=== PATIENT | female | born 1935 | race Caucasian/White ===

== ENCOUNTER → 2016-08-24 | Outpatient (CLI) | payer MEDICARE ==
--- NOTE | 2016-08-25 13:07 | XR ---
EXAMINATION TYPE: XR chest 2V DATE OF EXAM: 08/24/2016 COMPARISON: Prior chest x-ray 08/12/2015 HISTORY: Cough TECHNIQUE: Frontal and lateral views of the chest are obtained. FINDINGS: There is no focal air space opacity, pleural effusion, or pneumothorax seen. The cardiac silhouette size is stable. There is a mild spinal curvature. Prominent lung volumes are again noted suggestive of COPD. There is bronchial wall thickening. The osseous structures are intact. IMPRESSION: Correlate for reactive airways disease, bronchitis. Follow-up as indicated.
== END | disposition home or self-care (01) ==
LOC: RADXRYALE 08:37
PROVIDERS: ATTEND Internal Medicine
DX: R05 Cough (principal)
CPT/HCPCS: 71020

== ENCOUNTER → 2016-09-01 | Outpatient (CLI) | payer MEDICARE ==
[2016-09-01 19:00] LABS: Blood Urea Nitrogen 18 mg/dL (7-17); Non-African American GFR(MDRD) >60 (>60 ml/min/1.73 sqM)
--- NOTE | 2016-09-01 20:31 | CT ---
EXAMINATION TYPE: CT chest w con DATE OF EXAM: 09/01/2016 COMPARISON: 05/23/2013 HISTORY: Cough and chest congestion x [address] DLP: 520.00 mGycm Automated exposure control for dose reduction was used. CONTRAST: CT scan of the chest is performed with IV Contrast, patient injected with 100 mL of Omnipaque 300. FINDINGS: There is minimal reticular density at the lung apices consistent with scarring. There are tiny reticu lar nodular densities in both lungs. There is a 1.5 cm nodular density adjacent to the pleura at the right posterior lung base. There is no pleural effusion. There is no adrenal mass. There are no hilar masses. There is no mediastinal adenopathy. There is mild atheromatous change in t he thoracic aorta. There is no evidence of aortic aneurysm or dissection. There are mild spondylotic changes in the thoracic spine. There is no compression fracture. There is a small hiatal hernia.. IMPRESSION: Mild pulmonary fibrotic changes. Small hiatal hernia. Mild atherosclerotic vascular dise ase. There is a new 1.5 cm irregular nodular density adjacent to the pleura at the right posterior lung ba se compared to old CT scan. The appearance is nonspecific. I would consider possibilities of focal at electasis, pneumonia, tumor. Follow-up is recommended.
== END | disposition home or self-care (01) ==
LOC: RADCTMAIN 18:26
PROVIDERS: ATTEND Internal Medicine
DX: J84.10 Pulmonary fibrosis, unspecified (principal); I70.90 Unspecified atherosclerosis; R91.8 Other nonspecific abnormal finding of lung field
CPT/HCPCS: 82565; 84520; 71260; 36415; Q9967

== ENCOUNTER 2017-06-29 06:53 | Observation (INO) | payer MEDICARE ==
[2017-06-29] MEDS ORDERED: DIPH,PERTUS(ACELL)TETVAC-LF 0.5 ML VIAL IM ONE (07:18)
--- NOTE | 2017-06-29 07:20 | ED ---
General Adult HPI - General Chief complaint: Fall Stated complaint: Fall Time Seen by Provider: 06/29/17 07:08 Source: patient, family, EMS, RN notes reviewed Mode of arrival: EMS Limitations: no limitations - History of Present Illness Initial comments: 81-year-old female presents for evaluation status post fall. Patient fell forward onto her face. There was positive loss consciousness. Patient is not currently on blood thinners. Past medical history of hypertension and hypercholesterolemia. She states that over the past 24 hours she has not felt well, she's been weak, coughing, runny nose. Denies nausea vomiting. Denies chest pain. Denies any preceding symptoms prior to the fall. She currently is complaining of facial pain and pain in her nose. No other head or neck pain. Denies dysuria. Denies lower extremity pain. Patient was ambulatory after the fall. - Related Data Home Medications Medication Instructions Recorded Confirmed Aspirin EC [Ecotrin Low Dose] 81 mg PO DAILY 06/29/17 06/29/17 Ibuprofen [Motrin] 800 mg PO Q6H PRN 06/29/17 06/29/17 LORazepam [Ativan] 0.5 mg PO BID PRN 06/29/17 06/29/17 Lisinopril [Zestril] 20 mg PO DAILY 06/29/17 06/29/17 Meclizine HCl [Bonine] 25 mg PO DAILY 06/29/17 06/29/17 Omeprazole 20 mg PO DAILY 06/29/17 06/29/17 Plant Stanol Mary [Cholest Off] 450 mg PO DAILY 06/29/17 06/29/17 Allergies Allergy/AdvReac Type Severity Reaction Status Date / Time grapefruit Allergy Unknown Verified 06/29/17 08:33 loratadine [From Claritin] Allergy Nausea & Verified 06/29/17 08:33 Vomiting pseudoephedrine Allergy Dyspnea Verified 06/29/17 08:33 [From Sudafed] strawberry Allergy Unknown Verified 06/29/17 08:33 Review of Systems ROS Statement: Those systems with pertinent positive or pertinent negative responses have been documented in the HPI. ROS Other: All systems not noted in ROS Statement are negative. Past Medical History Past Medical History: Hyperlipidemia, Hypertension Additional Past Medical History / Comment(s): vertigo History of Any Multi-Drug Resistant Organisms: None Reported Past Surgical History: Cholecystectomy Additional Past Surgical History / Comment(s): vein ligation both legs Past Psychological History: No Psychological Hx Reported Smoking Status: Current every day smoker Past Alcohol Use History: Occasional Past Drug Use History: None Reported General Exam Limitations: no limitations General appearance: alert, in no apparent distress Head exam: Present: atraumatic, normocephalic Eye exam: Present: normal appearance, PERRL, EOMI ENT exam: Present: other (4 cm linear laceration over the anterior surface the nose) Neck exam: Present: other (C-collar in place) Respiratory exam: Present: normal lung sounds bilaterally. Absent: respiratory distress Cardiovascular Exam: Present: regular rate, normal rhythm GI/Abdominal exam: Present: soft. Absent: distended, tenderness Extremities exam: Present: normal inspection, normal capillary refill. Absent: pedal edema, joint swelling, calf tenderness Back exam: Present: normal inspection, full ROM. Absent: tenderness Neurological exam: Present: alert, oriented X3, CN II-XII intact. Absent: motor sensory deficit Psychiatric exam: Present: normal affect, normal mood Skin exam: Present: warm, dry, intact. Absent: cyanosis, diaphoretic Course Vital Signs 06/29/17 06/29/17 06/29/17 06:57 08:07 09:58 Temperature 100.3 F H 101.3 F H Pulse Rate 88 86 Pulse Rate [ Sitting] Pulse Rate [ Standing] Pulse Rate [ Supine] Respiratory 18 17 Rate Blood Pressure 183/90 168/89 Blood Pressure [Right Arm] Blood Pressure [Sitting] Blood Pressure [Standing] O2 Sat by Pulse 96 96 Oximetry 06/29/17 10:08 Temperature Pulse Rate Pulse Rate [ 94 Sitting] Pulse Rate [ 96 Standing] Pulse Rate [ 95 Supine] Respiratory 17 Rate Blood Pressure Blood Pressure 158/80 [Right Arm] Blood Pressure 148/85 [Sitting] Blood Pressure 156/80 [Standing] O2 Sat by Pulse Oximetry EKG Findings - EKG Comments: EKG Findings:: Normal sinus rhythm, left anterior fascicular block, no ST segment elevation, poor baseline in several leads secondary to fine tremor most notably V5. Ventricular rate of 86, IN interval 172, QRS duration 94, QTC 440 Procedures - Laceration Laceration #1 Consent Obtained: verbal consent Time Out Performed: Yes Indication: laceration Site: face Description: linear, flap, clean Depth: [id number] (Those underlying cartilage) Anesthetic Used: lidocaine 1% Anesthesia Technique: local infiltration Amount (mls): 7 Pre-repair: wound explored, irrigated extensively Type of Sutures: nylon (10), other (1 Vicryl Suture through cartilage) Size of Sutures: 6-0 Technique: simple, interrupted Patient Tolerated Procedure: well Additional Comments: open fracture through cartilage, patient given prophylactic antibiotics Medical Decision Making - Medical Decision Making 81-year-old female presents with syncopal episode and facial injury. Patient has large laceration of the nose with involvement of cartilage. This is repaired in the emergency department. Case is discussed with ENT on-call Dr. Hernandez he recommends prophylactic antibiotics and outpatient evaluation. Regarding patient's syncopal episode, she denied any chest pain or palpitations prior to the fall. EKG shows normal sinus rhythm. She has had some upper respiratory tract symptoms including cough and rhinorrhea. She is febrile in the emergency department. X-ray is negative for pneumonia. Influenza is negative. Patient receives IV hydration, she feels somewhat better in emergency department although she is uncomfortable with going home, she does live alone. She will be admitted for IV hydration, and telemetry. - Lab Data Result diagrams: 06/29/17 07:00 06/29/17 07:00 Lab Results 06/29/17 06/29/17 06/29/17 Range/Units 07:00 07:00 07:00 WBC 5.4 (3.8-10.6) k/uL RBC 4.46 (3.80-5.40) m/uL Hgb 13.4 (11.4-16.0) gm/dL Hct 39.6 (34.0-46.0) % MCV 88.9 (80.0-100.0) fL MCH 30.0 (25.0-35.0) pg MCHC 33.8 (31.0-37.0) g/dL RDW 12.8 (11.5-15.5) % Plt Count 164 (150-450) k/uL Neutrophils % 75 % Lymphocytes % 9 % Monocytes % 9 % Eosinophils % 4 % Basophils % 0 % Neutrophils # 4.0 (1.3-7.7) k/uL Lymphocytes # 0.5 L (1.0-4.8) k/uL Monocytes # 0.5 (0-1.0) k/uL Eosinophils # 0.2 (0-0.7) k/uL Basophils # 0.0 (0-0.2) k/uL Sodium 141 (137-145) mmol/L Potassium 4.4 (3.5-5.1) mmol/L Chloride 108 H (98-107) mmol/L Carbon Dioxide 25 (22-30) mmol/L Anion Gap 8 mmol/L BUN 13 (7-17) mg/dL Creatinine 0.72 (0.52-1.04) mg/dL Est GFR (CKD-EPI)AfAm >90 (>60 ml/min/1.73 sqM) Est GFR (CKD-EPI)NonAf 79 (>60 ml/min/1.73 sqM) Glucose 127 H (74-99) mg/dL Plasma Lactic Acid Bobby 0.7 (0.7-2.0) mmol/L Calcium 8.6 (8.4-10.2) mg/dL Total Bilirubin 0.4 (0.2-1.3) mg/dL AST 17 (14-36) U/L ALT 20 (9-52) U/L Alkaline Phosphatase 61 (38-126) U/L Total Protein 5.9 L (6.3-8.2) g/dL Albumin 3.7 (3.5-5.0) g/dL Urine Color Urine Appearance (Clear) Urine pH (5.0-8.0) Ur Specific [place] (1.001-1.035) Urine Protein (Negative) Urine Glucose (UA) (Negative) Urine Ketones (Negative) Urine Blood (Negative) Urine Nitrite (Negative) Urine Bilirubin (Negative) Urine Urobilinogen (<2.0) mg/dL Ur Leukocyte Esterase (Negative) Urine RBC (0-5) /hpf Urine WBC (0-5) /hpf Ur Squamous Epith Cells (0-4) /hpf Urine Mucus (None) /hpf Influenza Type A RNA (Not Detectd) Influenza Type B (PCR) (Not Detectd) 06/29/17 06/29/17 Range/Units 07:20 09:40 WBC (3.8-10.6) k/uL RBC (3.80-5.40) m/uL Hgb (11.4-16.0) gm/dL Hct (34.0-46.0) % MCV (80.0-100.0) fL MCH (25.0-35.0) pg MCHC (31.0-37.0) g/dL RDW (11.5-15.5) % Plt Count (150-450) k/uL Neutrophils % % Lymphocytes % % Monocytes % % Eosinophils % % Basophils % % Neutrophils # (1.3-7.7) k/uL Lymphocytes # (1.0-4.8) k/uL Monocytes # (0-1.0) k/uL Eosinophils # (0-0.7) k/uL Basophils # (0-0.2) k/uL Sodium (137-145) mmol/L Potassium (3.5-5.1) mmol/L Chloride (98-107) mmol/L Carbon Dioxide (22-30) mmol/L Anion Gap mmol/L BUN (7-17) mg/dL Creatinine (0.52-1.04) mg/dL Est GFR (CKD-EPI)AfAm (>60 ml/min/1.73 sqM) Est GFR (CKD-EPI)NonAf (>60 ml/min/1.73 sqM) Glucose (74-99) mg/dL Plasma Lactic Acid Bobby (0.7-2.0) mmol/L Calcium (8.4-10.2) mg/dL Total Bilirubin (0.2-1.3) mg/dL AST (14-36) U/L ALT (9-52) U/L Alkaline Phosphatase (38-126) U/L Total Protein (6.3-8.2) g/dL Albumin (3.5-5.0) g/dL Urine Color Light Yellow Urine Appearance Clear (Clear) Urine pH 6.5 (5.0-8.0) Ur Specific [place] 1.007 (1.001-1.035) Urine Protein Negative (Negative) Urine Glucose (UA) Negative (Negative) Urine Ketones Negative (Negative) Urine Blood Moderate H (Negative) Urine Nitrite Negative (Negative) Urine Bilirubin Negative (Negative) Urine Urobilinogen <2.0 (<2.0) mg/dL Ur Leukocyte Esterase Negative (Negative) Urine RBC 4 (0-5) /hpf Urine WBC 1 (0-5) /hpf Ur Squamous Epith Cells <1 (0-4) /hpf Urine Mucus Rare H (None) /hpf Influenza Type A RNA Not Detected (Not Detectd) Influenza Type B (PCR) Not Detected (Not Detectd) Disposition Clinical Impression: Syncope, Upper respiratory tract infection, Dehydration, Nasal laceration Disposition: ADMITTED IP TO THIS [facility] Condition: Stable Referrals: Roney Jacob MD [Primary Care Provider] - 1-2 days Decision to Admit Reason: Admit from EC Decision Date: 06/29/17 Decision Time: 11:36
[2017-06-29 07:39] LABS: Basophils % (A) 0 %; Eosinophils # (A) 0.2 k/uL (0-0.7); Eosinophils % (A) 4 %; HCT 39.6 % (34.0-46.0); HGB 13.4 gm/dL (11.4-16.0); Lymphocytes # (A) 0.5 k/uL (1.0-4.8); Lymphocytes % (A) 9 %; MCHC 33.8 g/dL (31.0-37.0); MCV 88.9 fL (80.0-100.0); Mean Platelet Volume 7.6; Monocytes # (A) 0.5 k/uL (0-1.0); Monocytes % (A) 9 %; Neutrophils % (A) 75 %; Platelet Count 164 k/uL (150-450); RBC 4.46 m/uL (3.80-5.40); RDW 12.8 % (11.5-15.5); WBC 5.4 k/uL (3.8-10.6)
[2017-06-29 07:51] LABS: ALT 20 U/L (9-52); AST 17 U/L (14-36); Albumin 3.7 g/dL (3.5-5.0); Alkaline Phosphatase 61 U/L (38-126); Anion Gap 8 mmol/L; Blood Urea Nitrogen 13 mg/dL (7-17); Calcium 8.6 mg/dL (8.4-10.2); Carbon Dioxide 25 mmol/L (22-30); Chloride 108 mmol/L (98-107); Glucose 127 mg/dL (74-99); Potassium 4.4 mmol/L (3.5-5.1); Sodium 141 mmol/L (137-145); Total Bilirubin 0.4 mg/dL (0.2-1.3); Total Protein 5.9 g/dL (6.3-8.2)
--- NOTE | 2017-06-29 07:58 | CT ---
EXAMINATION TYPE: CT brain tori hurt DATE OF EXAM: 06/29/2017 COMPARISON: NONE HISTORY: 81-year-old female with pain after Fall CT DLP: 1690.96 mGycm Automated exposure control for dose reduction was used. Technique: Examination of the head was done in axial plane without intravenous contrast. Coronal and sagittal reconstructions performed. CT of the cervical spine was obtained in axial plane without intravenous injection of contrast mater ial. Coronal and sagittal reformatted images were obtained from the axial views for evaluation of f ractures, spinal alignment and canal. FINDINGS: Head: There is no evidence of acute intracranial hemorrhage, acute ischemic changes, mass, mass-effect, or extra-axial fluid collection. There is no effacement of cerebral sulci or basal subarachnoid cister ns. There is no hydrocephalus. There is no midline shift. [place]-white matter distinction is preserv ed. Empty sella incidentally noted. Mild generalized cerebral cortical volume loss. Mastoid air cells well pneumatized. No calvarial fracture. Cervical spine: The craniocervical junction abnormality, predental space widening, or prevertebral soft tissue swelli ng. There is preserved alignment of the cervical spine but with reversal of the normal cervical lordosis along the lower cervical spine. No acute fracture of the cervical spine. Moderate to advanced disc change particularly in the lower cervical spine from C5 through C7 levels. Disc osteophyte complex at C6-C7 causing moderate spinal canal stenosis. Facet and uncovertebral joint degenerative change is also present. This causes moderate left neural f oraminal stenosis at C4-C5, moderate bilateral at C5-C6, mild to moderate left and mild right and C6- C7. Sagittal and coronal reformatted images confirm above findings. COMBINED IMPRESSION: 1. No acute intracranial abnormality seen. 2. No acute fracture or malalignment of the cervical spine. Moderate to advanced spondylotic change m id to lower cervical spine. This results in a moderate spinal canal stenosis at C6-C7 and variable mi ld to moderate neural foraminal narrowing. 3. Facial bones reported separately.
--- NOTE | 2017-06-29 08:10 | CT ---
EXAMINATION TYPE: CT facial bones wo con DATE OF EXAM: 06/29/2017 COMPARISON: 09/25/2012 HISTORY: 81-year-old female with pain after Fall. Fell hitting face. Nasal region laceration. TECHNIQUE: Contiguous axial scanning of the facial bones without IV contrast. Coronal and sagittal re constructions performed. CT DLP: 556.04 mGycm Automated exposure control for dose reduction was used. FINDINGS: Prominent atherosclerotic calcifications at the carotid bifurcations. Mandible is intact. The pterygoid plates and zygomatic arches are intact. Trace mucosal thickening in the anterior ethmoid air cells and right maxillary sinus. No air-fluid le vels. Some soft tissue swelling and tiny punctate focus of soft tissue air in the midline and right paramed silvina nose. Associated skin defect noted axial image 42. No nasal bone or other facial bone fractures seen. Orbits and globes are intact. Rightward nasal septal deviation. IMPRESSION: SOFT TISSUE INJURY TO THE NOSE. NO UNDERLYING ACUTE NASAL BONE OR FACIAL BONE FRACTURE.
--- NOTE | 2017-06-29 08:55 | XR ---
EXAMINATION TYPE: XR chest 2V DATE OF EXAM: 06/29/2017 COMPARISON: 08/24/2016 HISTORY: 81-year-old female syncopal episode, fall, pain TECHNIQUE: AP and lateral views FINDINGS: Heart upper limits of normal in size. Mild elongation thoracic aorta. Mild interstitial prominence an d mild hyperinflation. No consolidation or significant pleural effusion. Minimal blunting of the post erior costophrenic angle on the lateral view is unchanged suggesting some pleural parenchymal scarrin g. IMPRESSION: Hyperinflation may reflect underlying COPD or depth of inspiration. No acute process seen.
--- NOTE | 2017-06-29 09:05 | XR ---
EXAMINATION TYPE: XR pelvis AP view DATE OF EXAM: 06/29/2017 COMPARISON: NONE HISTORY: 81-year-old female with pain after fall FINDINGS: There is moderate degenerative change at the right hip and mild degenerative change at the left hip. Osteopenia. No displaced fracture seen. Pubic symphysis and SI joints appear intact. IMPRESSION: Osteopenia without displaced fracture. 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
[2017-06-29] MEDS ORDERED: CEPHALEXIN 500 MG CAP PO STA (09:45)
[2017-06-29 09:59] LABS: Appearance,Urine Clear (Clear); Bilirubin,Urine Negative (Negative); Blood,Urine Moderate (Negative); Color,Urine Light Yellow; Glucose,Urine (UA) Negative (Negative); Ketones,Urine Negative (Negative); Leukocyte Esterase,Urine Negative (Negative); Mucus,Urine Rare /hpf; Nitrite,Urine Negative (Negative); PH, Urine 6.5 (5.0-8.0); Protein,Urine Negative (Negative); RBC,Urine 4 /hpf (0-5); Specific Gravity,Urine 1.007 (1.001-1.035); Squamous Epithelial Cell,Urine <1 /hpf (0-4); Urobilinogen,Urine <2.0 mg/dL (<2.0); WBC,Urine 1 /hpf (0-5)
[2017-06-29] MEDS ORDERED: ACETAMINOPHEN TAB 500 MG TAB PO STA (10:00)
[2017-06-29] MEDS ORDERED: SODIUM CHLORIDE 0.9% 1,000 ML IV ONE (10:00)
[2017-06-29] MEDS ORDERED: ACETAMINOPHEN TAB 325 MG TAB PO PRN (11:36)
[2017-06-29] MEDS ORDERED: NALOXONE 0.4 MG/ML 1 ML VIAL IV PRN ×2 (11:36→22:40)
[2017-06-29] MEDS: OSELTAMIVIR 75 MG CAP PO SCH ×2 (14:03→21:39)
[2017-06-29] MEDS: 0.9% NACL WITH KCL 20 MEQ/L 1,000 ML IV SCH ×2 (14:03→23:30)
[2017-06-29] MEDS: CEPHALEXIN 500 MG CAP PO SCH ×2 (15:46→21:39)
[2017-06-29] MEDS ORDERED: LORazepam 0.5 MG TAB PO PRN (18:40)
[2017-06-29] MEDS: LISINOPRIL 20 MG TAB PO SCH (19:51)
[2017-06-29] MEDS: BACITRACIN 500 UNIT/GM OINT 28.4 GM TUBE TOPICAL SCH (21:39)
[2017-06-29] MEDS ORDERED: LACTULOSE 20 GM/30 ML CUP PO PRN (22:40)
[2017-06-29] MEDS ORDERED: ONDANSETRON 4 MG/2 ML VIAL IVP PRN (22:40)
[2017-06-29] MEDS ORDERED: MELATONIN 3 MG TABLET PO PRN (22:40)
[2017-06-29] MEDS ORDERED: MAGNESIUM HYDROXIDE 2,400 MG/10 ML CUP PO PRN (22:40)
[2017-06-29 22:41] VITALS: RESP 18
--- NOTE | 2017-06-29 23:40 | HP ---
HISTORY AND PHYSICAL DATE OF ADMISSION: 06/29/2017 PRESENT COMPLAINT: Fever, passed out. HISTORY OF PRESENTING COMPLAINT: This is a very pleasant 81-year-old patient of Dr. Jacob. Chronic stable medical conditions include hypertension, hyperlipidemia, hypothyroid, chronic back pain, left- sided sciatica, rosacea. Early this morning, she got up and just not feeling well, had a headache, felt weak, tired, had a temperature, cough, no sputum, aching all over, went down to make coffee and then patient passed out, falling on her face. Her niece, who was present, called 911. The patient had a large laceration on the right side of the nose that was stitched up in the ER. The patient did spike a fever up to 101.3. A flu swab was sent off, but it was very bloody. A good sample could not be obtained because of the clinical picture compatible with the same. She was started on Tamiflu. The patient's daughter is at the bedside. REVIEW OF SYSTEMS: CONSTITUTIONAL: Weak, tired, run down, febrile HEENT: Tear of the right naris with stitches in place. RESPIRATORY: Some shortness of breath. Some cough. CARDIOVASCULAR: None. GASTROINTESTINAL: None. GENITOURINARY: None. MUSCULOSKELETAL: Chronic low back pain. DERMATOLOGICAL: As above. HEMATOLOGICAL: None. LYMPHATIC: None. PSYCHIATRY: None. NEUROLOGICAL: None. PAST MEDICAL HISTORY: DVT, hyperlipidemia, hypertension, hypothyroid, DVT bilateral legs, sinus problems, hemorrhoids, chronic back pain, left sciatica, rosacea, kidney stones. PAST SURGICAL HISTORY: Cholecystectomy, varicose vein ligation of both legs, right ankle surgery. SOCIAL HISTORY: Lives by herself. Has been smoking for close to 45 years, about half a pack a day. Alcohol occasionally. FAMILY HISTORY: Father industrial cause of pneumonia. HOME MEDICATIONS: 1. Plant stanol zhanna 450 mg p.o. daily. 2. Omeprazole 20 mg p.o. daily. 3. Meclizine 25 p.o. daily. 4. Zestril 20 mg p.o. daily. 5. Ativan 0.5 mg p.o. b.i.d. 6. Motrin 800 mg every 6 hours p.r.n. 7. Aspirin 81 mg p.o. daily. ALLERGIES: GRAPEFRUIT, CLARITIN, SUDAFED, STRAWBERRY. EXAMINATION: Temperature 101.3, pulse 94, respirations 17, blood pressure 158/80 pulse ox 95% on room air. GENERAL APPEARANCE: Average build, lying in bed, tired-appearing. EYES: Pupils equal. Conjunctivae normal. HEENT: External appearance of ear, oral cavity normal. The patient has a stitches over the right naris, some dried blood. NECK: JVD not raised. Mass not palpable. RESPIRATORY: Effort normal. LUNGS: Diminished breath sounds. CARDIOVASCULAR: First and second sounds normal. No edema. ABDOMEN: Soft, nontender. Liver and spleen not palpable. LYMPHATIC: No lymph nodes palpable in neck or axillae. PSYCHIATRY: Alert and oriented x3. Mood and affect normal. NEUROLOGICAL: Pupils equal. Cranial nerves grossly intact. Power and sensation grossly intact. MUSCULOSKELETAL: Evidence of osteoarthritis, especially in the hands. INVESTIGATIONS: White count 5.5, hemoglobin 13.4. Potassium 4.4, BUN and creatinine are normal. Patient's first sample had lot of blood in it. Second one is pending. EKG: Normal sinus rhythm. Head and spine CT: Except for some and spondylitic changes and spinal canal stenosis C7, C7. Chest x-ray: Hyperinflation. ASSESSMENT: 1. This patient presented with a high fever, achiness all over body, cough compatible with influenza. A repeat sample has been sent off. In the meantime, patient is currently started on Tamiflu. 2. Syncope, likely vasovagal from #1. 3. Emphysema in a current smoker. 4. Hyperlipidemia. 5. Essential hypertension. 6. Hypothyroid, but the patient is not taking any medication, it seems. 7. Chronic low back pain probably from osteoarthritis. 8. Chronic nicotine dependence. Patient is a cigarette smoker. 9. Laceration of the right nostril secondary to fall, status post stitches. PLAN: The patient will follow up with ENT as an outpatient. In the meantime, patient started on Tamiflu, given IV fluids, given a nicotine patch. Home medications are resumed. The patient feels rather weak, tired, run down. Will hold off Lovenox and give SCDs for DVT prophylaxis. Care was discussed with the patient and daughter at the bedside. Smoking cessation counseling was done with the patient and daughter, including the effects on the COPD. Patient will be given a nicotine patch. More than 3 minutes was spent on this aspect of the case. MMODL / IJN: [id number] /
[2017-06-30] MEDS: NICOTINE 14MG/24HR PATCH TRANSDERM SCH ×2 (04:28→09:06)
[2017-06-30] MEDS ORDERED: PANTOPRAZOLE 40 MG TABLET PO SCH (07:30)
[2017-06-30] MEDS ORDERED: LISINOPRIL 20 MG TAB PO SCH (09:00)
[2017-06-30] MEDS ORDERED: OSELTAMIVIR 75 MG CAP PO SCH (09:00)
[2017-06-30] MEDS ORDERED: ASPIRIN 81 MG PO SCH (09:00)
[2017-06-30] MEDS: 0.9% NACL WITH KCL 20 MEQ/L 1,000 ML IV SCH (09:05)
[2017-06-30] MEDS: OSELTAMIVIR 75 MG CAP PO SCH (09:05)
[2017-06-30] MEDS: LISINOPRIL 20 MG TAB PO SCH (09:06)
[2017-06-30] MEDS: CEPHALEXIN 500 MG CAP PO SCH ×2 (09:06→15:50)
[2017-06-30] MEDS: BACITRACIN 500 UNIT/GM OINT 28.4 GM TUBE TOPICAL SCH ×2 (09:06→12:29)
[2017-06-30 11:25] VITALS: BP 164/80; PULSE 74; TEMP 98.5
--- NOTE | 2017-06-30 21:34 | DS ---
DISCHARGE SUMMARY DATE OF ADMISSION: 06/29/2017 DATE OF DISCHARGE: 06/30/2017 FINAL DIAGNOSES: 1. Acute febrile viral illness, non influenza, affecting the upper respiratory tract. 2. Syncope, likely vasovagal from #1. 3. Emphysema in a current smoker. 4. Hyperlipidemia. 5. Essential hypertension. 6. Chronic low back pain from osteoarthritis. 7. Chronic nicotine dependence in a cigarette smoker. 8. Laceration right nostril secondary to fall, status post stitches. HOSPITAL COURSE: This patient developed a high fever, myalgia with underlying influenza, but influenza screen came back to be negative. The patient at home because of this passed out, had a laceration to the right nostril that was stitched up in the ER. The patient will be follow up with ENT as an outpatient. The patient's symptoms completely subsided, feeling really well, tolerating a diet. EXAM: LUNGS: Slightly decreased breath sounds. CARDIOVASCULAR: First and second sounds normal. Stitches in the right nostril. Care was discussed with the patient and daughter at the bedside. Questions were answered. DISCHARGE MEDICATIONS: 1. Aspirin 81 mg a day. 2. Motrin 800 mg every 6 hours p.r.n. 3. Ativan 0.5 p.o. b.i.d. p.r.n. 4. Zestril 20 mg p.o. daily. 5. Omeprazole 20 mg p.o. daily. 6. Bacitracin topical. 7. Keflex 100 mg p.o. t.i.d., 21 tablets. 8. Nicotine patch size 14. Follow up with Dr. Hernandez on 07/10/2017. Follow up with Dr. Jacob in 2 days 2 days. MMROSALINAL / MOIZN: [id number] /
== END 2017-06-30 17:23 | disposition home or self-care (01) ==
LOC: EC 06:53 → 3OBS 11:36
PROVIDERS: ADMIT Hospitalist; ATTEND Hospitalist
DX: B34.9 Viral infection, unspecified (principal); J06.9 Acute upper respiratory infection, unspecified; R55 Syncope and collapse; E86.0 Dehydration; J43.9 Emphysema, unspecified; F17.210 Nicotine dependence, cigarettes, uncomplicated; S01.21XA Laceration without foreign body of nose, initial encounter; I10 Essential (primary) hypertension; E78.00 Pure hypercholesterolemia, unspecified; E78.5 Hyperlipidemia, unspecified; R42 Dizziness and giddiness; G89.29 Other chronic pain; M54.42 Lumbago with sciatica, left side; M47.9 Spondylosis, unspecified; E03.9 Hypothyroidism, unspecified; L71.9 Rosacea, unspecified; Z87.442 Personal history of urinary calculi; Z86.718 Personal history of other venous thrombosis and embolism; Z79.899 Other long term (current) drug therapy; Z79.82 Long term (current) use of aspirin; Z88.8 Allergy status to other drugs, medicaments and biological substances; Z91.018 Allergy to other foods; W18.30XA Fall on same level, unspecified, initial encounter; Y93.89 Activity, other specified
CPT/HCPCS: 12013 ×2; 99285 ×2; 90471 ×2; 96360 ×2; 96361; 36415; 93005; 80053; 83605; 85025; 81001; 87040; 87086; 87502; 72170; 71046; 72125; 70486; 70450; 90715; G0378 ×2; S4990

== ENCOUNTER 2017-11-24 16:08 | Emergency (ER) | payer MEDICARE ==
[2017-11-24] MEDS ORDERED: ONDANSETRON 4 MG/2 ML VIAL IVP STA (16:49)
[2017-11-24] MEDS ORDERED: SODIUM CHLORIDE 0.9% 1,000 ML IV STA (16:49)
[2017-11-24] MEDS ORDERED: MORPHINE SULFATE 4 MG/ML SYRINGE IV STA (16:49)
[2017-11-24] MEDS ORDERED: SODIUM CHLORIDE 0.9% 500 ML IV STA (16:49)
[2017-11-24 17:10] LABS: Basophils % (A) 1 %; Eosinophils # (A) 0.2 k/uL (0-0.7); Eosinophils % (A) 3 %; HCT 40.2 % (34.0-46.0); HGB 13.5 gm/dL (11.4-16.0); Lymphocytes # (A) 1.2 k/uL (1.0-4.8); Lymphocytes % (A) 18 %; MCH 30.5 pg (25.0-35.0); MCHC 33.5 g/dL (31.0-37.0); MCV 91.1 fL (80.0-100.0); Mean Platelet Volume 7.7; Monocytes # (A) 0.4 k/uL (0-1.0); Monocytes % (A) 7 %; Neutrophils # (A) 4.7 k/uL (1.3-7.7); Neutrophils % (A) 70 %; Platelet Count 192 k/uL (150-450); RBC 4.41 m/uL (3.80-5.40); RDW 12.8 % (11.5-15.5); WBC 6.7 k/uL (3.8-10.6)
[2017-11-24 17:18] LABS: INR 1.1 (<1.2); Partial Thromboplastin Time 24.5 sec (22.0-30.0); Prothrombin Time 10.5 sec (9.0-12.0)
[2017-11-24 17:20] LABS: Calcium 9.4 mg/dL (8.4-10.2); Magnesium 2.1 mg/dL (1.6-2.3); Phosphorus 4.5 mg/dL (2.5-4.5); Potassium 4.4 mmol/L (3.5-5.1); Total Bilirubin 0.5 mg/dL (0.2-1.3); Total Protein 6.4 g/dL (6.3-8.2)
[2017-11-24 17:22] LABS: Creatine Kinase 69 U/L (30-135)
[2017-11-24 17:34] LABS: Creatine Kinase MB 0.6 ng/mL (0.0-2.4); Troponin I <0.012 ng/mL (0.000-0.034)
--- NOTE | 2017-11-24 17:37 | ED ---
General Adult HPI - General Chief complaint: Neuro Symptoms/Deficit Stated complaint: SOB Time Seen by Provider: 11/24/17 16:47 Source: patient, RN notes reviewed, old records reviewed Mode of arrival: wheelchair Limitations: no limitations - History of Present Illness Initial comments: This is a 82-year-old female the ER for evaluation. Patient presents today for evaluation regarding multiple complaints headache dizziness lightheadedness and occasional numbness feeling in her extremities. Patient states she's had more symptoms on and off throughout the day. Patient has complex medical history including history of heart disease hypertension high cholesterol diabetes DVT. Patient states she's never had symptoms quite like this before she has been seen by her family doctor and doctor outpatient management treatment, she was supposed to have Holter monitor which she has not had yet. - Related Data Home Medications Medication Instructions Recorded Confirmed Aspirin EC [Ecotrin Low Dose] 81 mg PO DAILY 06/29/17 11/24/17 Ibuprofen [Motrin] 800 mg PO Q6H PRN 06/29/17 11/24/17 Lisinopril [Zestril] 20 mg PO DAILY 06/29/17 11/24/17 amLODIPine [Norvasc] 5 mg PO DAILY@1500 11/24/17 11/24/17 Allergies Allergy/AdvReac Type Severity Reaction Status Date / Time grapefruit Allergy Anaphylaxis Verified 11/24/17 16:40 loratadine [From Claritin] Allergy Dyspnea Verified 11/24/17 16:40 pseudoephedrine Allergy Dyspnea Verified 11/24/17 16:40 [From Sudafed] strawberry Allergy Anaphylaxis Verified 11/24/17 16:40 Review of Systems ROS Statement: Those systems with pertinent positive or pertinent negative responses have been documented in the HPI. ROS Other: All systems not noted in ROS Statement are negative. Past Medical History Past Medical History: Deep Vein Thrombosis (DVT), Hyperlipidemia, Hypertension, Renal Disease, Skin Disorder, Thyroid Disorder Additional Past Medical History / Comment(s): Vertigo, DVT bilateral legs, bronchitis, sinus problems, hemorrhoids, chronic back pain, L sciatica, rosacia , anemia, kidney stones, UTI, hypothyroid, past R collar bone fracture, past R ankle fx with surgery. History of Any Multi-Drug Resistant Organisms: None Reported Past Surgical History: Cholecystectomy, Orthopedic Surgery Additional Past Surgical History / Comment(s): Varicose vein ligation both legs , R ankle surgery for fracture, colonoscopy. Past Anesthesia/Blood Transfusion Reactions: No Reported Reaction Past Psychological History: No Psychological Hx Reported Smoking Status: Current every day smoker Past Alcohol Use History: None Reported Past Drug Use History: None Reported - Past Family History Father Family Medical History: Pneumonia Additional Family Medical History / Comment(s): Father at the age of 24yrs from industrial caused pneumonia. Mother Family Medical History: Skin Disorder Additional Family Medical History / Comment(s): Mother had psoriatic arthritis, psoriasis. General Exam - General Exam Comments Initial Comments: NIH of 0 Limitations: no limitations General appearance: alert, in no apparent distress Head exam: Present: atraumatic, normocephalic, normal inspection Eye exam: Present: normal appearance, PERRL, EOMI. Absent: scleral icterus, conjunctival injection, periorbital swelling ENT exam: Present: normal exam, mucous membranes moist Neck exam: Present: normal inspection. Absent: tenderness, meningismus, lymphadenopathy Respiratory exam: Present: normal lung sounds bilaterally. Absent: respiratory distress, wheezes, rales, rhonchi, stridor Cardiovascular Exam: Present: regular rate, normal rhythm, normal heart sounds. Absent: systolic murmur, diastolic murmur, rubs, gallop, clicks GI/Abdominal exam: Present: soft, normal bowel sounds. Absent: distended, tenderness, guarding, rebound, rigid Extremities exam: Present: normal inspection, full ROM, normal capillary refill. Absent: tenderness, pedal edema, joint swelling, calf tenderness Back exam: Present: normal inspection Neurological exam: Present: alert, oriented X3, CN II-XII intact Psychiatric exam: Present: normal affect, normal mood Skin exam: Present: warm, dry, intact, normal color. Absent: rash Course Vital Signs 11/24/17 11/24/17 11/24/17 16:25 18:08 18:58 Temperature 98.5 F Pulse Rate 61 66 78 Respiratory 18 18 18 Rate Blood Pressure 152/79 167/96 159/84 O2 Sat by Pulse 97 98 97 Oximetry - Reevaluation(s) Reevaluation #1: 11/24/17 17:37 Family contribute history of multiple nonspecific symptoms included paresthesias Reevaluation #2: 11/24/17 19:12 This is a synthetic throughout ER stay, denying any need for treatment regarding headache or dizziness Reevaluation #3: 11/24/17 19:12 Patient's able to ambulate without difficulty EKG Findings - EKG Comments: EKG Findings:: EKG shows sinus rhythm rate of 65, IA 134, QRS 102, QTc 453 Medical Decision Making - Medical Decision Making 82 female the ER for evaluation presents today for evaluation regards to numbness tingling occasional headache bone pain. Multiple nonspecific symptoms. Patient has no organic cause found will follow-up with primary care as directed - Lab Data Result diagrams: 11/24/17 16:55 11/24/17 16:55 Lab Results 11/24/17 11/24/17 11/24/17 Range/Units 16:55 16:55 16:55 WBC 6.7 (3.8-10.6) k/uL RBC 4.41 (3.80-5.40) m/uL Hgb 13.5 (11.4-16.0) gm/dL Hct 40.2 (34.0-46.0) % MCV 91.1 (80.0-100.0) fL MCH 30.5 (25.0-35.0) pg MCHC 33.5 (31.0-37.0) g/dL RDW 12.8 (11.5-15.5) % Plt Count 192 (150-450) k/uL Neutrophils % 70 % Lymphocytes % 18 % Monocytes % 7 % Eosinophils % 3 % Basophils % 1 % Neutrophils # 4.7 (1.3-7.7) k/uL Lymphocytes # 1.2 (1.0-4.8) k/uL Monocytes # 0.4 (0-1.0) k/uL Eosinophils # 0.2 (0-0.7) k/uL Basophils # 0.0 (0-0.2) k/uL PT (9.0-12.0) sec INR (<1.2) APTT (22.0-30.0) sec Sodium 138 (137-145) mmol/L Potassium 4.4 (3.5-5.1) mmol/L Chloride 106 (98-107) mmol/L Carbon Dioxide 22 (22-30) mmol/L Anion Gap 10 mmol/L BUN 17 (7-17) mg/dL Creatinine 0.87 (0.52-1.04) mg/dL Est GFR (CKD-EPI)AfAm 71 (>60 ml/min/1.73 sqM) Est GFR (CKD-EPI)NonAf 62 (>60 ml/min/1.73 sqM) Glucose 94 (74-99) mg/dL Calcium 9.4 (8.4-10.2) mg/dL Phosphorus 4.5 (2.5-4.5) mg/dL Magnesium 2.1 (1.6-2.3) mg/dL Total Bilirubin 0.5 (0.2-1.3) mg/dL AST 17 (14-36) U/L ALT 22 (9-52) U/L Alkaline Phosphatase 48 (38-126) U/L Total Creatine Kinase 69 (30-135) U/L CK-MB (CK-2) 0.6 (0.0-2.4) ng/mL CK-MB (CK-2) Rel Index 0.9 Troponin I <0.012 (0.000-0.034) ng/mL Total Protein 6.4 (6.3-8.2) g/dL Albumin 4.0 (3.5-5.0) g/dL Urine Color Urine Appearance (Clear) Urine pH (5.0-8.0) Ur Specific Mathews (1.001-1.035) Urine Protein (Negative) Urine Glucose (UA) (Negative) Urine Ketones (Negative) Urine Blood (Negative) Urine Nitrite (Negative) Urine Bilirubin (Negative) Urine Urobilinogen (<2.0) mg/dL Ur Leukocyte Esterase (Negative) Urine RBC (0-5) /hpf Urine WBC (0-5) /hpf Ur Squamous Epith Cells (0-4) /hpf Urine Bacteria (None) /hpf 11/24/17 11/24/17 Range/Units 16:55 18:05 WBC (3.8-10.6) k/uL RBC (3.80-5.40) m/uL Hgb (11.4-16.0) gm/dL Hct (34.0-46.0) % MCV (80.0-100.0) fL MCH (25.0-35.0) pg MCHC (31.0-37.0) g/dL RDW (11.5-15.5) % Plt Count (150-450) k/uL Neutrophils % % Lymphocytes % % Monocytes % % Eosinophils % % Basophils % % Neutrophils # (1.3-7.7) k/uL Lymphocytes # (1.0-4.8) k/uL Monocytes # (0-1.0) k/uL Eosinophils # (0-0.7) k/uL Basophils # (0-0.2) k/uL PT 10.5 (9.0-12.0) sec INR 1.1 (<1.2) APTT 24.5 (22.0-30.0) sec Sodium (137-145) mmol/L Potassium (3.5-5.1) mmol/L Chloride (98-107) mmol/L Carbon Dioxide (22-30) mmol/L Anion Gap mmol/L BUN (7-17) mg/dL Creatinine (0.52-1.04) mg/dL Est GFR (CKD-EPI)AfAm (>60 ml/min/1.73 sqM) Est GFR (CKD-EPI)NonAf (>60 ml/min/1.73 sqM) Glucose (74-99) mg/dL Calcium (8.4-10.2) mg/dL Phosphorus (2.5-4.5) mg/dL Magnesium (1.6-2.3) mg/dL Total Bilirubin (0.2-1.3) mg/dL AST (14-36) U/L ALT (9-52) U/L Alkaline Phosphatase (38-126) U/L Total Creatine Kinase (30-135) U/L CK-MB (CK-2) (0.0-2.4) ng/mL CK-MB (CK-2) Rel Index Troponin I (0.000-0.034) ng/mL Total Protein (6.3-8.2) g/dL Albumin (3.5-5.0) g/dL Urine Color Colorless Urine Appearance Clear (Clear) Urine pH 5.5 (5.0-8.0) Ur Specific Mathews 1.005 (1.001-1.035) Urine Protein Negative (Negative) Urine Glucose (UA) Negative (Negative) Urine Ketones Negative (Negative) Urine Blood Trace H (Negative) Urine Nitrite Negative (Negative) Urine Bilirubin Negative (Negative) Urine Urobilinogen <2.0 (<2.0) mg/dL Ur Leukocyte Esterase Negative (Negative) Urine RBC 1 (0-5) /hpf Urine WBC <1 (0-5) /hpf Ur Squamous Epith Cells <1 (0-4) /hpf Urine Bacteria Rare H (None) /hpf - Radiology Data Radiology results: report reviewed (CT brain negative for acute disease, chest x -ray negative), image reviewed Disposition Clinical Impression: Paresthesia Disposition: HOME SELF-CARE Condition: Good Instructions: Paresthesia (ED) Is patient prescribed a controlled substance at d/c from ED?: No Referrals: Roney Jacob MD [Primary Care Provider] - 1-2 days
--- NOTE | 2017-11-24 17:53 | CT ---
EXAMINATION TYPE: CT brain wo con DATE OF EXAM: 11/24/2017 COMPARISON: 06/29/2017 HISTORY: Weakness, dizziness. CT DLP: 1091 mGycm Automated exposure control for dose reduction was used. FINDINGS: Ventricles of normal size. There is no mass effect nor midline shift. There is no sign of intracrania l hemorrhage. The calvarium is intact. IMPRESSION: NEGATIVE HEAD CT SCAN. NO CHANGE.
--- NOTE | 2017-11-24 18:25 | XR ---
EXAMINATION TYPE: XR chest 2V DATE OF EXAM: 11/24/2017 COMPARISON: 06/29/2017 HISTORY: Weakness TECHNIQUE: Frontal and lateral views of the chest are obtained. FINDINGS: Heart is normal. Thoracic aorta is atheromatous. Costophrenic angles are clear. There are chest leads. Bony thorax is intact. IMPRESSION: No active cardiopulmonary disease. Atheromatous aorta. Normal heart. No change.
[2017-11-24 18:34] LABS: Appearance,Urine Clear (Clear); Bacteria,Urine Rare /hpf; Bilirubin,Urine Negative (Negative); Blood,Urine Trace (Negative); Color,Urine Colorless; Glucose,Urine (UA) Negative (Negative); Ketones,Urine Negative (Negative); Leukocyte Esterase,Urine Negative (Negative); Nitrite,Urine Negative (Negative); PH, Urine 5.5 (5.0-8.0); Protein,Urine Negative (Negative); RBC,Urine 1 /hpf (0-5); Specific Gravity,Urine 1.005 (1.001-1.035); Squamous Epithelial Cell,Urine <1 /hpf (0-4); Urobilinogen,Urine <2.0 mg/dL (<2.0); WBC,Urine <1 /hpf (0-5)
[2017-11-24 19:24] VITALS: BP 166/87; PULSE 68; RESP 19; TEMP 98.1
== END 2017-11-24 19:22 | disposition home or self-care (01) ==
LOC: EC 16:08
DX: R20.2 Paresthesia of skin (principal); R20.0 Anesthesia of skin; R51 Headache; M89.8X9 Other specified disorders of bone, unspecified site; I10 Essential (primary) hypertension; G89.29 Other chronic pain; F17.200 Nicotine dependence, unspecified, uncomplicated; Z88.8 Allergy status to other drugs, medicaments and biological substances; Z91.018 Allergy to other foods; Z79.82 Long term (current) use of aspirin; Z79.899 Other long term (current) drug therapy; Z82.61 Family history of arthritis; R42 Dizziness and giddiness
CPT/HCPCS: 36415; 70450; 71046; 80053; 81001; 82550; 82553; 83735; 84100; 84484; 85025; 85610; 85730; 87086; 93005; 96360; 96361; 99285

== ENCOUNTER 2018-08-29 08:46 | Observation (INO) | payer MEDICARE ==
[2018-08-29] MEDS ORDERED: MORPHINE SULFATE 4 MG/ML SYRINGE IM STA (09:36)
[2018-08-29] MEDS ORDERED: ORPHENADRINE 30 MG/ML 2 ML VIAL IM STA (09:36)
--- NOTE | 2018-08-29 09:57 | ED ---
Back Pain HPI - General Chief Complaint: Back Pain/Injury Stated Complaint: rt leg pain Time Seen by Provider: 08/29/18 09:03 Source: patient, RN notes reviewed, old records reviewed Limitations: no limitations - History of Present Illness Initial Comments: Patient is an 83-year-old female presents weren't performed today with complaints of 2 weeks of progressive lower back pain radiating down her leg. Patient states that the pain seems to actually originally from her leg and recently started to cause increasing pain in her back. Patient states that she has been seen by her PCP and is scheduled for an outpatient MRI. She relates that she has had no saddle anesthesias. Patient states that she was initially started on gabapentin 2 days ago for relief of her symptoms. Patient states it seems like her pain change to become more severe. Denies any cold extremities. She does report pins and needles sensation down the leg. Patient reports she had x-rays out patiently at her primary care doctor's office. She reports no carotid results them but was informed that her back was "very bad". - Related Data Home Medications Medication Instructions Recorded Confirmed Aspirin EC [Ecotrin Low Dose] 81 mg PO DAILY 06/29/17 08/29/18 Ibuprofen [Motrin] 800 mg PO Q6H PRN 06/29/17 08/29/18 Lisinopril [Zestril] 20 mg PO DAILY 06/29/17 08/29/18 amLODIPine [Norvasc] 5 mg PO DAILY@1500 11/24/17 08/29/18 Gabapentin [Neurontin] 100 mg PO TID 08/29/18 08/29/18 HYDROcodone/APAP 7.5-325MG [[place] 1 tab PO BID 08/29/18 08/29/18 7.5-325] LORazepam [Ativan] 0.5 mg PO DAILY PRN 08/29/18 08/29/18 Previous Rx's Medication Instructions Recorded Cyclobenzaprine [Flexeril] 10 mg PO TID #15 tab 08/29/18 Allergies Allergy/AdvReac Type Severity Reaction Status Date / Time grapefruit Allergy Anaphylaxis Verified 08/29/18 08:59 loratadine [From Claritin] Allergy Dyspnea Verified 08/29/18 08:59 pseudoephedrine Allergy Dyspnea Verified 08/29/18 08:59 [From Sudafed] strawberry Allergy Anaphylaxis Verified 08/29/18 08:59 Review of Systems ROS Statement: Those systems with pertinent positive or pertinent negative responses have been documented in the HPI. ROS Other: All systems not noted in ROS Statement are negative. Past Medical History Past Medical History: Deep Vein Thrombosis (DVT), Hyperlipidemia, Hypertension, Renal Disease, Skin Disorder, Thyroid Disorder Additional Past Medical History / Comment(s): Vertigo, DVT bilateral legs, bronchitis, sinus problems, hemorrhoids, chronic back pain, L sciatica, rosacia, anemia, kidney stones, UTI, hypothyroid, past R collar bone fracture, past R ankle fx with surgery. History of Any Multi-Drug Resistant Organisms: None Reported Past Surgical History: Cholecystectomy, Orthopedic Surgery Additional Past Surgical History / Comment(s): Varicose vein ligation both legs, R ankle surgery for fracture, colonoscopy. Past Anesthesia/Blood Transfusion Reactions: No Reported Reaction Past Psychological History: No Psychological Hx Reported Smoking Status: Current every day smoker Past Alcohol Use History: None Reported Past Drug Use History: None Reported - Past Family History Father Family Medical History: Pneumonia Additional Family Medical History / Comment(s): Father at the age of 24yrs from industrial caused pneumonia. Mother Family Medical History: Skin Disorder Additional Family Medical History / Comment(s): Mother had psoriatic arthritis, psoriasis. General Exam - General Exam Comments Initial Comments: 83-year-old female. Alert and oriented. No significant distress. Limitations: no limitations General appearance: alert, in no apparent distress Head exam: Present: atraumatic, normocephalic, normal inspection Eye exam: Present: normal appearance, PERRL, EOMI. Absent: scleral icterus, conjunctival injection, periorbital swelling ENT exam: Present: normal exam, mucous membranes moist Neck exam: Present: normal inspection. Absent: tenderness, meningismus, lymphadenopathy Respiratory exam: Present: normal lung sounds bilaterally. Absent: respiratory distress, wheezes, rales, rhonchi, stridor Cardiovascular Exam: Present: regular rate, normal rhythm, normal heart sounds. Absent: systolic murmur, diastolic murmur, rubs, gallop, clicks GI/Abdominal exam: Present: soft, normal bowel sounds. Absent: distended, tenderness, guarding, rebound, rigid Extremities exam: Present: normal inspection, full ROM, tenderness (Lumbar spinal tenderness), normal capillary refill. Absent: pedal edema, joint swelling, calf tenderness Back exam: Present: normal inspection Neurological exam: Present: alert Psychiatric exam: Present: normal affect, normal mood Skin exam: Present: warm, dry, intact, normal color. Absent: rash Course Vital Signs 08/29/18 08:47 Temperature 98.6 F Pulse Rate 63 Respiratory 18 Rate Blood Pressure 155/78 O2 Sat by Pulse 97 Oximetry Medical Decision Making - Medical Decision Making A 3-year-old female with worsening back pain and pain range on the right leg. - Radiology Data Radiology results: report reviewed Multilevel degenerative changes and lumbar spine, more prominent right-sided neural foraminal narrowing noted in lumbar lumbar levels. Disposition Clinical Impression: DDD (degenerative disc disease), Sciatica, right side Disposition: HOME SELF-CARE Condition: Good Instructions (If sedation given, give patient instructions): Lumbar Disc Herniation (ED), Lumbar Radiculopathy (ED) Additional Instructions: Patient is advised to take her medications as prescribed as well as muscle relaxers and pain medicine. Have close follow-up with her primary care doctor and fabrication specialist. Return to emergency department if any alarming signs or symptoms occur. Prescriptions: Cyclobenzaprine [Flexeril] 10 mg PO TID #15 tab Is patient prescribed a controlled substance at d/c from ED?: No Referrals: Roney Jacob MD [Primary Care Provider] - 1-2 days Linda Larkin DO [Doctor of Osteopathic Medicine] - 1-2 days Time of Disposition: 10:41
--- NOTE | 2018-08-29 10:36 | CT ---
EXAMINATION TYPE: CT lumbar spine wo con DATE OF EXAM: 08/29/2018 10:02 AM COMPARISON: None. HISTORY: Rt leg pain CT DLP: 632.3 mGycm Automated exposure control for dose reduction was used. Unenhanced CT of the lumbar spine was performed. Bone and soft tissue window settings are submitted as well as coronal and sagittal reconstructions. There are 5 lumbar-type vertebra. There is slight S-shaped scoliotic curvature. No acute fracture or dislocation is seen. There is moderate disc space narrowing with vacuum disc phenomenon L5-S1 level. Mild to moderate multilevel anterior and lateral spurring is present. Review of axial images shows mild facet degenerative changes at T12-L1 level. Axial images at L1-L2 level show mild broad disc bulge mildly effacing anterior thecal sac with mild facet degenerative changes and ligamentum flavum hypertrophy effacing posterior lateral thecal sac. Axial images at the L2-L3 level show moderate broad disc bulge effacing anterior thecal sac with mild facet degenerative changes bilaterally. There is mild to moderate left-sided anterior inferior neura l foraminal narrowing due to left foraminal disc protrusion component axial image 34. Axial images at the L3-L4 level show moderate broad-based posterior disc protrusion effacing anterior thecal sac with mild facet degenerative changes and ligamentum flavum hypertrophy effacing posterior lateral thecal sac on axial image 45, there is mild left-sided anterior inferior neural foraminal na rrowing seen. Axial images at the L4-L5 level show moderate facet degenerative changes bilaterally with mild to mod erate broad-based posterior disc protrusion effacing anterior thecal sac. There is moderate right and mild to moderate left-sided anterior inferior neural foraminal narrowing. Axial images at L5-S1 level show mild/moderate facet degenerative changes bilaterally. There is centr al disc protrusion seen but spinal canal is preserved. There is mild to moderate right-sided neural f oraminal narrowing noted. There is moderate calcified plaque in ectatic abdominal aorta. IMPRESSION: Multilevel degenerative changes in lumbar spine as detailed above, more prominent right-s ided neural foraminal narrowing noted in lower lumbar levels.
[2018-08-29] MEDS ORDERED: ACET/COD 300 MG/30 MG STARTER PACK 6 TAB BTL PO STA (10:44)
[2018-08-29] MEDS ORDERED: LISINOPRIL 20 MG TAB PO STA (11:03)
[2018-08-29] MEDS ORDERED: SODIUM CHLORIDE 0.9% 1,000 ML IV STA ×2 (11:07)
[2018-08-29] MEDS ORDERED: ASPIRIN 81 MG PO STA (11:07)
--- NOTE | 2018-08-29 11:13 | ED ---
Medical Decision Making - Medical Decision Making While I was discharging the Patient and advised her follow-up with her primary care doctor in the orthopedic slot service specialist Patient stated she developed chest pain while he was in the room. She states that she has a 3 out of 10 bandlike chest pain wrapping around her left side of her chest. I ordered a stat EKG, which shows normal sinus rhythm, no ST changes. Blood pressure was completed and patient's blood pressure was 200/97. She did not take her blood pressure medications this morning. On second reevaluation she states she continues have completed plates of pain. Discussed checking blood work with her including troponin. She denies any significant cardiac history. Patient's blood work was reviewed and unremarkable, negative troponin. Patient has been given aspirin. She still complains of some mild to out of 10 squeezing chest pain. Patient's case with Dr. RUSSELL. This is Dr. gallo, will admit the Patient for ACS rule out. - Lab Data Result diagrams: 08/29/18 11:11 08/29/18 11:11 Lab Results 08/29/18 08/29/18 08/29/18 Range/Units 11:11 11:11 11:11 WBC 9.5 (3.8-10.6) k/uL RBC 4.55 (3.80-5.40) m/uL Hgb 13.7 (11.4-16.0) gm/dL Hct 41.4 (34.0-46.0) % MCV 90.9 (80.0-100.0) fL MCH 30.0 (25.0-35.0) pg MCHC 33.0 (31.0-37.0) g/dL RDW 15.2 (11.5-15.5) % Plt Count 196 (150-450) k/uL Neutrophils % 68 % Lymphocytes % 20 % Monocytes % 7 % Eosinophils % 2 % Basophils % 0 % Neutrophils # 6.5 (1.3-7.7) k/uL Lymphocytes # 1.9 (1.0-4.8) k/uL Monocytes # 0.7 (0-1.0) k/uL Eosinophils # 0.2 (0-0.7) k/uL Basophils # 0.0 (0-0.2) k/uL PT 10.1 (9.0-12.0) sec INR 0.9 (<1.2) APTT 21.4 L (22.0-30.0) sec Sodium 141 (137-145) mmol/L Potassium 4.4 (3.5-5.1) mmol/L Chloride 107 (98-107) mmol/L Carbon Dioxide 29 (22-30) mmol/L Anion Gap 5 mmol/L BUN 17 (7-17) mg/dL Creatinine 0.77 (0.52-1.04) mg/dL Est GFR (CKD-EPI)AfAm 82 (>60 ml/min/1.73 sqM) Est GFR (CKD-EPI)NonAf 71 (>60 ml/min/1.73 sqM) Glucose 95 (74-99) mg/dL Calcium 9.7 (8.4-10.2) mg/dL Magnesium 2.2 (1.6-2.3) mg/dL Total Bilirubin 0.7 (0.2-1.3) mg/dL AST 62 H (14-36) U/L ALT 26 (9-52) U/L Alkaline Phosphatase 56 (38-126) U/L Troponin I (0.000-0.034) ng/mL NT-Pro-B Natriuret Pep pg/mL Total Protein 6.3 (6.3-8.2) g/dL Albumin 4.1 (3.5-5.0) g/dL 08/29/18 08/29/18 Range/Units 11:11 11:11 WBC (3.8-10.6) k/uL RBC (3.80-5.40) m/uL Hgb (11.4-16.0) gm/dL Hct (34.0-46.0) % MCV (80.0-100.0) fL MCH (25.0-35.0) pg MCHC (31.0-37.0) g/dL RDW (11.5-15.5) % Plt Count (150-450) k/uL Neutrophils % % Lymphocytes % % Monocytes % % Eosinophils % % Basophils % % Neutrophils # (1.3-7.7) k/uL Lymphocytes # (1.0-4.8) k/uL Monocytes # (0-1.0) k/uL Eosinophils # (0-0.7) k/uL Basophils # (0-0.2) k/uL PT (9.0-12.0) sec INR (<1.2) APTT (22.0-30.0) sec Sodium (137-145) mmol/L Potassium (3.5-5.1) mmol/L Chloride (98-107) mmol/L Carbon Dioxide (22-30) mmol/L Anion Gap mmol/L BUN (7-17) mg/dL Creatinine (0.52-1.04) mg/dL Est GFR (CKD-EPI)AfAm (>60 ml/min/1.73 sqM) Est GFR (CKD-EPI)NonAf (>60 ml/min/1.73 sqM) Glucose (74-99) mg/dL Calcium (8.4-10.2) mg/dL Magnesium (1.6-2.3) mg/dL Total Bilirubin (0.2-1.3) mg/dL AST (14-36) U/L ALT (9-52) U/L Alkaline Phosphatase (38-126) U/L Troponin I <0.012 (0.000-0.034) ng/mL NT-Pro-B Natriuret Pep 146 pg/mL Total Protein (6.3-8.2) g/dL Albumin (3.5-5.0) g/dL 08/29/18 11:18 EKG shows normal sinus rhythm left axis deviation, nonspecific ST abnormality. Ventricular rate of 62 bpm. Verbal is 162 ms. QRS ration 98 ms. QT QTc is 404/410 ms. - Radiology Data Radiology results: report reviewed Normal CXR. Disposition Clinical Impression: DDD (degenerative disc disease), Sciatica, right side, Chest pain Disposition: ADMITTED IP TO THIS [facility] Condition: Stable Instructions (If sedation given, give patient instructions): Lumbar Disc Herniation (ED), Lumbar Radiculopathy (ED) Additional Instructions: Patient is advised to take her medications as prescribed as well as muscle relaxers and pain medicine. Have close follow-up with her primary care doctor and slot service specialist. Return to emergency department if any alarming signs or symptoms occur. Prescriptions: Cyclobenzaprine [Flexeril] 10 mg PO TID #15 tab Referrals: Roney Jacob MD [Primary Care Provider] - 1-2 days Pasia,E David, DO [Doctor of Osteopathic Medicine] - 1-2 days
[2018-08-29 11:35] LABS: Basophils % (A) 0 %; Eosinophils # (A) 0.2 k/uL (0-0.7); Eosinophils % (A) 2 %; HCT 41.4 % (34.0-46.0); HGB 13.7 gm/dL (11.4-16.0); Lymphocytes # (A) 1.9 k/uL (1.0-4.8); Lymphocytes % (A) 20 %; MCV 90.9 fL (80.0-100.0); Mean Platelet Volume 7.3; Monocytes # (A) 0.7 k/uL (0-1.0); Monocytes % (A) 7 %; Neutrophils # (A) 6.5 k/uL (1.3-7.7); Neutrophils % (A) 68 %; Platelet Count 196 k/uL (150-450); RBC 4.55 m/uL (3.80-5.40); RDW 15.2 % (11.5-15.5); WBC 9.5 k/uL (3.8-10.6)
--- NOTE | 2018-08-29 11:37 | XR ---
EXAMINATION TYPE: XR chest 2V DATE OF EXAM: 08/29/2018 COMPARISON: Chest x-ray November 24, 2017. HISTORY: Chest pain today. TECHNIQUE: Frontal and lateral views of the chest are obtained. FINDINGS: Overlying EKG leads are redemonstrated. There is no focal air space opacity, pleural effus ion, or pneumothorax seen. The cardiac silhouette size is within normal limits. Subchondral cystic c hange in bilateral humeral head is noted. IMPRESSION: No acute process. No significant change from prior.
[2018-08-29 11:40] LABS: Albumin 4.1 g/dL (3.5-5.0); Calcium 9.7 mg/dL (8.4-10.2); Magnesium 2.2 mg/dL (1.6-2.3); Potassium 4.4 mmol/L (3.5-5.1); Total Bilirubin 0.7 mg/dL (0.2-1.3); Total Protein 6.3 g/dL (6.3-8.2)
[2018-08-29 11:49] LABS: INR 0.9 (<1.2); Prothrombin Time 10.1 sec (9.0-12.0)
[2018-08-29 11:58] LABS: Partial Thromboplastin Time 21.4 sec (22.0-30.0)
[2018-08-29] MEDS ORDERED: NITROGLYCERIN SL TABS 0.4 MG TAB SUBLINGUAL PRN (12:49)
[2018-08-29] MEDS ORDERED: LORazepam 0.5 MG TAB PO PRN (19:28)
[2018-08-29] MEDS ORDERED: IBUPROFEN 800 MG TAB PO PRN (19:28)
[2018-08-29] MEDS: HYDROcodone/APAP 7.5-325MG 1 EACH TAB PO SCH (19:47)
[2018-08-29] MEDS: GABAPENTIN 100 MG CAP PO SCH (19:48)
[2018-08-29] MEDS ORDERED: NAPROXEN 250 MG TAB PO STA (21:55)
[2018-08-29] MEDS: methylPREDNISolone SOD SUCCI 125 MG/2 ML VIAL IV SCH ×2 (22:14→22:45)
[2018-08-29] MEDS: BACLOFEN 10 MG TAB PO SCH (22:15)
[2018-08-29] MEDS: ENOXAPARIN 40 MG/0.4 ML SYRINGE SQ SCH (22:15)
--- NOTE | 2018-08-30 00:20 | HP ---
HISTORY AND PHYSICAL DATE OF ADMISSION: 08/29/2018 DATE OF SERVICE: 08/29/2018 PRESENTING COMPLAINT: Severe pain in the right leg from the lower back. HISTORY OF PRESENTING COMPLAINT: This is a very pleasant 83-year-old patient of Dr. Jacob. Chronic stable medical conditions include emphysema, hypertension, hyperlipidemia. The patient has been bothered by back pain for a long time, progressively getting worse. Now recently patient has developed more severe pain starting from the back and going down to the knees, sometimes even going down to the foot. Dr. Jacob was planning to do an MRI. The pain became so significant that she decided to come down to the ER. No interference in the bowel or urine. No fever. No chills. No acute injury. The patient had followed up with Dr. Alex and [facility] in the past. She has come to the ER and was being discharged when she developed some bandlike pressure across the chest lasting for a few minutes. No radiation to the hands. Hence she was kept in to be seen by Cardiology. REVIEW OF SYSTEMS: CONSTITUTIONAL: None. HEENT: None. RESPIRATORY: Occasional cough and wheezing. CARDIOVASCULAR: As above. GASTROINTESTINAL: None. GENITOURINARY: None. MUSCULOSKELETAL: Arthritic pain, especially in the lower back, as above. DERMATOLOGICAL: None. HEMATOLOGICAL: None. LYMPHATICS: None. PSYCHIATRY: None. NEUROLOGICAL: As above. PAST MEDICAL HISTORY: 1. Emphysema. 2. Hypertension. 3. Hyperlipidemia. 4. Anemia. 5. Back pain from arthritis. 6. DVT in the left leg. 7. Some kidney disease. 8. Hemorrhoids. 9. Rosacea. 10.Kidney stones. 11.Hypothyroid. PAST SURGICAL HISTORY: 1. Cholecystectomy. 2. Varicose vein ligation in both legs. 3. Right ankle surgery for fracture. SOCIAL HISTORY: Lives alone. Has smoked half a pack a day for close to 45 years. No alcohol. FAMILY HISTORY: Family from pneumonia. HOME MEDICATIONS: 1. Norvasc 5 mg a day. 2. Lisinopril 20 mg a day. 3. Ativan 0.5 p.o. daily p.r.n. 4. Motrin 800 mg q.6 p.r.n. 5. [place] 7.5 one tablet p.o. b.i.d. 6. Neurontin 100 mg t.i.d. 7. Aspirin 81 mg daily. 8. Flexeril 10 mg t.i.d. ALLERGIES: 1. GRAPEFRUIT. 2. CLARITIN. 3. SUDAFED. 4. STRAWBERRY. PHYSICAL EXAMINATION: Temperature 98.3, pulse 51, respiration 16, blood pressure 143/73, pulse ox 95% on room air. GENERAL APPEARANCE: Average build. Lying in bed, not in distress. EYES: Pupils equal. Conjunctivae normal. HEENT: External appearance of nose and ears normal. Oral cavity normal. NECK: JVD not raised. Mass not palpable. RESPIRATORY: Effort normal. LUNGS: Diminished breath sounds with mild expiratory wheezing. CARDIOVASCULAR: First and second sounds normal. No edema. ABDOMEN: Soft, non-tender. Liver and spleen not palpable. LYMPHATIC: No lymph node palpable in neck or axillae. PSYCHIATRY: Alert and oriented x3. Mood and affect normal. NEUROLOGICAL: Pupils equal. Cranial nerves grossly intact. Patient is able to lift the left leg to about 80 degrees, right leg to about 40 degrees. Patient's knee reflex on the right side is less compared to the left knee reflex. Power and sensation grossly preserved. INVESTIGATIONS: White count 9.5, hemoglobin 13.7, potassium 4.4. Troponin x2 negative. EKG tracing, personally reviewed by me, shows normal sinus rhythm, nonspecific ST- segment changes. Chest x-ray film, personally reviewed by me, shows no obvious infiltrate. CT scan of the lumbar spine shows multiple levels of DJD and nerve encroachment and some disc herniation. ASSESSMENT: 1. Anterior chest wall pain in a patient who is a smoker. Other cardiac risk factors include hypertension, hyperlipidemia. Need to rule out a cardiac cause. 2. 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 Patient has followed up with Dr. Alex in the past. Will have the patient evaluated by Dr. Larkin from [facility] as an outpatient. 3. Emphysema in a current smoker. 4. Chronic nicotine dependence. Patient is a cigarette smoker. 5. Essential hypertension. 6. Hyperlipidemia. PLAN: Serial cardiac enzymes are in place. Cardiology is consulted. Will also give patient a burst of steroids, anti-spasmodic NSAIDs. If cleared by Cardiology, I will have the patient follow up with Dr. Larkin as an outpatient. MMODL / IJN: [id number] /
[2018-08-30 07:29] LABS: Cholesterol 195 mg/dL (<200); HDL Cholesterol 58 mg/dL (40-60); LDL Cholesterol,Calculated 117 mg/dL (0-99); Triglycerides 98 mg/dL (<150)
[2018-08-30] MEDS ORDERED: ASPIRIN 325 MG TAB PO SCH (09:00)
[2018-08-30] MEDS: NAPROXEN 250 MG TAB PO SCH ×3 (12:02→21:06)
[2018-08-30] MEDS: HYDROcodone/APAP 7.5-325MG 1 EACH TAB PO SCH ×2 (12:04→21:05)
[2018-08-30] MEDS: BACLOFEN 10 MG TAB PO SCH ×3 (12:05→21:05)
[2018-08-30] MEDS: ENOXAPARIN 40 MG/0.4 ML SYRINGE SQ SCH (12:05)
[2018-08-30] MEDS: ASPIRIN 81 MG PO SCH (12:05)
[2018-08-30] MEDS: GABAPENTIN 100 MG CAP PO SCH ×4 (12:05→21:08)
[2018-08-30] MEDS: LISINOPRIL 20 MG TAB PO SCH (12:05)
[2018-08-30] MEDS: methylPREDNISolone SOD SUCCI 125 MG/2 ML VIAL IV SCH (12:06)
--- NOTE | 2018-08-30 12:12 | P.CRDCN ---
History of Present Illness Consult date: 08/30/18 Chief complaint: Chest pain History of present illness: This is a pleasant 83-year-old female patient who sees Dr. Machado in the office as an outpatient with a past medical history significant for hypertension as well as dyslipidemia presented to the emergency room complaining of right leg discomfort and she was admitted for possible sciatica. During her hospitalization here at the observational unit, she started experiencing chest discomfort. The patient did have to episodes of chest discomfort. She describes the discomfort as a pressure across the chest, with radiation to the epigastric area as well as radiation to the neck. Each episode lasts for few minutes only. No associated symptoms of shortness of breath, sweating, dizzines s, heart racing, or syncope. No established history of coronary artery disease or coronary artery vascularization in the past. The EKG showed sinus rhythm without any ischemic ST or T-wave abnormalities. The cardiac enzymes were checked and came in to be unremarkable. Past Medical History Past Medical History: Deep Vein Thrombosis (DVT), Hyperlipidemia, Hypertension, Renal Disease, Skin Disorder, Thyroid Disorder Additional Past Medical History / Comment(s): Vertigo, DVT L leg, bronchitis, sinus problems, hemorrhoids, chronic back pain with L sciatica in the past, rosacia, anemia, kidney stones-pt passed, UTI, hypothyroid, past R collar bone fracture, past R ankle fx with surgery. History of Any Multi-Drug Resistant Organisms: None Reported Past Surgical History: Cholecystectomy, Orthopedic Surgery Additional Past Surgical History / Comment(s): Varicose vein ligation both legs, R ankle surgery for fracture, colonoscopy. Past Anesthesia/Blood Transfusion Reactions: No Reported Reaction Smoking Status: Current every day smoker - Past Family History Father Family Medical History: Pneumonia Additional Family Medical History / Comment(s): Father at the age of 24yrs from industrial caused pneumonia. Mother Family Medical History: Skin Disorder Additional Family Medical History / Comment(s): Mother had psoriatic arthritis, psoriasis. Medications and Allergies Home Medications Medication Instructions Recorded Confirmed Type Aspirin EC [Ecotrin Low Dose] 81 mg PO DAILY 06/29/17 08/29/18 History Ibuprofen [Motrin] 800 mg PO Q6H PRN 06/29/17 08/29/18 History Lisinopril [Zestril] 20 mg PO DAILY 06/29/17 08/29/18 History amLODIPine [Norvasc] 5 mg PO DAILY@1500 11/24/17 08/29/18 History Cyclobenzaprine [Flexeril] 10 mg PO TID #15 tab 08/29/18 Rx Gabapentin [Neurontin] 100 mg PO TID 08/29/18 08/29/18 History HYDROcodone/APAP 7.5-325MG [[place] 1 tab PO BID 08/29/18 08/29/18 History 7.5-325] LORazepam [Ativan] 0.5 mg PO DAILY PRN 08/29/18 08/29/18 History Allergies Allergy/AdvReac Type Severity Reaction Status Date / Time grapefruit Allergy Anaphylaxis Verified 08/29/18 08:59 loratadine [From Claritin] Allergy Dyspnea Verified 08/29/18 08:59 pseudoephedrine Allergy Dyspnea Verified 08/29/18 08:59 [From Sudafed] strawberry Allergy Anaphylaxis Verified 08/29/18 08:59 Physical Exam Vitals: Vital Signs Temp Pulse Pulse Pulse Resp BP BP 08/30/18 12:00 98.1 F 62 16 144/74 08/30/18 08:00 97.9 F 62 16 131/73 08/30/18 03:50 98.6 F 59 L 16 134/70 08/30/18 03:11 16 08/29/18 23:20 98.7 F 58 L 16 147/76 08/29/18 23:10 16 08/29/18 20:00 16 08/29/18 19:42 98.1 F 61 16 148/71 08/29/18 16:00 98.3 F 61 16 143/73 08/29/18 14:55 08/29/18 13:20 98.1 F 63 18 168/79 08/29/18 13:02 98.0 F 61 16 172/83 08/29/18 12:29 60 60 18 197/97 Pulse Ox 08/30/18 12:00 95 08/30/18 08:00 94 L 08/30/18 03:50 92 L 08/30/18 03:11 08/29/18 23:20 96 08/29/18 23:10 08/29/18 20:00 08/29/18 19:42 95 08/29/18 16:00 95 08/29/18 14:55 98 08/29/18 13:20 97 08/29/18 13:02 98 08/29/18 12:29 98 Intake and Output 08/29/18 08/30/18 08/30/18 22:59 06:59 14:59 Other: Voiding Method Toilet Toilet Toilet # Voids 1 1 - Constitutional General appearance: no acute distress - Respiratory Respiratory: bilateral: CTA - Cardiovascular Rhythm: regular Heart sounds: normal: S1, S2 Results 08/29/18 11:11 08/29/18 11:11 Cardiac Enzymes 08/29/18 08/29/18 08/29/18 Range/Units 11:11 17:23 23:51 Troponin I <0.012 <0.012 <0.012 (0.000-0.034) ng/mL Lipids 08/30/18 Range/Units 06:44 Triglycerides 98 (<150) mg/dL Cholesterol 195 (<200) mg/dL HDL Cholesterol 58 (40-60) mg/dL Current Medications Generic Name Dose Route Start Last Admin Trade Name Freq PRN Reason Stop Dose Admin Hydrocodone Bitart/Acetaminophen 1 each 08/29/18 21:00 08/30/18 12:04 [place] 7.5-325 PO 1 each BID CAREN Administration Aminophylline 100 mg 08/30/18 12:00 Aminophylline IV ONCE PRN Patient Response Amlodipine Besylate 5 mg 08/30/18 15:00 Norvasc PO DAILY@1500 CAREN Aspirin 81 mg 08/30/18 09:00 08/30/18 12:05 Aspirin PO 81 mg DAILY CAREN Administration Baclofen 5 mg 08/29/18 22:00 08/30/18 12:05 Lioresal PO 5 mg TID CAREN Administration Caffeine Citrate 60 mg 08/30/18 12:00 Cafcit Inj IV ONCE PRN Patient Response Enoxaparin Sodium 40 mg 08/29/18 22:00 08/30/18 12:05 Lovenox SQ 40 mg DAILY CAREN Administration Gabapentin 100 mg 08/29/18 22:00 08/30/18 12:05 Neurontin PO 100 mg TID CAREN Administration Dipyridamole 38 mg/ Sodium 57.6 mls @ 864 mls/hr 08/30/18 12:00 Chloride IV 08/30/18 12:01 ONCE ONE Ibuprofen 800 mg 08/29/18 19:28 Motrin PO Q6H PRN Mild Pain Lisinopril 20 mg 08/30/18 09:00 08/30/18 12:05 Zestril PO 20 mg DAILY CAREN Administration Lorazepam 0.5 mg 08/29/18 19:28 Ativan PO DAILY PRN Anxiety Methylprednisolone Sodium Succinate 60 mg 08/29/18 21:52 08/30/18 12:06 Solu-Medrol IV 60 mg Q8HR CAREN Administration Naproxen 250 mg 08/30/18 09:00 08/30/18 12:02 Naprosyn PO 250 mg TID CAREN Administration Nitroglycerin 0.4 mg 08/29/18 12:49 Nitrostat SUBLINGUAL Q5M PRN Chest Pain Intake and Output 08/29/18 08/30/18 08/30/18 22:59 06:59 14:59 Other: Voiding Method Toilet Toilet Toilet # Voids 1 1 08/29/18 11:11 08/29/18 11:11 Assessment and Plan Assessment: Assessment #1 intermittent episodes of chest discomfort seems to be atypical #2 hypertension #3 dyslipidemia Plan #1 the patient was ruled out for acute coronary event #2 in view of the recurrent chest discomfort I would advise proceeding with a stress test #3 the patient will be scheduled to undergo a Persantine Cardiolite stress test tomorrow #4 follow-up with the patient Thank you for allowing us participate in her care
[2018-08-30] MEDS: predniSONE 20 MG TAB PO SCH (14:57)
[2018-08-30] MEDS ORDERED: amLODIPine 5 MG TAB PO SCH (15:00)
--- NOTE | 2018-08-30 19:19 | ECHOF ---
Referral Reason: MEASUREMENTS -------- HEIGHT: 172.7 cm WEIGHT: 66.7 kg BP: 144/74 RVIDd: 3.0 cm (< 3.3) IVSd: 1.3 cm (0.6 - 1.1) LVIDd: 4.5 cm (3.9 - 5.3) LVPWd: 1.5 cm (0.6 - 1.1) IVSs: 2.1 cm LVIDs: 2.1 cm LVPWs: 2.1 cm LAESV Index (A-L): 26.03 ml/m Ao Diam: 3.0 cm (2.0 - 3.7) AV Cusp: 2.3 cm (1.5 - 2.6) LA Diam: 3.2 cm (2.7 - 3.8) MV EXCURSION: 12.148 mm (> 18.000) MV EF SLOPE: 58 mm/s (70 - 150) EPSS: 0.4 cm MV E Ed: 0.81 m/s MV DecT: 258 ms MV A Ed: 1.07 m/s MV E/A Ratio: 0.76 RAP: 5.00 mmHg RVSP: 39.77 mmHg FINDINGS -------- Sinus rhythm. This was a technically good study. The left ventricular size is normal. There is moderate concentric left ventricular hypertrophy. O verall left ventricular systolic function is normal with, an EF between 55 - 60 %. The right ventricle is normal in size. The left atrial size is normal. The right atrial size is normal. Interatrial and interventricular septum intact. The aortic valve is trileaflet and appears structurally normal. The mitral valve leaflets are mildly thickened. Mild mitral regurgitation is present. Moderate tricuspid regurgitation present. There is mild pulmonary hypertension. The right ventric ular systolic pressure, as measured by Doppler, is 39.77mmHg. There is no pulmonic regurgitation present. The aortic root size is normal. Normal inferior vena cava with normal inspiratory collapse consistent with estimated right atrial pre ssure of 5 mmHg. There is no pericardial effusion. CONCLUSIONS -------- 1. Sinus rhythm. 2. This was a technically good study. 3. The left ventricular size is normal. 4. There is moderate concentric left ventricular hypertrophy. 5. Overall left ventricular systolic function is normal with, an EF between 55 - 60 %. 6. The right ventricle is normal in size. 7. The left atrial size is normal. 8. The right atrial size is normal. 9. Interatrial and interventricular septum intact. 10. The aortic valve is trileaflet and appears structurally normal. 11. The mitral valve leaflets are mildly thickened. 12. Mild mitral regurgitation is present. 13. Moderate tricuspid regurgitation present. 14. There is mild pulmonary hypertension. 15. The right ventricular systolic pressure, as measured by Doppler, is 39.77mmHg. 16. There is no pulmonic regurgitation present. 17. The aortic root size is normal. 18. Normal inferior vena cava with normal inspiratory collapse consistent with estimated right atrial pressure of 5 mmHg. 19. There is no pericardial effusion. REPLENISHMENT SPECIALIST: Lennie Beasley RDCS
--- NOTE | 2018-08-30 23:20 | PN ---
PROGRESS NOTE DATE OF SERVICE: 08/30/2018 PRESENTING COMPLAINT: Pain in lower back. INTERVAL HISTORY: This patient with acute on chronic flare up of lower back with radiculopathy, that of sciatica and also some chest pain. The patient's back pain, radicular pain is actually better. Up to the bathroom. Seen by Cardiology. Awaiting a stress test. REVIEW OF SYSTEMS: Done for constitutional, cardiovascular, GI, pulmonary; relevant findings as above. CURRENT MEDICATIONS: Reviewed and include aspirin. PHYSICAL EXAMINATION: Temperature 98.1 pulse 62, respiration 16, blood pressure 144/74 pulse ox 95% on room air. GENERAL APPEARANCE: Lying in bed, awake. EYES: Pupils are equal. Conjunctivae normal. NECK: JVD not raised. Mass not palpable. Respiratory effort normal. LUNGS: Diminished breath sounds. CARDIOVASCULAR: 1st and 2nd sounds normal. No edema. ABDOMEN: Soft nontender. Liver and spleen not palpable. PSYCHIATRY: Alert and oriented x3. Mood and affect normal. INVESTIGATIONS: LDL 117. Troponin x3 negative. ASSESSMENT: 1. Anterior chest wall pain with cardiac risk factors, awaiting a stress test. 2. Severe osteoarthritis with disc herniation of multiple levels of the lumbar spine with severe radiculopathy in the sciatic distribution, better on current medication. 3. Emphysema in a current smoker. 4. Chronic nicotine dependence, patient is a cigarette smoker. 5. Essential hypertension. 6. Hyperlipidemia. PLAN: Continue current medication and treatment plan. Patient is awaiting a stress test. MMODL / IJN: [id number] /
[2018-08-31] MEDS ORDERED: DIPYRIDAMOLE IV ONE (06:00)
[2018-08-31] MEDS ORDERED: CAFFEINE CITRATE 60 MG/3 ML VIAL IV PRN (06:00)
[2018-08-31] MEDS ORDERED: SODIUM CHLORIDE 0.9% IV ONE (06:00)
[2018-08-31] MEDS ORDERED: AMINOPHYLLINE 500 MG/20 ML VIAL IV PRN (06:00)
--- NOTE | 2018-08-31 07:45 | P.PN ---
Progress Note - Text Progress Note Date: 08/31/18 This is a pleasant 83-year-old female patient who sees Dr. Machado in the office as an outpatient with a past medical history significant for hypertension as well as dyslipidemia presented to the emergency room complaining of right leg discomfort and she was admitted for possible sciatica. During her hospitalization here at the observational unit, she started experiencing chest discomfort. The patient did have to episodes of chest discomfort. She describes the discomfort as a pressure across the chest, with radiation to the epigastric area as well as radiation to the neck. Each episode lasts for few minutes only. No associated symptoms of shortness of breath, sweating, dizziness, heart racing, or syncope. No established history of coronary artery disease or coronary artery vascularization in the past. The EKG showed sinus rhythm without any ischemic ST or T-wave abnormalities. The cardiac enzymes were checked and came in to be unremarkable. On follow-up with the patient today, August [id number], the patient did have some chest discomfort last night. She is in process of having a stress test later on today.
[2018-08-31] MEDS: HYDROcodone/APAP 7.5-325MG 1 EACH TAB PO SCH (10:53)
[2018-08-31] MEDS: ASPIRIN 81 MG PO SCH (10:53)
[2018-08-31] MEDS: NAPROXEN 250 MG TAB PO SCH (10:54)
[2018-08-31] MEDS: BACLOFEN 10 MG TAB PO SCH (10:54)
[2018-08-31] MEDS: LISINOPRIL 20 MG TAB PO SCH (10:54)
[2018-08-31] MEDS: ENOXAPARIN 40 MG/0.4 ML SYRINGE SQ SCH (10:55)
[2018-08-31] MEDS: predniSONE 20 MG TAB PO SCH (10:55)
--- NOTE | 2018-08-31 11:07 | NM ---
EXAMINATION TYPE: NM stress persantine cardiolit DATE OF EXAM: 08/31/2018 COMPARISON: NONE HISTORY: TECHNIQUE: After the intravenous administration of 9.7 mCi Tc 99m Sestamibi - Cardiolite resting SPE CT images acquired 55 minutes post injection. The patient received 38 mg Persantine, 25.9 mCi Tc 99m Sestamibi - Stress images obtained 40 minutes post injection FINDINGS: Review of stress and rest SPECT images demonstrates no distinct perfusion abnormality. Gated analysi s shows normal wall motion with an estimated left ventricular ejection fraction of 65 %. IMPRESSION: No scintigraphic evidence for reversible ischemia.
--- NOTE | 2018-08-31 11:18 | EST ---
EXERCISE STRESS AGE: 83 SEX: F HT: 5'8" WT: 147 PROTOCOL: Persantine Cardiolite Stress Test HEART RATE REST: 56 BLOOD PRESSURE REST: 139/83 MAXIMUM HEART RATE ACHIEVED: 82 MAXIMUM BLOOD PRESSURE: 185/84 85% MPHR: 116 100% MPHR: 136 INDICATIONS: Chest pain. CLINICAL INFORMATION: STRESS DATA: Pretesting physical examination showed a heart rate of 56, pressure 139/83 mmHg. Baseline EKG showed sinus mechanism; 38 mg of Persantine was given per protocol. Max heart rate was 82 beats per minute. Maximum pressure was 185/84 mmHg. Clinically, the patient did not have any symptoms of chest pain or discomfort and the EKG did not show any ischemic ST or T-wave abnormalities. CONCLUSION: 1. Nondiagnostic electrocardiogram stress testing response to Persantine. 2. Please follow up on the Cardiolite portion on separate report from radiology department indication. MMODL / IJN: [id number] /
[2018-08-31 15:51] VITALS: BP 162/77; PULSE 64; RESP 16; TEMP 98.6
--- NOTE | 2018-09-06 19:36 | DS ---
DISCHARGE SUMMARY DATE OF ADMISSION: 08/29/2018 DATE OF DISCHARGE: 08/31/2018 FINAL DIAGNOSES: 1. Anterior chest wall pain, probably musculoskeletal. 2. Severe osteoarthritis with disc herniation of multiple levels of the lumbar spine with severe radiculopathy, including sciatic distribution. 3. Emphysema in a current smoker. 4. Chronic nicotine dependence. Patient is a cigarette smoker. 5. Essential hypertension. 6. Hyperlipidemia. HOSPITAL COURSE: This very pleasant lady has been bothered by back pain for a long time. She has seen both her family doctor and also followed with Dr. Alex from [facility] in the past. Patient's symptoms were worse in the back with some radiculopathy. She also developed some chest pain. The patient underwent a nuclear stress test that was negative. Pain medications were adjusted. Symptoms greatly improved. The patient was told to follow up with Orthopedics. Doing much better. Two-D echocardiogram showed EF of 55% to 60% and moderate tricuspid regurgitation. Lumbar CT-spine showed multi-level abnormalities, including disc herniation and arthritis. PHYSICAL EXAMINATION: Temperature 98.6, pulse 64, respiration 16, blood pressure 162/77, pulse ox 98% on room air. LUNGS: Decreased breath sounds. Minimal wheezing. CARDIOVASCULAR: First and second sounds normal. Hemoglobin 13.7, potassium 4.4. BUN and creatinine normal. Troponin x3 negative. LDL 117. DISCHARGE MEDICATIONS: 1. Aspirin 81 mg a day. 2. Zestril 20 mg a day. 3. Norvasc 5 mg a day. 4. Flexeril 10 mg t.i.d. 5. Neurontin 100 mg t.i.d. 6. [place] 7.5 one tablet b.i.d. 7. Ativan 0.5 mg p.o. daily p.r.n. 8. Naproxen 250 mg t.i.d. 9. Prednisone taper. Follow up with Dr. Jacob in one week. Follow up with Dr. Larkin in 3 days. Follow up with Dr. Charley Machado in one week. Discussion and discharge planning more than 35 minutes. MMODL / IJN: [id number] /
== END 2018-08-31 16:25 | disposition home or self-care (01) ==
LOC: EC 08:46 → 1SOBS 12:40
PROVIDERS: ADMIT Hospitalist; ATTEND Hospitalist
DX: R07.89 Other chest pain (principal); M51.16 Intervertebral disc disorders with radiculopathy, lumbar region; M47.9 Spondylosis, unspecified; M46.94 Unspecified inflammatory spondylopathy, thoracic region; D64.9 Anemia, unspecified; J43.9 Emphysema, unspecified; I10 Essential (primary) hypertension; E78.5 Hyperlipidemia, unspecified; N28.9 Disorder of kidney and ureter, unspecified; L71.9 Rosacea, unspecified; E03.9 Hypothyroidism, unspecified; G89.29 Other chronic pain; F17.210 Nicotine dependence, cigarettes, uncomplicated; Z90.49 Acquired absence of other specified parts of digestive tract; Z79.899 Other long term (current) drug therapy; Z79.891 Long term (current) use of opiate analgesic; Z79.82 Long term (current) use of aspirin; Z79.1 Long term (current) use of non-steroidal anti-inflammatories (NSAID); Z91.018 Allergy to other foods; Z88.8 Allergy status to other drugs, medicaments and biological substances; Z87.442 Personal history of urinary calculi; Z86.718 Personal history of other venous thrombosis and embolism; Z87.09 Personal history of other diseases of the respiratory system; Z87.440 Personal history of urinary (tract) infections; Z83.6 Family history of other diseases of the respiratory system; Z84.0 Family history of diseases of the skin and subcutaneous tissue
CPT/HCPCS: 96361 ×3; 96372 ×4; 96374; 96376; 99285; 36415; 94760; 93005; 93017; 93306; 83880; 80061; 80053; 83735; 84484; 85025; 85610; 85730; 71046; 72131; 78452; G0378 ×3; A9500; J2270; J2360; J2930 ×2; J1650 ×3; J7512 ×2

== ENCOUNTER 2020-09-17 18:09 | Emergency (ER) | payer MEDICARE ==
--- NOTE | 2020-09-17 19:25 | ED ---
ENT HPI - General Chief complaint: ENT Stated complaint: Medication reaction Time Seen by Provider: 09/17/20 18:58 Source: patient, RN notes reviewed Mode of arrival: ambulatory Limitations: no limitations - History of Present Illness Initial comments: Patient is an 85-year-old female that presents to emergency department complaining of side effects are new eyedrops dorzolamide. She notes that she quit taking eyedrops and all her symptoms resolved. She notes that she will call her primary care in the morning to get an alternate drug. She was in no apparent distress or pain while sitting up in bed during exam and interview. She denied any blurry vision or eye pain chest pain shortness breath headache nausea vomiting diarrhea constipation fever fatigue chills. - Related Data Home Medications Medication Instructions Recorded Confirmed Aspirin EC [Ecotrin Low Dose] 81 mg PO DAILY 06/29/17 08/29/18 lisinopriL [Zestril] 20 mg PO DAILY 06/29/17 08/29/18 amLODIPine [Norvasc] 5 mg PO DAILY@1500 11/24/17 08/29/18 Gabapentin [Neurontin] 100 mg PO TID 08/29/18 08/29/18 HYDROcodone/APAP 7.5-325MG [[place] 1 tab PO BID 08/29/18 08/29/18 7.5-325] LORazepam [Ativan] 0.5 mg PO DAILY PRN 08/29/18 08/29/18 Previous Rx's Medication Instructions Recorded Cyclobenzaprine [Flexeril] 10 mg PO TID #15 tab 08/29/18 Naproxen [Naprosyn] 250 mg PO TID #21 tab 08/31/18 predniSONE 10 mg PO DAILY #30 tab 08/31/18 Allergies Allergy/AdvReac Type Severity Reaction Status Date / Time grapefruit Allergy Anaphylaxis Verified 09/17/20 18:35 loratadine [From Claritin] Allergy Dyspnea Verified 09/17/20 18:35 pseudoephedrine Allergy Dyspnea Verified 09/17/20 18:35 [From Sudafed] strawberry Allergy Anaphylaxis Verified 09/17/20 18:35 Review of Systems ROS Statement: Those systems with pertinent positive or pertinent negative responses have been documented in the HPI. ROS Other: All systems not noted in ROS Statement are negative. Past Medical History Past Medical History: Deep Vein Thrombosis (DVT), Hyperlipidemia, Hypertension, Renal Disease, Skin Disorder, Thyroid Disorder Additional Past Medical History / Comment(s): Vertigo, DVT L leg, bronchitis, sinus problems, hemorrhoids, chronic back pain with L sciatica in the past, rosacia, anemia, kidney stones-pt passed, UTI, hypothyroid, past R collar bone fracture, past R ankle fx with surgery. History of Any Multi-Drug Resistant Organisms: None Reported Past Surgical History: Cholecystectomy, Orthopedic Surgery Additional Past Surgical History / Comment(s): Varicose vein ligation both legs, R ankle surgery for fracture, colonoscopy. Past Anesthesia/Blood Transfusion Reactions: No Reported Reaction Past Psychological History: No Psychological Hx Reported Smoking Status: Current every day smoker Past Alcohol Use History: None Reported Past Drug Use History: None Reported - Past Family History Father Family Medical History: Pneumonia Additional Family Medical History / Comment(s): Father at the age of 24yrs from industrial caused pneumonia. Mother Family Medical History: Skin Disorder Additional Family Medical History / Comment(s): Mother had psoriatic arthritis, psoriasis. General Exam Limitations: no limitations General appearance: alert, in no apparent distress Head exam: Present: atraumatic, normocephalic, normal inspection Eye exam: Present: normal appearance, PERRL, EOMI. Absent: scleral icterus, conjunctival injection, periorbital swelling Neck exam: Present: normal inspection Respiratory exam: Present: normal lung sounds bilaterally. Absent: respiratory distress, wheezes, rales, rhonchi, stridor Cardiovascular Exam: Present: regular rate, normal rhythm, normal heart sounds. Absent: systolic murmur, diastolic murmur, rubs, gallop, clicks GI/Abdominal exam: Present: soft, normal bowel sounds. Absent: distended, tenderness, guarding, rebound, rigid Extremities exam: Present: normal inspection, full ROM, normal capillary refill. Absent: tenderness, pedal edema, joint swelling, calf tenderness Neurological exam: Present: alert, oriented X3 Psychiatric exam: Present: normal affect, normal mood Skin exam: Present: warm, dry, intact, normal color. Absent: rash Course Vital Signs 09/17/20 18:31 Temperature 98.4 F Pulse Rate 66 Respiratory 18 Rate Blood Pressure 124/81 O2 Sat by Pulse 97 Oximetry Medical Decision Making - Medical Decision Making 85-year-old female complaining of side effects from her new eyedrops, states that they resolved while in the emergency room. Visual acuity ordered. Case discussed with Dr. Narayanan, patient can discharge home with follow-up to primary care tomorrow. Disposition Clinical Impression: Side effect of medication Disposition: HOME SELF-CARE Condition: Stable Instructions (If sedation given, give patient instructions): Adverse Drug Reaction (ED) Additional Instructions: Please return to the Emergency Department if symptoms worsen or any other concerns. Follow-up with primary care tomorrow. Discontinue using dorzolamide. Is patient prescribed a controlled substance at d/c from ED?: No Referrals: Roney Jacob MD [Primary Care Provider] - 1-2 days Time of Disposition: 19:25
[2020-09-17 19:37] VITALS: BP 126/66; PULSE 60; RESP 17; TEMP 98.1
== END 2020-09-17 19:37 | disposition home or self-care (01) ==
LOC: EC 18:09
DX: R51.9 Headache, unspecified (principal); R07.89 Other chest pain; J02.9 Acute pharyngitis, unspecified; T49.5X5A Adverse effect of ophthalmological drugs and preparations, initial encounter; I10 Essential (primary) hypertension; E78.5 Hyperlipidemia, unspecified; E03.9 Hypothyroidism, unspecified; Z86.718 Personal history of other venous thrombosis and embolism; F17.200 Nicotine dependence, unspecified, uncomplicated; Z79.82 Long term (current) use of aspirin; Z79.52 Long term (current) use of systemic steroids; Z79.1 Long term (current) use of non-steroidal anti-inflammatories (NSAID); Z79.891 Long term (current) use of opiate analgesic; Z79.899 Other long term (current) drug therapy
CPT/HCPCS: 99283

== ENCOUNTER 2020-09-18 11:43 | Inpatient (IN) | payer MEDICARE ==
--- NOTE | 2020-09-18 12:06 | ED ---
General Adult HPI - General Chief complaint: Chest Pain Stated complaint: Chest Pain/Headache Time Seen by Provider: 09/18/20 11:50 Source: patient Mode of arrival: wheelchair Limitations: no limitations - History of Present Illness Initial comments: Dictation was produced using [employer] dictation software. please excuse any grammatical, word or spelling errors. Chief Complaint: 85-year-old female presents with chest pain. History of Present Illness: 85-year-old female she has past medical history of DVT dyslipidemia hypertension. She was seen here yesterday for concerns of reaction to glaucoma medications that she started yesterday. She went to the urgent care today because she was having persistent chest pain since yesterday. She states it's a dull pain located to her substernal area. Does not radiate to the shoulders or jaw. Patient has history of blood clots. She does not take any anticoagulation medications. She denies any shortness of breath. Into the local urgent care was given aspirin. Urgent care staff called patient's primary care physician patient was redirected to the emergency department. Patient denies any associated nausea or diaphoresis. The ROS documented in this emergency department record has been reviewed and confirmed by me. Those systems with pertinent positive or negative responses have been documented in the HPI. All other systems are other negative and/or noncontributory. PHYSICAL EXAM: General Impression: Alert and oriented x3, not in acute distress HEENT: Normocephalic atraumatic, extra-ocular movements intact, pupils equal and reactive to light bilaterally, mucous membranes moist. Cardiovascular: Heart regular rate and rhythm Chest: Able to complete full sentences, no retractions, no tachypnea Abdomen: abdomen soft, non-tender, non-distended, no organomegaly Musculoskeletal: Pulses present and equal in all extremities, no peripheral edema Motor: no focal deficits noted Neurological: CN II-XII grossly intact, no focal motor or sensory deficits noted Skin: Intact with no visualized rashes Psych: Normal affect and mood ED course: 85-year-old well-appearing female multiple comorbidities presents with atypical chest pain with typical features. Vital signs upon arrival are within acceptable limits. EKG does not show any signs of ischemia or infarction. Labs evaluation obtained. CBC unremarkable. Coag panel is negative. Metabolic panel shows findings within acceptable limits. Troponin however is elevated at 0.906. Patient reevaluated at bedside and appears comfortable however states that her chest pain is slightly worsened. Patient started on heparin. She will be admitted for non-ST segment elevation [place]. Patient be admitted to [facility] with consultation to cardiology. EKG interpretation: Ventricular rate 60, normal sinus rhythm, MS interval 172, QRS 94, QTC 420. No MS prolongation, no QTC prolongation, no ST or T-wave olimpia nges noted. EKG compared to 08/29/2018 showing no changes. Overall, this EKG is unremarkable - Related Data Home Medications Medication Instructions Recorded Confirmed lisinopriL [Zestril] 20 mg PO DAILY 06/29/17 09/18/20 HYDROcodone/APAP 7.5-325MG [[place] 1 tab PO Q12H 08/29/18 09/18/20 7.5-325] Difluprednate [Durezol] 1 drop BOTH EYES DAILY PRN 09/18/20 09/18/20 Dorzolamide 2% [Trusopt 2%] 1 drops BOTH EYES DIRECTED 09/18/20 09/18/20 Ibuprofen [Motrin] 800 mg PO Q8H 09/18/20 09/18/20 Meclizine HCl [Bonine] 25 mg PO DAILY PRN 09/18/20 09/18/20 Metoprolol Succinate [Toprol XL] 50 mg PO DAILY@1400 09/18/20 09/18/20 Timolol [Betimol 0.5% Ophth Soln] 1 drop BOTH EYES HS 09/18/20 09/18/20 amLODIPine [Norvasc] 10 mg PO DAILY@1200 09/18/20 09/18/20 Allergies Allergy/AdvReac Type Severity Reaction Status Date / Time grapefruit Allergy Anaphylaxis Verified 09/18/20 12:29 loratadine [From Claritin] Allergy Dyspnea Verified 09/18/20 12:29 pseudoephedrine Allergy Dyspnea Verified 09/18/20 12:29 [From Sudafed] strawberry Allergy Anaphylaxis Verified 09/18/20 12:29 Review of Systems ROS Statement: Those systems with pertinent positive or pertinent negative responses have been documented in the HPI. ROS Other: All systems not noted in ROS Statement are negative. Past Medical History Past Medical History: Deep Vein Thrombosis (DVT), Hyperlipidemia, Hypertension, Renal Disease, Skin Disorder, Thyroid Disorder Additional Past Medical History / Comment(s): Vertigo, DVT L leg, bronchitis, sinus problems, hemorrhoids, chronic back pain with L sciatica in the past, rosacia, anemia, kidney stones-pt passed, UTI, hypothyroid, past R collar bone fracture, past R ankle fx with surgery. History of Any Multi-Drug Resistant Organisms: None Reported Past Surgical History: Cholecystectomy, Orthopedic Surgery Additional Past Surgical History / Comment(s): Varicose vein ligation both legs, R ankle surgery for fracture, colonoscopy. Past Anesthesia/Blood Transfusion Reactions: No Reported Reaction Past Psychological History: No Psychological Hx Reported Smoking Status: Current every day smoker Past Alcohol Use History: None Reported Past Drug Use History: None Reported - Past Family History Father Family Medical History: Pneumonia Additional Family Medical History / Comment(s): Father at the age of 24yrs from industrial caused pneumonia. Mother Family Medical History: Skin Disorder Additional Family Medical History / Comment(s): Mother had psoriatic arthritis, psoriasis. General Exam Limitations: no limitations Course Vital Signs 09/18/20 11:46 Temperature 98.0 F Pulse Rate 55 L Respiratory 18 Rate Blood Pressure 155/84 O2 Sat by Pulse 98 Oximetry Medical Decision Making - Lab Data Result diagrams: 09/18/20 12:08 09/18/20 12:05 Lab Results 09/18/20 09/18/20 09/18/20 Range/Units 12:05 12:05 12:05 WBC (3.8-10.6) k/uL RBC (3.80-5.40) m/uL Hgb (11.4-16.0) gm/dL Hct (34.0-46.0) % MCV (80.0-100.0) fL MCH (25.0-35.0) pg MCHC (31.0-37.0) g/dL RDW (11.5-15.5) % Plt Count (150-450) k/uL MPV Neutrophils % % Lymphocytes % % Monocytes % % Eosinophils % % Basophils % % Neutrophils # (1.3-7.7) k/uL Lymphocytes # (1.0-4.8) k/uL Monocytes # (0-1.0) k/uL Eosinophils # (0-0.7) k/uL Basophils # (0-0.2) k/uL PT 9.9 (9.0-12.0) sec INR 0.9 (<1.2) APTT 20.8 L (22.0-30.0) sec Sodium 136 L (137-145) mmol/L Potassium 4.6 (3.5-5.1) mmol/L Chloride 103 (98-107) mmol/L Carbon Dioxide 25 (22-30) mmol/L Anion Gap 8 mmol/L BUN 18 H (7-17) mg/dL Creatinine 0.68 (0.52-1.04) mg/dL Est GFR (CKD-EPI)AfAm >90 (>60 ml/min/1.73 sqM) Est GFR (CKD-EPI)NonAf 79 (>60 ml/min/1.73 sqM) Glucose 128 H (74-99) mg/dL Calcium 9.8 (8.4-10.2) mg/dL Magnesium 2.0 (1.6-2.3) mg/dL Total Bilirubin 0.7 (0.2-1.3) mg/dL AST 34 (14-36) U/L ALT 13 (4-34) U/L Alkaline Phosphatase 73 (38-126) U/L Troponin I 0.906 H* (0.000-0.034) ng/mL Total Protein 6.9 (6.3-8.2) g/dL Albumin 4.6 (3.5-5.0) g/dL 09/18/20 Range/Units 12:08 WBC 10.7 H (3.8-10.6) k/uL RBC 4.83 (3.80-5.40) m/uL Hgb 15.3 (11.4-16.0) gm/dL Hct 44.2 (34.0-46.0) % MCV 91.6 (80.0-100.0) fL MCH 31.8 (25.0-35.0) pg MCHC 34.7 (31.0-37.0) g/dL RDW 12.6 (11.5-15.5) % Plt Count 192 (150-450) k/uL MPV 8.3 Neutrophils % 74 % Lymphocytes % 13 % Monocytes % 7 % Eosinophils % 4 % Basophils % 1 % Neutrophils # 8.0 H (1.3-7.7) k/uL Lymphocytes # 1.4 (1.0-4.8) k/uL Monocytes # 0.8 (0-1.0) k/uL Eosinophils # 0.4 (0-0.7) k/uL Basophils # 0.1 (0-0.2) k/uL PT (9.0-12.0) sec INR (<1.2) APTT (22.0-30.0) sec Sodium (137-145) mmol/L Potassium (3.5-5.1) mmol/L Chloride (98-107) mmol/L Carbon Dioxide (22-30) mmol/L Anion Gap mmol/L BUN (7-17) mg/dL Creatinine (0.52-1.04) mg/dL Est GFR (CKD-EPI)AfAm (>60 ml/min/1.73 sqM) Est GFR (CKD-EPI)NonAf (>60 ml/min/1.73 sqM) Glucose (74-99) mg/dL Calcium (8.4-10.2) mg/dL Magnesium (1.6-2.3) mg/dL Total Bilirubin (0.2-1.3) mg/dL AST (14-36) U/L ALT (4-34) U/L Alkaline Phosphatase (38-126) U/L Troponin I (0.000-0.034) ng/mL Total Protein (6.3-8.2) g/dL Albumin (3.5-5.0) g/dL Critical Care Time Critical Care Time: Yes Total Critical Care Time: 33 Disposition Clinical Impression: NSTEMI (non-ST elevated myocardial infarction) Disposition: ADMITTED IP TO THIS [facility] Condition: Critical Referrals: Roney Jacob MD [Primary Care Provider] - 1-2 days
[2020-09-18 12:31] LABS: Basophils # (A) 0.1 k/uL (0-0.2); Basophils % (A) 1 %; Eosinophils # (A) 0.4 k/uL (0-0.7); Eosinophils % (A) 4 %; HCT 44.2 % (34.0-46.0); HGB 15.3 gm/dL (11.4-16.0); Lymphocytes # (A) 1.4 k/uL (1.0-4.8); Lymphocytes % (A) 13 %; MCH 31.8 pg (25.0-35.0); MCHC 34.7 g/dL (31.0-37.0); MCV 91.6 fL (80.0-100.0); Mean Platelet Volume 8.3; Monocytes # (A) 0.8 k/uL (0-1.0); Monocytes % (A) 7 %; Neutrophils % (A) 74 %; Platelet Count 192 k/uL (150-450); RBC 4.83 m/uL (3.80-5.40); RDW 12.6 % (11.5-15.5); WBC 10.7 k/uL (3.8-10.6)
--- NOTE | 2020-09-18 12:36 | XR ---
EXAMINATION TYPE: XR chest 2V DATE OF EXAM: 09/18/2020 COMPARISON: 08/29/2018 HISTORY: Chest pain TECHNIQUE: Frontal and lateral views of the chest are obtained. FINDINGS: There is no focal air space opacity, pleural effusion, or pneumothorax seen. The cardiac silhouette size is within normal limits. The osseous structures are intact. IMPRESSION: No acute cardiopulmonary process.
[2020-09-18 12:40] LABS: ALT 13 U/L (4-34); AST 34 U/L (14-36); African American GFR (CKD) >90 (>60 ml/min/1.73 sqM); Albumin 4.6 g/dL (3.5-5.0); Alkaline Phosphatase 73 U/L (38-126); Anion Gap 8 mmol/L; Blood Urea Nitrogen 18 mg/dL (7-17); Calcium 9.8 mg/dL (8.4-10.2); Carbon Dioxide 25 mmol/L (22-30); Chloride 103 mmol/L (98-107); Glucose 128 mg/dL (74-99); Non-African American GFR(CKD) 79 (>60 ml/min/1.73 sqM); Potassium 4.6 mmol/L (3.5-5.1); Sodium 136 mmol/L (137-145); Total Bilirubin 0.7 mg/dL (0.2-1.3); Total Protein 6.9 g/dL (6.3-8.2)
[2020-09-18 12:47] LABS: INR 0.9 (<1.2); Prothrombin Time 9.9 sec (9.0-12.0)
[2020-09-18 12:57] LABS: Partial Thromboplastin Time 20.8 sec (22.0-30.0)
[2020-09-18] MEDS ORDERED: HEPARIN SODIUM 1,000 UN/ML (10ML VL) IV ONE (13:15)
[2020-09-18] MEDS ORDERED: HEPARIN SODIUM 1,000 UN/ML (10ML VL) IV PRN (13:15)
[2020-09-18] MEDS ORDERED: NITROGLYCERIN SL TABS 0.4 MG TAB SUBLINGUAL PRN (13:19)
[2020-09-18] MEDS ORDERED: NITROGLYCERIN SL TABS 0.4 MG TAB SUBLINGUAL STA (13:20)
[2020-09-18] MEDS ORDERED: NALOXONE 0.4 MG/ML 1 ML VIAL IV PRN (13:25)
[2020-09-18] MEDS ORDERED: MECLIZINE 25 MG TAB PO PRN (13:26)
[2020-09-18] MEDS ORDERED: NON FORMULARY DRUG (Difluprednate [Durezol] 5 ML Drops) BOTH EYES PRN (13:26)
[2020-09-18] MEDS: HEPARIN SOD,PORK IN 0.45% NACL 25,000 UNIT in 0.45% NACL 1 250ML.BAG IV SCH (13:29)
[2020-09-18] MEDS: METOPROLOL SUCCINATE (ER) 50 MG TAB.ER.24H PO SCH (15:17)
--- NOTE | 2020-09-18 15:40 | P.HPIM ---
History of Present Illness H&P Date: 09/18/20 Chief Complaint: chest pain 85 year old woman with medical history of HTN, HLD, glaucoma present for chest pain. Patient says that her pain started yesterday in the afternoon, with pain in her jaw. Her pain eventually radiated down to her chest, then down both of her arms. She says her pain is aching in nature. She says her pain was 9 out of 10. She never has had a history of stroke or heart attack. She denies symptoms of fevers, chills, nausea, vomiting, palpitations, syncope, diaphoresis, cough, dyspnea, lower extremity edema, orthopnea, abdominal pain, consultation, diarrhea, dysuria, dyschezia, numbness/weakness of the extremities. In the emergency room, she was found to have blood pressure of 152/81, heart rate 62. She was 97% on room air. CBC and chemistries were unremarkable. Initial troponin was 0.9, then trended to 1.5. Patient was aspirin loaded and started on daily aspirin, also started on heparin drip. Medicine service was asked to admit the patient, cardiology will consult. EKGs demonstrated normal sinus rhythm with left axis deviation, no ischemic abnormalities Review of Systems All Systems reviewed and pertinent positives and negatives noted in HPI, all other symptoms are negative Past Medical History Past Medical History: Deep Vein Thrombosis (DVT), Hyperlipidemia, Hypertension, Renal Disease, Skin Disorder, Thyroid Disorder Additional Past Medical History / Comment(s): Vertigo, DVT L leg, bronchitis, sinus problems, hemorrhoids, chronic back pain with L sciatica in the past, rosacia, anemia, kidney stones-pt passed, UTI, hypothyroid, past R collar bone fracture, past R ankle fx with surgery. History of Any Multi-Drug Resistant Organisms: None Reported Past Surgical History: Cholecystectomy, Orthopedic Surgery Additional Past Surgical History / Comment(s): Varicose vein ligation both legs, R ankle surgery for fracture, colonoscopy. Past Anesthesia/Blood Transfusion Reactions: No Reported Reaction Past Psychological History: No Psychological Hx Reported Smoking Status: Current every day smoker Past Alcohol Use History: None Reported Past Drug Use History: None Reported - Past Family History Father Family Medical History: Pneumonia Additional Family Medical History / Comment(s): Father at the age of 24yrs from industrial caused pneumonia. Mother Family Medical History: Skin Disorder Additional Family Medical History / Comment(s): Mother had psoriatic arthritis, psoriasis. Medications and Allergies Home Medications Medication Instructions Recorded Confirmed Type lisinopriL [Zestril] 20 mg PO DAILY 06/29/17 09/18/20 History HYDROcodone/APAP 7.5-325MG [[place] 1 tab PO Q12H 08/29/18 09/18/20 History 7.5-325] Difluprednate [Durezol] 1 drop BOTH EYES DAILY PRN 09/18/20 09/18/20 History Dorzolamide 2% [Trusopt 2%] 1 drops BOTH EYES DIRECTED 09/18/20 09/18/20 History Ibuprofen [Motrin] 800 mg PO Q8H 09/18/20 09/18/20 History Meclizine HCl [Bonine] 25 mg PO DAILY PRN 09/18/20 09/18/20 History Metoprolol Succinate [Toprol XL] 50 mg PO DAILY@1400 09/18/20 09/18/20 History Timolol [Betimol 0.5% Ophth Soln] 1 drop BOTH EYES HS 09/18/20 09/18/20 History amLODIPine [Norvasc] 10 mg PO DAILY@1200 09/18/20 09/18/20 History Allergies Allergy/AdvReac Type Severity Reaction Status Date / Time grapefruit Allergy Anaphylaxis Verified 09/18/20 12:29 loratadine [From Claritin] Allergy Dyspnea Verified 09/18/20 12:29 pseudoephedrine Allergy Dyspnea Verified 09/18/20 12:29 [From Sudafed] strawberry Allergy Anaphylaxis Verified 09/18/20 12:29 Physical Exam Osteopathic Statement: *. No significant issues noted on an osteopathic structural exam other than those noted in the History and Physical/Consult. Vitals: Vital Signs Temp Pulse Resp BP Pulse Ox 09/18/20 13:30 62 16 152/81 97 09/18/20 11:46 98.0 F 55 L 18 155/84 98 Intake and Output 09/18/20 09/18/20 09/18/20 06:59 14:59 22:59 Other: Weight 65.771 kg Gen: awake, alert HEENT: normocephalic, atraumatic, good hearing acuity, moist mucous membranes Resp: good air exchange, breathing comfortably with no accessory muscle use, clear to auscultation bilaterally without wheezes or crackles CVS: good distal perfusion x 4, regular rate and rhythm without murmurs GI: soft, NTTP, ND, appropriate bowel sounds : no SPT, no CVAT, barton catheter not present MSK: no pitting edema, no clubbing Neuro: non-focal, moving all extremities Psych: cooperative, euthymic mood Results CBC & Chem 7: 09/18/20 12:08 09/18/20 12:05 Labs: Abnormal Lab Results - Last 24 Hours (Table) 09/18/20 09/18/20 09/18/20 Range/Units 12:05 12:05 12:05 WBC (3.8-10.6) k/uL Neutrophils # (1.3-7.7) k/uL APTT 20.8 L (22.0-30.0) sec Sodium 136 L (137-145) mmol/L BUN 18 H (7-17) mg/dL Glucose 128 H (74-99) mg/dL Troponin I 0.906 H* (0.000-0.034) ng/mL 09/18/20 09/18/20 Range/Units 12:08 13:48 WBC 10.7 H (3.8-10.6) k/uL Neutrophils # 8.0 H (1.3-7.7) k/uL APTT (22.0-30.0) sec Sodium (137-145) mmol/L BUN (7-17) mg/dL Glucose (74-99) mg/dL Troponin I 1.490 H* (0.000-0.034) ng/mL Assessment and Plan Assessment: NSTEMI -Admit to telemetry, inpatient -Cardiology consult -Aspirin loaded, aspirin daily -Statin -Continue home metoprolol -Heparin drip -Nitro when necessary -EKG when necessary -Nothing by mouth in case of procedure Hypertension Hyperlipidemia Glaucoma -Home medications were reviewed and reconciled Patient is a full code DVT prophylaxis is addressed with heparin Daughter is next of kin
[2020-09-18] MEDS: DORZOLAMIDE HCL 2% DROPS 10 ML BTL BOTH EYES SCH (19:02)
[2020-09-18] MEDS ORDERED: ATORVASTATIN 80 MG TAB PO SCH (21:00)
[2020-09-18] MEDS: TIMOLOL 0.5% OPHTH DROPS 5 ML BTL BOTH EYES SCH (21:29)
[2020-09-18] MEDS ORDERED: amLODIPine 10 MG TAB PO STA (22:12)
[2020-09-18] MEDS: ACETAMINOPHEN TAB 325 MG TAB PO PRN (22:18)
[2020-09-18] MEDS ORDERED: HYDROmorphone 0.5 MG/0.5 ML SYRINGE IVP STA (23:03)
[2020-09-19 04:00] LABS: Basophils # (A) 0.1 k/uL (0-0.2); Basophils % (A) 1 %; Eosinophils # (A) 0.2 k/uL (0-0.7); Eosinophils % (A) 2 %; HCT 41.3 % (34.0-46.0); HGB 14.3 gm/dL (11.4-16.0); Lymphocytes # (A) 1.9 k/uL (1.0-4.8); Lymphocytes % (A) 17 %; MCH 31.5 pg (25.0-35.0); MCHC 34.6 g/dL (31.0-37.0); MCV 90.9 fL (80.0-100.0); Mean Platelet Volume 7.9; Monocytes # (A) 0.9 k/uL (0-1.0); Monocytes % (A) 8 %; Neutrophils # (A) 8.4 k/uL (1.3-7.7); Neutrophils % (A) 73 %; Platelet Count 165 k/uL (150-450); RBC 4.54 m/uL (3.80-5.40); RDW 12.5 % (11.5-15.5); WBC 11.6 k/uL (3.8-10.6)
[2020-09-19 04:34] LABS: African American GFR (CKD) >90 (>60 ml/min/1.73 sqM); Anion Gap 7 mmol/L; Blood Urea Nitrogen 16 mg/dL (7-17); Calcium 9.2 mg/dL (8.4-10.2); Carbon Dioxide 23 mmol/L (22-30); Chloride 105 mmol/L (98-107); Glucose 141 mg/dL (74-99); Non-African American GFR(CKD) 83 (>60 ml/min/1.73 sqM); Sodium 135 mmol/L (137-145)
[2020-09-19] MEDS ORDERED: ATORVASTATIN 80 MG TAB PO STA (07:48)
[2020-09-19] MEDS ORDERED: ALPRAZolam 0.5 MG TAB PO PRN (07:48)
[2020-09-19] MEDS ORDERED: NITROGLYCERIN SL TABS 0.4 MG TAB SUBLINGUAL PRN (07:48)
[2020-09-19] MEDS ORDERED: ALPRAZolam 0.25 MG TAB PO PRN (07:48)
[2020-09-19] MEDS ORDERED: SODIUM CHLORIDE 0.9% 1,000 ML in EMPTY BAG 1 BAG IV ONE (07:48)
[2020-09-19] MEDS ORDERED: ASPIRIN 325 MG TAB PO STA (07:48)
[2020-09-19] MEDS: lisinopriL 20 MG TAB PO SCH (08:33)
[2020-09-19] MEDS: amLODIPine 10 MG TAB PO SCH (08:33)
[2020-09-19] MEDS: ASPIRIN 81 MG PO SCH (08:35)
[2020-09-19] MEDS ORDERED: ATORVASTATIN 40 MG TAB PO SCH (09:00)
[2020-09-19] MEDS ORDERED: ASPIRIN 325 MG TAB PO SCH (09:00)
--- NOTE | 2020-09-19 09:13 | P.PN ---
Subjective Progress Note Date: 09/19/20 No new complaints. Pain has resolved. Troponin elevated to 2.49. Pending [facility] today. Objective - Vital Signs Vital signs: Vital Signs Temp 99.4 F 09/19/20 08:28 Pulse 80 09/19/20 08:28 Resp 18 09/19/20 08:28 BP 145/81 09/19/20 08:28 Pulse Ox 94 L 09/19/20 08:28 Intake & Output 09/18/20 09/19/20 09/19/20 18:59 06:59 18:59 Intake Total 139.592 Balance 139.592 Weight 65.771 kg 64.7 kg Intake: Intake, IV Titration 139.592 Amount Heparin Sod,Pork in 0.45% 139.592 NaCl 25,000 unit In 0.45 % NaCl 1 250ml.bag @ 12 UNITS/KG/HR 7.893 mls/hr IV .Q24H [facility] Rx#: [id number] Other: Voiding Method Toilet Toilet # Voids 1 - Exam Gen: awake, alert HEENT: normocephalic, atraumatic, good hearing acuity, moist mucous membranes Resp: good air exchange, breathing comfortably with no accessory muscle use, clear to auscultation bilaterally without wheezes or crackles CVS: good distal perfusion x 4, regular rate and rhythm without murmurs GI: soft, NTTP, ND, appropriate bowel sounds : no SPT, no CVAT, barton catheter not present MSK: no pitting edema, no clubbing Neuro: non-focal, moving all extremities Psych: cooperative, euthymic mood - Labs CBC & Chem 7: 09/19/20 03:32 09/19/20 03:32 Labs: Abnormal Lab Results - Last 24 Hours (Table) 09/18/20 09/18/20 09/18/20 Range/Units 12:05 12:05 12:05 WBC (3.8-10.6) k/uL Neutrophils # (1.3-7.7) k/uL APTT 20.8 L (22.0-30.0) sec Sodium 136 L (137-145) mmol/L BUN 18 H (7-17) mg/dL Glucose 128 H (74-99) mg/dL Troponin I 0.906 H* (0.000-0.034) ng/mL 09/18/20 09/18/20 09/18/20 Range/Units 12:08 13:48 16:24 WBC 10.7 H (3.8-10.6) k/uL Neutrophils # 8.0 H (1.3-7.7) k/uL APTT (22.0-30.0) sec Sodium (137-145) mmol/L BUN (7-17) mg/dL Glucose (74-99) mg/dL Troponin I 1.490 H* 2.490 H* (0.000-0.034) ng/mL 09/18/20 09/19/20 09/19/20 Range/Units 20:02 03:32 03:32 WBC 11.6 H (3.8-10.6) k/uL Neutrophils # 8.4 H (1.3-7.7) k/uL APTT 43.5 H (22.0-30.0) sec Sodium 135 L (137-145) mmol/L BUN (7-17) mg/dL Glucose 141 H (74-99) mg/dL Troponin I (0.000-0.034) ng/mL 09/19/20 09/19/20 Range/Units 03:32 07:22 WBC (3.8-10.6) k/uL Neutrophils # (1.3-7.7) k/uL APTT 54.7 H (22.0-30.0) sec Sodium (137-145) mmol/L BUN (7-17) mg/dL Glucose (74-99) mg/dL Troponin I 13.500 H* (0.000-0.034) ng/mL Assessment and Plan Assessment: NSTEMI -Admit to telemetry, inpatient -Cardiology consult -Aspirin loaded, aspirin daily -Statin -Continue home metoprolol -Heparin drip -Nitro when necessary -EKG when necessary -Nothing by mouth for [facility] today. Hypertension Hyperlipidemia Glaucoma -Home medications were reviewed and reconciled Patient is a full code DVT prophylaxis is addressed with heparin Daughter is next of kin
--- NOTE | 2020-09-19 09:53 | CONS ---
CONSULTATION HISTORY: Marie Rizvi is an 85-year-old elderly lady with a history of hypertension and hyperlipidemia, who sees Dr. Machado in the outpatient setting. She came into the emergency room upon advice by her primary care physician. She was having persistent chest pressure on and off all of yesterday and she attributed this to some new glaucoma medications. However after she arrived to the hospital, she had jaw discomfort and also chest pressure and initial troponin was mildly elevated. She was placed on a heparin drip. She was comfortable resting and again she had another bout of chest pain last night. Troponin has gone up and there is precordial nonspecific ST abnormality. The clinical picture is that of a non-ST elevation PR. This morning she is more comfortable resting, has no chest pain at the time of my evaluation. PAST MEDICAL HISTORY: 1. Hypertension. 2. Hypercholesterolemia. 3. History of previous DVT and some thyroid disease. 4. She also has had previous cholecystectomy and orthopedic surgery. MEDICATIONS: Medications at home include Zestril 20 mg daily. She takes [place], ibuprofen, metoprolol succinate 50 mg daily, amlodipine 10 mg daily, timolol eye drops. ALLERGIES: She has some intolerance to statins and does not take Sudafed. PHYSICAL EXAMINATION: On examination, blood pressure is 140/70, pulse rate is about 68. HEENT unremarkable. Fundus was not examined by me. NECK: Supple. No JVD. I do not hear a carotid bruit. There is no thyromegaly heart exam reveals S1, S2 with a short systolic murmur. LUNGS: Clear. ABDOMEN: Soft, nontender. EXTREMITIES: Lower extremities reveal normal pulses. No edema. CENTRAL NERVOUS SYSTEM: Normal. EKG revealed sinus mechanism, left axis, precordial nonspecific ST abnormality. LABORATORY DATA: Reveals an elevated troponin up to 13.5. Other labs are unremarkable and creatinine is within normal limits. IMPRESSION: 1. Acute non-ST elevation PR. 2. Hypertension. 3. Hyperlipidemia. 4. History of glaucoma. RECOMMENDATIONS: I am recommending that we proceed with coronary angiography today. Continue IV heparin. Place her on a beta trace in the form of metoprolol, which has already been started at metoprolol succinate 50 mg daily. I will initiate her on atorvastatin 40 mg daily. I explained to the patient the rationale, risks, benefits, options related to cardiac cath, possible PCI. Patient understands all details and I also spoke to her daughter, Nicolle. They wish to, and they wished to proceed with the procedure which will be performed today. Thank you very much for the consult. KATIE / MOIZN: [id number] /
[2020-09-19 10:19] LABS: Chol/HDL Ratio 5.15; Cholesterol 211 mg/dL (0-200); LDL Cholesterol,Calculated 150.4 mg/dL (0.0-131.0)
[2020-09-19 11:30] LABS: Glucose,Whole Blood 141 mg/dL (75-99)
[2020-09-19] MEDS ORDERED: IV FLUID CONTINUATION 750 ML IV ONE (12:45)
[2020-09-19] MEDS ORDERED: LIDOCAINE 1% INJ 10MG/ML (20 ML MDV) ONE (12:57)
[2020-09-19] MEDS ORDERED: VERAPAMIL 2.5 MG/ML 2 ML AMP ONE (12:57)
[2020-09-19] MEDS ORDERED: HEPARIN SODIUM 1,000 UN/ML (10ML VL) ONE (12:58)
[2020-09-19] MEDS ORDERED: MIDAZOLAM 2 MG/2 ML VIAL IV ONE (13:16)
[2020-09-19] MEDS ORDERED: LIDOCAINE 1% INJ 10MG/ML (20 ML MDV) SQ ONE (13:23)
[2020-09-19] MEDS ORDERED: VERAPAMIL SYRINGE (5 MG/10 ML) INTRAARTER ONE (13:25)
[2020-09-19] MEDS ORDERED: IOPAMIDOL-370 100ML BTL INJ ONE ×4 (13:52→14:35)
[2020-09-19] MEDS ORDERED: TIROFIBAN BOLUS 12.5MG/250 ML BAG IV ONE (14:07)
[2020-09-19] MEDS ORDERED: TIROFIBAN 12.5MG-250ML NS 250 ML IV ONE (14:07)
[2020-09-19] MEDS ORDERED: HYDROmorphone 0.5 MG/0.5 ML SYRINGE IVP ONE (14:09)
[2020-09-19] MEDS: NITROGLYCERIN 1000MCG/10ML SYRINGE INTRACORON ONE ×2 (14:12→14:31)
[2020-09-19] MEDS ORDERED: CLOPIDOGREL 75 MG TAB ONE (14:31)
[2020-09-19] MEDS ORDERED: CLOPIDOGREL 75 MG TAB PO ONE (14:34)
[2020-09-19] MEDS ORDERED: SODIUM CHLORIDE 0.9% 500 ML 500 ML IV ONE (15:00)
[2020-09-19] MEDS: METOPROLOL SUCCINATE (ER) 50 MG TAB.ER.24H PO SCH (15:30)
[2020-09-19] MEDS: SODIUM CHLORIDE 0.9% 1,000 ML IV SCH (15:46)
[2020-09-19] MEDS ORDERED: TIROFIBAN 12.5MG-250ML NS 250 ML IV SCH (16:00)
--- NOTE | 2020-09-19 16:49 | CC ---
CARDIAC CATHETERIZATION REPORT DATE OF SERVICE: 09/19/2020. PROCEDURE PERFORMED: 1. Left heart catheterization and coronary angiography. 2. PTCA and stenting of the circumflex marginal coronary artery and mid circumflex coronary artery with a drug-eluting stent. PERFORMED BY: Dr. Nichol Worthington. SEDATION: Moderate conscious sedation time was 86 minutes. Patient was administered Versed. Oxygen saturation, hemodynamics and EKG were monitored closely. CLINICAL INFORMATION: Mrs. Marie Rizvi is a lady with a history of hypertension, hyperlipidemia who presented to the hospital with chest pain and troponin elevation with non ST elevation [place] type picture, had continued to have chest discomfort. She was advised cardiac catheterization after due discussion. Risks, benefits, options, rationale were explained. I discussed with the patient and daughter. They understood all details and wished to proceed with the procedure. PROCEDURE NOTE: Under local anesthesia and strict aseptic precautions, a 6-Icelandic introducer was placed in the right radial artery. Using a JL3.5 and JR4 catheters, I performed coronary angiography and the same right Jesus catheter was used to check LV pressures. LV gram was not performed. I then decided to proceed with PCI of circumflex marginal and mid circumflex and perform this in the same setting. The LAD also had a significant lesion but we will stage this for a later date. Following the procedure, the sheath was taken out and a TR band applied as per protocol. The saturation of the fingers of the right hand of about 95%. Results were discussed with the patient and daughter in detail. CARDIAC CATHETERIZATION FINDINGS: Left ventricular end-diastolic pressure was 10 mmHg without any gradient across aortic valve. CORONARY ANGIOGRAPHY FINDINGS: RIGHT CORONARY ARTERY: Technically this is a dominant vessel, very tortuous has about a 40% to 50% lesion in the midportion and then the caliber improves. Distally bifurcates into a larger PLV, smaller PDA both of which supply a sizable amount of myocardium. No significant disease in the dominant RCA other than the 40% lesion in the midportion. LEFT MAIN CORONARY ARTERY: Very short vessel, immediately bifurcates into LAD and circumflex. No significant disease. LEFT ANTERIOR DESCENDING CORONARY ARTERY: Good caliber vessel, extends along the anterior wall. After a septal branch, there is a 70% stenosis, then there is a 90% stenosis after which it gives off a diagonal branch and runs towards the apex. The LAD appears to be a small caliber vessel, but runs all the way to the apex in a very tortuous fashion. There are 2 lesions stand up lesions in the midportion noted. LEFT POSTERIOR CIRCUMFLEX CORONARY ARTERY: Nondominant vessel but very large in caliber and distribution. Extremely tortuous circumflex vessel that gives off a large obtuse marginal that runs laterally and supplies a sizable amount of myocardium. The circumflex marginal as it comes off from the main circumflex has a very eccentric 90% stenosis and it is a large vessel with a lot of myocardium being supplied by it. The continuation of circumflex after the obtuse marginal is small in caliber, sluggish flow. There is a mid lesion of about 99%, which I believe is the culprit lesion. LEFT VENTRICULOGRAM: Was not performed. FINAL IMPRESSION: This patient has a right dominant system, 40% mid RCA stenosis, 99% mid circumflex stenosis, 95% circumflex marginal stenosis and a 95% mid LAD stenosis. LAD is a smaller caliber vessel with fair distribution. Circumflex has a lot more myocardium being supplied by it. The filling pressures are normal. There was no gradient across aortic valve. RECOMMENDATIONS: I am recommending PCI of circumflex system and proceeded to perform this in the same setting. PCI PROCEDURE DETAILS: I used a JL 3.5 guide catheter to cannulate left coronary artery and a run-through wire to cross the lesion in the circumflex marginal. I advanced and positioned a 2.5 caliber 12 mm balloon and pre-dilated the lesion in the circumflex marginal. I tried to advance the stent but I lost guide support. I had to rewire the thing and at this time patient had chest pain and there was transient vessel occlusion of the main circumflex beyond the obtuse marginal. I was able to quickly get a decent guide support with the same catheter and I used a run-through wire and crossed the mid circumflex lesion and kept it distally and used another run-through wire to get back into the circumflex marginal. I then deployed a 3.5 caliber 12 mm long stent in the circumflex marginal proximally and noted that there was a lesion distal to it also. I then turned my attention to the mid circumflex which was the culprit lesion. I could not advance the same 2.5 Trek balloon. I then switched over to a 2.5 NC Trek balloon. With this, I was able to pre-dilate the lesion in the mid circumflex. I used [place] 2.0, 12 mm long stent and deployed this in the mid circumflex and postdilated with a 2.75 caliber 12 mm long NC trek. Excellent angiographic result of the midcircumflex was achieved and the flow was remarkably good. I then noted the distal to circumflex marginal stent there was area of haziness and narrowing. I deployed 2 additional 3.0 caliber 8 mm stents, telescoped each one into the other distal to the previously placed 3.5 stent. Excellent angiographic result was achieved. Patient had chest pain, but no EKG changes. She received heparin intravenously of 4000 units and ACT was between 250 and 300. She also received Aggrastat bolus and infusion as per protocol. Excellent angiographic result without complication was achieved. She received 600 mg of Plavix. The sheath was taken out and she was sent to the room in a stable condition. Results were discussed with the patient and family. MMMIKAEL / MOIZN: [id number] /
[2020-09-19] MEDS: HEPARIN SOD,PORK IN 0.45% NACL 25,000 UNIT in 0.45% NACL 1 250ML.BAG IV SCH (17:20)
[2020-09-19] MEDS: DORZOLAMIDE HCL 2% DROPS 10 ML BTL BOTH EYES SCH (17:32)
[2020-09-19] MEDS ORDERED: METOPROLOL TARTRATE 25 MG TAB PO SCH (21:00)
[2020-09-19] MEDS: METOPROLOL TARTRATE 25 MG TAB PO SCH (21:13)
[2020-09-19] MEDS: TIMOLOL 0.5% OPHTH DROPS 5 ML BTL BOTH EYES SCH (21:54)
[2020-09-20] MEDS: SODIUM CHLORIDE 0.9% 1,000 ML IV SCH (04:50)
[2020-09-20] MEDS: ACETAMINOPHEN TAB 325 MG TAB PO PRN (06:27)
[2020-09-20] MEDS ORDERED: HEPARIN SODIUM,PORCINE 2,500 UNIT in SODIUM CHLORIDE 0.9% 250 ML IRRIGATION PRN (07:00)
[2020-09-20] MEDS ORDERED: HEPARIN SODIUM,PORCINE 10,000 UNIT in SODIUM CHLORIDE 0.9% 1,000 ML IRRIGATION PRN (07:00)
[2020-09-20 07:20] LABS: African American GFR (CKD) >90 (>60 ml/min/1.73 sqM); Anion Gap 2 mmol/L; Blood Urea Nitrogen 15 mg/dL (7-17); Calcium 8.4 mg/dL (8.4-10.2); Carbon Dioxide 25 mmol/L (22-30); Chloride 107 mmol/L (98-107); Glucose 104 mg/dL (74-99); Non-African American GFR(CKD) 80 (>60 ml/min/1.73 sqM); Potassium 3.8 mmol/L (3.5-5.1); Sodium 134 mmol/L (137-145)
[2020-09-20 07:27] LABS: Basophils % (A) 0 %; Eosinophils # (A) 0.1 k/uL (0-0.7); Eosinophils % (A) 1 %; Lymphocytes # (A) 1.4 k/uL (1.0-4.8); Lymphocytes % (A) 18 %; MCH 30.7 pg (25.0-35.0); MCHC 33.1 g/dL (31.0-37.0); MCV 92.8 fL (80.0-100.0); Mean Platelet Volume 7.8; Monocytes # (A) 0.8 k/uL (0-1.0); Monocytes % (A) 10 %; Neutrophils # (A) 5.2 k/uL (1.3-7.7); Neutrophils % (A) 67 %; Platelet Count 137 k/uL (150-450); RBC 3.56 m/uL (3.80-5.40); RDW 13.1 % (11.5-15.5); WBC 7.8 k/uL (3.8-10.6)
[2020-09-20 07:29] LABS: HGB 10.9 gm/dL (11.4-16.0)
[2020-09-20] MEDS: ASPIRIN 81 MG PO SCH (08:05)
[2020-09-20] MEDS: METOPROLOL TARTRATE 50 MG TAB PO SCH (08:05)
[2020-09-20] MEDS: ATORVASTATIN 80 MG TAB PO SCH (08:05)
[2020-09-20] MEDS: amLODIPine 10 MG TAB PO SCH (08:05)
[2020-09-20] MEDS: CLOPIDOGREL 75 MG TAB PO SCH (08:05)
[2020-09-20] MEDS: lisinopriL 20 MG TAB PO SCH (08:05)
[2020-09-20] MEDS ORDERED: METOPROLOL TARTRATE 50 MG TAB PO SCH (09:00)
--- NOTE | 2020-09-20 10:01 | P.PN ---
Subjective Progress Note Date: 09/20/20 No new complaints, had 2 x DARWIN to Circ marginal and prox Circ artery. Doing well s/p procedure, no pain, no palps. Objective - Vital Signs Vital signs: Vital Signs Temp 98.2 F 09/20/20 07:59 Pulse 64 09/20/20 07:59 Resp 16 09/20/20 07:59 BP 99/60 09/20/20 07:59 Pulse Ox 96 09/20/20 07:59 Intake & Output 09/19/20 09/20/20 09/20/20 18:59 06:59 18:59 Intake Total 1008 Balance 1008 Weight 66.5 kg Intake: IV 908 Oral 100 Other: Voiding Method Toilet Toilet Toilet # Voids 1 1 - Exam Gen: awake, alert HEENT: normocephalic, atraumatic, good hearing acuity, moist mucous membranes Resp: good air exchange, breathing comfortably with no accessory muscle use, clear to auscultation bilaterally without wheezes or crackles CVS: good distal perfusion x 4, regular rate and rhythm without murmurs GI: soft, NTTP, ND, appropriate bowel sounds : no SPT, no CVAT, barton catheter not present MSK: no pitting edema, no clubbing Neuro: non-focal, moving all extremities Psych: cooperative, euthymic mood - Labs CBC & Chem 7: 09/20/20 06:50 09/20/20 06:50 Labs: Abnormal Lab Results - Last 24 Hours (Table) 09/19/20 09/19/20 09/20/20 Range/Units 03:32 11:29 06:50 RBC 3.56 L (3.80-5.40) m/uL Hgb 10.9 L D (11.4-16.0) gm/dL Hct 33.0 L (34.0-46.0) % Plt Count 137 L (150-450) k/uL Sodium (137-145) mmol/L Glucose (74-99) mg/dL POC Glucose (mg/dL) 141 H (75-99) mg/dL Cholesterol 211 H (0-200) mg/dL LDL Cholesterol, Calc 150.4 H (0.0-131.0) mg/dL 09/20/20 Range/Units 06:50 RBC (3.80-5.40) m/uL Hgb (11.4-16.0) gm/dL Hct (34.0-46.0) % Plt Count (150-450) k/uL Sodium 134 L (137-145) mmol/L Glucose 104 H (74-99) mg/dL POC Glucose (mg/dL) (75-99) mg/dL Cholesterol (0-200) mg/dL LDL Cholesterol, Calc (0.0-131.0) mg/dL Assessment and Plan Assessment: NSTEMI -Admit to telemetry, inpatient -Cardiology consult -Aspirin loaded, aspirin daily -Statin -plavix loaded in slab grinder, plavix daily -Continue home metoprolol -Heparin drip can be d/c'd if cleared by cardiology. -Nitro when necessary -EKG when necessary -[facility] on 09/19: 40% mid RCA, 99 % mid-circ, 95% marginal circ, 95% mid-LAD; 2 x DARWIN to the mid-circ, marginal circ. -needs f/u [facility] as outpatient for staged stenting of LAD Hypertension Hyperlipidemia Glaucoma -Home medications were reviewed and reconciled Patient is a full code DVT prophylaxis is addressed with heparin Daughter is next of kin
[2020-09-20] MEDS: DORZOLAMIDE HCL 2% DROPS 10 ML BTL BOTH EYES SCH (13:05)
--- NOTE | 2020-09-20 14:52 | PN ---
PROGRESS NOTE Mrs. Rizvi is doing much better today. The right radial site is clean and dry. EXAMINATION: Vitals are stable. No chest pain or shortness of breath. S1, S2 heard normally, short systolic murmur is evident. Lungs are clear. Abdomen and lower extremity exam are unchanged. PLAN: Patient can be discharged home tomorrow, on current medical regimen and I will see the patient in the office or I will set up for an LAD PCI soon after the long weekend. Advised not to do any strenuous activity but to be compliant with medications, particularly dual antiplatelet therapy. Patient understands all details and will follow through. MMODL / IJN: [id number] /
[2020-09-20] MEDS: TIMOLOL 0.5% OPHTH DROPS 5 ML BTL BOTH EYES SCH (20:49)
[2020-09-20] MEDS: METOPROLOL TARTRATE 25 MG TAB PO SCH (20:49)
[2020-09-21 02:11] VITALS: TEMP 97.8
[2020-09-21 06:01] VITALS: RESP 18
[2020-09-21] MEDS: ATORVASTATIN 80 MG TAB PO SCH (10:23)
[2020-09-21] MEDS: METOPROLOL TARTRATE 50 MG TAB PO SCH (10:23)
[2020-09-21] MEDS: ASPIRIN 81 MG PO SCH (10:23)
[2020-09-21] MEDS: lisinopriL 20 MG TAB PO SCH (10:23)
[2020-09-21] MEDS: CLOPIDOGREL 75 MG TAB PO SCH (10:23)
--- NOTE | 2020-09-21 11:53 | P.PN ---
Subjective Pt is seen and examined sitting up in no acute distress. She denies chest pain, shortness of breath, dizziness or palpitations. Blood pressure 107/61 heart rate 71 afebrile and maintaining oxygen saturation on room air. Currently maintained on aspirin 81 mg daily, amlodipine 10 mg daily, atorvastatin 80 mg daily, Plavix 75 mg daily, lisinopril 20 mg daily and metoprolol 50 mg in the morning and 25 mg at bedtime. GENERAL: Well-appearing, well-nourished and in no acute distress. NECK: Supple without JVD or thyromegaly. LUNGS: Course rhonchi, expiratory wheeze. No rales. Respiration equal and unlabored. No wheezes, rales or rhonchi. HEART: Regular rate and rhythm with systolic ejection murmur at the base, no rubs or gallops. S1 and S2 heard. EXTREMITIES: Normal range of motion, no edema. No clubbing or cyanosis. Peripheral pulses intact. ASSESSMENT NSTEMI Hypertension Dyslipidemia PLAN Discontinue amlodipine. Give one dose of PO lasix 40 mg now. Stable for discharge from a cardiac perspective. The importance of dual anti-platelet therapy has been discussed. Follow up with Dr. Martin in 1 week. She will undergo elective PCI of the LAD down the road. Nurse Practitioner note has been reviewed, I agree with a documented findings and plan of care. Patient was seen and examined. Objective - Vital Signs Vital signs: Vital Signs Temp 97.8 F 09/21/20 00:00 Pulse 71 09/21/20 10:21 Resp 18 09/21/20 10:21 BP 107/61 09/21/20 10:21 Pulse Ox 97 09/21/20 10:21 Intake & Output 09/20/20 09/21/20 09/21/20 18:59 06:59 18:59 Intake Total 250 120 Balance 250 120 Weight 64.5 kg Intake: Oral 250 120 Other: Voiding Method Toilet Toilet Toilet # Voids 1 1 1 - Labs CBC & Chem 7: 09/20/20 06:50 09/20/20 06:50
[2020-09-21 13:57] VITALS: BP 108/63; PULSE 69
--- NOTE | 2020-09-21 14:30 | P.DS ---
Providers Date of admission: 09/18/20 13:19 Expected date of discharge: 09/21/20 Attending physician: Ruy Goodwin MD Consults: 09/18/20 13:19 Consult Physician Urgent Consulting Provider: Mario Machado Consult Reason/Comments: nstemi Do you want consulting provider notified?: Yes Primary care physician: [facility] Course: 85 year old woman with medical history of HTN, HLD, glaucoma present for chest pain. Patient says that her pain started yesterday in the afternoon, with pain in her jaw. Her pain eventually radiated down to her chest, then down both of her arms. She says her pain is aching in nature. She says her pain was 9 out of 10. She never has had a history of stroke or heart attack. She denies symptoms of fevers, chills, nausea, vomiting, palpitations, syncope, diaphoresis, cough, dyspnea, lower extremity edema, orthopnea, abdominal pain, consultation, diarrhea, dysuria, dyschezia, numbness/weakness of the extremities. In the emergency room, she was found to have blood pressure of 152/81, heart rate 62. She was 97% on room air. CBC and chemistries were unremarkable. Initial troponin was 0.9, then trended to 1.5. Patient was aspirin loaded and started on daily aspirin, also started on heparin drip. Medicine service was asked to admit the patient, cardiology will consult. EKGs demonstrated normal sinus rhythm with left axis deviation, no ischemic abnormalities NSTEMI Patient was admitted to telemetry with [facility] consultation. She was treated initially with aspirin, statin, metoprolol. The following day after admission, she was sent to the [facility] where she was found to have multivessel disease, with culprit lesion in the circumflex system. She required 2 stents to the marginal circumflex, mid circumflex arteries. She also had quite significant LAD disease. Cardiology recommended repeat left heart cath in 1 week as an outpatient for staged procedure. Patient was loaded with Plavix in the [employer] and started on Plavix daily in addition to aspirin and statin. Patient's symptoms had completely resolved by the following day of admission. She had no arrhythmic events. Hypertension Hyperlipidemia Glaucoma Home medication changes included the discontinuation of amlodipine, exchange of metoprolol succinate for metoprolol tartrate, and the discontinuation of ibuprofen. All other medications were unchanged, except for new medications as described above. I spent 35 minutes coordinating this complex discharge Assessment: Gen: awake, alert HEENT: normocephalic, atraumatic, good hearing acuity, moist mucous membranes Resp: good air exchange, breathing comfortably with no accessory muscle use, clear to auscultation bilaterally without wheezes or crackles CVS: good distal perfusion x 4, regular rate and rhythm without murmurs GI: soft, NTTP, ND, appropriate bowel sounds : no SPT, no CVAT, barton catheter not present MSK: no pitting edema, no clubbing Neuro: non-focal, moving all extremities Psych: cooperative, euthymic mood Patient Condition at Discharge: Good Plan - Discharge Summary Discharge Rx Participant: No New Discharge Prescriptions: New Aspirin 81 mg PO DAILY chew Atorvastatin [Lipitor] 80 mg PO DAILY #90 tab Clopidogrel [Plavix] 75 mg PO DAILY #90 tab Metoprolol Tartrate [Lopressor] 50 mg PO DAILY #180 tab Nitroglycerin Sl Tabs [Nitrostat] 0.4 mg SUBLINGUAL Q5M PRN #1 bottle PRN Reason: Chest Pain Continue lisinopriL [Zestril] 20 mg PO DAILY HYDROcodone/APAP 7.5-325MG [Charmco 7.5-325] 1 tab PO Q12H Timolol [Betimol 0.5% Ophth Soln] 1 drop BOTH EYES HS Difluprednate [Durezol] 1 drop BOTH EYES DAILY PRN PRN Reason: REDNESS Dorzolamide 2% [Trusopt 2%] 1 drops BOTH EYES DIRECTED Meclizine HCl [Bonine] 25 mg PO DAILY PRN PRN Reason: DIZZINESS Discontinued amLODIPine [Norvasc] 10 mg PO DAILY@1200 Metoprolol Succinate [Toprol XL] 50 mg PO DAILY@1400 Ibuprofen [Motrin] 800 mg PO Q8H Discharge Medication List lisinopriL [Zestril] 20 mg PO DAILY 06/29/17 [History] HYDROcodone/APAP 7.5-325MG [Charmco 7.5-325] 1 tab PO Q12H 08/29/18 [History] Difluprednate [Durezol] 1 drop BOTH EYES DAILY PRN 09/18/20 [History] Dorzolamide 2% [Trusopt 2%] 1 drops BOTH EYES DIRECTED 09/18/20 [History] Meclizine HCl [Bonine] 25 mg PO DAILY PRN 09/18/20 [History] Timolol [Betimol 0.5% Ophth Soln] 1 drop BOTH EYES HS 09/18/20 [History] Aspirin 81 mg PO DAILY chew 09/21/20 [Rx] Atorvastatin [Lipitor] 80 mg PO DAILY #90 tab 09/21/20 [Rx] Clopidogrel [Plavix] 75 mg PO DAILY #90 tab 09/21/20 [Rx] Metoprolol Tartrate [Lopressor] 50 mg PO DAILY #180 tab 09/21/20 [Rx] Nitroglycerin Sl Tabs [Nitrostat] 0.4 mg SUBLINGUAL Q5M PRN #1 bottle 09/21/20 [Rx] Follow up Appointment(s)/Referral(s): Melonie Worthington MD [STAFF PHYSICIAN] - 09/29/20 2:30 pm (with Dr. Machado) Roney Jacob MD [Primary Care Provider] - 1-2 days (office will call to nancy manuel follow up appointment when opening is available. ) [facility] Visiting Nurse, [NON-STAFF] - Patient Instructions/Handouts: How to Stop Smoking (DC), Heart Healthy Diet (DC), After Radial Heart Catheterization (GEN) Discharge Disposition: HOME SELF-CARE
--- NOTE | 2020-09-22 08:21 | ECHOF ---
Referral Reason:chest pain MEASUREMENTS -------- HEIGHT: 172.7 cm WEIGHT: 64.4 kg BP: RVIDd: 2.0 cm (< 3.3) IVSd: 1.2 cm (0.6 - 1.1) LVIDd: 3.2 cm (3.9 - 5.3) LVPWd: 1.4 cm (0.6 - 1.1) IVSs: 1.7 cm LVIDs: 1.9 cm LVPWs: 2.1 cm Ao Diam: 3.4 cm (2.0 - 3.7) AV Cusp: 1.8 cm (1.5 - 2.6) LA Diam: 3.5 cm (2.7 - 3.8) MV EXCURSION: 11.453 mm (> 18.000) MV EF SLOPE: 45 mm/s (70 - 150) EPSS: 0.6 cm MV E Ed: 0.79 m/s MV DecT: 240 ms MV A Ed: 1.06 m/s MV E/A Ratio: 0.75 RAP: 5.00 mmHg RVSP: 33.03 mmHg FINDINGS -------- This was a technically difficult study with suboptimal views. The left ventricular size is normal. There is mild concentric left ventricular hypertrophy. Overa ll left ventricular systolic function is low-normal with, an EF between 50 - 55 %. The right ventricle is normal in size. The left atrial size is normal. The right atrial size is normal. Lumason used Unable to visualize the septum. The aortic valve is trileaflet and appears structurally normal. The mitral valve is normal. There is trace mitral regurgitation. The tricuspid valve appears structurally normal. Mild tricuspid regurgitation present. Right vent ricular systolic pressure is normal at < 35 mmHg. There is no pulmonic regurgitation present. The aortic root size is normal. IVC Not well visulized. There is no pericardial effusion. CONCLUSIONS -------- 1. The left ventricular size is normal. 2. There is mild concentric left ventricular hypertrophy. 3. Overall left ventricular systolic function is low-normal with, an EF between 50 - 55 %. 4. There is trace mitral regurgitation. 5. Mild tricuspid regurgitation present. 6. There is no pericardial effusion. DANCE PROFESSOR: Lennie Beasley RDCS
== END 2020-09-21 14:36 | disposition home or self-care (01) | DRG 247 ==
LOC: EC 11:43 → 3SCARD 13:19
PROVIDERS: ADMIT Internal Medicine; ATTEND Internal Medicine
PROC: B2111ZZ Fluoroscopy of Multiple Coronary Arteries using Low Osmolar Contrast (ICD-10-PCS; principal; 2020-09-19 12:05)
PROC: 4A023N7 Measurement of Cardiac Sampling and Pressure, Left Heart, Percutaneous Approach (ICD-10-PCS; principal; 2020-09-19 12:05)
PROC: 027135Z Dilation of Coronary Artery, Two Arteries with Two Drug-eluting Intraluminal Devices, Percutaneous Approach (ICD-10-PCS; principal; 2020-09-19 12:05)
DX: I21.4 Non-ST elevation (NSTEMI) myocardial infarction (principal); I25.10 Atherosclerotic heart disease of native coronary artery without angina pectoris; I10 Essential (primary) hypertension; H40.9 Unspecified glaucoma; F17.210 Nicotine dependence, cigarettes, uncomplicated; E03.9 Hypothyroidism, unspecified; E78.00 Pure hypercholesterolemia, unspecified; E78.5 Hyperlipidemia, unspecified; Z87.81 Personal history of (healed) traumatic fracture; Z98.890 Other specified postprocedural states; Z20.822 Contact with and (suspected) exposure to COVID-19; L71.9 Rosacea, unspecified; M54.30 Sciatica, unspecified side; G89.29 Other chronic pain; Z88.8 Allergy status to other drugs, medicaments and biological substances; Z79.02 Long term (current) use of antithrombotics/antiplatelets; Z79.82 Long term (current) use of aspirin; Z79.899 Other long term (current) drug therapy; Z86.718 Personal history of other venous thrombosis and embolism; Z87.442 Personal history of urinary calculi; Z90.49 Acquired absence of other specified parts of digestive tract; Z82.61 Family history of arthritis; Z83.6 Family history of other diseases of the respiratory system
CPT/HCPCS: 36415; 71046; 80048; 80053; 80061; 83735; 84484; 85025; 85610; 85730; 87635; 93005; 93306; 93458; 99291

== ENCOUNTER 2020-09-30 06:22 | Inpatient (IN) | payer MEDICARE ==
[2020-09-24 15:33] VITALS: BMI 21.7
[~2020-09-30 06:22] MED LIST: ALPRAZolam 0.25 MG TAB PO PRN; ALPRAZolam 0.5 MG TAB PO PRN; NITROGLYCERIN SL TABS 0.4 MG TAB SUBLINGUAL PRN; SODIUM CHLORIDE 0.9% 1,000 ML in EMPTY BAG 1 BAG IV ONE
[2020-09-30] MEDS ORDERED: ASPIRIN 325 MG TAB PO ONE (07:00)
[2020-09-30] MEDS ORDERED: ATORVASTATIN 80 MG TAB PO ONE (07:00)
[2020-09-30 07:33] LABS: Basophils % (A) 1 %; Eosinophils # (A) 0.4 k/uL (0-0.7); Eosinophils % (A) 5 %; HCT 36.8 % (34.0-46.0); HGB 12.6 gm/dL (11.4-16.0); Lymphocytes # (A) 1.8 k/uL (1.0-4.8); Lymphocytes % (A) 23 %; MCH 31.8 pg (25.0-35.0); MCHC 34.2 g/dL (31.0-37.0); MCV 93.1 fL (80.0-100.0); Mean Platelet Volume 8.3; Monocytes # (A) 0.6 k/uL (0-1.0); Monocytes % (A) 8 %; Neutrophils # (A) 4.9 k/uL (1.3-7.7); Neutrophils % (A) 62 %; Platelet Count 241 k/uL (150-450); RBC 3.95 m/uL (3.80-5.40); RDW 12.6 % (11.5-15.5); WBC 7.8 k/uL (3.8-10.6)
[2020-09-30 07:52] LABS: African American GFR (CKD) >90 (>60 ml/min/1.73 sqM); Anion Gap 6 mmol/L; Blood Urea Nitrogen 19 mg/dL (7-17); Calcium 9.6 mg/dL (8.4-10.2); Carbon Dioxide 26 mmol/L (22-30); Chloride 107 mmol/L (98-107); Glucose 106 mg/dL (74-99); Non-African American GFR(CKD) 79 (>60 ml/min/1.73 sqM); Sodium 139 mmol/L (137-145)
[2020-09-30] MEDS ORDERED: MIDAZOLAM 2 MG/2 ML VIAL IV ONE (08:00)
[2020-09-30] MEDS ORDERED: LIDOCAINE 1% INJ 10MG/ML (20 ML MDV) SQ ONE (08:05)
[2020-09-30] MEDS: VERAPAMIL SYRINGE (5 MG/10 ML) INTRAARTER ONE ×2 (08:06→08:53)
[2020-09-30] MEDS: NITROGLYCERIN 1000MCG/10ML SYRINGE INTRACORON ONE ×2 (08:30→08:46)
[2020-09-30] MEDS ORDERED: IOPAMIDOL-370 100ML BTL INJ ONE (08:31)
[2020-09-30] MEDS ORDERED: amLODIPine 5 MG TAB ONE (08:40)
[2020-09-30] MEDS ORDERED: CLOPIDOGREL 75 MG TAB PO ONE (08:42)
[2020-09-30] MEDS ORDERED: amLODIPine 5 MG TAB PO ONE (08:42)
[2020-09-30] MEDS ORDERED: IOPAMIDOL-370 50ML BTL INJ ONE ×2 (08:48→08:53)
[2020-09-30] MEDS ORDERED: HYDROmorphone 0.5 MG/0.5 ML SYRINGE IVP ONE (08:53)
[2020-09-30] MEDS: SODIUM CHLORIDE 0.9% 1,000 ML IV SCH ×2 (13:46→20:56)
[2020-09-30] MEDS ORDERED: MECLIZINE 25 MG TAB PO PRN (15:17)
[2020-09-30] MEDS: HYDROcodone/APAP 7.5-325MG 1 EACH TAB PO PRN (16:46)
--- NOTE | 2020-09-30 17:38 | PTCA ---
PERCUTANEOUSTRANS CORORONARY ANGIOGRAPHY DATE OF SERVICE: 09/30/2020 PROCEDURE: PTCA and stenting of mid LAD a long lesion with drug-eluting stents. PERFORMED BY: Dr. Nichol Worthington. SEDATION: Moderate conscious sedation time was 55 minutes. Patient was administered Versed. Oxygen saturation, hemodynamics and EKG were monitored closely. CLINICAL INFORMATION: Mrs. Marie Rizvi presented with a non-ST elevation [place] in the last week of August, underwent stenting of a complex lesion in the main circumflex midportion as well as the circumflex marginal branches with good result. She was brought back for PCI of LAD because of continued angina and known 95% lesion in the mid LAD. PROCEDURE NOTE: Under local anesthesia and strict aseptic precautions, a 6-Latvian introducer was placed in the right radial artery. The patient received 4500 units of heparin. Her ACT was 239. Additional 1000 units of heparin was given. I performed coronary angiography with a 3.5 left Jesus catheter, which was a guide catheter and noted that the circumflex was widely patent at the site of stenting. I then turned my attention to the LAD. A run-through wire was used to cross the lesion. Predilatation was performed with a 2.25 caliber 15 mm NC Trek balloon. I then deployed an 18 mm long Xience stent in the mid LAD with excellent result. Distal to it, there was still some narrowing and this was addressed with a 2.5 caliber 8 mm Xience stent. Proximally just after the septal branch also, there was eccentric 70% lesion. This was addressed with a 2.75 caliber Xience stent. The distal LAD was very small in caliber and highly diseased and very diffuse less than 1 mm vessel. Diagonal branch was of fair caliber. Wire was kept in the distal LAD and after I pulled the wire back, I noted that there was a compromise in flow in the distal LAD and the patient had mild chest discomfort. After I gave nitroglycerin, the flow improved and patient's symptoms resolved. Excellent angiographic result was achieved. Patient received additional 150 mg of Plavix and she was already on aspirin and Plavix. The sheath was taken out and TR band applied as per protocol. The saturation of the fingers of the right hand of 97%. Excellent angiographic result was achieved. Distal flow in the diffusely diseased LAD towards the apex was somewhat sluggish, but the patient was free of chest pain and EKG was unremarkable. Results were discussed with the patient and her family and she will be discharged tomorrow and will see Dr. Machado in 1 week. Excellent angiographic result was achieved without any significant complication. KATIE / RODRIGUEZ: [id number] /
[2020-09-30] MEDS: METOPROLOL TARTRATE 25 MG TAB PO SCH (20:52)
[2020-10-01 06:46] LABS: Basophils % (A) 0 %; Eosinophils # (A) 0.2 k/uL (0-0.7); Eosinophils % (A) 3 %; HCT 34.4 % (34.0-46.0); Lymphocytes # (A) 1.3 k/uL (1.0-4.8); Lymphocytes % (A) 15 %; MCH 32.2 pg (25.0-35.0); Mean Platelet Volume 8.4; Monocytes # (A) 0.6 k/uL (0-1.0); Monocytes % (A) 8 %; Neutrophils # (A) 6.1 k/uL (1.3-7.7); Neutrophils % (A) 72 %; Platelet Count 199 k/uL (150-450); RBC 3.74 m/uL (3.80-5.40); RDW 12.6 % (11.5-15.5); WBC 8.4 k/uL (3.8-10.6)
[2020-10-01 06:55] LABS: African American GFR (CKD) >90 (>60 ml/min/1.73 sqM); Anion Gap 3 mmol/L; Blood Urea Nitrogen 9 mg/dL (7-17); Calcium 8.8 mg/dL (8.4-10.2); Carbon Dioxide 27 mmol/L (22-30); Chloride 109 mmol/L (98-107); Glucose 118 mg/dL (74-99); Non-African American GFR(CKD) 84 (>60 ml/min/1.73 sqM); Sodium 139 mmol/L (137-145)
[2020-10-01] MEDS: ASPIRIN 81 MG PO SCH (08:57)
[2020-10-01] MEDS: METOPROLOL TARTRATE 50 MG TAB PO SCH (08:57)
[2020-10-01] MEDS: CLOPIDOGREL 75 MG TAB PO SCH (08:57)
[2020-10-01] MEDS: ATORVASTATIN 80 MG TAB PO SCH (08:57)
[2020-10-01] MEDS: lisinopriL 20 MG TAB PO SCH (08:57)
--- NOTE | 2020-10-01 12:17 | P.PN ---
Subjective Progress Note Date: 10/01/20 HISTORY OF PRESENT ILLNESS: This is an 85-year-old female who follows regularly in the office with Dr. Machado. Patient recently was diagnosed with a non-STEMI in August and underwent st enting of the circumflex marginal coronary artery and mid circumflex coronary artery. Patient was also known to have a 95% lesion in the mid LAD. She underwent cardiac catheterization yesterday with Dr. Worthington with stenting of the mid LAD. Patient examined this morning at the bedside. She has had no further episodes of chest pain. She denies shortness of breath. Right radial cath site with pulse present. Troponin 10.200. EKG shows some changes in V5-V6 in comparison to EKG from end of August. PHYSICAL EXAM: VITAL SIGNS: Reviewed. GENERAL: Well-developed in no acute distress. NECK: Supple. No JVD or thyromegaly LUNGS: Respirations even and unlabored. Lungs essentially clear to auscultation bilaterally. HEART: Regular rate and rhythm. S1 and S2 heard. EXTREMITIES: Normal range of motion. No clubbing or cyanosis. Peripheral pulses intact. No lower extremity edema ASSESSMENT: Coronary artery disease, s/p PCI to LAD Recent Non-STEMI with PCI to circumflex Hypertension Hyperlipidemia PLAN: We will keep the patient and monitor for another 24 hours Anticipate discharge home tomorrow if patient remains stable Nurse practitioner note has been reviewed by physician. Signing provider agrees with the documented findings, assessment, and plan of care. Objective - Vital Signs Vital signs: Vital Signs Temp 98.3 F 10/01/20 12:00 Pulse 60 10/01/20 12:00 Resp 18 10/01/20 12:00 BP 137/73 10/01/20 12:00 Pulse Ox 96 10/01/20 12:00 Intake & Output 09/30/20 10/01/20 10/01/20 18:59 06:59 18:59 Intake Total 790 375 240 Balance 790 375 240 Weight 64.864 kg 65.9 kg Intake: IV 400 Intake, IV Titration 375 Amount Sodium Chloride 0.9% 1, 375 000 ml @ 75 mls/hr IV . [id number] CAREN Rx#:[id number] Oral 390 240 Other: Voiding Method Toilet Toilet # Voids 2 1 - Labs CBC & Chem 7: 10/01/20 06:35 10/01/20 06:35 Labs: Abnormal Lab Results - Last 24 Hours (Table) 10/01/20 10/01/20 10/01/20 Range/Units 06:35 06:35 06:35 RBC 3.74 L (3.80-5.40) m/uL Chloride 109 H (98-107) mmol/L Glucose 118 H (74-99) mg/dL Troponin I 10.200 H* (0.000-0.034) ng/mL
--- NOTE | 2020-10-01 13:05 | PN ---
PROGRESS NOTE This lady was brought in yesterday for elective PCI of LAD. There were 2 lesions in the LAD and distal LAD was diffusely diseased and calcified. I performed PTCA and stenting of LAD with 3 drug-eluting stents with a good result. Distally, however, where the wire was advanced in place. There was a wire related obstruction of the distal LAD, which was a very diffusely diseased vessel of about 0.5 mm or so. This caused some chest pain in the lab. This pain, however, was resolved. EKG revealed some T-wave inversions in V5 and V6. Troponin has gone up to 10.0. Patient however is asymptomatic, hemodynamically stable. I explained to the patient that she did have a preprocedural [place]. However, she is stable. We will continue medical therapy. Blood pressure is 137/80, pulse rate is 66 per minute. No JVD. S1-S2 heard normally. No significant murmurs. Lungs are clear. Abdomen is soft, nontender. Lower extremities reveal normal pulses. Right radial site is clean and dry with good pulses. I am recommending an echocardiogram and an additional troponin to be performed today. We will continue current medical regimen including dual antiplatelet therapy. Details of the preprocedural myocardial damage were explained to the patient and her niece. Hopefully patient will be discharged tomorrow if she remains stable. We will check additional troponin today and echocardiogram as well. MMODL / IJN: [id number] /
[2020-10-01] MEDS: METOPROLOL TARTRATE 25 MG TAB PO SCH (20:32)
[2020-10-01] MEDS: HYDROcodone/APAP 7.5-325MG 1 EACH TAB PO PRN (20:32)
--- NOTE | 2020-10-02 08:00 | ECHOF ---
Referral Reason:LV function and wall motion MEASUREMENTS -------- HEIGHT: 172.7 cm WEIGHT: 65.8 kg BP: RVIDd: 2.1 cm (< 3.3) IVSd: 1.4 cm (0.6 - 1.1) LVIDd: 3.5 cm (3.9 - 5.3) LVPWd: 1.5 cm (0.6 - 1.1) IVSs: 2.1 cm LVIDs: 1.8 cm LVPWs: 2.2 cm LAESV Index (A-L): 24.80 ml/m Ao Diam: 3.1 cm (2.0 - 3.7) AV Cusp: 1.8 cm (1.5 - 2.6) LA Diam: 3.4 cm (2.7 - 3.8) MV EXCURSION: 11.453 mm (> 18.000) MV EF SLOPE: 75 mm/s (70 - 150) EPSS: 0.7 cm RAP: 5.00 mmHg RVSP: 35.63 mmHg FINDINGS -------- This was a technically good study. The left ventricular size is normal. There is moderate concentric left ventricular hypertrophy. O verall left ventricular systolic function is low-normal with, an EF between 50 - 55 %. The diastoli c filling pattern is normal for the age of the patient {E/E'}. Apical septum LV wall motion is hypo kinetic. The right ventricle is normal in size. The left atrial size is normal. Normal LA size by volume 22+/-6 ml/m2. The right atrial size is normal. Interatrial and interventricular septum intact. The aortic valve is trileaflet and appears structurally normal. The mitral valve is normal. Mild mitral regurgitation is present. The tricuspid valve appears structurally normal. Moderate tricuspid regurgitation present. There is mild pulmonary hypertension. The right ventricular systolic pressure, as measured by Doppler, is 35.63mmHg. There is no pulmonic regurgitation present. The aortic root size is normal. Normal inferior vena cava with normal inspiratory collapse consistent with estimated right atrial pre ssure of 5 mmHg. Echo free space may represent effusion or a pericardial fat pad. CONCLUSIONS -------- 1. The left ventricular size is normal. 2. There is moderate concentric left ventricular hypertrophy. 3. The diastolic filling pattern is normal for the age of the patient {E/E'} 4. Mild mitral regurgitation is present. 5. Moderate tricuspid regurgitation present. 6. There is mild pulmonary hypertension. 7. The right ventricular systolic pressure, as measured by Doppler, is 35.63mmHg. 8. Echo free space may represent effusion or a pericardial fat pad. M[employer]GAGE LOAN COUNSELOR: Lennie Beasley RDCS
[2020-10-02 09:33] VITALS: RESP 18
[2020-10-02] MEDS: CLOPIDOGREL 75 MG TAB PO SCH (09:35)
[2020-10-02] MEDS: ATORVASTATIN 80 MG TAB PO SCH (09:35)
[2020-10-02] MEDS: lisinopriL 20 MG TAB PO SCH (09:35)
[2020-10-02] MEDS: HYDROcodone/APAP 7.5-325MG 1 EACH TAB PO PRN (09:35)
[2020-10-02] MEDS: METOPROLOL TARTRATE 50 MG TAB PO SCH (09:35)
[2020-10-02] MEDS: ASPIRIN 81 MG PO SCH (09:35)
--- NOTE | 2020-10-02 11:43 | DS ---
DISCHARGE SUMMARY DATE OF ADMISSION: 09/30/2020. DATE OF DISCHARGE: 10/02/2020. PROCEDURES PERFORMED: Left heart catheterization and angioplasty of LAD. HISTORY: This is an 85-year-old lady who was brought in electively to perform angioplasty of the LAD. She had angioplasty of circumflex coronary artery recently in the setting of a non ST-segment elevation SC. The patient had a lesion in the proximal mid and distal LAD. While the proximal and mid lesions were stented. The distal LAD is a small caliber vessel closed off. The patient had chest pain and troponin leak. The troponin was 10. Subsequent troponin was 5, but has remained fairly stable and remained asymptomatic through the last 24 hours. An echocardiogram shows normal LV function with septal hypokinesis. Condition at the time of discharge comfortable at rest. Vital signs are stable. Chest exam reveals good air entry bilaterally. Heart exam reveals first and second heart sounds. No gallop. Abdomen is soft. Exam of extremities did not reveal any edema. Peripheral pulses are felt. LABS: Troponin was 10 and 5. Creatinine was 0.58. Hemoglobin was 12, platelet count is 199. DISCHARGE MEDICATIONS: Aspirin, Lipitor 80 mg daily, Plavix 75 mg daily, Zestril 20 daily, Lopressor 50 in the morning, 25 in the evening and sublingual nitroglycerin on a p.r.n. basis. FOLLOWUP: Patient will be followed up in my office in a week's time. KATIE / RODRIGUEZ: [id number] /
[2020-10-02 12:23] VITALS: BP 100/55; PULSE 52; TEMP 98.6
== END 2020-10-02 12:40 | disposition home or self-care (01) | DRG 246 ==
LOC: CATHCVL 06:22 → 3SCARD 09:32
PROVIDERS: ADMIT Internal Medicine Interventional Cardiology; ATTEND Internal Medicine Interventional Cardiology
PROC: 4A023N7 Measurement of Cardiac Sampling and Pressure, Left Heart, Percutaneous Approach (ICD-10-PCS; principal; 2020-09-30 07:30)
PROC: 027036Z Dilation of Coronary Artery, One Artery with Three Drug-eluting Intraluminal Devices, Percutaneous Approach (ICD-10-PCS; principal; 2020-09-30 07:30)
PROC: B2111ZZ Fluoroscopy of Multiple Coronary Arteries using Low Osmolar Contrast (ICD-10-PCS; principal; 2020-09-30 07:30)
DX: I25.119 Atherosclerotic heart disease of native coronary artery with unspecified angina pectoris (principal); I21.4 Non-ST elevation (NSTEMI) myocardial infarction; I25.84 Coronary atherosclerosis due to calcified coronary lesion; E78.5 Hyperlipidemia, unspecified; I10 Essential (primary) hypertension; I08.1 Rheumatic disorders of both mitral and tricuspid valves; Y83.8 Other surgical procedures as the cause of abnormal reaction of the patient, or of later complication, without mention of misadventure at the time of the procedure; Z88.8 Allergy status to other drugs, medicaments and biological substances; Z95.5 Presence of coronary angioplasty implant and graft
CPT/HCPCS: 80048; 84484; 85025; 93306

== ENCOUNTER 2020-10-09 15:30 | Observation (INO) | payer MEDICARE ==
[2020-10-09] MEDS ORDERED: NITROGLYCERIN SL TABS 0.4 MG TAB SUBLINGUAL STA (15:54)
--- NOTE | 2020-10-09 16:18 | ED ---
General Adult HPI <JolienoyChavez Dvaid - Last Filed: 10/09/20 16:30> - General Source: patient, family Mode of arrival: ambulatory Limitations: no limitations - History of Present Illness -: hour(s) (4) Location: chest Radiation: other Severity scale (1-10): 4 Quality: dull Consistency: now resolved Improves with: none Worsens with: none Associated Symptoms: other (Diarrhea) Treatments Prior to Arrival: Aspirin, other (Plavix) <Tien Orozco - Last Filed: 10/09/20 18:12> - General Chief complaint: Chest Pain Stated complaint: chest discomfort,jaw swore - History of Present Illness Initial comments: 85-year-old female alert and oriented 4 presents to the emergency room with a sharp chest pain that started at noon today. Patient states radiated to bilateral axilla and her lower jaw. She was concerned because her last [place] on September 17 she had jaw pain as well. Patient was given 3 stents on September 30 of this year to her LAD. She also states that she had an episode of diarrhea today. She states that she denies any fever, chest pain or shortness of breath at this time. She was discharged with aspirin and Plavix and did take both this morning. She does have a history of coronary artery disease, angina, DVT, hypertension and previous MIs. (Tien Orozco) - Related Data Home Medications Medication Instructions Recorded Confirmed lisinopriL [Zestril] 20 mg PO DAILY 06/29/17 10/09/20 HYDROcodone/APAP 7.5-325MG [[place] 1 tab PO Q12H 08/29/18 10/09/20 7.5-325] Difluprednate [Durezol] 1 drop BOTH EYES DAILY PRN 09/18/20 10/09/20 Dorzolamide 2% [Trusopt 2%] 1 drop BOTH EYES BID 09/18/20 10/09/20 Meclizine HCl [Bonine] 25 mg PO DAILY PRN 09/18/20 10/09/20 Timolol [Betimol 0.5% Ophth Soln] 1 drop BOTH EYES HS 09/18/20 10/09/20 Metoprolol Tartrate [Lopressor] 25 mg PO HS 09/24/20 10/09/20 Metoprolol Tartrate [Lopressor] 50 mg PO DAILY 09/24/20 10/09/20 Nitroglycerin Sl Tabs [Nitrostat] 0.4 mg SL Q5M PRN 10/09/20 10/09/20 Previous Rx's Medication Instructions Recorded Aspirin 81 mg PO DAILY chew 09/21/20 Atorvastatin [Lipitor] 80 mg PO DAILY #90 tab 09/21/20 Clopidogrel [Plavix] 75 mg PO DAILY #90 tab 09/21/20 Allergies Allergy/AdvReac Type Severity Reaction Status Date / Time grapefruit Allergy Anaphylaxis Verified 10/09/20 17:06 loratadine [From Claritin] Allergy Dyspnea Verified 10/09/20 17:06 pseudoephedrine Allergy Dyspnea Verified 10/09/20 17:06 [From Sudafed] strawberry Allergy Anaphylaxis Verified 10/09/20 17:06 Review of Systems ROS Other: All systems not noted in ROS Statement are negative. <Chavez Allen - Last Filed: 10/09/20 16:30> ROS Other: All systems not noted in ROS Statement are negative. <Tien Orozco - Last Filed: 10/09/20 18:12> ROS Statement: Those systems with pertinent positive or pertinent negative responses have been documented in the HPI. Past Medical History Past Medical History: Coronary Artery Disease (CAD), Chest Pain / Angina, Deep Vein Thrombosis (DVT), Hyperlipidemia, Hypertension, Myocardial Infarction ([place]), Renal Disease, Skin Disorder, Thyroid Disorder Additional Past Medical History / Comment(s): Vertigo, DVT L leg, bronchitis, sinus problems, hemorrhoids, chronic back pain with L sciatica in the past, rosacia, anemia, kidney stones-pt passed, UTI, hypothyroid, past R collar bone fracture, past R ankle fx with surgery. Last Myocardial Infarction Date:: 09/17/20 History of Any Multi-Drug Resistant Organisms: None Reported Past Surgical History: Cholecystectomy, Heart Catheterization With Stent, Orthopedic Surgery Additional Past Surgical History / Comment(s): Varicose vein ligation both legs, R ankle surgery for fracture, colonoscopy. Past Anesthesia/Blood Transfusion Reactions: No Reported Reaction Date of Last Stent Placement:: 09/30/2020 Past Psychological History: No Psychological Hx Reported Smoking Status: Current some day smoker Past Alcohol Use History: None Reported Past Drug Use History: None Reported - Past Family History Father Family Medical History: Pneumonia Additional Family Medical History / Comment(s): Father at the age of 24yrs from industrial caused pneumonia. Mother Family Medical History: Skin Disorder Additional Family Medical History / Comment(s): Mother had psoriatic arthritis, psoriasis. <Tien Orozco - Last Filed: 10/09/20 18:12> General Exam Limitations: no limitations General appearance: alert, in no apparent distress Head exam: Present: atraumatic, normocephalic, normal inspection Eye exam: Present: normal appearance, PERRL, EOMI. Absent: scleral icterus, conjunctival injection, periorbital swelling, periorbital tenderness ENT exam: Present: normal exam, normal oropharynx, mucous membranes moist Neck exam: Present: normal inspection, full ROM. Absent: tenderness, meningismus, lymphadenopathy, thyromegaly Respiratory exam: Present: normal lung sounds bilaterally. Absent: respiratory distress, wheezes, rales, rhonchi, stridor, chest wall tenderness, accessory muscle use, decreased breath sounds, prolonged expiratory Cardiovascular Exam: Present: bradycardia (Apical rate of 58), normal heart sounds. Absent: gallop, JVD GI/Abdominal exam: Present: soft, normal bowel sounds. Absent: distended, tenderness, guarding, rebound, rigid Extremities exam: Present: normal inspection, full ROM, normal capillary refill. Absent: tenderness, pedal edema, joint swelling, calf tenderness Back exam: Present: normal inspection, full ROM. Absent: tenderness, CVA tenderness (R), CVA tenderness (L), muscle spasm, paraspinal tenderness, vertebral tenderness Neurological exam: Present: alert, oriented X3, CN II-XII intact Psychiatric exam: Present: normal affect, normal mood Skin exam: Present: warm, dry, intact, normal color. Absent: rash, cyanosis, diaphoretic, erythema, petechiae, pallor, mottled <Tien Orozco - Last Filed: 10/09/20 18:12> Course Vital Signs 10/09/20 10/09/20 15:41 16:51 Temperature 98.1 F Pulse Rate 55 L 48 L Respiratory 16 16 Rate Blood Pressure 135/76 142/78 O2 Sat by Pulse 97 97 Oximetry EKG Findings - EKG Results: EKG: sinus rhythm (Ventricular rate of 49, [place] intervals 0.176, QRS of 0.98, QTC of 0.41), no acute changes (10/01/2020) <Tien Orozco - Last Filed: 10/09/20 18:12> Medical Decision Making - Lab Data Result diagrams: 10/09/20 16:12 <Chavez Allen - Last Filed: 10/09/20 16:30> - Lab Data Result diagrams: 10/09/20 16:12 10/09/20 16:12 <Tien Orozco - Last Filed: 10/09/20 18:12> - Medical Decision Making Nurse practitioner attestation: I, Dr. Chavez Allen, personally saw and examined the patient. I have reviewed and agree with the resident/PA findings, including all diagnostic interpretations and treatment plans as written unless otherwise stated. I was present for the lewis portions of any procedures performed and inclusive time noted for any critical care statement. Patient was evaluated along with nurse practitioner Tien Orozco. Briefly, patient is 85-year-old female presents with 1 day of chest pain. In the recent weeks patient was treated for myocardial infarction. She had multiple stents performed. Our facility by our cardiology team. She presents today with chest pain similar to chest pain she was experiencing when she was initially diagnosed with myocardial infarction. He states that the pain today is similar though not as severe as 3 weeks ago she was initially diagnosed with myocardial infarction. She has stable vital signs at the bedside. Initial EKG did not show any signs of ischemia or infarction. She reports that she does not have any chest pain currently but does have some throat and jaw pain. She was given nitroglycerin with slight improvement of her throat and jaw symptoms. (Chavez Allen) Chest x-ray shows no acute cardiopulmonary process although there is some mild hyperinflation. WBC count 6.8, hemoglobin and hematocrit is 11 and 33 respectively, potassium is 4.8 magnesium is 2.1 Troponin is 0.081 which is trending down from previous admission. CK-MB is 2.5. EKG does not show any signs of ST elevation or acute changes. It was reviewed by Dr. Allen. Kristen cleary does continue to have a dull pain under bilateral axilla is but states that the chest pain and jaw pain has resolved. She will be admitted for observation. (Tien Orozco) - Lab Data Lab Results 10/09/20 10/09/20 10/09/20 Range/Units 16:12 16:12 16:12 WBC 6.8 (3.8-10.6) k/uL RBC 3.62 L (3.80-5.40) m/uL Hgb 11.6 (11.4-16.0) gm/dL Hct 33.4 L (34.0-46.0) % MCV 92.2 (80.0-100.0) fL MCH 32.1 (25.0-35.0) pg MCHC 34.8 (31.0-37.0) g/dL RDW 12.8 (11.5-15.5) % Plt Count 194 (150-450) k/uL MPV 8.1 Neutrophils % 62 % Lymphocytes % 25 % Monocytes % 7 % Eosinophils % 4 % Basophils % 1 % Neutrophils # 4.2 (1.3-7.7) k/uL Lymphocytes # 1.7 (1.0-4.8) k/uL Monocytes # 0.5 (0-1.0) k/uL Eosinophils # 0.3 (0-0.7) k/uL Basophils # 0.1 (0-0.2) k/uL PT 10.5 (9.0-12.0) sec INR 1.0 (<1.2) APTT 22.9 (22.0-30.0) sec Sodium 139 (137-145) mmol/L Potassium 4.8 (3.5-5.1) mmol/L Chloride 107 (98-107) mmol/L Carbon Dioxide 23 (22-30) mmol/L Anion Gap 9 mmol/L BUN 15 (7-17) mg/dL Creatinine 0.77 (0.52-1.04) mg/dL Est GFR (CKD-EPI)AfAm 81 (>60 ml/min/1.73 sqM) Est GFR (CKD-EPI)NonAf 70 (>60 ml/min/1.73 sqM) Glucose 107 H (74-99) mg/dL Calcium 9.3 (8.4-10.2) mg/dL Magnesium 2.1 (1.6-2.3) mg/dL Total Bilirubin 0.3 (0.2-1.3) mg/dL AST 26 (14-36) U/L ALT 18 (4-34) U/L Alkaline Phosphatase 64 (38-126) U/L CK-MB (CK-2) (0.0-2.4) ng/mL Troponin I (0.000-0.034) ng/mL Total Protein 6.1 L (6.3-8.2) g/dL Albumin 3.9 (3.5-5.0) g/dL 10/09/20 Range/Units 16:12 WBC (3.8-10.6) k/uL RBC (3.80-5.40) m/uL Hgb (11.4-16.0) gm/dL Hct (34.0-46.0) % MCV (80.0-100.0) fL MCH (25.0-35.0) pg MCHC (31.0-37.0) g/dL RDW (11.5-15.5) % Plt Count (150-450) k/uL MPV Neutrophils % % Lymphocytes % % Monocytes % % Eosinophils % % Basophils % % Neutrophils # (1.3-7.7) k/uL Lymphocytes # (1.0-4.8) k/uL Monocytes # (0-1.0) k/uL Eosinophils # (0-0.7) k/uL Basophils # (0-0.2) k/uL PT (9.0-12.0) sec INR (<1.2) APTT (22.0-30.0) sec Sodium (137-145) mmol/L Potassium (3.5-5.1) mmol/L Chloride (98-107) mmol/L Carbon Dioxide (22-30) mmol/L Anion Gap mmol/L BUN (7-17) mg/dL Creatinine (0.52-1.04) mg/dL Est GFR (CKD-EPI)AfAm (>60 ml/min/1.73 sqM) Est GFR (CKD-EPI)NonAf (>60 ml/min/1.73 sqM) Glucose (74-99) mg/dL Calcium (8.4-10.2) mg/dL Magnesium (1.6-2.3) mg/dL Total Bilirubin (0.2-1.3) mg/dL AST (14-36) U/L ALT (4-34) U/L Alkaline Phosphatase (38-126) U/L CK-MB (CK-2) 2.5 H (0.0-2.4) ng/mL Troponin I 0.081 H* (0.000-0.034) ng/mL Total Protein (6.3-8.2) g/dL Albumin (3.5-5.0) g/dL Disposition <Chavez Allen - Last Filed: 10/09/20 16:30> Decision Date: 10/09/20 Decision Time: 18:11 <Tien Orozco - Last Filed: 10/09/20 18:12> Clinical Impression: Chest pain Disposition: ADMITTED IP TO THIS HOSP Condition: Good Referrals: Roney Jacob MD [Primary Care Provider] - 1-2 days
[2020-10-09 16:21] LABS: Basophils # (A) 0.1 k/uL (0-0.2); Basophils % (A) 1 %; Eosinophils # (A) 0.3 k/uL (0-0.7); Eosinophils % (A) 4 %; HCT 33.4 % (34.0-46.0); HGB 11.6 gm/dL (11.4-16.0); Lymphocytes # (A) 1.7 k/uL (1.0-4.8); Lymphocytes % (A) 25 %; MCH 32.1 pg (25.0-35.0); MCHC 34.8 g/dL (31.0-37.0); MCV 92.2 fL (80.0-100.0); Mean Platelet Volume 8.1; Monocytes # (A) 0.5 k/uL (0-1.0); Monocytes % (A) 7 %; Neutrophils # (A) 4.2 k/uL (1.3-7.7); Neutrophils % (A) 62 %; Platelet Count 194 k/uL (150-450); RBC 3.62 m/uL (3.80-5.40); RDW 12.8 % (11.5-15.5); WBC 6.8 k/uL (3.8-10.6)
[2020-10-09 16:33] LABS: Albumin 3.9 g/dL (3.5-5.0); Calcium 9.3 mg/dL (8.4-10.2); Magnesium 2.1 mg/dL (1.6-2.3); Potassium 4.8 mmol/L (3.5-5.1); Total Bilirubin 0.3 mg/dL (0.2-1.3); Total Protein 6.1 g/dL (6.3-8.2)
[2020-10-09 16:34] LABS: Partial Thromboplastin Time 22.9 sec (22.0-30.0); Prothrombin Time 10.5 sec (9.0-12.0)
--- NOTE | 2020-10-09 16:42 | XR ---
EXAMINATION TYPE: XR chest 2V DATE OF EXAM: 10/09/2020 COMPARISON: 09/18/2020 INDICATION: Chest pain mid chest TECHNIQUE: Frontal and lateral views of the chest are obtained. FINDINGS: The heart size is normal. Mediastinum appears unremarkable. Tracheobronchial tree as visualized is n ormal. No pneumomediastinum or pneumothorax evident. The pulmonary vasculature is normal. The lungs are clear. Is some mild hyperinflation with increased retrosternal airspace. Correlate for COPD. IMPRESSION: 1. No acute pulmonary process. 2. COPD
[2020-10-09 16:51] LABS: Creatine Kinase MB 2.5 ng/mL (0.0-2.4)
[2020-10-09 17:18] LABS: Troponin I 0.081 ng/mL (0.000-0.034)
[2020-10-09] MEDS ORDERED: ACETAMINOPHEN TAB 325 MG TAB PO PRN (18:24)
[2020-10-09] MEDS ORDERED: NALOXONE 0.4 MG/ML 1 ML VIAL IV PRN (18:24)
[2020-10-09] MEDS ORDERED: HEPARIN SODIUM 1,000 UN/ML (10ML VL) IV ONE (18:27)
[2020-10-09] MEDS ORDERED: HEPARIN SODIUM 1,000 UN/ML (10ML VL) IV PRN (18:27)
[2020-10-09] MEDS ORDERED: Difluprednate [Durezol] 5 ML Drops BOTH EYES PRN (18:28)
[2020-10-09] MEDS ORDERED: MECLIZINE 25 MG TAB PO PRN (18:28)
[2020-10-09] MEDS ORDERED: HEPARIN SOD,PORK IN 0.45% NACL 25,000 UNIT in 0.45% NACL 1 250ML.BAG IV SCH (18:30)
[2020-10-09] MEDS ORDERED: HYDROcodone/APAP 7.5-325MG 1 EACH TAB PO PRN (18:30)
[2020-10-09 18:56] LABS: Appearance,Urine Clear (Clear); Bilirubin,Urine Negative (Negative); Blood,Urine Trace (Negative); Color,Urine Yellow; Glucose,Urine (UA) Negative (Negative); Ketones,Urine Negative (Negative); Leukocyte Esterase,Urine Negative (Negative); Nitrite,Urine Negative (Negative); PH, Urine 6.5 (5.0-8.0); Protein,Urine Negative (Negative); RBC,Urine 5 /hpf (0-5); Specific Gravity,Urine 1.011 (1.001-1.035); Urobilinogen,Urine <2.0 mg/dL (<2.0)
[2020-10-09] MEDS: SODIUM CHLORIDE 0.9% 1,000 ML IV SCH (19:26)
[2020-10-09] MEDS ORDERED: MORPHINE SULFATE 2 MG/ML SYRINGE IVP PRN (20:23)
--- NOTE | 2020-10-09 20:35 | P.HPIM ---
History of Present Illness H&P Date: 10/09/20 Chief Complaint: Chest pain 85-year-old female recently diagnosed with coronary artery disease status post stenting Patient comes in today with sudden onset chest pain at rest while doing nothing. She denies any exertional dyspnea or angina chest pain. She experienced sudden onset sharp short-lived right-sided and left-sided chest pain then became radiating to the neck and a similar pattern to achieve experienced couple weeks ago when she was diagnosed with coronary artery disease for which she received stenting to the left circumflex system and of August and then she came back again one week later with recurrent episodes of chest pain for which she got stenting of her LAD. This time patient is denying any associated shortness of breath dizziness lightheadedness nausea vomiting or palpitations. However because of repeated episodes she grew concerned and decided to come in for evaluation. She otherwise claims to be compliant with her medications denies feeling weak or tired denies any leg edema denies any coughing or shortness of breath. Denies any fevers or chills. In the ED blood work did show mild anemia, slightly elevated troponins however this couldn't be trending down levels from her recent elevated levels. EKG did not show any acute ST changes however showed sinus bradycardia. Currently patient is chest pain-free laying comfortable in bed. Heart rate in 60s blood pressure 130s Otherwise patient denies any GI bleeding, she claims that she quit smoking and of August. Review of Systems Pertinent positives as noted in HPI. All other systems were reviewed and are negative Past Medical History Past Medical History: Coronary Artery Disease (CAD), Chest Pain / Angina, Deep Vein Thrombosis (DVT), Hyperlipidemia, Hypertension, Myocardial Infarction ([place]), Renal Disease, Skin Disorder, Thyroid Disorder Additional Past Medical History / Comment(s): Vertigo, DVT L leg, bronchitis, sinus problems, hemorrhoids, chronic back pain with L sciatica in the past, rosacia, anemia, kidney stones-pt passed, UTI, hypothyroid, past R collar bone fracture, past R ankle fx with surgery. Last Myocardial Infarction Date:: 09/17/20 History of Any Multi-Drug Resistant Organisms: None Reported Past Surgical History: Cholecystectomy, Heart Catheterization With Stent, Orthopedic Surgery Additional Past Surgical History / Comment(s): Varicose vein ligation both legs, R ankle surgery for fracture, colonoscopy. Past Anesthesia/Blood Transfusion Reactions: No Reported Reaction Date of Last Stent Placement:: 09/30/2020 Past Psychological History: No Psychological Hx Reported Smoking Status: Current some day smoker Past Alcohol Use History: None Reported Past Drug Use History: None Reported - Past Family History Father Family Medical History: Pneumonia Additional Family Medical History / Comment(s): Father at the age of 24yrs from industrial caused pneumonia. Mother Family Medical History: Skin Disorder Additional Family Medical History / Comment(s): Mother had psoriatic arthritis, psoriasis. Medications and Allergies Home Medications Medication Instructions Recorded Confirmed Type lisinopriL [Zestril] 20 mg PO DAILY 06/29/17 10/09/20 History HYDROcodone/APAP 7.5-325MG [[place] 1 tab PO Q12H 08/29/18 10/09/20 History 7.5-325] Difluprednate [Durezol] 1 drop BOTH EYES DAILY PRN 09/18/20 10/09/20 History Dorzolamide 2% [Trusopt 2%] 1 drop BOTH EYES BID 09/18/20 10/09/20 History Meclizine HCl [Bonine] 25 mg PO DAILY PRN 09/18/20 10/09/20 History Timolol [Betimol 0.5% Ophth Soln] 1 drop BOTH EYES HS 09/18/20 10/09/20 History Aspirin 81 mg PO DAILY chew 09/21/20 10/09/20 Rx Atorvastatin [Lipitor] 80 mg PO DAILY #90 tab 09/21/20 10/09/20 Rx Clopidogrel [Plavix] 75 mg PO DAILY #90 tab 09/21/20 10/09/20 Rx Metoprolol Tartrate [Lopressor] 25 mg PO HS 09/24/20 10/09/20 History Metoprolol Tartrate [Lopressor] 50 mg PO DAILY 09/24/20 10/09/20 History Nitroglycerin Sl Tabs [Nitrostat] 0.4 mg SL Q5M PRN 10/09/20 10/09/20 History Allergies Allergy/AdvReac Type Severity Reaction Status Date / Time grapefruit Allergy Anaphylaxis Verified 10/09/20 17:06 loratadine [From Claritin] Allergy Dyspnea Verified 10/09/20 17:06 pseudoephedrine Allergy Dyspnea Verified 10/09/20 17:06 [From Sudafed] strawberry Allergy Anaphylaxis Verified 10/09/20 17:06 Physical Exam Vitals: Vital Signs Temp Pulse Resp BP Pulse Ox 10/09/20 19:25 56 L 18 136/74 97 10/09/20 16:51 48 L 16 142/78 97 10/09/20 15:41 98.1 F 55 L 16 135/76 97 Intake and Output 10/09/20 10/09/20 10/09/20 06:59 14:59 22:59 Other: Weight 68.039 kg Constitutional: No acute distress, conversant, pleasant Eyes: Anicteric sclerae, moist conjunctiva, Pupils equal round reactive to light ENMT: NC/AT Oropharynx clear, no erythema, or exudates Neck: Supple, FROM, no masses, or JVD No carotid bruits No thyromegaly Lungs: Clear to auscultation Clear to percussion Normal respiratory effort, no accessory muscle use Cardiovascular: Heart regular in rate and rhythm, No murmurs, gallops, or rubs No peripheral edema Abdominal: Soft Nontender, no guarding, rebound or rigidity Abdomen moving with respiration Normoactive bowel sounds No hepatomegaly, No splenomegaly No palpable mass No abdominal wall hernia noted Skin: Normal temperature, tone, texture, turgor No induration No subcutaneous nodules No rash, lesions No ulcers Extremities: No digital cyanosis No clubbing Pedal pulses intact and symmetrical Radial pulses intact and symmetrical No calf tenderness Psychiatric: Alert and oriented to person, place and time Appropriate affect fair judgement Neuro Muscles Strength 5/5 in all 4 extremities Sensation to light touch grossly present throughout Cranial nerves II-XII grossly intact No focal sensory deficits Lymphatics: no palpable cervical or supraclavicular , or inguinal lymph nodes Results CBC & Chem 7: 10/09/20 16:12 10/09/20 16:12 Labs: Abnormal Lab Results - Last 24 Hours (Table) 10/09/20 10/09/20 10/09/20 Range/Units 16:12 16:12 16:12 RBC 3.62 L (3.80-5.40) m/uL Hct 33.4 L (34.0-46.0) % Glucose 107 H (74-99) mg/dL CK-MB (CK-2) 2.5 H (0.0-2.4) ng/mL Troponin I 0.081 H* (0.000-0.034) ng/mL Total Protein 6.1 L (6.3-8.2) g/dL Urine Blood (Negative) 10/09/20 Range/Units 18:51 RBC (3.80-5.40) m/uL Hct (34.0-46.0) % Glucose (74-99) mg/dL CK-MB (CK-2) (0.0-2.4) ng/mL Troponin I (0.000-0.034) ng/mL Total Protein (6.3-8.2) g/dL Urine Blood Trace H (Negative) Assessment and Plan Assessment: Unstable angina Sinus Bradycardia Resume cardiac meds, aspirin, statin, Plavix Continue with metoprolol Patient started on heparin drip I would avoid nitro at this point due to concerns regarding sinus bradycardia which could indicate involvement of RCA Morphine when necessary for chest pain Cardiac monitoring Trend troponins Cardiology consult Chronic conditions Hypertension, hyperlipidemia, resume home medications Preformed a thorough record review from recent hospitalization end of August I reviewed her left heart cath where she received stenting to the circumflex sy stem, I could not find the left heart cath report from first week of September. Where she received stenting to the LAD. CODE STATUS: Full code DVT prophylaxis: On heparin drip per [facility] protocol Discussed with: Patient, ER Anticipated length of stay less than than [address]: Home A total of 65 minutes was spent on the care of this complex patient more than 50% of the time was spent in counseling and care coordination.
[2020-10-09] MEDS: METOPROLOL TARTRATE 25 MG TAB PO SCH (21:34)
[2020-10-09] MEDS: DORZOLAMIDE HCL 2% DROPS 10 ML BTL BOTH EYES SCH (22:06)
[2020-10-09] MEDS: TIMOLOL 0.5% OPHTH DROPS 5 ML BTL BOTH EYES SCH (22:06)
[2020-10-10 08:50] LABS: Partial Thromboplastin Time 58.4 sec (22.0-30.0); Prothrombin Time 10.8 sec (9.0-12.0)
[2020-10-10 08:52] LABS: Basophils % (A) 1 %; Eosinophils # (A) 0.3 k/uL (0-0.7); Eosinophils % (A) 5 %; HCT 33.7 % (34.0-46.0); HGB 10.9 gm/dL (11.4-16.0); Lymphocytes # (A) 1.4 k/uL (1.0-4.8); Lymphocytes % (A) 25 %; MCH 30.5 pg (25.0-35.0); MCHC 32.4 g/dL (31.0-37.0); MCV 94.1 fL (80.0-100.0); Mean Platelet Volume 8.3; Monocytes # (A) 0.5 k/uL (0-1.0); Monocytes % (A) 8 %; Neutrophils # (A) 3.2 k/uL (1.3-7.7); Neutrophils % (A) 58 %; Platelet Count 176 k/uL (150-450); RBC 3.59 m/uL (3.80-5.40); RDW 13.2 % (11.5-15.5); WBC 5.5 k/uL (3.8-10.6)
[2020-10-10] MEDS: CLOPIDOGREL 75 MG TAB PO SCH (08:59)
[2020-10-10] MEDS: lisinopriL 20 MG TAB PO SCH (08:59)
[2020-10-10] MEDS: DORZOLAMIDE HCL 2% DROPS 10 ML BTL BOTH EYES SCH ×2 (08:59→21:16)
[2020-10-10] MEDS: ATORVASTATIN 80 MG TAB PO SCH (08:59)
[2020-10-10] MEDS: ASPIRIN 81 MG PO SCH (08:59)
[2020-10-10] MEDS ORDERED: MAG HYDROX/AL HYDROX/SIMETH 30 ML, HYOSCYAMINE ELIXIR 10 ML, LIDOCAINE VISCOUS 2% 10 ML PO ONE ×3 (10:30)
[2020-10-10] MEDS ORDERED: BENZOCAINE/MENTHOL LOZENG 1 EACH LOZENGE MUCOUS MEM PRN (10:31)
[2020-10-10] MEDS: FLUTICASONE 50MCG/SPRAY NASAL 16GM EA NOSTRIL SCH (11:19)
--- NOTE | 2020-10-10 11:52 | P.CRDCN ---
History of Present Illness Consult date: 10/10/20 History of present illness: HISTORY OF PRESENT ILLNESS: This is a 85-year-old female with a past medical history significant for coronary artery disease, hypertension, and hyperlipidemia. Patient follows in the office with Dr. Machado. We have been asked to see the patient in consultation for abnormal troponins. Patient examined at the bedside. Patient was hospitalized in August 2020 with a non-STEMI. She underwent stenting of a complex lesion in the main circumflex midportion as well as circumflex marginal branches. Patient was brought back on 09/30/2020 to undergo PCI of the LAD which had a known 95% lesion. Stenting was performed by Dr. Worthington. It is noted the patient had sluggish flow of the distal LAD post stenting. The patient was discharged home in stable condition. She states that she saw Dr. Ventura on 10/08/2020. She states she was doing well at that time and had not been expressing any chest pain. Patient states yesterday around 1 PM she developed chest pain yesterday as she was sitting watching TV. She states it initially started as a sharp pain and then became a dull pressure. She continues the pain has persisted since 1 PM yesterday and currently states it feels like a dull ache. She states the pain went under her left armpit and then went across her chest and to her right armpit. She also reports that went into her jaw. She denied feeling nauseated. She does report diarrhea yesterday which has resolved. Patient states she has been compliant with her medications. Patient states the pain does not get worse with deep inspiration. She denies pain with chest wall palpation. EKG reveals sinus mechanism with no signs of acute ischemia Chest xray no acute pulmonary process. COPD. Laboratory data: WBC 5.5. Hemoglobin 10.9. Platelet count 176. Sodium 139. Potassium 4.8. BUN 15. Creatinine 0.77. Magnesium 2.1. Troponin 0.081. 0.085. 0.080. These are trending downward from last week when her troponin was 10.2. Current home cardiac medications include lisinopril 10 mg daily, metoprolol tartrate 50 mg in the morning and 25 mg at night, Plavix 75 mg daily, Lipitor 80 mg daily, and aspirin 81 mg daily Echocardiogram completed on 10/02/2020 revealed ejection fraction 50-55%. Api hayden septum LV wall hypokinesis. Mild mitral regurgitation. Moderate tricuspid regurgitation. Mild pulmonary hypertension. REVIEW OF SYSTEMS: At the time of my exam: CONSTITUTIONAL: Denies fever or chills. HEENT: Denies blurred vision, vision changes, or eye pain. Denies hemoptysis CARDIOVASCULAR: + chest pain. Denies orthopnea. Denies PND. Denies palpitations RESPIRATORY: Denies shortness of breath. GASTROINTESTINAL: Denies abdominal pain. Denies nausea or vomiting. HEMATOLOGIC: Denies bleeding disorders. GENITOURINARY: Denies any blood in urine. SKIN: Denies pruitis. Denies rash. PHYSICAL EXAM: VITAL SIGNS: Reviewed. GENERAL: Well-developed in no acute distress. HEENT: Head is normocephalic. Pupils are equal, round. Sclerae anicteric. Mucous membranes of the mouth are moist. Neck supple. No JVD or thyromegaly LUNGS: Respirations even and unlabored. Lungs essentially clear to auscultation bilaterally. HEART: Regular rate and rhythm. S1 and S2 heard. ABDOMEN: Soft. Nondistended. Nontender. EXTREMITIES: Normal range of motion. No clubbing or cyanosis. Peripheral pulses intact. No lower extremity edema NEUROLOGIC: Awake and alert. Oriented x 3. ASSESSMENT: Chest pain Coronary artery disease with recent stenting Abnormal troponins, trending down from last week Recent non-stemi, august 2020 Hypertension Hyperlipidemia PLAN: Repeat echo to assess LV function and assess for any pericardial effusion Continue home cardiac medications Discontinue IV heparin Continue telemetry monitoring Further recommendations pending patient course Nurse practitioner note has been reviewed by physician. Signing provider agrees with the documented findings, assessment, and plan of care. Past Medical History Past Medical History: Coronary Artery Disease (CAD), Chest Pain / Angina, Deep Vein Thrombosis (DVT), Hyperlipidemia, Hypertension, Myocardial Infarction ([place]), Renal Disease, Skin Disorder, Thyroid Disorder Additional Past Medical History / Comment(s): Vertigo, DVT L leg, bronchitis, sinus problems, hemorrhoids, chronic back pain with L sciatica in the past, rosacia, anemia, kidney stones-pt passed, UTI, hypothyroid, past R collar bone fracture, past R ankle fx with surgery. Last Myocardial Infarction Date:: 09/17/20 History of Any Multi-Drug Resistant Organisms: None Reported Past Surgical History: Cholecystectomy, Heart Catheterization With Stent, Orthopedic Surgery Additional Past Surgical History / Comment(s): Varicose vein ligation both legs, R ankle surgery for fracture, colonoscopy. Past Anesthesia/Blood Transfusion Reactions: No Reported Reaction Date of Last Stent Placement:: 09/30/2020 Past Psychological History: No Psychological Hx Reported Additional Psychological History / Comment(s): . Smoking Status: Former smoker Past Alcohol Use History: None Reported Additional Past Alcohol Use History / Comment(s): Pt states she has been 1/2 ppd smoker. Currently not smoking since 09/19/20 when patient came to hospital for first heart cath with stents. Past Drug Use History: None Reported - Past Family History Father Family Medical History: Pneumonia Additional Family Medical History / Comment(s): Father at the age of 24yrs from industrial caused pneumonia. Mother Family Medical History: Skin Disorder Additional Family Medical History / Comment(s): Mother had psoriatic arthritis, psoriasis, and colon cancer Medications and Allergies Home Medications Medication Instructions Recorded Confirmed Type lisinopriL [Zestril] 20 mg PO DAILY 06/29/17 10/09/20 History HYDROcodone/APAP 7.5-325MG [[place] 1 tab PO Q12H 08/29/18 10/09/20 History 7.5-325] Difluprednate [Durezol] 1 drop BOTH EYES DAILY PRN 09/18/20 10/09/20 History Dorzolamide 2% [Trusopt 2%] 1 drop BOTH EYES BID 09/18/20 10/09/20 History Meclizine HCl [Bonine] 25 mg PO DAILY PRN 09/18/20 10/09/20 History Timolol [Betimol 0.5% Ophth Soln] 1 drop BOTH EYES HS 09/18/20 10/09/20 History Aspirin 81 mg PO DAILY chew 09/21/20 10/09/20 Rx Atorvastatin [Lipitor] 80 mg PO DAILY #90 tab 09/21/20 10/09/20 Rx Clopidogrel [Plavix] 75 mg PO DAILY #90 tab 09/21/20 10/09/20 Rx Metoprolol Tartrate [Lopressor] 25 mg PO HS 09/24/20 10/09/20 History Metoprolol Tartrate [Lopressor] 50 mg PO DAILY 09/24/20 10/09/20 History Nitroglycerin Sl Tabs [Nitrostat] 0.4 mg SL Q5M PRN 10/09/20 10/09/20 History Allergies Allergy/AdvReac Type Severity Reaction Status Date / Time grapefruit Allergy Anaphylaxis Verified 10/09/20 17:06 loratadine [From Claritin] Allergy Dyspnea Verified 10/09/20 17:06 pseudoephedrine Allergy Dyspnea Verified 10/09/20 17:06 [From Sudafed] strawberry Allergy Anaphylaxis Verified 10/09/20 17:06 Physical Exam Vitals: Vital Signs Temp Pulse Pulse Resp BP BP Pulse Ox 10/10/20 03:55 98.1 F 58 L 16 144/77 95 10/10/20 03:00 58 L 10/10/20 02:02 98.3 F 58 L 16 131/70 96 10/10/20 01:48 60 18 129/73 97 10/09/20 21:37 62 18 128/71 97 10/09/20 19:25 56 L 18 136/74 97 10/09/20 16:51 48 L 16 142/78 97 10/09/20 15:41 98.1 F 55 L 16 135/76 97 Intake and Output 10/09/20 10/10/20 10/10/20 22:59 06:59 14:59 Intake Total 46.132 Output Total 0 Balance 46.132 Intake: Intake, IV Titration 46.132 Amount Heparin Sod,Pork in 0.45% 46.132 NaCl 25,000 unit In 0.45 % NaCl 1 250ml.bag @ 12 UNITS/KG/HR 8.165 mls/hr IV .Q24H [facility] Rx#: [id number] Output: Urine 0 Other: # Voids 0 Weight 68.039 kg 67.8 kg Results 10/10/20 07:54 10/09/20 16:12 Cardiac Enzymes 10/09/20 10/09/20 10/09/20 Range/Units 16:12 16:12 20:21 AST 26 (14-36) U/L CK-MB (CK-2) 2.5 H (0.0-2.4) ng/mL Troponin I 0.081 H* 0.085 H* (0.000-0.034) ng/mL 10/09/20 Range/Units 23:50 AST (14-36) U/L CK-MB (CK-2) (0.0-2.4) ng/mL Troponin I 0.080 H* (0.000-0.034) ng/mL Coagulation 10/09/20 10/09/20 10/10/20 Range/Units 16:12 23:50 07:54 PT 10.5 10.8 (9.0-12.0) sec APTT 22.9 62.5 H 58.4 H (22.0-30.0) sec CBC 10/09/20 10/10/20 Range/Units 16:12 07:54 WBC 6.8 5.5 (3.8-10.6) k/uL RBC 3.62 L 3.59 L (3.80-5.40) m/uL Hgb 11.6 10.9 L (11.4-16.0) gm/dL Hct 33.4 L 33.7 L (34.0-46.0) % Plt Count 194 176 (150-450) k/uL Comprehensive Metabolic Panel 10/09/20 Range/Units 16:12 Sodium 139 (137-145) mmol/L Potassium 4.8 (3.5-5.1) mmol/L Chloride 107 (98-107) mmol/L Carbon Dioxide 23 (22-30) mmol/L BUN 15 (7-17) mg/dL Creatinine 0.77 (0.52-1.04) mg/dL Glucose 107 H (74-99) mg/dL Calcium 9.3 (8.4-10.2) mg/dL AST 26 (14-36) U/L ALT 18 (4-34) U/L Alkaline Phosphatase 64 (38-126) U/L Total Protein 6.1 L (6.3-8.2) g/dL Albumin 3.9 (3.5-5.0) g/dL Current Medications Generic Name Dose Route Start Last Admin Trade Name Freq PRN Reason Stop Dose Admin Acetaminophen 650 mg 10/09/20 18:24 Acetaminophen Tab 325 Mg Tab PO Q6HR PRN Mild Pain or Fever > 100.5 Hydrocodone Bitart/Acetaminophen 1 each 10/09/20 18:30 Hydrocodone/Apap 7.5-325mg 1 Each Tab PO Q12H PRN Pain Aspirin 81 mg 10/10/20 09:00 10/10/20 08:59 Aspirin 81 Mg PO 81 mg DAILY [facility] Administration Atorvastatin Calcium 80 mg 10/10/20 09:00 10/10/20 08:59 Atorvastatin 80 Mg Tab PO 80 mg DAILY [facility] Administration Clopidogrel Bisulfate 75 mg 10/10/20 09:00 10/10/20 08:59 Clopidogrel 75 Mg Tab PO 75 mg DAILY [facility] Administration Dorzolamide HCl 1 drops 10/09/20 21:00 10/10/20 08:59 Dorzolamide Hcl 2% Drops 10 Ml Btl BOTH EYES 1 drops BID [facility] Administration Heparin Sodium (Porcine) 0 unit 10/09/20 18:27 Heparin Sodium 1,000 Un/Ml (10ml Vl) IV PER PROTOCOL PRN Low PTT Protocol Sodium Chloride 1,000 mls @ 20 mls/hr 10/09/20 18:30 10/09/20 19:26 Saline 0.9% IV 20 mls/hr .Q24H [facility] Administration Heparin Sodium/Sodium Chloride 250 mls @ 8.165 mls/hr 10/09/20 18:30 10/10/20 01:01 25,000 unit/ Sodium Chloride IV 12 units/kg/hr .Q24H [facility] 8.165 mls/hr Titration Protocol 12 UNITS/KG/HR Lisinopril 20 mg 10/10/20 09:00 10/10/20 08:59 Lisinopril 20 Mg Tab PO 20 mg DAILY [facility] Administration Meclizine HCl 25 mg 10/09/20 18:28 Meclizine 25 Mg Tab PO DAILY PRN DIZZINESS Metoprolol Tartrate 25 mg 10/09/20 21:00 10/09/20 21:34 Metoprolol Tartrate 25 Mg Tab PO 25 mg HS [facility] Administration Morphine Sulfate 2 mg 10/09/20 20:23 10/09/20 21:34 Morphine Sulfate 2 Mg/Ml Syringe IVP 2 mg Q4H PRN Administration Pain/Discomfort Naloxone HCl 0.2 mg 10/09/20 18:24 Naloxone 0.4 Mg/Ml 1 Ml Vial IV Q2M PRN Opioid Reversal Difluprednate [ 1 drop 10/09/20 18:28 Durezol] 5 Ml Drops BOTH EYES DAILY PRN REDNESS Timolol Maleate 1 drops 10/09/20 21:00 10/09/20 22:06 Timolol 0.5% Ophth Drops 5 Ml Btl BOTH EYES Not Given HS [facility] Intake and Output 10/09/20 10/10/20 10/10/20 22:59 06:59 14:59 Intake Total 46.132 Output Total 0 Balance 46.132 Intake: Intake, IV Titration 46.132 Amount Heparin Sod,Pork in 0.45% 46.132 NaCl 25,000 unit In 0.45 % NaCl 1 250ml.bag @ 12 UNITS/KG/HR 8.165 mls/hr IV .Q24H [facility] Rx#: [id number] Output: Urine 0 Other: # Voids 0 Weight 68.039 kg 67.8 kg 10/10/20 07:54 10/09/20 16:12
--- NOTE | 2020-10-10 15:14 | P.PN ---
Subjective Progress Note Date: 10/10/20 Patient is an 85-year-old female with a history of NSTEMI in August 2020 requiring PCI who had repeat stent to the LAD and September 2020, hypertension, dyslipidemia, and prior DVT who presented to the ER with complaints of chest pain. In the ER her troponin was slightly elevated but has come down over 9 points since her stenting in late August 2020. EKG did not reveal any signs of acute ischemia. She was admitted for further monitoring. Her troponin remained flat. She was seen by cardiology who recommended echocardiogram to rule out pericardial effusion. Patient still complains of chest pain. It is retrosternal without radiation. Yesterday it was on the right side of her chest that radiated to the left. Pain always occurs when she is at rest and with ambulation. She does report that she had some throat discomfort as well as jaw pain yesterday. She has not had any dyspnea on exertion. She denies any history of acid reflux. She denies any association of the chest pain with food intake. She does report that laying down seems to make the chest pain worse with sitting forward seems to make it better. We discussed the possibility that this may not be cardiac pain, however she is insistent that it is similar to the pain when she needed her prior stents. It is almost identical to the pain she had an September prior to her last stent. General: non toxic, no distress, appears at stated age Derm: warm, dry Head: atraumatic, normocephalic, symmetric Eyes: EOMI, no lid lag, anicteric sclera Mouth: no lip lesion, mucus membranes moist Cardiovascular: S1S2 reg, no murmur, positive posterior tibial pulse bilateral, chest wall nontender to palpation Lungs: Decreased bilateral, no rhonchi, no rales , no accessory muscle use Abdominal: soft, nontender to palpation, no guarding, no appreciable organomegaly Ext: no gross muscle atrophy, no edema, no contractures Neuro: CN II-XI grossly intact, no focal neuro deficits Psych: Alert, oriented, appropriate affect Chest pain with history of coronary artery disease -Patient has had PCI 2 in the last 30 days. -Cardiology recommendations on-troponin is flat -Await echocardiogram -Patient was given a GI cocktail which did not completely resolve her pain but did improve it and changed it to dull. -Start Protonix -Off heparin drip -Continue with aspirin, Plavix, statin Hypertension - controlled - Continue home lisinopril, Lopressor Dyslipidemia -Statin History of DVT in the left leg Chronic back pain Anemia Hypothyroidism DVT prophylaxis: SCDs Discussed with: Patient, cardiology [employer] Anticipated discharge: In a.m. if chest pain and approved Anticipated discharge place: Home A total of 25 minutes was spent on the care of this complex patient more than 50% of the time was spent in counseling and care coordination. Objective - Vital Signs Vital signs: Vital Signs Temp 98.1 F 10/10/20 03:55 Pulse 58 L 10/10/20 11:22 Resp 16 10/10/20 11:22 BP 151/70 10/10/20 11:22 Pulse Ox 96 10/10/20 11:22 Intake & Output 10/09/20 10/10/20 10/10/20 18:59 06:59 18:59 Intake Total 46.132 540 Output Total 0 Balance 46.132 540 Weight 68.039 kg 67.8 kg Intake: Intake, IV Titration 46.132 Amount Heparin Sod,Pork in 0.45% 46.132 NaCl 25,000 unit In 0.45 % NaCl 1 250ml.bag @ 12 UNITS/KG/HR 8.165 mls/hr IV .Q24H [facility] Rx#: [id number] Oral 540 Output: Urine 0 Other: # Voids 0 - Labs CBC & Chem 7: 10/10/20 07:54 10/09/20 16:12 Labs: Abnormal Lab Results - Last 24 Hours (Table) 10/09/20 10/09/20 10/09/20 Range/Units 16:12 16:12 16:12 RBC 3.62 L (3.80-5.40) m/uL Hgb (11.4-16.0) gm/dL Hct 33.4 L (34.0-46.0) % APTT (22.0-30.0) sec Glucose 107 H (74-99) mg/dL CK-MB (CK-2) 2.5 H (0.0-2.4) ng/mL Troponin I 0.081 H* (0.000-0.034) ng/mL Total Protein 6.1 L (6.3-8.2) g/dL Urine Blood (Negative) 10/09/20 10/09/20 10/09/20 Range/Units 18:51 20:21 23:50 RBC (3.80-5.40) m/uL Hgb (11.4-16.0) gm/dL Hct (34.0-46.0) % APTT (22.0-30.0) sec Glucose (74-99) mg/dL CK-MB (CK-2) (0.0-2.4) ng/mL Troponin I 0.085 H* 0.080 H* (0.000-0.034) ng/mL Total Protein (6.3-8.2) g/dL Urine Blood Trace H (Negative) 10/09/20 10/10/20 10/10/20 Range/Units 23:50 07:54 07:54 RBC 3.59 L (3.80-5.40) m/uL Hgb 10.9 L (11.4-16.0) gm/dL Hct 33.7 L (34.0-46.0) % APTT 62.5 H 58.4 H (22.0-30.0) sec Glucose (74-99) mg/dL CK-MB (CK-2) (0.0-2.4) ng/mL Troponin I (0.000-0.034) ng/mL Total Protein (6.3-8.2) g/dL Urine Blood (Negative)
[2020-10-10] MEDS: SODIUM CHLORIDE 0.9% 1,000 ML IV SCH (21:08)
[2020-10-10] MEDS: METOPROLOL TARTRATE 25 MG TAB PO SCH (21:15)
[2020-10-10] MEDS: TIMOLOL 0.5% OPHTH DROPS 5 ML BTL BOTH EYES SCH (21:16)
[2020-10-11 03:27] VITALS: RESP 16
[2020-10-11] MEDS ORDERED: PANTOPRAZOLE 40 MG TABLET PO SCH (07:30)
[2020-10-11 08:15] LABS: HCT 32.8 % (34.0-46.0); HGB 11.2 gm/dL (11.4-16.0); MCH 32.1 pg (25.0-35.0); MCHC 34.1 g/dL (31.0-37.0); MCV 94.2 fL (80.0-100.0); Mean Platelet Volume 8.4; Platelet Count 168 k/uL (150-450); RBC 3.48 m/uL (3.80-5.40); RDW 12.9 % (11.5-15.5)
[2020-10-11 08:25] LABS: Calcium 9.1 mg/dL (8.4-10.2); Potassium 4.2 mmol/L (3.5-5.1)
[2020-10-11] MEDS: ASPIRIN 81 MG PO SCH (08:29)
[2020-10-11] MEDS: ATORVASTATIN 80 MG TAB PO SCH (08:29)
[2020-10-11] MEDS: FLUTICASONE 50MCG/SPRAY NASAL 16GM EA NOSTRIL SCH (08:30)
[2020-10-11] MEDS: lisinopriL 20 MG TAB PO SCH (08:30)
[2020-10-11] MEDS: CLOPIDOGREL 75 MG TAB PO SCH (08:30)
[2020-10-11] MEDS: DORZOLAMIDE HCL 2% DROPS 10 ML BTL BOTH EYES SCH (08:31)
[2020-10-11 08:35] VITALS: TEMP 98.6
--- NOTE | 2020-10-11 10:39 | P.PN ---
Subjective Progress Note Date: 10/11/20 HISTORY OF PRESENT ILLNESS: This is a 85-year-old female with a past medical history significant for coronary artery disease, hypertension, and hyperlipidemia. Patient follows in the office with Dr. Machado. We have been asked to see the patient in consultation for abnormal troponins. Patient examined at the bedside. Patient was hospitalized in August 2020 with a non-STEMI. She underwent stenting of a complex lesion in the main circumflex midportion as well as circumflex marginal branches. Patient was brought back on 09/30/2020 to undergo PCI of the LAD which had a known 95% lesion. Stenting was performed by Dr. Worthington. It is noted the patient had sluggish flow of the distal LAD post stenting. The patient was discharged home in stable condition. She states that she saw Dr. Ventura on 10/08/2020. She states she was doing well at that time and had not been expressing any chest pain. Patient states yesterday around 1 PM she developed chest pain yesterday as she was sitting watching TV. She states it initially started as a sharp pain and then became a dull pressure. She continues the pain has persisted since 1 PM yesterday and currently states it feels like a dull ache. She states the pain went under her left armpit and then went across her chest and to her right armpit. She also reports that went into her jaw. She denied feeling nauseated. She does report diarrhea yesterday which has resolved. Patient states she has been compliant with her medications. Patient states the pain does not get worse with deep inspiration. She denies pain with chest wall palpation. EKG reveals sinus mechanism with no signs of acute ischemia Chest xray no acute pulmonary process. COPD. Laboratory data: WBC 5.5. Hemoglobin 10.9. Platelet count 176. Sodium 139. Potassium 4.8. BUN 15. Creatinine 0.77. Magnesium 2.1. Troponin 0.081. 0.085. 0.080. These are trending downward from last week when her troponin was 10.2. Current home cardiac medications include lisinopril 10 mg daily, metoprolol tartrate 50 mg in the morning and 25 mg at night, Plavix 75 mg daily, Lipitor 80 mg daily, and aspirin 81 mg daily Echocardiogram completed on 10/02/2020 revealed ejection fraction 50-55%. Apical septum LV wall hypokinesis. Mild mitral regurgitation. Moderate tricuspid regurgitation. Mild pulmonary hypertension. 10/11/2020 Patient examined this morning at the bedside. Patient states her chest pain has completely resolved. She denies shortness of breath. Vital signs are stable. She is hoping to be discharged home today. PHYSICAL EXAM: VITAL SIGNS: Reviewed. GENERAL: Well-developed in no acute distress. HEENT: Head is normocephalic. Pupils are equal, round. Sclerae anicteric. Mucous membranes of the mouth are moist. Neck supple. No JVD or thyromegaly LUNGS: Respirations even and unlabored. Lungs essentially clear to auscultation bilaterally. HEART: Regular rate and rhythm. S1 and S2 heard. ABDOMEN: Soft. Nondistended. Nontender. EXTREMITIES: Normal range of motion. No clubbing or cyanosis. Peripheral pulses intact. No lower extremity edema NEUROLOGIC: Awake and alert. Oriented x 3. ASSESSMENT: Chest pain Coronary artery disease with recent stenting Abnormal troponins, trending down from last week Recent non-stemi, august 2020 Hypertension Hyperlipidemia PLAN: Repeat echo completed to assess LV function and assess for any pericardial e ffusion. Await results Continue to limit to monitor Continue current cardiac medications Possible discharge home this afternoon pending echo results Nurse practitioner note has been reviewed by physician. Signing provider agrees with the documented findings, assessment, and plan of care. Objective - Vital Signs Vital signs: Vital Signs Temp 98.6 F 10/11/20 08:00 Pulse 58 L 10/11/20 08:00 Resp 16 10/11/20 08:00 BP 117/58 10/11/20 08:00 Pulse Ox 96 10/11/20 08:00 Intake & Output 10/10/20 10/11/20 10/11/20 18:59 06:59 18:59 Intake Total 720 180 Output Total 300 Balance 720 -300 180 Weight 67.9 kg Intake: Oral 720 180 Output: Urine 300 Other: # Voids 1 - Labs CBC & Chem 7: 10/11/20 07:34 10/11/20 07:34 Labs: Abnormal Lab Results - Last 24 Hours (Table) 10/11/20 10/11/20 Range/Units 07:34 07:34 RBC 3.48 L (3.80-5.40) m/uL Hgb 11.2 L (11.4-16.0) gm/dL Hct 32.8 L (34.0-46.0) % Glucose 106 H (74-99) mg/dL
[2020-10-11 12:35] VITALS: BP 134/64; PULSE 69
--- NOTE | 2020-10-11 12:50 | ECHOF ---
Referral Reason:LV function MEASUREMENTS -------- HEIGHT: 172.7 cm WEIGHT: 67.6 kg BP: 128/68 IVSd: 1.1 cm (0.6 - 1.1) LVIDd: 4.6 cm (3.9 - 5.3) LVPWd: 1.5 cm (0.6 - 1.1) IVSs: 2.0 cm LVIDs: 3.2 cm LVPWs: 1.7 cm FINDINGS -------- Sinus rhythm. Limited Study There is mild concentric left ventricular hypertrophy. Overall left ventricular systolic function i s mildly impaired with, an EF between 45 - 50 %. Basal lateral LV wall motion is hypokinetic. 5.0mg of Lumason was utilized for enhancement of images There is no pericardial effusion. CONCLUSIONS -------- 1. There is mild concentric left ventricular hypertrophy. 2. Overall left ventricular systolic function is mildly impaired with, an EF between 45 - 50 %. 3. Basal lateral LV wall motion is hypokinetic. HAND FABRIC CUTTER: Viviane Valencia RDCS
--- NOTE | 2020-10-11 12:59 | P.DS ---
<Jacob Chi - Last Filed: 10/11/20 12:48> Providers Expected date of discharge: 10/11/20 Hospital Course: Discharge Diagnosis: Chest pain with history of coronary artery disease, acute coronary event ruled out Hypertension, controlled Dyslipidemia History of DVT in the left leg Chronic back pain Chronic Anemia Hypothyroidism Hospital Course: Patient is an 85-year-old female with a history of NSTEMI in August 2020 requiring PCI who had repeat stenting to the LAD in September 2020, CAD, hypertension, dyslipidemia, and prior DVT who presented to the ER with complaints of chest pain. In the ER her troponin was slightly elevated but has come down over 9 points since her stenting in late August 2020 and upon trending troponins were flat at 0.081, 0.085, and 0.080.. EKG showing sinus bradycardia 49 bpm and did not reveal any signs of acute ischemia. She was admitted f under our services with consultation to cardiology or further monitoring. Echocardiogram was completed ruling out pleural effusion revealing a mildly impaired EF of 45-50% and basal lateral left ventricular wall hypokinesis. Patient seen and evaluated at bedside this morning reporting all chest pain has resided. She denies having any chest pain or pressure or discomfort. She denies having any headache, lightheadedness, dizziness, palpitations, shortness of breath, or any other complaints. Patient ambulatory in room without any difficulties and no reports of dyspnea with exertion. Acute coronary event has been ruled out. Patient cleared by cardiology and medically stable for discharge home at this time. She is to follow up with her primary care provider Dr. Jacob in 1-2 days and with business operations specialist, Dr. Mckee in one week. Patient to continue daily aspirin, atorvastatin, Plavix, metoprolol, and lisinopril. Physical examination: Patient seen and examined at bedside.[] Vital signs reviewed and stable. General: Nontoxic, no distress and appears stated age. Derm: Skin warm and dry, normal coloration for ethnicity. Head: Atraumatic, normocephalic and symmetric. Eyes: EOMs intact, no lid lag, and anicteric sclera Mouth: no lip lesions, mucus membranes moist Cardiovascular: regular rate and rhythm with normal S1S2, no murmur, positive posterior tibial pulses bilaterally, and cap refill < 2 seconds. Lungs: Respirations even, regular, and unlabored on room air. Lungs CTA bilaterally, no rhonchi, no rales, no wheezing, and no accessory muscle usage. Abdominal: soft, nontender to palpation, no guarding, no appreciable organomegaly Ext: ROM intact. No gross muscle atrophy, no edema, no contractures Neuro: Speech clear, face symmetrical and CN II-XII grossly intact with no noted focal neuro deficits Psych: Alert and oriented to person, place, time, and situation. Appropriate and pleasant affect. A total of 45 minutes of time were spent preparing this complex discharge summary. Patient Condition at Discharge: Stable Plan - Discharge Summary New Discharge Prescriptions: Continue lisinopriL [Zestril] 20 mg PO DAILY HYDROcodone/APAP 7.5-325MG [[place] 7.5-325] 1 tab PO Q12H Timolol [Betimol 0.5% Ophth Soln] 1 drop BOTH EYES HS Difluprednate [Durezol] 1 drop BOTH EYES DAILY PRN PRN Reason: REDNESS Dorzolamide 2% [Trusopt 2%] 1 drop BOTH EYES BID Meclizine HCl [Bonine] 25 mg PO DAILY PRN PRN Reason: DIZZINESS Aspirin 81 mg PO DAILY chew Atorvastatin [Lipitor] 80 mg PO DAILY #90 tab Clopidogrel [Plavix] 75 mg PO DAILY #90 tab Metoprolol Tartrate [Lopressor] 50 mg PO DAILY Nitroglycerin Sl Tabs [Nitrostat] 0.4 mg SL Q5M PRN PRN Reason: Chest Pain Metoprolol Tartrate [Lopressor] 25 mg PO HS Discharge Medication List lisinopriL [Zestril] 20 mg PO DAILY 06/29/17 [History] HYDROcodone/APAP 7.5-325MG [[place] 7.5-325] 1 tab PO Q12H 08/29/18 [History] Difluprednate [Durezol] 1 drop BOTH EYES DAILY PRN 09/18/20 [History] Dorzolamide 2% [Trusopt 2%] 1 drop BOTH EYES BID 09/18/20 [History] Meclizine HCl [Bonine] 25 mg PO DAILY PRN 09/18/20 [History] Timolol [Betimol 0.5% Ophth Soln] 1 drop BOTH EYES HS 09/18/20 [History] Aspirin 81 mg PO DAILY chew 09/21/20 [Rx] Atorvastatin [Lipitor] 80 mg PO DAILY #90 tab 09/21/20 [Rx] Clopidogrel [Plavix] 75 mg PO DAILY #90 tab 09/21/20 [Rx] Metoprolol Tartrate [Lopressor] 25 mg PO HS 09/24/20 [History] Metoprolol Tartrate [Lopressor] 50 mg PO DAILY 09/24/20 [History] Nitroglycerin Sl Tabs [Nitrostat] 0.4 mg SL Q5M PRN 10/09/20 [History] Follow up Appointment(s)/Referral(s): Barrie Mckee MD [STAFF PHYSICIAN] - 1 Week Roney Jacob MD [Primary Care Provider] - 1-2 days Activity/Diet/Wound Care/Special Instructions: Activity: As tolerated. Take breaks as needed. Diet: Heart healthy and carb consistent diet. Avoid salt, or foods with hidden salts. Extra salt makes your heart work harder and traps the fluid in your body for longer. Special Instructions: Take all of your medications as directed. NEVER skip a dose. And remember to keep all of your doctor's appointments and follow-up as needed. Elevate your legs when you are not up moving around to help with circulation and prevent swelling. Thank you for allowing us to participate in your care, it was a pleasure having you for our patient! Discharge Disposition: HOME SELF-CARE <Alisson Dowell - Last Filed: 10/11/20 18:52> Providers Date of admission: 10/09/20 18:29 Attending physician: Alisson Dowell DO Consults: 10/09/20 18:25 Consult Physician Urgent Consulting Provider: Barrie Mckee Consult Reason/Comments: chest pain Do you want consulting provider notified?: Already Contacted Primary care physician: Srinivasa Galvezcordelia [facility] Course: Jacob Chi NP rendered care for this patient independently, reviewed the findings and plan as documented in the note above. I did not physically speak with or examine the patient on this date.
== END 2020-10-11 14:29 | disposition home or self-care (01) ==
LOC: EC 15:30 → 3SCARD 18:29
PROVIDERS: ADMIT Internal Medicine; ATTEND Internal Medicine
DX: R07.89 Other chest pain (principal); I25.10 Atherosclerotic heart disease of native coronary artery without angina pectoris; I10 Essential (primary) hypertension; E78.5 Hyperlipidemia, unspecified; Z86.718 Personal history of other venous thrombosis and embolism; G89.29 Other chronic pain; M54.9 Dorsalgia, unspecified; D64.9 Anemia, unspecified; E03.9 Hypothyroidism, unspecified; Z95.5 Presence of coronary angioplasty implant and graft; I25.2 Old myocardial infarction; R19.7 Diarrhea, unspecified; R00.1 Bradycardia, unspecified; R07.0 Pain in throat; R68.84 Jaw pain; M79.622 Pain in left upper arm; M79.621 Pain in right upper arm; R42 Dizziness and giddiness; M54.32 Sciatica, left side; L71.9 Rosacea, unspecified; R79.89 Other specified abnormal findings of blood chemistry; F17.210 Nicotine dependence, cigarettes, uncomplicated; Z87.09 Personal history of other diseases of the respiratory system; Z87.442 Personal history of urinary calculi; Z87.440 Personal history of urinary (tract) infections; Z79.899 Other long term (current) drug therapy; Z79.891 Long term (current) use of opiate analgesic; Z79.82 Long term (current) use of aspirin; Z79.02 Long term (current) use of antithrombotics/antiplatelets; Z91.018 Allergy to other foods; Z88.8 Allergy status to other drugs, medicaments and biological substances; Z90.49 Acquired absence of other specified parts of digestive tract; Z83.6 Family history of other diseases of the respiratory system; Z82.61 Family history of arthritis; Z84.0 Family history of diseases of the skin and subcutaneous tissue; Z80.0 Family history of malignant neoplasm of digestive organs
CPT/HCPCS: 96366 ×3; 96376; 96365; 96375; 99285; 36415; 93005; 80053; 80048; 82553; 83735; 84484; 85025 ×2; 85027; 85610 ×2; 85730 ×2; 81001; 71046; G0378 ×3; C8924; J2270; J1644 ×2; Q9950; 93308

== ENCOUNTER 2020-10-22 13:21 | Inpatient (IN) | payer MEDICARE ==
[2020-10-22 14:02] LABS: Basophils % (A) 0 %; Eosinophils # (A) 0.2 k/uL (0-0.7); Eosinophils % (A) 2 %; HCT 39.5 % (34.0-46.0); HGB 13.2 gm/dL (11.4-16.0); Lymphocytes # (A) 1.7 k/uL (1.0-4.8); Lymphocytes % (A) 19 %; MCH 31.8 pg (25.0-35.0); MCHC 33.3 g/dL (31.0-37.0); MCV 95.5 fL (80.0-100.0); Mean Platelet Volume 9.4; Monocytes # (A) 0.7 k/uL (0-1.0); Monocytes % (A) 8 %; Neutrophils # (A) 6.5 k/uL (1.3-7.7); Neutrophils % (A) 70 %; Platelet Count 165 k/uL (150-450); RBC 4.14 m/uL (3.80-5.40); WBC 9.3 k/uL (3.8-10.6)
[2020-10-22 14:10] LABS: Albumin 4.4 g/dL (3.5-5.0); Calcium 9.7 mg/dL (8.4-10.2); Magnesium 2.1 mg/dL (1.6-2.3); Potassium 4.4 mmol/L (3.5-5.1); Total Bilirubin 0.7 mg/dL (0.2-1.3); Total Protein 6.7 g/dL (6.3-8.2)
[2020-10-22 14:16] LABS: Partial Thromboplastin Time 23.1 sec (22.0-30.0); Prothrombin Time 10.3 sec (9.0-12.0)
--- NOTE | 2020-10-22 14:37 | XR ---
EXAMINATION TYPE: XR chest 1V portable DATE OF EXAM: 10/22/2020 COMPARISON: 10/09/2020 HISTORY: Weakness TECHNIQUE: Single frontal view of the chest is obtained. FINDINGS: There is no focal air space opacity, pleural effusion, or pneumothorax seen. The cardiac silhouette size is within normal limits. The osseous structures are intact. Size prominent. Hyperin flation. Arthropathy of the shoulders with diffuse osteopenia. IMPRESSION: Mild cardiomegaly with COPD.
[2020-10-22 14:52] LABS: Appearance,Urine Clear (Clear); Bilirubin,Urine Negative (Negative); Blood,Urine Small (Negative); Color,Urine Light Yellow; Glucose,Urine (UA) Negative (Negative); Ketones,Urine Negative (Negative); Leukocyte Esterase,Urine Negative (Negative); Nitrite,Urine Negative (Negative); Protein,Urine Negative (Negative); RBC,Urine 5 /hpf (0-5); Specific Gravity,Urine 1.011 (1.001-1.035); Urobilinogen,Urine <2.0 mg/dL (<2.0); WBC,Urine 1 /hpf (0-5)
--- NOTE | 2020-10-22 15:18 | ED ---
Weakness HPI - General Chief complaint: Weakness Stated complaint: Weakness Time Seen by Provider: 10/22/20 13:27 Source: patient, family Mode of arrival: ambulatory Limitations: no limitations - History of Present Illness Initial comments: Patient complains of weakness. She complains of shortness of breath. Her symptoms have gotten worse over 2 days. Nothing makes it better or worse that she is aware of. She hasn't taken any specific medication for this. She has no chest pain or pressure or tightness. She has no lightheadedness or dizziness. She has no focal weakness. She has had no sick contacts and no travel anywhere. She wasn't having any back pain. She had no loss of bowel or bladder continence. - Related Data Home Medications Medication Instructions Recorded Confirmed lisinopriL [Zestril] 20 mg PO DAILY 06/29/17 10/22/20 HYDROcodone/APAP 7.5-325MG [[place] 1 tab PO Q12H 08/29/18 10/22/20 7.5-325] Difluprednate [Durezol] 1 drop BOTH EYES DAILY PRN 09/18/20 10/22/20 Dorzolamide 2% [Trusopt 2%] 1 drop BOTH EYES BID 09/18/20 10/22/20 Meclizine HCl [Bonine] 25 mg PO DAILY PRN 09/18/20 10/22/20 Timolol [Betimol 0.5% Ophth Soln] 1 drop BOTH EYES HS 09/18/20 10/22/20 Metoprolol Tartrate [Lopressor] 25 mg PO HS 09/24/20 10/22/20 Metoprolol Tartrate [Lopressor] 50 mg PO DAILY 09/24/20 10/22/20 Nitroglycerin Sl Tabs [Nitrostat] 0.4 mg SL Q5M PRN 10/09/20 10/22/20 Previous Rx's Medication Instructions Recorded Aspirin 81 mg PO DAILY chew 09/21/20 Atorvastatin [Lipitor] 80 mg PO DAILY #90 tab 09/21/20 Clopidogrel [Plavix] 75 mg PO DAILY #90 tab 09/21/20 Allergies Allergy/AdvReac Type Severity Reaction Status Date / Time grapefruit Allergy Anaphylaxis Verified 10/22/20 14:43 loratadine [From Claritin] Allergy Dyspnea Verified 10/22/20 14:43 pseudoephedrine Allergy Dyspnea Verified 10/22/20 14:43 [From [facility]] strawberry Allergy Anaphylaxis Verified 10/22/20 14:43 Review of Systems ROS Statement: Those systems with pertinent positive or pertinent negative responses have been documented in the HPI. ROS Other: All systems not noted in ROS Statement are negative. Past Medical History Past Medical History: Coronary Artery Disease (CAD), Chest Pain / Angina, Deep V ein Thrombosis (DVT), Hyperlipidemia, Hypertension, Myocardial Infarction ([place]), Renal Disease, Skin Disorder, Thyroid Disorder Additional Past Medical History / Comment(s): Vertigo, DVT L leg, bronchitis, sinus problems, hemorrhoids, chronic back pain with L sciatica in the past, rosacia, anemia, kidney stones-pt passed, UTI, hypothyroid, past R collar bone fracture, past R ankle fx with surgery. Last Myocardial Infarction Date:: 09/17/20 History of Any Multi-Drug Resistant Organisms: None Reported Past Surgical History: Cholecystectomy, Heart Catheterization With Stent, Orthopedic Surgery Additional Past Surgical History / Comment(s): Varicose vein ligation both legs, R ankle surgery for fracture, colonoscopy. Past Anesthesia/Blood Transfusion Reactions: No Reported Reaction Date of Last Stent Placement:: 09/30/2020 Past Psychological History: No Psychological Hx Reported Smoking Status: Former smoker Past Alcohol Use History: None Reported Past Drug Use History: None Reported - Past Family History Father Family Medical History: Pneumonia Additional Family Medical History / Comment(s): Father at the age of 24yrs from industrial caused pneumonia. Mother Family Medical History: Skin Disorder Additional Family Medical History / Comment(s): Mother had psoriatic arthritis, psoriasis, and colon cancer General Exam Limitations: no limitations General appearance: alert, in no apparent distress Head exam: Present: atraumatic, normocephalic, normal inspection Eye exam: Present: normal appearance, PERRL, EOMI. Absent: scleral icterus, conjunctival injection, periorbital swelling ENT exam: Present: normal exam, mucous membranes moist Neck exam: Present: normal inspection. Absent: tenderness, meningismus, lymphadenopathy Respiratory exam: Present: normal lung sounds bilaterally. Absent: respiratory distress, wheezes, rales, rhonchi, stridor Cardiovascular Exam: Present: regular rate, normal rhythm, normal heart sounds. Absent: systolic murmur, diastolic murmur, rubs, gallop, clicks GI/Abdominal exam: Present: soft, normal bowel sounds. Absent: distended, tenderness, guarding, rebound, rigid Extremities exam: Present: normal inspection, full ROM, normal capillary refill. Absent: tenderness, pedal edema, joint swelling, calf tenderness Back exam: Present: normal inspection Neurological exam: Present: alert, oriented X3, CN II-XII intact Psychiatric exam: Present: normal affect, normal mood Skin exam: Present: warm, dry, intact, normal color. Absent: rash Course Vital Signs 10/22/20 10/22/20 10/22/20 13:23 13:38 13:45 Temperature 98.4 F Pulse Rate 33 L Pulse Rate [ 35 L Senior Animal Trainer ] Respiratory 18 18 Rate Blood Pressure 146/65 O2 Sat by Pulse 99 Oximetry 10/22/20 14:24 Temperature Pulse Rate 49 L Pulse Rate [ Senior Animal Trainer ] Respiratory 18 Rate Blood Pressure 141/73 O2 Sat by Pulse 100 Oximetry EKG Findings - EKG Comments: EKG Findings:: Twelve-lead EKG shows ventricular rate 66 bpm, MO interval 0 normal, she has no ST elevation or depression, there are frequent PVCs. This was interpreted by me as sinus rhythm with frequent PVCs. Medical Decision Making - Medical Decision Making Patient presents with weakness and shortness of breath. Her BNP is extremely elevated. She will be admitted to the hospital. - Lab Data Result diagrams: 10/22/20 13:49 10/22/20 13:49 Lab Results 10/22/20 10/22/20 10/22/20 Range/Units 13:49 13:49 13:49 WBC 9.3 (3.8-10.6) k/uL RBC 4.14 (3.80-5.40) m/uL Hgb 13.2 (11.4-16.0) gm/dL Hct 39.5 (34.0-46.0) % MCV 95.5 (80.0-100.0) fL MCH 31.8 (25.0-35.0) pg MCHC 33.3 (31.0-37.0) g/dL RDW 13.0 (11.5-15.5) % Plt Count 165 (150-450) k/uL MPV 9.4 Neutrophils % 70 % Lymphocytes % 19 % Monocytes % 8 % Eosinophils % 2 % Basophils % 0 % Neutrophils # 6.5 (1.3-7.7) k/uL Lymphocytes # 1.7 (1.0-4.8) k/uL Monocytes # 0.7 (0-1.0) k/uL Eosinophils # 0.2 (0-0.7) k/uL Basophils # 0.0 (0-0.2) k/uL PT 10.3 (9.0-12.0) sec INR 1.0 (<1.2) APTT 23.1 (22.0-30.0) sec Sodium (137-145) mmol/L Potassium (3.5-5.1) mmol/L Chloride (98-107) mmol/L Carbon Dioxide (22-30) mmol/L Anion Gap mmol/L BUN (7-17) mg/dL Creatinine (0.52-1.04) mg/dL Est GFR (CKD-EPI)AfAm (>60 ml/min/1.73 sqM) Est GFR (CKD-EPI)NonAf (>60 ml/min/1.73 sqM) Glucose (74-99) mg/dL Plasma Lactic Acid Bobby (0.7-2.0) mmol/L Calcium (8.4-10.2) mg/dL Magnesium (1.6-2.3) mg/dL Total Bilirubin (0.2-1.3) mg/dL AST (14-36) U/L ALT (4-34) U/L Alkaline Phosphatase (38-126) U/L Troponin I (0.000-0.034) ng/mL NT-Pro-B Natriuret Pep pg/mL Total Protein (6.3-8.2) g/dL Albumin (3.5-5.0) g/dL Urine Color Light Yellow Urine Appearance Clear (Clear) Urine pH 6.0 (5.0-8.0) Ur Specific [place] 1.011 (1.001-1.035) Urine Protein Negative (Negative) Urine Glucose (UA) Negative (Negative) Urine Ketones Negative (Negative) Urine Blood Small H (Negative) Urine Nitrite Negative (Negative) Urine Bilirubin Negative (Negative) Urine Urobilinogen <2.0 (<2.0) mg/dL Ur Leukocyte Esterase Negative (Negative) Urine RBC 5 (0-5) /hpf Urine WBC 1 (0-5) /hpf 10/22/20 10/22/20 10/22/20 Range/Units 13:49 13:49 13:49 WBC (3.8-10.6) k/uL RBC (3.80-5.40) m/uL Hgb (11.4-16.0) gm/dL Hct (34.0-46.0) % MCV (80.0-100.0) fL MCH (25.0-35.0) pg MCHC (31.0-37.0) g/dL RDW (11.5-15.5) % Plt Count (150-450) k/uL MPV Neutrophils % % Lymphocytes % % Monocytes % % Eosinophils % % Basophils % % Neutrophils # (1.3-7.7) k/uL Lymphocytes # (1.0-4.8) k/uL Monocytes # (0-1.0) k/uL Eosinophils # (0-0.7) k/uL Basophils # (0-0.2) k/uL PT (9.0-12.0) sec INR (<1.2) APTT (22.0-30.0) sec Sodium 137 (137-145) mmol/L Potassium 4.4 (3.5-5.1) mmol/L Chloride 105 (98-107) mmol/L Carbon Dioxide 23 (22-30) mmol/L Anion Gap 9 mmol/L BUN 21 H (7-17) mg/dL Creatinine 0.93 (0.52-1.04) mg/dL Est GFR (CKD-EPI)AfAm 65 (>60 ml/min/1.73 sqM) Est GFR (CKD-EPI)NonAf 56 (>60 ml/min/1.73 sqM) Glucose 116 H (74-99) mg/dL Plasma Lactic Acid Bobby 0.9 (0.7-2.0) mmol/L Calcium 9.7 (8.4-10.2) mg/dL Magnesium 2.1 (1.6-2.3) mg/dL Total Bilirubin 0.7 (0.2-1.3) mg/dL AST 126 H (14-36) U/L ALT 114 H (4-34) U/L Alkaline Phosphatase 73 (38-126) U/L Troponin I 0.021 (0.000-0.034) ng/mL NT-Pro-B Natriuret Pep pg/mL Total Protein 6.7 (6.3-8.2) g/dL Albumin 4.4 (3.5-5.0) g/dL Urine Color Urine Appearance (Clear) Urine pH (5.0-8.0) Ur Specific [place] (1.001-1.035) Urine Protein (Negative) Urine Glucose (UA) (Negative) Urine Ketones (Negative) Urine Blood (Negative) Urine Nitrite (Negative) Urine Bilirubin (Negative) Urine Urobilinogen (<2.0) mg/dL Ur Leukocyte Esterase (Negative) Urine RBC (0-5) /hpf Urine WBC (0-5) /hpf 10/22/20 Range/Units 13:49 WBC (3.8-10.6) k/uL RBC (3.80-5.40) m/uL Hgb (11.4-16.0) gm/dL Hct (34.0-46.0) % MCV (80.0-100.0) fL MCH (25.0-35.0) pg MCHC (31.0-37.0) g/dL RDW (11.5-15.5) % Plt Count (150-450) k/uL MPV Neutrophils % % Lymphocytes % % Monocytes % % Eosinophils % % Basophils % % Neutrophils # (1.3-7.7) k/uL Lymphocytes # (1.0-4.8) k/uL Monocytes # (0-1.0) k/uL Eosinophils # (0-0.7) k/uL Basophils # (0-0.2) k/uL PT (9.0-12.0) sec INR (<1.2) APTT (22.0-30.0) sec Sodium (137-145) mmol/L Potassium (3.5-5.1) mmol/L Chloride (98-107) mmol/L Carbon Dioxide (22-30) mmol/L Anion Gap mmol/L BUN (7-17) mg/dL Creatinine (0.52-1.04) mg/dL Est GFR (CKD-EPI)AfAm (>60 ml/min/1.73 sqM) Est GFR (CKD-EPI)NonAf (>60 ml/min/1.73 sqM) Glucose (74-99) mg/dL Plasma Lactic Acid Bobby (0.7-2.0) mmol/L Calcium (8.4-10.2) mg/dL Magnesium (1.6-2.3) mg/dL Total Bilirubin (0.2-1.3) mg/dL AST (14-36) U/L ALT (4-34) U/L Alkaline Phosphatase (38-126) U/L Troponin I (0.000-0.034) ng/mL NT-Pro-B Natriuret Pep 6970 pg/mL Total Protein (6.3-8.2) g/dL Albumin (3.5-5.0) g/dL Urine Color Urine Appearance (Clear) Urine pH (5.0-8.0) Ur Specific [place] (1.001-1.035) Urine Protein (Negative) Urine Glucose (UA) (Negative) Urine Ketones (Negative) Urine Blood (Negative) Urine Nitrite (Negative) Urine Bilirubin (Negative) Urine Urobilinogen (<2.0) mg/dL Ur Leukocyte Esterase (Negative) Urine RBC (0-5) /hpf Urine WBC (0-5) /hpf Disposition Clinical Impression: Heart failure Disposition: ADMITTED IP TO THIS HOSP Condition: Fair Is patient prescribed a controlled substance at d/c from ED?: No Referrals: Roney Jacob MD [Primary Care Provider] - 1-2 days
[2020-10-22] MEDS ORDERED: MAG HYDROX/AL HYDROX/SIMETH 30 ML CUP PO PRN (15:20)
[2020-10-22] MEDS ORDERED: bisacodyL 5 MG TABLET.DR PO PRN (15:20)
[2020-10-22] MEDS ORDERED: NALOXONE 0.4 MG/ML 1 ML VIAL IV PRN ×2 (15:20→16:52)
[2020-10-22] MEDS ORDERED: MECLIZINE 25 MG TAB PO PRN (15:23)
[2020-10-22] MEDS ORDERED: Difluprednate [Durezol] 5 ML Drops BOTH EYES PRN (15:23)
[2020-10-22] MEDS ORDERED: GLUCAGON 1 MG/ML VIAL IVP STA ×2 (15:42→16:02)
[2020-10-22] MEDS ORDERED: ACETAMINOPHEN TAB 325 MG TAB PO PRN (16:52)
--- NOTE | 2020-10-22 16:55 | P.HPIM ---
History of Present Illness H&P Date: 10/22/20 Chief Complaint: Weakness, dyspnea 85 year old woman with HTN, CAD, HLD, DDD, Glaucoma presented with increasing weakness and dyspnea which started yesterday. Patient recently underwent LHC for NSTEMI during previous admission and had LCx DARWIN, followed by an LAD stent in a staged procedure following discharge. LAD stent was placed about 2 weeks ago. Patient says that she felt well following her second stent until yesterday, when she noticed increased weakness and fatigue. She also says that at times he feels dizzy and as if she is dosing off to sleep. She felt this way several times during my interview with the patient. In addition, she reports feeling easily winded and short of breath. She was seen by her PCP who noted an abnormal heart rate and also had concerns about heart failure so he asked her to come to the emergency room for further evaluation. In the ER, she was noted to have variable blood pressures between 80/50 to 130/80. Pulse rate remained low between 33 to 45. Otherwise, she was afebrile, and 100% on 2L NC. Labwork was remarkable for BNP of 6970. EKG showed sinus bradycardia to 33 with frequent PVCs in bigemeny pattern, then later EKG showed accelerated junctional escape pattern with similar bigemeny pattern. CXR showed mild cardiomegaly with COPD. Patient's radial pulses felt at bedside were irregular, at times bounding, at times very thready. She felt as if she were about to dose off during times of having thready pulse. I discussed these findings with mixer driver contact acid plant operator who agreed to trial of glucagon pushes and to hold off on any further beta-trace, and they will see and evaluate patient. Patient will be admitted to with telemetry. ROS negative for CP, palps, fevers, chills, nausea, vomiting, abd pain, cough, diarrhea, constipation, numbness of extremities. Review of Systems All Systems reviewed and pertinent positives and negatives noted in HPI, all other symptoms are negative Past Medical History Past Medical History: Coronary Artery Disease (CAD), Chest Pain / Angina, Deep Vein Thrombosis (DVT), Hyperlipidemia, Hypertension, Myocardial Infarction ([place]), Renal Disease, Skin Disorder, Thyroid Disorder Additional Past Medical History / Comment(s): Vertigo, DVT L leg, bronchitis, sinus problems, hemorrhoids, chronic back pain with L sciatica in the past, rosacia, anemia, kidney stones-pt passed, UTI, hypothyroid, past R collar bone fracture, past R ankle fx with surgery. Last Myocardial Infarction Date:: 09/17/20 History of Any Multi-Drug Resistant Organisms: None Reported Past Surgical History: Cholecystectomy, Heart Catheterization With Stent, Orthopedic Surgery Additional Past Surgical History / Comment(s): Varicose vein ligation both legs, R ankle surgery for fracture, colonoscopy. Past Anesthesia/Blood Transfusion Reactions: No Reported Reaction Date of Last Stent Placement:: 09/30/2020 Past Psychological History: No Psychological Hx Reported Smoking Status: Former smoker Past Alcohol Use History: None Reported Past Drug Use History: None Reported - Past Family History Father Family Medical History: Pneumonia Additional Family Medical History / Comment(s): Father at the age of 24yrs from industrial caused pneumonia. Mother Family Medical History: Skin Disorder Additional Family Medical History / Comment(s): Mother had psoriatic arthritis, psoriasis, and colon cancer Medications and Allergies Home Medications Medication Instructions Recorded Confirmed Type lisinopriL [Zestril] 20 mg PO DAILY 06/29/17 10/22/20 History HYDROcodone/APAP 7.5-325MG [[place] 1 tab PO Q12H 08/29/18 10/22/20 History 7.5-325] Difluprednate [Durezol] 1 drop BOTH EYES DAILY PRN 09/18/20 10/22/20 History Dorzolamide 2% [Trusopt 2%] 1 drop BOTH EYES BID 09/18/20 10/22/20 History Meclizine HCl [Bonine] 25 mg PO DAILY PRN 09/18/20 10/22/20 History Timolol [Betimol 0.5% Oph Soln] 1 drop BOTH EYES HS 09/18/20 10/22/20 History Aspirin 81 mg PO DAILY chew 09/21/20 10/22/20 Rx Atorvastatin [Lipitor] 80 mg PO DAILY #90 tab 09/21/20 10/22/20 Rx Clopidogrel [Plavix] 75 mg PO DAILY #90 tab 09/21/20 10/22/20 Rx Metoprolol Tartrate [Lopressor] 25 mg PO HS 09/24/20 10/22/20 History Metoprolol Tartrate [Lopressor] 50 mg PO DAILY 09/24/20 10/22/20 History Nitroglycerin Sl Tabs [Nitrostat] 0.4 mg SL Q5M PRN 10/09/20 10/22/20 History Allergies Allergy/AdvReac Type Severity Reaction Status Date / Time grapefruit Allergy Anaphylaxis Verified 10/22/20 14:43 loratadine [From Claritin] Allergy Dyspnea Verified 10/22/20 14:43 pseudoephedrine Allergy Dyspnea Verified 10/22/20 14:43 [From Sudafed] strawberry Allergy Anaphylaxis Verified 10/22/20 14:43 Physical Exam Osteopathic Statement: *. No significant issues noted on an osteopathic structural exam other than those noted in the History and Physical/Consult. Vitals: Vital Signs Temp Pulse Pulse Resp BP Pulse Ox 10/22/20 16:00 45 L 18 130/60 100 10/22/20 15:43 52 L 18 128/87 100 10/22/20 15:00 50 L 18 138/75 99 10/22/20 14:24 49 L 18 141/73 100 10/22/20 13:45 18 10/22/20 13:38 35 L 10/22/20 13:23 98.4 F 33 L 18 146/65 99 Intake and Output 10/22/20 10/22/20 10/22/20 06:59 14:59 22:59 Other: Weight 66.678 kg Gen: awake, alert HEENT: normocephalic, atraumatic, good hearing acuity, moist mucous membranes Resp: Diminished air exchange, breathing comfortably with no accessory muscle use, clear to auscultation bilaterally CVS: good distal perfusion x 4 but with delayed capillary refill in all 4 extremities, bradycardic, regular heart sounds, irregular pulse, no murmurs GI: soft, NTTP, ND : no SPT, no CVAT, barton catheter not present MSK: no pitting edema, no clubbing, Neuro: non-focal, moving all extremities Psych: cooperative, euthymic mood Results CBC & Chem 7: 10/22/20 13:49 10/22/20 13:49 Labs: Abnormal Lab Results - Last 24 Hours (Table) 10/22/20 10/22/20 Range/Units 13:49 13:49 BUN 21 H (7-17) mg/dL Glucose 116 H (74-99) mg/dL AST 126 H (14-36) U/L ALT 114 H (4-34) U/L Urine Blood Small H (Negative) Assessment and Plan Assessment: Symptomatic bradycardia -Admit to 3 S., telemetry -Cardiology consult -Status post glucagon 2 with no improvement in heart rate -Hold metoprolol -Consideration of dopamine drip if patient becomes hemodynamically unstable -Pacers at bedside -Echocardiogram -Maintain euvolemia CAD status post recent PCI Heart failure with reduced ejection fraction, currently euvolemic Hypertension Hyperlipidemia Glaucoma -Hold home beta trace -Continue all other home meds Patient is a full code Daughter is DURABLE POWER OF THERMOFORMING MACHINE OPERATOR
[2020-10-22] MEDS ORDERED: TIMOLOL BOTH EYES SCH (21:00)
[2020-10-22] MEDS: HYDROcodone/APAP 7.5-325MG 1 EACH TAB PO SCH (21:11)
[2020-10-22] MEDS: DORZOLAMIDE HCL 2% DROPS 10 ML BTL BOTH EYES SCH (22:06)
[2020-10-23] MEDS: HEPARIN SODIUM,PORCINE/PF 5,000 UNIT/0.5 ML SYRINGE SQ SCH ×3 (00:55→16:23)
[2020-10-23 07:30] LABS: Basophils % (A) 0 %; Eosinophils # (A) 0.2 k/uL (0-0.7); Eosinophils % (A) 3 %; HCT 36.4 % (34.0-46.0); HGB 12.2 gm/dL (11.4-16.0); Lymphocytes # (A) 1.4 k/uL (1.0-4.8); Lymphocytes % (A) 21 %; MCH 32.4 pg (25.0-35.0); MCHC 33.6 g/dL (31.0-37.0); MCV 96.3 fL (80.0-100.0); Mean Platelet Volume 9.3; Monocytes # (A) 0.5 k/uL (0-1.0); Monocytes % (A) 7 %; Neutrophils # (A) 4.2 k/uL (1.3-7.7); Neutrophils % (A) 66 %; Platelet Count 138 k/uL (150-450); RBC 3.78 m/uL (3.80-5.40); RDW 13.1 % (11.5-15.5); WBC 6.5 k/uL (3.8-10.6)
[2020-10-23 07:31] LABS: Prothrombin Time 10.9 sec (9.0-12.0)
[2020-10-23 07:40] LABS: Calcium 9.4 mg/dL (8.4-10.2); Potassium 4.2 mmol/L (3.5-5.1)
[2020-10-23] MEDS ORDERED: HYDROcodone/APAP 7.5-325MG 1 EACH TAB PO SCH (08:00)
[2020-10-23] MEDS: ATORVASTATIN 80 MG TAB PO SCH (08:28)
[2020-10-23] MEDS: ASPIRIN 81 MG PO SCH (08:29)
[2020-10-23] MEDS: lisinopriL 20 MG TAB PO SCH (08:29)
[2020-10-23] MEDS: CLOPIDOGREL 75 MG TAB PO SCH (08:29)
[2020-10-23] MEDS: DORZOLAMIDE HCL 2% DROPS 10 ML BTL BOTH EYES SCH ×2 (08:29→21:08)
[2020-10-23] MEDS: HYDROcodone/APAP 7.5-325MG 1 EACH TAB PO SCH (08:36)
[2020-10-23] MEDS ORDERED: METOPROLOL TARTRATE 50 MG TAB PO SCH (09:00)
--- NOTE | 2020-10-23 10:05 | P.CRDCN ---
History of Present Illness History of present illness: This is a 85-year-old female with a past medical history significant for coronary artery disease s/p PCI, hypertension, and hyperlipidemia, former nicotine dependence (quit 1 month ago). Patient follows in the office with Dr. Machado. We have been asked to see the patient in consultation for symptomatic bradycardia. Patient was hospitalized in August 2020 with a non-STEMI. Her symptoms were chest pain and jaw pain. She underwent stenting of a complex lesion in the main circumflex midportion as well as circumflex marginal branches. Patient was brought back on 09/30/2020 to undergo PCI of the LAD which had a known 95% lesion. Stenting was performed by Dr. Worthington. It is noted the patient had sluggish flow of the distal LAD post stenting. Patient states after her stenting early September she has no issues or complaints prior to this. Patient presented to Dr. Machado office 10/22/20 with complaints of exertional shortness of breath, fatigue, "not feeling good" since Monday. She states she was watching TV and all of sudden did not start feeling well. Over the past 2 days her symptoms of worsened. In the office an EKG was performed in the office which revealed sinus rhythm with frequent PVCs. An echocardiogram was ordered for patient to follow up and complete and CBC and electrolytes. After her appointment she went to get her labs drawn near her PCP office, she had acute onset shortness of breath, fatigue and also had chest pressure across her anterior chest pain that radiates to her bilateral shoulders, also having interscapular area back pain. She had associated dipahoresis and lightheadedness. Denies nausea or vomiting. She went into her PCP office, another EKG was performed which she was told was abnormal and was told to go to the emergency department. She does endorse episodes of PND at home. She states she has been compliant with her medication. No new changes to medication. On admission EKG sinus with frequent PVCs. BP 140s/60s. She was given IV Glucagonx 2. She is not having chest pain at this time. She denies fever, chills, nausea, abdominal pain, diarrhea, sick contacts. DIAGNOSTICS: EKG reveals sinus bradycardia with frequent PVCs. Chest xray- hyperinflation, mild cardiomegaly. Laboratory data: BNP 6970, troponin negative 3, sodium 137, potassium 4.1, BUN 21, serum 0.9, magnesium 2.1, AST 126, ALT 114 (previously normal), CBC unremarkable. Current home cardiac medications include lisinopril 10 mg daily, metoprolol tartrate 50 mg in the morning and 25 mg at night, Plavix 75 mg daily, Lipitor 80 mg daily, and aspirin 81 mg daily. (states this medications are new for her) Echocardiogram completed on 10/02/2020 revealed ejection fraction 50-55%. Apical septum LV wall hypokinesis. Mild mitral regurgitation. Moderate tricuspid regurgitation. Mild pulmonary hypertension. Limited Echo on 10/10/20 revealed EF 45-50%, Basal LV wall motion hypokinetic REVIEW OF SYSTEMS: At the time of my exam: CONSTITUTIONAL: Denies fever or chills. +fatigue +diaphoresis HEENT: Denies blurred vision, vision changes, or eye pain. Denies hemoptysis CARDIOVASCULAR: +chest pain +PND, +orthopnea Denies palpitations RESPIRATORY: + shortness of breath. GASTROINTESTINAL: Denies abdominal pain. Denies nausea or vomiting. HEMATOLOGIC: Denies bleeding disorders. GENITOURINARY: Denies any blood in urine. SKIN: Denies pruitis. Denies rash. PHYSICAL EXAM: VITAL SIGNS: Blood pressure 116/56, heart rate 63, afebrile, maintaining oxygen saturations on room air GENERAL: Well-developed in no acute distress. HEENT: Head is normocephalic. Pupils are equal, round. Sclerae anicteric. Mucous membranes of the mouth are moist. Neck supple. +JVD LUNGS: Respirations even and unlabored. Lungs essentially clear to auscultation bilaterally. HEART: Regular rate and rhythm, extra beats noted. S1 and S2 heard. Systolic murmur heard at the apex ABDOMEN: Soft. Nondistended. Nontender. EXTREMITIES: Normal range of motion. No clubbing or cyanosis. Peripheral pulses intact. No lower extremity edema NEUROLOGIC: Awake and alert. Oriented x 3. ASSESSMENT: Chest pain, acute coronary event has been ruled out. Shortness of breath, fatigue, dyspnea on exertion Acute on chronic systolic heart failure Sinus bradycardia, with PVCs no high degree block Coronary artery disease s/p PCI circumflex and LAD Recent NSTEMI, August 2020 Hypertension Hyperlipidemia Elevated LFTs PLAN: Obtain repeat 2D echocardiogram Start IV Lasix 40mg BID Continue patient's aspirin, Plavix, statin, lisinopril I/Os, daily weights Monitor renal function and electrolytes. Trend LFTs Hold beta trace Patient in sinus bradycarda, with PVCs, no evidence of high degree heart block, no need for pacemaker. Further recommendations based on clinical course. Nurse practitioner note has been reviewed by physician. Signing provider agrees with the documented findings, assessment, and plan of care. Past Medical History Past Medical History: Coronary Artery Disease (CAD), Chest Pain / Angina, Deep Vein Thrombosis (DVT), Hyperlipidemia, Hypertension, Myocardial Infarction ([place]), Renal Disease, Skin Disorder, Thyroid Disorder Additional Past Medical History / Comment(s): Vertigo, DVT L leg, bronchitis, sinus problems, hemorrhoids, chronic back pain with L sciatica in the past, rosacia, anemia, kidney stones-pt passed, UTI, hypothyroid, past R collar bone fracture, past R ankle fx with surgery. Last Myocardial Infarction Date:: 09/17/20 History of Any Multi-Drug Resistant Organisms: None Reported Past Surgical History: Cholecystectomy, Heart Catheterization With Stent, Orthopedic Surgery Additional Past Surgical History / Comment(s): Varicose vein ligation both legs, R ankle surgery for fracture, colonoscopy. Past Anesthesia/Blood Transfusion Reactions: No Reported Reaction Date of Last Stent Placement:: 09/30/2020 Past Psychological History: No Psychological Hx Reported Smoking Status: Former smoker Past Alcohol Use History: None Reported Past Drug Use History: None Reported - Past Family History Father Family Medical History: Pneumonia Additional Family Medical History / Comment(s): Father at the age of 24yrs from industrial caused pneumonia. Mother Family Medical History: Skin Disorder Additional Family Medical History / Comment(s): Mother had psoriatic arthritis, psoriasis, and colon cancer Medications and Allergies Home Medications Medication Instructions Recorded Confirmed Type lisinopriL [Zestril] 20 mg PO DAILY 06/29/17 10/22/20 History HYDROcodone/APAP 7.5-325MG [[place] 1 tab PO Q12H 08/29/18 10/22/20 History 7.5-325] Difluprednate [Durezol] 1 drop BOTH EYES DAILY PRN 09/18/20 10/22/20 History Dorzolamide 2% [Trusopt 2%] 1 drop BOTH EYES BID 09/18/20 10/22/20 History Meclizine HCl [Bonine] 25 mg PO DAILY PRN 09/18/20 10/22/20 History Timolol [Betimol 0.5% Ophth Soln] 1 drop BOTH EYES HS 09/18/20 10/22/20 History Aspirin 81 mg PO DAILY chew 09/21/20 10/22/20 Rx Atorvastatin [Lipitor] 80 mg PO DAILY #90 tab 09/21/20 10/22/20 Rx Clopidogrel [Plavix] 75 mg PO DAILY #90 tab 09/21/20 10/22/20 Rx Metoprolol Tartrate [Lopressor] 25 mg PO HS 09/24/20 10/22/20 History Metoprolol Tartrate [Lopressor] 50 mg PO DAILY 09/24/20 10/22/20 History Nitroglycerin Sl Tabs [Nitrostat] 0.4 mg SL Q5M PRN 10/09/20 10/22/20 History Allergies Allergy/AdvReac Type Severity Reaction Status Date / Time grapefruit Allergy Anaphylaxis Verified 10/22/20 14:43 loratadine [From Claritin] Allergy Dyspnea Verified 10/22/20 14:43 pseudoephedrine Allergy Dyspnea Verified 10/22/20 14:43 [From Sudafed] strawberry Allergy Anaphylaxis Verified 10/22/20 14:43 Physical Exam Vitals: Vital Signs Temp Pulse Pulse Resp BP BP Pulse Ox 10/23/20 04:00 98.0 F 60 17 101/54 98 10/23/20 00:00 97.8 F 55 L 18 121/62 99 10/22/20 20:00 97.8 F 48 L 18 113/59 98 10/22/20 18:18 97.9 F 42 L 18 121/76 98 10/22/20 16:45 42 L 10/22/20 16:00 45 L 18 130/60 100 10/22/20 15:43 52 L 18 128/87 100 10/22/20 15:00 50 L 18 138/75 99 10/22/20 14:24 49 L 18 141/73 100 10/22/20 13:45 18 10/22/20 13:38 35 L 10/22/20 13:23 98.4 F 33 L 18 146/65 99 Intake and Output 10/22/20 10/23/20 10/23/20 22:59 06:59 14:59 Intake Total 10 Balance 10 Intake: IV 10 Invasive Line 1 10 Other: Voiding Method Toilet Toilet # Voids 2 Weight 66.678 kg 61.5 kg Results 10/23/20 06:52 10/23/20 06:52 Cardiac Enzymes 10/22/20 10/22/20 10/22/20 Range/Units 13:49 13:49 16:46 AST 126 H (14-36) U/L Troponin I 0.021 0.016 (0.000-0.034) ng/mL 10/22/20 Range/Units 20:26 AST (14-36) U/L Troponin I 0.017 (0.000-0.034) ng/mL Coagulation 10/22/20 Range/Units 13:49 PT 10.3 (9.0-12.0) sec APTT 23.1 (22.0-30.0) sec CBC 10/22/20 10/23/20 Range/Units 13:49 06:52 WBC 9.3 6.5 (3.8-10.6) k/uL RBC 4.14 3.78 L (3.80-5.40) m/uL Hgb 13.2 12.2 (11.4-16.0) gm/dL Hct 39.5 36.4 (34.0-46.0) % Plt Count 165 138 L (150-450) k/uL Comprehensive Metabolic Panel 10/22/20 Range/Units 13:49 Sodium 137 (137-145) mmol/L Potassium 4.4 (3.5-5.1) mmol/L Chloride 105 (98-107) mmol/L Carbon Dioxide 23 (22-30) mmol/L BUN 21 H (7-17) mg/dL Creatinine 0.93 (0.52-1.04) mg/dL Glucose 116 H (74-99) mg/dL Calcium 9.7 (8.4-10.2) mg/dL AST 126 H (14-36) U/L ALT 114 H (4-34) U/L Alkaline Phosphatase 73 (38-126) U/L Total Protein 6.7 (6.3-8.2) g/dL Albumin 4.4 (3.5-5.0) g/dL Current Medications Generic Name Dose Route Start Last Admin Trade Name Freq PRN Reason Stop Dose Admin Acetaminophen 650 mg 10/22/20 16:52 Acetaminophen Tab 325 Mg Tab PO Q6HR PRN Mild Pain or Fever > 100.5 Hydrocodone Bitart/Acetaminophen 1 each 10/22/20 16:00 10/22/20 21:11 Hydrocodone/Apap 7.5-325mg 1 Each Tab PO Not Given Q12H [facility] Al Hydroxide/Mg Hydroxide 15 ml 10/22/20 15:20 Mag Hydrox/Al Hydrox/Simeth 30 Ml Cup PO Q6HR PRN Indigestion Aspirin 81 mg 10/23/20 09:00 Aspirin 81 Mg PO DAILY [facility] Atorvastatin Calcium 80 mg 10/23/20 09:00 Atorvastatin 80 Mg Tab PO DAILY [facility] Bisacodyl 5 mg 10/22/20 15:20 Bisacodyl 5 Mg Tablet.Dr PO DAILY PRN Constipation Clopidogrel Bisulfate 75 mg 10/23/20 09:00 Clopidogrel 75 Mg Tab PO DAILY [facility] Dorzolamide HCl 1 drops 10/22/20 21:00 10/22/20 22:06 Dorzolamide Hcl 2% Drops 10 Ml Btl BOTH EYES 1 drops BID [facility] Administration Heparin Sodium (Porcine) 5,000 unit 10/23/20 00:00 10/23/20 00:55 Heparin Sodium,Porcine/Pf 5,000 Unit/0.5 Ml Syringe SQ 5,000 unit Q8HR [facility] Administration Lisinopril 20 mg 10/23/20 09:00 Lisinopril 20 Mg Tab PO DAILY [facility] Meclizine HCl 25 mg 10/22/20 15:23 Meclizine 25 Mg Tab PO DAILY PRN DIZZINESS Naloxone HCl 0.2 mg 10/22/20 15:20 Naloxone 0.4 Mg/Ml 1 Ml Vial IV Q2M PRN Opioid Reversal Naloxone HCl 0.2 mg 10/22/20 16:52 Naloxone 0.4 Mg/Ml 1 Ml Vial IV Q2M PRN Opioid Reversal Difluprednate [ 1 drop 10/22/20 15:23 Durezol] 5 Ml Drops BOTH EYES DAILY PRN REDNESS Intake and Output 10/22/20 10/23/20 10/23/20 22:59 06:59 14:59 Intake Total 10 Balance 10 Intake: IV 10 Invasive Line 1 10 Other: Voiding Method Toilet Toilet # Voids 2 Weight 66.678 kg 61.5 kg 10/23/20 06:52 07/29/21 13:49
[2020-10-23 10:06] LABS: ALT 84 U/L (4-34); AST 56 U/L (14-36)
--- NOTE | 2020-10-23 11:30 | P.PN ---
Subjective Progress Note Date: 10/23/20 Pts HRs improved to 60s, still in bigemeny on telemetry. Lasix started, metoprolol permanently d/c'd. Echo pending. Objective - Vital Signs Vital signs: Vital Signs Temp 98.1 F 10/23/20 08:00 Pulse 63 10/23/20 08:00 Resp 18 10/23/20 08:00 BP 116/56 10/23/20 08:00 Pulse Ox 99 10/23/20 08:00 Intake & Output 10/22/20 10/23/20 10/23/20 18:59 06:59 18:59 Intake Total 10 Balance 10 Weight 66.678 kg 61.5 kg Intake: IV 10 Invasive Line 1 10 Other: Voiding Method Toilet # Voids 2 - Exam Gen: awake, alert HEENT: normocephalic, atraumatic, good hearing acuity, moist mucous membranes Resp: Diminished air exchange, breathing comfortably with no accessory muscle use, clear to auscultation bilaterally CVS: good distal perfusion x 4 but with delayed capillary refill in all 4 extremities, bradycardic, regular heart sounds, irregular pulse, no murmurs GI: soft, NTTP, ND : no SPT, no CVAT, barton catheter not present MSK: no pitting edema, no clubbing, Neuro: non-focal, moving all extremities Psych: cooperative, euthymic mood - Labs CBC & Chem 7: 10/23/20 06:52 10/23/20 06:52 Labs: Abnormal Lab Results - Last 24 Hours (Table) 10/22/20 10/22/20 10/23/20 Range/Units 13:49 13:49 06:52 RBC 3.78 L (3.80-5.40) m/uL Plt Count 138 L (150-450) k/uL Chloride (98-107) mmol/L BUN 21 H (7-17) mg/dL Glucose 116 H (74-99) mg/dL AST 126 H (14-36) U/L ALT 114 H (4-34) U/L Urine Blood Small H (Negative) 10/23/20 10/23/20 Range/Units 06:52 06:52 RBC (3.80-5.40) m/uL Plt Count (150-450) k/uL Chloride 110 H (98-107) mmol/L BUN 19 H (7-17) mg/dL Glucose 111 H (74-99) mg/dL AST 56 H (14-36) U/L ALT 84 H (4-34) U/L Urine Blood (Negative) Assessment and Plan Assessment: Acute on Chronic Systolic Heart Failure Sinus Bradycardia -Admit to 3 S., telemetry -Cardiology consult -Status post glucagon 2 with no improvement in heart rate -Hold metoprolol -Echocardiogram, pending -lasix 40mg IV BID -I/Os, daily weights CAD status post recent PCI Hypertension Hyperlipidemia Glaucoma -Hold home beta trace -Continue all other home meds Patient is a full code Daughter is DURABLE POWER OF INSURANCE LAW SPECIALIST
--- NOTE | 2020-10-23 11:55 | ECHOF ---
Referral Reason:new onset shortness of breath and chest pain MEASUREMENTS -------- HEIGHT: 172.7 cm WEIGHT: 61.2 kg BP: 116/56 RVIDd: 3.4 cm (< 3.3) IVSd: 1.0 cm (0.6 - 1.1) LVIDd: 4.6 cm (3.9 - 5.3) LVPWd: 1.2 cm (0.6 - 1.1) IVSs: 1.8 cm LVIDs: 2.7 cm LVPWs: 1.8 cm LAESV Index (A-L): 32.97 ml/m Ao Diam: 3.0 cm (2.0 - 3.7) AV Cusp: 1.9 cm (1.5 - 2.6) LA Diam: 4.4 cm (2.7 - 3.8) MV EXCURSION: 16.486 mm (> 18.000) MV EF SLOPE: 80 mm/s (70 - 150) EPSS: 0.4 cm MV E Ed: 0.95 m/s MV DecT: 250 ms MV A Ed: 1.20 m/s MV E/A Ratio: 0.79 RAP: 20.00 mmHg RVSP: 74.12 mmHg FINDINGS -------- Sinus rhythm with extra systolic beats. This was a technically difficult study with suboptimal apical views. The left ventricular size is normal. There is mild concentric left ventricular hypertrophy. Overa ll left ventricular systolic function is low-normal with, an EF between 50 - 55 %. The right ventricle is mildly enlarged. LA is moderately dilated 34-39 ml/m2 The right atrium is mildly enlarged. 5.0mg of Lumason was utilized for enhancement of images Interatrial and interventricular septum intact. There is no evidence of aortic regurgitation. There is no evidence of aortic stenosis. Mild mitral regurgitation is present. Moderate to severe tricuspid regurgitation present. There is severe pulmonary hypertension. The r ight ventricular systolic pressure, as measured by Doppler, is 74.12mmHg. There is no pulmonic regurgitation present. The aortic root size is normal. The inferior vena cava is dilated with poor inspiratory collapse which is consistent with estimated r ight atrial pressure of 20 mmHg. There is no pericardial effusion. CONCLUSIONS -------- 1. The left ventricular size is normal. 2. There is mild concentric left ventricular hypertrophy. 3. Overall left ventricular systolic function is low-normal with, an EF between 50 - 55 %. 4. The right ventricle is mildly enlarged. 5. LA is moderately dilated 34-39 ml/m2 6. The right atrium is mildly enlarged. 7. Mild mitral regurgitation is present. 8. Moderate to severe tricuspid regurgitation present. 9. There is severe pulmonary hypertension. 10. The right ventricular systolic pressure, as measured by Doppler, is 74.12mmHg. 11. The inferior vena cava is dilated with poor inspiratory collapse which is consistent with estimat ed right atrial pressure of 20 mmHg. SAMMYING MACHINE OPERATOR: Viviane Valencia RDCS
[2020-10-23] MEDS: FUROSEMIDE 10 MG/ML 4 ML VIAL IV SCH ×2 (12:21→21:08)
[2020-10-24] MEDS: HEPARIN SODIUM,PORCINE/PF 5,000 UNIT/0.5 ML SYRINGE SQ SCH ×2 (00:10→07:52)
[2020-10-24] MEDS: FUROSEMIDE 10 MG/ML 4 ML VIAL IV SCH (07:52)
[2020-10-24] MEDS: DORZOLAMIDE HCL 2% DROPS 10 ML BTL BOTH EYES SCH ×2 (07:52→19:58)
[2020-10-24] MEDS: CLOPIDOGREL 75 MG TAB PO SCH (07:52)
[2020-10-24] MEDS: ASPIRIN 81 MG PO SCH (07:52)
[2020-10-24] MEDS: ATORVASTATIN 80 MG TAB PO SCH (07:52)
[2020-10-24] MEDS: HYDROcodone/APAP 7.5-325MG 1 EACH TAB PO SCH (07:53)
[2020-10-24] MEDS: lisinopriL 20 MG TAB PO SCH (07:53)
[2020-10-24 08:46] LABS: Albumin 3.8 g/dL (3.5-5.0); Calcium 9.6 mg/dL (8.4-10.2); Magnesium 1.9 mg/dL (1.6-2.3); Potassium 4.1 mmol/L (3.5-5.1); Total Bilirubin 0.4 mg/dL (0.2-1.3)
[2020-10-24] MEDS ORDERED: HEPARIN SODIUM 1,000 UN/ML (10ML VL) IV ONE (12:17)
[2020-10-24] MEDS ORDERED: HEPARIN SODIUM 1,000 UN/ML (10ML VL) IV PRN (12:17)
--- NOTE | 2020-10-24 12:26 | P.PN ---
Subjective This is a 85-year-old female with a past medical history significant for coronary artery disease s/p PCI, hypertension, and hyperlipidemia, former n icotine dependence (quit 1 month ago). Patient follows in the office with Dr. Machado. We have been asked to see the patient in consultation for symptomatic bradycardia. Patient was hospitalized in August 2020 with a non-STEMI. Her symptoms were chest pain and jaw pain. She underwent stenting of a complex lesion in the main circumflex midportion as well as circumflex marginal branches. Patient was b rought back on 09/30/2020 to undergo PCI of the LAD which had a known 95% lesion. Stenting was performed by Dr. Worthington. It is noted the patient had sluggish flow of the distal LAD post stenting. Patient states after her stenting early September she has no issues or complaints prior to this. Patient presented to Dr. Machado office 10/22/20 with complaints of exertional shortness of breath, fatigue, "not feeling good" since Monday. She states she was watching TV and all of sudden did not start feeling well. Over the past 2 days her symptoms of worsened. In the office an EKG was performed in the office which revealed sinus rhythm with frequent PVCs. An echocardiogram was ordered for patient to follow up and complete and CBC and electrolytes. After her appointment she went to get her labs drawn near her PCP office, she had acute onset shortness of breath, fatigue and also had chest pressure across her anterior chest pain that radiates to her bilateral shoulders, also having interscapular area back pain. She had associated dipahoresis and lightheadedness. Denies nausea or vomiting. She went into her PCP office, another EKG was performed which she was told was abnormal and was told to go to the emergency department. She does endorse episodes of PND at home. She states she has been compliant with her medication. No new changes to medication. On admission EKG sinus with frequent PVCs. BP 140s/60s. She was given IV Glucagonx 2. She is not having chest pain at this time. She denies fever, chills, nausea, abdominal pain, diarrhea, sick contacts. 10/24 Patient has been diuresed with Lasix however no significant lower extremity edema currently significant crackles on exam. Her echocardiogram was repeated yesterday which shows similar ejection fraction 50-55% however new severe pulmo nary hypertension with RVSP of 74 and moderate to severe tricuspid regurgitation with a right atrial pressure of 20. This is new compared to her prior echo. Does not appear to have significant features for diastolic heart failure and does not appear volume overloaded and therefore will rule out PE. DIAGNOSTICS: EKG reveals sinus bradycardia with frequent PVCs. Chest xray- hyperinflation, mild cardiomegaly. Laboratory data: BNP 6970, troponin negative 3, sodium 137, potassium 4.1, BUN 21, serum 0.9, magnesium 2.1, AST 126, ALT 114 (previously normal), CBC unremarkable. Current home cardiac medications include lisinopril 10 mg daily, metoprolol tartrate 50 mg in the morning and 25 mg at night, Plavix 75 mg daily, Lipitor 80 mg daily, and aspirin 81 mg daily. (states this medications are new for her) Echocardiogram completed on 10/02/2020 revealed ejection fraction 50-55%. Apical septum LV wall hypokinesis. Mild mitral regurgitation. Moderate tricuspid regurgitation. Mild pulmonary hypertension. Limited Echo on 10/10/20 revealed EF 45-50%, Basal LV wall motion hypokinetic REVIEW OF SYSTEMS: At the time of my exam: CONSTITUTIONAL: Denies fever or chills. +fatigue +diaphoresis HEENT: Denies blurred vision, vision changes, or eye pain. Denies hemoptysis CARDIOVASCULAR: +chest pain +PND, +orthopnea Denies palpitations RESPIRATORY: + shortness of breath. GASTROINTESTINAL: Denies abdominal pain. Denies nausea or vomiting. HEMATOLOGIC: Denies bleeding disorders. GENITOURINARY: Denies any blood in urine. SKIN: Denies pruitis. Denies rash. PHYSICAL EXAM: VITAL SIGNS: reviewed GENERAL: Well-developed in no acute distress. HEENT: Head is normocephalic. Pupils are equal, round. Sclerae anicteric. Mucous membranes of the mouth are moist. Neck supple. +JVD LUNGS: Respirations even and unlabored. Lungs essentially clear to auscultation bilaterally. HEART: Regular rate and rhythm, extra beats noted. S1 and S2 heard. Systolic murmur heard at the apex ABDOMEN: Soft. Nondistended. Nontender. EXTREMITIES: Normal range of motion. No clubbing or cyanosis. Peripheral pulses intact. No lower extremity edema NEUROLOGIC: Awake and alert. Oriented x 3. ASSESSMENT: Chest pain, acute coronary event has been ruled out. Shortness of breath, fatigue, dyspnea on exertion Acute on chronic diastolic heart failure Sinus bradycardia, with PVCs no high degree block Coronary artery disease s/p PCI circumflex and LAD Recent NSTEMI, August 2020 Hypertension Hyperlipidemia Elevated LFTs, may be related to congestive hepatopathy Pulmonary hypertension, rule out PE Elevated BNP may be related to PE. Hold diuresis for CTA PLAN: Echocardiogram reviewed with change from prior with increased RVSP up to 74 with moderate to severe tricuspid regurgitation and increased right atrial pressure. Concern of pulmonary embolism with cor pulmonale and congestive hepatopathy. We will place patient on high intensity heparin drip and check d-dimer. If d-dimer elevated we will perform CTA. Hold diuresis for now. Objective - Vital Signs Vital signs: Vital Signs Temp 97.8 F 10/24/20 07:48 Pulse 66 10/24/20 12:00 Resp 17 10/24/20 12:00 BP 109/66 10/24/20 12:00 Pulse Ox 96 10/24/20 12:00 Intake & Output 10/23/20 10/24/20 10/24/20 18:59 06:59 18:59 Intake Total 240 240 Output Total 1900 Balance 240 -1900 240 Weight 66.587 kg 65 kg Intake: Oral 240 240 Output: Urine 1900 Other: Voiding Method Toilet Toilet # Voids 1 - Labs CBC & Chem 7: 10/23/20 06:52 10/24/20 07:32 Labs: Abnormal Lab Results - Last 24 Hours (Table) 10/24/20 Range/Units 07:32 BUN 23 H (7-17) mg/dL Glucose 124 H (74-99) mg/dL ALT 60 H (4-34) U/L Total Protein 6.0 L (6.3-8.2) g/dL
[2020-10-24] MEDS ORDERED: HEPARIN SOD,PORK IN 0.45% NACL 25,000 UNIT in 0.45% NACL 1 250ML.BAG IV SCH (12:30)
[2020-10-24 13:21] LABS: Basophils # (A) 0.1 k/uL (0-0.2); Basophils % (A) 1 %; Eosinophils # (A) 0.2 k/uL (0-0.7); Eosinophils % (A) 3 %; HCT 39.3 % (34.0-46.0); HGB 13.6 gm/dL (11.4-16.0); Lymphocytes # (A) 1.6 k/uL (1.0-4.8); Lymphocytes % (A) 21 %; MCH 32.7 pg (25.0-35.0); MCHC 34.6 g/dL (31.0-37.0); MCV 94.5 fL (80.0-100.0); Mean Platelet Volume 9.3; Monocytes # (A) 0.6 k/uL (0-1.0); Monocytes % (A) 8 %; Neutrophils # (A) 5.1 k/uL (1.3-7.7); Neutrophils % (A) 66 %; Platelet Count 151 k/uL (150-450); RBC 4.16 m/uL (3.80-5.40); WBC 7.7 k/uL (3.8-10.6)
[2020-10-24 13:24] LABS: Partial Thromboplastin Time 34.5 sec (22.0-30.0); Prothrombin Time 10.8 sec (9.0-12.0)
[2020-10-24] MEDS ORDERED: RX INFO: IV CONTRAST WAS GIVEN 1 EACH MISC MISCELLANE PRN (13:36)
--- NOTE | 2020-10-24 13:50 | P.PN ---
Subjective Progress Note Date: 10/24/20 Pt reports exertional dyspnea has improved. Symptoms of weakness have improved. Echo demonstrates severe pulmonary HTN but with preserved EF and no significant WMA. Cardiology would like to r/o pulm embolism Objective - Vital Signs Vital signs: Vital Signs Temp 97.8 F 10/24/20 07:48 Pulse 66 10/24/20 12:00 Resp 17 10/24/20 12:00 BP 109/66 10/24/20 12:00 Pulse Ox 96 10/24/20 12:00 Intake & Output 10/23/20 10/24/20 10/24/20 18:59 06:59 18:59 Intake Total 240 480 Output Total 1900 Balance 240 -1900 480 Weight 66.587 kg 65 kg Intake: Oral 240 480 Output: Urine 1900 Other: Voiding Method Toilet Toilet # Voids 1 - Exam Gen: awake, alert HEENT: normocephalic, atraumatic, good hearing acuity, moist mucous membranes Resp: Diminished air exchange, breathing comfortably with no accessory muscle use, clear to auscultation bilaterally CVS: good distal perfusion x 4 but with delayed capillary refill in all 4 extremities, regular heart sounds, no murmurs GI: soft, NTTP, ND : no SPT, no CVAT, barton catheter not present MSK: no pitting edema, no clubbing, Neuro: non-focal, moving all extremities Psych: cooperative, euthymic mood - Labs CBC & Chem 7: 10/24/20 12:54 10/24/20 07:32 Labs: Abnormal Lab Results - Last 24 Hours (Table) 10/24/20 10/24/20 Range/Units 07:32 12:54 APTT 34.5 H (22.0-30.0) sec D-Dimer 0.60 H (<0.60) mg/L FEU BUN 23 H (7-17) mg/dL Glucose 124 H (74-99) mg/dL ALT 60 H (4-34) U/L Total Protein 6.0 L (6.3-8.2) g/dL Assessment and Plan Assessment: Acute on Chronic Systolic Heart Failure Sinus Bradycardia -Admit to 3 S., telemetry -Cardiology consult -Status post glucagon 2 with no improvement in heart rate -Hold metoprolol -Echocardiogram, EF 55-60%, RVSP estimated in 70s, severely elevated -D-Dimer is 0.60 -consider CTA, thought low suspicion of PE -lasix 40mg IV BID -I/Os, daily weights CAD status post recent PCI Hypertension Hyperlipidemia Glaucoma -Hold home beta trace -Continue all other home meds Patient is a full code Daughter is DURABLE POWER OF [employer] DEVELOPER
--- NOTE | 2020-10-24 16:25 | CT ---
EXAMINATION TYPE: CT angio chest DATE OF EXAM: 10/24/2020 COMPARISON: 05/23/2013 HISTORY: elevated d-dimer CT DLP: 270.4 mGycm Automated exposure control for dose reduction was used. CONTRAST: Performed with IV Contrast, patient injected with 66cc mL of Isovue 370. There are 3-D post processed images. There is no evidence of thoracic aortic aneurysm or dissection. Ascending aorta measures 3.5 cm. Thor acic aorta is atheromatous. There are a few mediastinal and bronchial lymph nodes that measure up to 1 cm. There is normal contrast opacification of the pulmonary arteries. There are no filling defects. Heart size is fairly normal. There is no pericardial effusion. The lungs are clear of infiltrate. There is no evidence of a pulmonary mass. There is no pleural effu johana. Upper abdominal soft tissues appear intact. There are clips from cholecystectomy. Thoracic spine is intact. There is no compression fracture. Sternum is intact. The ribs appear intact . IMPRESSION: No evidence of pulmonary embolism. Mild atherosclerotic vascular disease. No adverse change compared to old exam.
[2020-10-24] MEDS: FUROSEMIDE 40 MG TAB PO SCH (18:57)
[2020-10-25] MEDS: lisinopriL 20 MG TAB PO SCH (08:12)
[2020-10-25] MEDS: ASPIRIN 81 MG PO SCH (08:12)
[2020-10-25] MEDS: ATORVASTATIN 80 MG TAB PO SCH (08:12)
[2020-10-25] MEDS: CLOPIDOGREL 75 MG TAB PO SCH (08:12)
[2020-10-25] MEDS: HYDROcodone/APAP 7.5-325MG 1 EACH TAB PO SCH (08:13)
[2020-10-25] MEDS: DORZOLAMIDE HCL 2% DROPS 10 ML BTL BOTH EYES SCH ×2 (08:13→19:50)
[2020-10-25] MEDS: FUROSEMIDE 40 MG TAB PO SCH (08:13)
[2020-10-25 08:43] LABS: Basophils % (A) 0 %; Eosinophils # (A) 0.3 k/uL (0-0.7); Eosinophils % (A) 4 %; HCT 37.7 % (34.0-46.0); HGB 12.5 gm/dL (11.4-16.0); Lymphocytes # (A) 1.3 k/uL (1.0-4.8); Lymphocytes % (A) 20 %; MCH 31.9 pg (25.0-35.0); MCHC 33.2 g/dL (31.0-37.0); MCV 96.1 fL (80.0-100.0); Mean Platelet Volume 9.2; Monocytes # (A) 0.5 k/uL (0-1.0); Monocytes % (A) 8 %; Neutrophils # (A) 4.2 k/uL (1.3-7.7); Neutrophils % (A) 65 %; Platelet Count 152 k/uL (150-450); RBC 3.93 m/uL (3.80-5.40); RDW 13.2 % (11.5-15.5); WBC 6.5 k/uL (3.8-10.6)
[2020-10-25] MEDS ORDERED: AMIODARONE 200 MG TAB PO SCH (09:15)
--- NOTE | 2020-10-25 11:12 | P.PN ---
Subjective Progress Note Date: 10/25/20 Pt reports feeling back to near baseline, but does admit to still having periods during which she feels lightheaded and dizzy, especially when changing positions. She says this is largely improved since admission. She reports her overall weakness/fatigue is still present but much improved. Review of her telemetry has demonstrated consistent bigemeny or trigemeny pattern until today, and she is now having multiple PVCs still, but not in consistent bigemeny. PVC burden is estimated somewhere between 33-50% throughout hospitalization. CTA was negative for PE. Heparin gtt d/c'd and patient restarted on lasix. HRs are between 45-60. BPs stable. I believe patient is improving with diuretics. Regarding her new finding of elevated pHTN to 70s, increased from 35+ one month ago, I believe this is related to volume overload from a combination of diastolic heart failure (major component) and from ventricular arrhythmia leading to poor forward flow (minor component) superimposed on existing chronic class III pHTN from COPD. Her symptoms have improved with lasix. We can consider inpt vs outpt EP consultation to address symptomatic bigemeny. Objective - Vital Signs Vital signs: Vital Signs Temp 97.6 F 10/25/20 08:00 Pulse 69 10/25/20 08:00 Resp 17 10/25/20 08:00 BP 116/68 10/25/20 08:00 Pulse Ox 95 10/25/20 08:00 Intake & Output 10/24/20 10/25/20 10/25/20 18:59 06:59 18:59 Intake Total 720 Output Total 1000 Balance 720 -1000 Weight 65.5 kg Intake: Oral 720 Output: Urine 1000 Other: Voiding Method Toilet Toilet Toilet # Voids 2 - Exam Gen: awake, alert HEENT: normocephalic, atraumatic, good hearing acuity, moist mucous membranes Resp: Diminished air exchange, breathing comfortably with no accessory muscle use, clear to auscultation bilaterally CVS: good distal perfusion x 4 but with delayed capillary refill in all 4 extremities, regular heart sounds, no murmurs GI: soft, NTTP, ND : no SPT, no CVAT, barton catheter not present MSK: no pitting edema, no clubbing, Neuro: non-focal, moving all extremities Psych: cooperative, euthymic mood - Labs CBC & Chem 7: 10/25/20 08:17 10/24/20 07:32 Labs: Abnormal Lab Results - Last 24 Hours (Table) 10/24/20 Range/Units 12:54 APTT 34.5 H (22.0-30.0) sec D-Dimer 0.60 H (<0.60) mg/L FEU Assessment and Plan Assessment: Acute on Chronic Diastolic Heart Failure Symptomatic Bigeminy -Admit to 3 S., telemetry -Cardiology consult -Status post glucagon 2 with no improvement in heart rate -Hold metoprolol -can consider re-initiating at low dose, or trialing amiodarone if patient remains symptomatic -outpatient EP referral -Echocardiogram, EF 55-60%, RVSP estimated in 70s, severely elevated -D-Dimer is 0.60 -CTA is negative -lasix 40mg IV BID --> lasix 40mg PO daily -I/Os, daily weights CAD status post recent PCI Hypertension Hyperlipidemia Glaucoma -Hold home beta trace -Continue all other home meds Patient is a full code Daughter is DURABLE POWER OF [employer] OPERATOR
--- NOTE | 2020-10-25 12:43 | P.PN ---
Subjective Progress Note Date: 10/25/20 This is a 85-year-old female with a past medical history significant for coronary artery disease s/p PCI, hypertension, and hyperlipidemia, former nicotine dependence (quit 1 month ago). Patient follows in the office with Dr. Machado. We have been asked to see the patient in consultation for symptomatic bra dycardia. Patient was hospitalized in August 2020 with a non-STEMI. Her symptoms were chest pain and jaw pain. She underwent stenting of a complex lesion in the main circumflex midportion as well as circumflex marginal branches. Patient was brought back on 09/30/2020 to undergo PCI of the LAD which had a known 95% lesion. Stenting was performed by Dr. Worthington. It is noted the patient had sluggish flow of the distal LAD post stenting. Patient states after her stenting early September she has no issues or complaints prior to this. Patient presented to Dr. Machado office 10/22/20 with complaints of exertional shortness of breath, fatigue, "not feeling good" since Monday. She states she was watching TV and all of sudden did not start feeling well. Over the past 2 days her symptoms of worsened. In the office an EKG was performed in the office which revealed sinus rhythm with frequent PVCs. An echocardiogram was ordered for patient to follow up and complete and CBC and electrolytes. After her ap pointment she went to get her labs drawn near her PCP office, she had acute onset shortness of breath, fatigue and also had chest pressure across her anterior chest pain that radiates to her bilateral shoulders, also having interscapular area back pain. She had associated dipahoresis and lightheaded ness. Denies nausea or vomiting. She went into her PCP office, another EKG was performed which she was told was abnormal and was told to go to the emergency department. She does endorse episodes of PND at home. She states she has been compliant with her medication. No new changes to medication. On admission EKG sinus with frequent PVCs. BP 140s/60s. She was given IV Glucagonx 2. She is not having chest pain at this time. She denies fever, chills, nausea, abdominal pain, diarrhea, sick contacts. 10/24 Patient has been diuresed with Lasix however no significant lower extremity edema currently significant crackles on exam. Her echocardiogram was repeated yesterday which shows similar ejection fraction 50-55% however new severe pulmonary hypertension with RVSP of 74 and moderate to severe tricuspid regurgitation with a right atrial pressure of 20. This is new compared to her prior echo. Does not appear to have significant features for diastolic heart failure and does not appear volume overloaded and therefore will rule out PE. 10/25 Patient seen and examined. Patient states that overall she is feeling somewhat improved. She did have a CT PE protocol showed no PE yesterday. D-dimer was only mildly elevated at 0.6. She does still have intermittent episodes of feeling a head oropeza as well as feeling like she cannot catch her breath however this only lasts for a second or 2 and likely related to her PVCs. DIAGNOSTICS: EKG reveals sinus bradycardia with frequent PVCs. Chest xray- hyperinflation, mild cardiomegaly. Laboratory data: BNP 6970, troponin negative 3, sodium 137, potassium 4.1, BUN 21, serum 0.9, magnesium 2.1, AST 126, ALT 114 (previously normal), CBC unremarkable. Current home cardiac medications include lisinopril 10 mg daily, metoprolol tart rate 50 mg in the morning and 25 mg at night, Plavix 75 mg daily, Lipitor 80 mg daily, and aspirin 81 mg daily. (states this medications are new for her) Echocardiogram completed on 10/02/2020 revealed ejection fraction 50-55%. Apical septum LV wall hypokinesis. Mild mitral regurgitation. Moderate tricuspid regurgitation. Mild pulmonary hypertension. Limited Echo on 10/10/20 revealed EF 45-50%, Basal LV wall motion hypokinetic REVIEW OF SYSTEMS: At the time of my exam: CONSTITUTIONAL: Denies fever or chills. +fatigue +diaphoresis HEENT: Denies blurred vision, vision changes, or eye pain. Denies hemoptysis CARDIOVASCULAR: +chest pain +PND, +orthopnea Denies palpitations RESPIRATORY: + shortness of breath. GASTROINTESTINAL: Denies abdominal pain. Denies nausea or vomiting. HEMATOLOGIC: Denies bleeding disorders. GENITOURINARY: Denies any blood in urine. SKIN: Denies pruitis. Denies rash. PHYSICAL EXAM: VITAL SIGNS: reviewed GENERAL: Well-developed in no acute distress. HEENT: Head is normocephalic. Pupils are equal, round. Sclerae anicteric. Mucous membranes of the mouth are moist. Neck supple. +JVD LUNGS: Respirations even and unlabored. Lungs essentially clear to auscultation bilaterally. HEART: Regular rate and rhythm, extra beats noted. S1 and S2 heard. Systolic murmur heard at the apex ABDOMEN: Soft. Nondistended. Nontender. EXTREMITIES: Normal range of motion. No clubbing or cyanosis. Peripheral pulses intact. No lower extremity edema NEUROLOGIC: Awake and alert. Oriented x 3. ASSESSMENT: Chest pain, acute coronary event has been ruled out. Shortness of breath, fatigue, dyspnea on exertion Acute on chronic diastolic heart failure Sinus bradycardia, with PVCs no high degree block Coronary artery disease s/p PCI circumflex and LAD Recent NSTEMI, August 2020 Hypertension Hyperlipidemia Elevated LFTs, may be related to congestive hepatopathy Pulmonary hypertension, rule out PE Elevated BNP may be related to PE. Hold diuresis for CTA Frequent PVC's, appears somewhat symptomatic PLAN: CT showed no PE. Still appears symptomatic from her PVC's and component of HF. Discussed with IM. We will start amio for PVC burden and may need outpt evaluation of frequent PVC's. Hopeful reinitiation of BBlocker however some bradycardia on admission and will start with Amio. Hopefully DC in 24 hrs if continues to improve. Objective - Vital Signs Vital signs: Vital Signs Temp 97.6 F 10/25/20 08:00 Pulse 63 10/25/20 11:56 Resp 16 10/25/20 11:56 BP 113/66 10/25/20 11:56 Pulse Ox 95 10/25/20 11:56 Intake & Output 10/24/20 10/25/20 10/25/20 18:59 06:59 18:59 Intake Total 720 Output Total 1000 Balance 720 -1000 Weight 65.5 kg Intake: Oral 720 Output: Urine 1000 Other: Voiding Method Toilet Toilet Toilet # Voids 2 - Labs CBC & Chem 7: 10/25/20 08:17 10/24/20 07:32 Labs: Abnormal Lab Results - Last 24 Hours (Table) 10/24/20 Range/Units 12:54 APTT 34.5 H (22.0-30.0) sec D-Dimer 0.60 H (<0.60) mg/L FEU
[2020-10-25] MEDS: AMIODARONE 200 MG TAB PO SCH ×2 (13:03→23:20)
[2020-10-26 07:55] VITALS: RESP 16; TEMP 97.7
[2020-10-26] MEDS: HYDROcodone/APAP 7.5-325MG 1 EACH TAB PO SCH (07:56)
[2020-10-26] MEDS: CLOPIDOGREL 75 MG TAB PO SCH (07:56)
[2020-10-26] MEDS: DORZOLAMIDE HCL 2% DROPS 10 ML BTL BOTH EYES SCH (07:57)
[2020-10-26] MEDS: AMIODARONE 200 MG TAB PO SCH (07:57)
[2020-10-26] MEDS: FUROSEMIDE 40 MG TAB PO SCH (07:57)
[2020-10-26] MEDS: lisinopriL 20 MG TAB PO SCH (07:57)
[2020-10-26] MEDS: ATORVASTATIN 80 MG TAB PO SCH (07:57)
[2020-10-26] MEDS: ASPIRIN 81 MG PO SCH (07:57)
--- NOTE | 2020-10-26 10:53 | P.PN ---
Subjective This is a 85-year-old female with a past medical history significant for coronary artery disease s/p PCI, hypertension, and hyperlipidemia, former ni cotine dependence (quit 1 month ago). Patient follows in the office with Dr. Machado. We have been asked to see the patient in consultation for symptomatic bradycardia. Patient was hospitalized in August 2020 with a non-STEMI. Her symptoms were chest pain and jaw pain. She underwent stenting of a complex lesion in the main circumflex midportion as well as circumflex marginal branches. Patient was br ought back on 09/30/2020 to undergo PCI of the LAD which had a known 95% lesion. Stenting was performed by Dr. Worthington. It is noted the patient had sluggish flow of the distal LAD post stenting. Patient states after her stenting early September she has no issues or complaints prior to this. Patient presented to Dr. Machado office 10/22/20 with complaints of exertional shortness of breath, fatigue, "not feeling good" since Monday. She states she was watching TV and all of sudden did not start feeling well. Over the past 2 days her symptoms of worsened. In the office an EKG was performed in the office which revealed sinus rhythm with frequent PVCs. An echocardiogram was ordered for patient to follow up and complete and CBC and electrolytes. After her appointment she went to get her labs drawn near her PCP office, she had acute onset shortness of breath, fatigue and also had chest pressure across her anterior chest pain that radiates to her bilateral shoulders, also having interscapular area back pain. She had associated dipahoresis and lightheadedness. Denies nausea or vomiting. She went into her PCP office, another EKG was performed which she was told was abnormal and was told to go to the emergency department. She does endorse episodes of PND at home. She states she has been compliant with her medication. No new changes to medication. On admission EKG sinus with frequent PVCs. BP 140s/60s. She was given IV Glucagonx 2. She is not having chest pain at this time. She denies fever, chills, nausea, abdominal pain, diarrhea, sick contacts. DIAGNOSTICS: Echocardiogram completed on 10/02/2020 revealed ejection fraction 50-55%. Apical septum LV wall hypokinesis. Mild mitral regurgitation. Moderate tricuspid regurgitation. Mild pulmonary hypertension. Limited Echo on 10/10/20 revealed EF 45-50%, Basal LV wall motion hypokinetic 10/23/20 Echocardiogram was repeated which showed similar ejection fraction 50- 55% however new severe pulmonary hypertension with RVSP of 74 and moderate to severe tricuspid regurgitation with a right atrial pressure of 20. This is new compared to her prior echo. Does not appear to have significant features for diastolic heart failure and does not appear volume overloaded and therefore will rule out PE. 10/26/20 Patient seen and examined. Patient states that overall she is feeling somewhat improved. She has new onset diarrhea overnight and this morning. She did have a CT PE protocol showed no PE on 10/24/20. D-dimer was only mildly elevated at 0.6. She continues to be in sinus mechanism with PVCs. She was started on amiodarone 400mg BID on 10/25. Her beta trace was decreased and she was bradycardic unable to tolerate. Blood pressure 129/62, heart rate 62, afebrile, maintaining oxygen saturations on room air. PHYSICAL EXAM: VITAL SIGNS: reviewed GENERAL: Well-developed in no acute distress. HEENT: Neck Supple, no JVD LUNGS: Respirations even and unlabored. Lungs essentially clear to auscultation bilaterally. HEART: Regular rate and rhythm, extra beats noted. S1 and S2 heard. Systolic murmur heard at the apex ABDOMEN: Soft. Nondistended. Nontender. EXTREMITIES: Normal range of motion. No clubbing or cyanosis. Peripheral pulses intact. No lower extremity edema NEUROLOGIC: Awake and alert. Oriented x 3. ASSESSMENT: Chest pain, acute coronary event has been ruled out. Shortness of breath, fatigue, dyspnea on exertion Acute on chronic diastolic heart failure Sinus bradycardia, with PVCs no high degree block Coronary artery disease s/p PCI circumflex and LAD Recent NSTEMI, August 2020 Hypertension Hyperlipidemia Elevated LFTs, may be related to congestive hepatopathy Pulmonary hypertension Frequent PVC's, appears somewhat symptomatic Diarrhea PLAN: Patient has improved since admission. Continue amiodarone for PVC burden and may need outpt evaluation of frequent PVC's. Hopeful reinitiation of metoprolol tartrate, however, she was bradycardic on admission and over the weekend. From a cardiology perspective, patient is stable. Will continue current cardiac medication On discharge, patient to have close follow up with Dr. Machado Objective - Vital Signs Vital signs: Vital Signs Temp 97.7 F 10/26/20 07:50 Pulse 62 10/26/20 07:50 Resp 16 10/26/20 08:00 BP 129/62 10/26/20 07:50 Pulse Ox 96 10/26/20 07:54 Intake & Output 10/25/20 10/26/20 10/26/20 18:59 06:59 18:59 Intake Total 800 240 Balance 800 240 Weight 65 kg Intake: Oral 800 240 Other: Voiding Method Toilet Toilet Toilet - Labs CBC & Chem 7: 10/25/20 08:17 10/24/20 07:32
[2020-10-26 12:46] VITALS: BP 105/63; PULSE 67
--- NOTE | 2020-10-26 13:54 | P.DS ---
Providers Date of admission: 10/26/20 10:59 Expected date of discharge: 10/26/20 Attending physician: Ruy Goodwin MD Consults: 10/22/20 15:22 Consult Physician Routine Consulting Provider: Melonie Worthington Consult Reason/Comments: Symptomatic Bradycardia Do you want consulting provider notified?: Yes Primary care physician: [facility] Course: Acute on Chronic Diastolic Heart Failure Symptomatic Bigeminy -Admitted to 3 S., telemetry. Cardiology consulted. Pt rec'd 2 x glucagon in the ER to improve HR. Metoprolol was held due to bradycardia. Echo demonstrated EF 55-60% with RVSP in the 70s, up from 30s one month ago. D-Dimer was normal for age. CTA was negative for PE. Patient's symptoms improved on lasix, and she was transitioned to PO lasix on discharge. Regarding her bigeminy, she was started on amiodarone, with plans to follow up with Dr. Machado as outpatient, then EP referral. CAD status post recent PCI Hypertension Hyperlipidemia Glaucoma -Amiodarone is new, Metoprolol discontinued. No medication changes otherwise. Patient is a full code Daughter is DURABLE POWER OF COMPENSATION AND BENEFITS ANALYST Assessment: Gen: awake, alert HEENT: normocephalic, atraumatic, good hearing acuity, moist mucous membranes Resp: Diminished air exchange, breathing comfortably with no accessory muscle use, clear to auscultation bilaterally CVS: good distal perfusion x 4 but with delayed capillary refill in all 4 extremities, regular heart sounds, no murmurs GI: soft, NTTP, ND : no SPT, no CVAT, barton catheter not present MSK: no pitting edema, no clubbing, Neuro: non-focal, moving all extremities Psych: cooperative, euthymic mood Patient Condition at Discharge: Good Plan - Discharge Summary New Discharge Prescriptions: New Amiodarone [Cordarone] 400 mg PO BID 60 Days #120 tab Furosemide [Lasix] 40 mg PO DAILY #30 tab Continue lisinopriL [Zestril] 20 mg PO DAILY HYDROcodone/APAP 7.5-325MG [[place] 7.5-325] 1 tab PO Q12H Timolol [Betimol 0.5% Ophth Soln] 1 drop BOTH EYES HS Difluprednate [Durezol] 1 drop BOTH EYES DAILY PRN PRN Reason: REDNESS Dorzolamide 2% [Trusopt 2%] 1 drop BOTH EYES BID Meclizine HCl [Bonine] 25 mg PO DAILY PRN PRN Reason: DIZZINESS Aspirin 81 mg PO DAILY chew Atorvastatin [Lipitor] 80 mg PO DAILY #90 tab Clopidogrel [Plavix] 75 mg PO DAILY #90 tab Nitroglycerin Sl Tabs [Nitrostat] 0.4 mg SL Q5M PRN PRN Reason: Chest Pain Discontinued Metoprolol Tartrate [Lopressor] 50 mg PO DAILY Metoprolol Tartrate [Lopressor] 25 mg PO HS Discharge Medication List lisinopriL [Zestril] 20 mg PO DAILY 06/29/17 [History] HYDROcodone/APAP 7.5-325MG [[place] 7.5-325] 1 tab PO Q12H 08/29/18 [History] Difluprednate [Durezol] 1 drop BOTH EYES DAILY PRN 09/18/20 [History] Dorzolamide 2% [Trusopt 2%] 1 drop BOTH EYES BID 09/18/20 [History] Meclizine HCl [Bonine] 25 mg PO DAILY PRN 09/18/20 [History] Timolol [Betimol 0.5% Ophth Soln] 1 drop BOTH EYES HS 09/18/20 [History] Aspirin 81 mg PO DAILY chew 09/21/20 [Rx] Atorvastatin [Lipitor] 80 mg PO DAILY #90 tab 09/21/20 [Rx] Clopidogrel [Plavix] 75 mg PO DAILY #90 tab 09/21/20 [Rx] Nitroglycerin Sl Tabs [Nitrostat] 0.4 mg SL Q5M PRN 10/09/20 [History] Amiodarone [Cordarone] 400 mg PO BID 60 Days #120 tab 10/26/20 [Rx] Furosemide [Lasix] 40 mg PO DAILY #30 tab 10/26/20 [Rx] Follow up Appointment(s)/Referral(s): Barrie Mckee MD [STAFF PHYSICIAN] - 2 Weeks Roney Jacob MD [Primary Care Provider] - 11/03/20 8:40 am Mario Machado MD [STAFF PHYSICIAN] - 11/09/20 9:15 am [facility] Visiting Nurse, [NON-STAFF] - Patient Instructions/Handouts: Amiodarone (By mouth), Heart Failure (DC) Activity/Diet/Wound Care/Special Instructions: Please follow up with Dr. Machado your primary rn angiography within 1-2 weeks. We started a new medication called amiodarone, with dosing as scheduled below Amiodarone Taper Dosing 400mg twice a day (10/25/20-10/31/20) 200mg twice a day (11/01/20-11/07/20) 200mg daily thereafter. Dr. Machado will adjust medication as needed in the office
== END 2020-10-26 15:04 | disposition home health service (06) | DRG 293 ==
LOC: EC 13:21 → 6NMEDSUR 15:36 → 3SCARD 16:36 → 3NCARDOBS 10-24 20:16 → OBSVTOIN 10-26 10:59
PROVIDERS: ADMIT Internal Medicine; ATTEND Internal Medicine
DX: I11.0 Hypertensive heart disease with heart failure (principal); I50.33 Acute on chronic diastolic (congestive) heart failure; I27.20 Pulmonary hypertension, unspecified; K76.1 Chronic passive congestion of liver; J44.9 Chronic obstructive pulmonary disease, unspecified; R00.1 Bradycardia, unspecified; E78.5 Hyperlipidemia, unspecified; E03.9 Hypothyroidism, unspecified; I07.1 Rheumatic tricuspid insufficiency; I25.10 Atherosclerotic heart disease of native coronary artery without angina pectoris; I25.2 Old myocardial infarction; G89.29 Other chronic pain; H40.9 Unspecified glaucoma; M54.32 Sciatica, left side; I83.93 Asymptomatic varicose veins of bilateral lower extremities; R19.7 Diarrhea, unspecified; R79.89 Other specified abnormal findings of blood chemistry; Z79.82 Long term (current) use of aspirin; Z79.02 Long term (current) use of antithrombotics/antiplatelets; Z79.899 Other long term (current) drug therapy; Z86.718 Personal history of other venous thrombosis and embolism; Z87.442 Personal history of urinary calculi; Z87.440 Personal history of urinary (tract) infections; Z87.81 Personal history of (healed) traumatic fracture; Z87.891 Personal history of nicotine dependence; Z86.2 Personal history of diseases of the blood and blood-forming organs and certain disorders involving the immune mechanism; Z87.2 Personal history of diseases of the skin and subcutaneous tissue; Z87.19 Personal history of other diseases of the digestive system; Z90.49 Acquired absence of other specified parts of digestive tract; Z95.5 Presence of coronary angioplasty implant and graft; Z98.890 Other specified postprocedural states; Z88.8 Allergy status to other drugs, medicaments and biological substances; Z91.018 Allergy to other foods; Z80.0 Family history of malignant neoplasm of digestive organs; Z82.61 Family history of arthritis; Z84.0 Family history of diseases of the skin and subcutaneous tissue; Z83.6 Family history of other diseases of the respiratory system
CPT/HCPCS: 36415; 71045; 71275; 80048; 80053; 81001; 83605; 83735; 83880; 84450; 84460; 84484; 85025; 85379; 85610; 85730; 93005; 93306; 94760; 99285

== ENCOUNTER 2020-11-21 18:27 | Observation (INO) | payer MEDICARE ==
[2020-11-21] MEDS ORDERED: NITROGLYCERIN OINT 1 INCH/GM PACKET TOPICAL STA (18:44)
[2020-11-21] MEDS ORDERED: ASPIRIN 81 MG PO STA (18:44)
--- NOTE | 2020-11-21 18:48 | ED ---
General Adult HPI - General Chief complaint: Chest Pain Stated complaint: Chest pain Time Seen by Provider: 11/21/20 18:35 Source: patient, family, RN notes reviewed Mode of arrival: ambulatory Limitations: no limitations - History of Present Illness Initial comments: Patient is a pleasantly 85-year-old female presenting to the emergency department with chest discomfort. Onset of symptoms was over an hour ago. Patient had discomfort last around 20 minutes. Patient states it was sharp without radiation. No associated dyspnea, nausea, or diaphoresis. Patient did feel lightheaded. Patient does have history of previous cardiac problems. Patient did have recent stent placement within the past couple of months and hospital visits. - Related Data Home Medications Medication Instructions Recorded Confirmed lisinopriL [Zestril] 20 mg PO DAILY 06/29/17 11/21/20 HYDROcodone/APAP 7.5-325MG [[place] 1 tab PO BID PRN 08/29/18 11/21/20 7.5-325] Difluprednate [Durezol] 1 drop BOTH EYES DAILY PRN 09/18/20 11/21/20 Dorzolamide 2% [Trusopt 2%] 1 drop BOTH EYES BID 09/18/20 11/21/20 Meclizine HCl [Bonine] 25 mg PO DAILY 09/18/20 11/21/20 Timolol [Betimol 0.5% Ophth Soln] 1 drop BOTH EYES HS 09/18/20 11/21/20 Nitroglycerin Sl Tabs [Nitrostat] 0.4 mg SL Q5M PRN 10/09/20 11/21/20 Amiodarone [Cordarone] 200 mg PO DAILY 11/21/20 11/21/20 Atorvastatin [Lipitor] 80 mg PO HS 11/21/20 11/21/20 Ibuprofen [Motrin] 800 mg PO Q8H PRN 11/21/20 11/21/20 Previous Rx's Medication Instructions Recorded Clopidogrel [Plavix] 75 mg PO DAILY #90 tab 09/21/20 Furosemide [Lasix] 40 mg PO DAILY #30 tablet 10/26/20 Allergies Allergy/AdvReac Type Severity Reaction Status Date / Time grapefruit Allergy Anaphylaxis Verified 11/21/20 20:28 loratadine [From Claritin] Allergy Dyspnea Verified 11/21/20 20:28 pseudoephedrine Allergy Dyspnea Verified 11/21/20 20:28 [facility] strawberry Allergy Anaphylaxis Verified 11/21/20 20:28 Review of Systems ROS Statement: Those systems with pertinent positive or pertinent negative responses have been documented in the HPI. ROS Other: All systems not noted in ROS Statement are negative. Constitutional: Denies: fever Eyes: Denies: eye pain ENT: Denies: ear pain Respiratory: Denies: cough Cardiovascular: Reports: chest pain Endocrine: Denies: fatigue Gastrointestinal: Denies: abdominal pain Genitourinary: Denies: dysuria Musculoskeletal: Denies: back pain Skin: Denies: rash Neurological: Denies: weakness Past Medical History Past Medical History: Coronary Artery Disease (CAD), Chest Pain / Angina, Deep Vein Thrombosis (DVT), Hyperlipidemia, Hypertension, Myocardial Infarction ([place]), Renal Disease, Skin Disorder, Thyroid Disorder Additional Past Medical History / Comment(s): Vertigo, DVT L leg, bronchitis, sinus problems, hemorrhoids, chronic back pain with L sciatica in the past, rosacia, anemia, kidney stones-pt passed, UTI, hypothyroid, past R collar bone fracture, past R ankle fx with surgery. Last Myocardial Infarction Date:: 09/17/20 History of Any Multi-Drug Resistant Organisms: None Reported Past Surgical History: Cholecystectomy, Heart Catheterization With Stent, Ortho pedic Surgery Additional Past Surgical History / Comment(s): Varicose vein ligation both legs, R ankle surgery for fracture, colonoscopy. Past Anesthesia/Blood Transfusion Reactions: No Reported Reaction Date of Last Stent Placement:: 09/30/2020 Past Psychological History: No Psychological Hx Reported Smoking Status: Former smoker Past Alcohol Use History: None Reported Past Drug Use History: None Reported - Past Family History Father Family Medical History: Pneumonia Additional Family Medical History / Comment(s): Father at the age of 24yrs from industrial caused pneumonia. Mother Family Medical History: Skin Disorder Additional Family Medical History / Comment(s): Mother had psoriatic arthritis, psoriasis, and colon cancer General Exam Limitations: no limitations General appearance: alert, in no apparent distress Head exam: Present: atraumatic Eye exam: Present: normal appearance Neck exam: Present: normal inspection Respiratory exam: Present: normal lung sounds bilaterally. Absent: chest wall tenderness Cardiovascular Exam: Present: regular rate, normal rhythm Expanded Peripheral pulses: 2+: Radial (R), Radial (L), Dorsalis Pedis (R), Dorsalis Pedis (L) GI/Abdominal exam: Present: soft. Absent: tenderness Extremities exam: Present: normal inspection. Absent: pedal edema, calf tenderness Neurological exam: Present: alert Psychiatric exam: Present: normal affect, normal mood Skin exam: Present: normal color Course Vital Signs 11/21/20 18:31 Temperature 98 F Pulse Rate 62 Respiratory 18 Rate Blood Pressure 131/63 O2 Sat by Pulse 99 Oximetry EKG Findings - EKG Comments: EKG Findings:: Sinus rhythm with rate of 60. PVCs present. WA 180. QRS 110. QT 400. QTc 400. Left axis. Low QRS voltage. Poor R-wave progression. No acute ST change. Medical Decision Making - Medical Decision Making Patient reevaluated and updated. Case discussed with Dr. morocho, who will admit for Dr. March. - Lab Data Result diagrams: 11/21/20 18:53 11/21/20 18:53 Lab Results 11/21/20 11/21/20 11/21/20 Range/Units 18:53 18:53 18:53 WBC 7.7 (3.8-10.6) k/uL RBC 4.00 (3.80-5.40) m/uL Hgb 13.3 (11.4-16.0) gm/dL Hct 37.6 (34.0-46.0) % MCV 94.0 (80.0-100.0) fL MCH 33.2 (25.0-35.0) pg MCHC 35.3 (31.0-37.0) g/dL RDW 13.2 (11.5-15.5) % Plt Count 163 (150-450) k/uL MPV 8.3 Neutrophils % 63 % Lymphocytes % 23 % Monocytes % 7 % Eosinophils % 3 % Basophils % 1 % Neutrophils # 4.8 (1.3-7.7) k/uL Lymphocytes # 1.8 (1.0-4.8) k/uL Monocytes # 0.5 (0-1.0) k/uL Eosinophils # 0.2 (0-0.7) k/uL Basophils # 0.1 (0-0.2) k/uL PT 10.1 (9.0-12.0) sec INR 0.9 (<1.2) APTT 21.7 L (22.0-30.0) sec D-Dimer 0.89 H (<0.60) mg/L FEU Sodium 136 L (137-145) mmol/L Potassium 4.2 (3.5-5.1) mmol/L Chloride 106 (98-107) mmol/L Carbon Dioxide 21 L (22-30) mmol/L Anion Gap 9 mmol/L BUN 29 H (7-17) mg/dL Creatinine 1.13 H (0.52-1.04) mg/dL Est GFR (CKD-EPI)AfAm 51 (>60 ml/min/1.73 sqM) Est GFR (CKD-EPI)NonAf 44 (>60 ml/min/1.73 sqM) Glucose 129 H (74-99) mg/dL Calcium 9.2 (8.4-10.2) mg/dL Magnesium 2.1 (1.6-2.3) mg/dL Total Bilirubin 0.2 (0.2-1.3) mg/dL AST 27 (14-36) U/L ALT 22 (4-34) U/L Alkaline Phosphatase 85 (38-126) U/L Troponin I (0.000-0.034) ng/mL Total Protein 6.3 (6.3-8.2) g/dL Albumin 4.0 (3.5-5.0) g/dL 11/21/20 Range/Units 18:53 WBC (3.8-10.6) k/uL RBC (3.80-5.40) m/uL Hgb (11.4-16.0) gm/dL Hct (34.0-46.0) % MCV (80.0-100.0) fL MCH (25.0-35.0) pg MCHC (31.0-37.0) g/dL RDW (11.5-15.5) % Plt Count (150-450) k/uL MPV Neutrophils % % Lymphocytes % % Monocytes % % Eosinophils % % Basophils % % Neutrophils # (1.3-7.7) k/uL Lymphocytes # (1.0-4.8) k/uL Monocytes # (0-1.0) k/uL Eosinophils # (0-0.7) k/uL Basophils # (0-0.2) k/uL PT (9.0-12.0) sec INR (<1.2) APTT (22.0-30.0) sec D-Dimer (<0.60) mg/L FEU Sodium (137-145) mmol/L Potassium (3.5-5.1) mmol/L Chloride (98-107) mmol/L Carbon Dioxide (22-30) mmol/L Anion Gap mmol/L BUN (7-17) mg/dL Creatinine (0.52-1.04) mg/dL Est GFR (CKD-EPI)AfAm (>60 ml/min/1.73 sqM) Est GFR (CKD-EPI)NonAf (>60 ml/min/1.73 sqM) Glucose (74-99) mg/dL Calcium (8.4-10.2) mg/dL Magnesium (1.6-2.3) mg/dL Total Bilirubin (0.2-1.3) mg/dL AST (14-36) U/L ALT (4-34) U/L Alkaline Phosphatase (38-126) U/L Troponin I 0.013 (0.000-0.034) ng/mL Total Protein (6.3-8.2) g/dL Albumin (3.5-5.0) g/dL - Radiology Data Radiology results: report reviewed (Computed tomography scan of the chest negative for pulmonary embolism), image reviewed (Chest x-ray reveals no acute process) Disposition Clinical Impression: Chest pain Disposition: ADMITTED IP TO THIS [facility] Is patient prescribed a controlled substance at d/c from ED?: No Referrals: Roney Jacob MD [Primary Care Provider] - 1-2 days Decision Time: 20:33
--- NOTE | 2020-11-21 19:09 | XR ---
EXAMINATION TYPE: XR chest 2V DATE OF EXAM: 11/21/2020 COMPARISON: 10/22/2020 HISTORY: Chest pain TECHNIQUE: 2 views FINDINGS: There is no heart failure nor confluent pneumonic infiltrate. Costophrenic angles are clear . Thoracic aorta is atheromatous. There are chest leads. Bony thorax is intact. IMPRESSION: No active cardiopulmonary disease. Normal heart. No change.
[2020-11-21 19:12] LABS: Calcium 9.2 mg/dL (8.4-10.2); Magnesium 2.1 mg/dL (1.6-2.3); Potassium 4.2 mmol/L (3.5-5.1); Total Bilirubin 0.2 mg/dL (0.2-1.3); Total Protein 6.3 g/dL (6.3-8.2)
[2020-11-21 19:16] LABS: Basophils # (A) 0.1 k/uL (0-0.2); Basophils % (A) 1 %; Eosinophils # (A) 0.2 k/uL (0-0.7); Eosinophils % (A) 3 %; HCT 37.6 % (34.0-46.0); HGB 13.3 gm/dL (11.4-16.0); Lymphocytes # (A) 1.8 k/uL (1.0-4.8); Lymphocytes % (A) 23 %; MCH 33.2 pg (25.0-35.0); MCHC 35.3 g/dL (31.0-37.0); Mean Platelet Volume 8.3; Monocytes # (A) 0.5 k/uL (0-1.0); Monocytes % (A) 7 %; Neutrophils # (A) 4.8 k/uL (1.3-7.7); Neutrophils % (A) 63 %; Platelet Count 163 k/uL (150-450); RDW 13.2 % (11.5-15.5); WBC 7.7 k/uL (3.8-10.6)
[2020-11-21 19:32] LABS: INR 0.9 (<1.2); Partial Thromboplastin Time 21.7 sec (22.0-30.0); Prothrombin Time 10.1 sec (9.0-12.0)
--- NOTE | 2020-11-21 20:23 | CT ---
EXAMINATION TYPE: CT angio chest DATE OF EXAM: 11/21/2020 COMPARISON: 10/24/2020 HISTORY: Mid chest pain. CT DLP: 271.6 mGycm Automated exposure control for dose reduction was used. CONTRAST: Performed with IV Contrast, patient injected with 80 mL of Isovue 370. There are 3-D post processed images. The lungs are clear of consolidation. There is no evidence of a pulmonary mass. Heart size is fairly normal. There is no pericardial effusion. There is normal contrast opacification of the pulmonary art eries. There are no filling defects. Thoracic aorta is atheromatous. The ascending aorta measures 3.5 cm. There is no aneurysm or dissection. There is no mediastinal adenopathy. There are no hilar masses. Thoracic spine is intact. There is no compression fracture. Sternum is intact. IMPRESSION: No evidence of pulmonary embolism. Atherosclerotic vascular disease. No adverse change compared to ol d exam.
[2020-11-21] MEDS ORDERED: NITROGLYCERIN SL TABS 0.4 MG TAB SUBLINGUAL PRN (20:33)
[2020-11-21 21:16] VITALS: RESP 16
--- NOTE | 2020-11-22 00:36 | P.HPIM ---
History of Present Illness H&P Date: 11/22/20 The patient is an 85-year-old female with a PMH of coronary artery disease status post multiple stents, severe MR, severe pulmonary hypertension, hyperlipidemia, and hypertension who presented to the emergency room with complaints of chest pain. The patient reports that her symptoms started roughly around 5 PM, with sharp nonpleuritic right sided chest pain, nonradiating, lasting only for a few seconds at a time, and occurring 4 times within a period of 30 minutes. The pain was associated with lightheadedness for the patient denied syncope or falls. She denied associated shortness of breath, nausea, diaphoresis, or palpitations. Patient reports that she has not had pain like this before and due to her significant cardiac history, she became concerned and decided to come to the emergency room. She reports no further episodes of the chest discomfort since arrival to the emergency room. Reports feeling essentially back to her baseline. The patient also states that she checked her heart rate at home via pulse oximeter which read a pulse in the mid 30s. She denied cough, fever, chills. Denied lower extremity swelling, recent travel, sick contacts. Denied nausea or vomiting, or abdominal pain. The patient's d- dimer in the emergency room was slightly elevated for which his chest CTA was performed which was negative for PE. Chest x-ray was unremarkable. EKG revealed sinus rhythm with PVCs at 60 bpm with left axis deviation, poor R-wave progression, diffuse T-wave flattening. Laboratory evaluation was remarkable for d-dimer of 0.89, troponin 0.013, BUN 29, and creatinine 1.13 (baseline 0.9). Patient is admitted to the hospital for further management including cardiology consult. Review of systems: Pertinent positives and negatives as discussed in HPI, a complete review of systems was performed and all other systems are negative. Physical examination: General: non toxic, no distress, appears at stated age, normal weight Derm: no unusual rashes/lesions no unusual ecchymoses, warm, dry Head: atraumatic, normocephalic, symmetric Eyes: EOMI, no lid lag, anicteric sclera, pupils equal round reactive to light ENT: Nose and ears atraumatic, no thrush, no pharyngeal erythema Neck: No thyromegaly, no cervical lymphadenopathy, trachea midline, supple Mouth: no lip lesion, mucus membranes moist Cardiovascular: S1S2 reg, no murmur, positive posterior tibial pulse bilateral, no edema, capillary refill less than 2 seconds, no chest wall tenderness on palpation Lungs: CTA bilateral, no rhonchi, no rales , no accessory muscle use Abdominal: soft, nontender to palpation, no guarding, no appreciable organomegaly, normal bowel sounds Ext: no gross muscle atrophy, muscle strength 5 out of 5 in all 4 extremities grossly, no contractures, Neuro: CN II-XI grossly intact, light touch intact all 4 extremities, finger to nose within normal limits, Psych: Alert, oriented, appropriate affect Assessment/plan Atypical Chest pain, rule out ACS -At baseline at this time -Continue with aspirin -Cardiology consulted -Cardiac monitoring -Fall precautions -Nitroglycerin when necessary -Trend troponin Acute kidney injury -Gentle IV fluids and monitor BMP Chronic conditions: Hypertension, hyperlipidemia -Continue with home meds DVT prophylaxis -Heparin subcu The patient is admitted with an anticipated less than 2 midnight stay for evaluation of chest pain. CODE STATUS:Full Code Discussed with: Patient Anticipated discharge date: in am Anticipated discharge place: Home Past Medical History Past Medical History: Coronary Artery Disease (CAD), Chest Pain / Angina, Deep Vein Thrombosis (DVT), Hyperlipidemia, Hypertension, Myocardial Infarction ([place]), Renal Disease, Skin Disorder, Thyroid Disorder Additional Past Medical History / Comment(s): Vertigo, DVT L leg, bronchitis, sinus problems, hemorrhoids, chronic back pain with L sciatica in the past, rosacia, anemia, kidney stones-pt passed, UTI, hypothyroid, past R collar bone fracture, past R ankle fx with surgery. Last Myocardial Infarction Date:: 09/17/20 History of Any Multi-Drug Resistant Organisms: None Reported Past Surgical History: Cholecystectomy, Heart Catheterization With Stent, Orthopedic Surgery Additional Past Surgical History / Comment(s): Varicose vein ligation both legs, R ankle surgery for fracture, colonoscopy. Past Anesthesia/Blood Transfusion Reactions: No Reported Reaction Date of Last Stent Placement:: 09/30/2020 Past Psychological History: No Psychological Hx Reported Smoking Status: Former smoker Past Alcohol Use History: None Reported Past Drug Use History: None Reported - Past Family History Father Family Medical History: Pneumonia Additional Family Medical History / Comment(s): Father at the age of 24yrs from industrial caused pneumonia. Mother Family Medical History: Skin Disorder Additional Family Medical History / Comment(s): Mother had psoriatic arthritis, psoriasis, and colon cancer Medications and Allergies Home Medications Medication Instructions Recorded Confirmed Type lisinopriL [Zestril] 20 mg PO DAILY 06/29/17 11/21/20 History HYDROcodone/APAP 7.5-325MG [[place] 1 tab PO BID PRN 08/29/18 11/21/20 History 7.5-325] Difluprednate [Durezol] 1 drop BOTH EYES DAILY PRN 09/18/20 11/21/20 History Dorzolamide 2% [Trusopt 2%] 1 drop BOTH EYES BID 09/18/20 11/21/20 History Meclizine HCl [Bonine] 25 mg PO DAILY 09/18/20 11/21/20 History Timolol [Betimol 0.5% Ophth Soln] 1 drop BOTH EYES HS 09/18/20 11/21/20 History Clopidogrel [Plavix] 75 mg PO DAILY #90 tab 09/21/20 11/21/20 Rx Nitroglycerin Sl Tabs [Nitrostat] 0.4 mg SL Q5M PRN 10/09/20 11/21/20 History Furosemide [Lasix] 40 mg PO DAILY #30 tablet 10/26/20 11/21/20 Rx Amiodarone [Cordarone] 200 mg PO DAILY 11/21/20 11/21/20 History Atorvastatin [Lipitor] 80 mg PO HS 11/21/20 11/21/20 History Ibuprofen [Motrin] 800 mg PO Q8H PRN 11/21/20 11/21/20 History Allergies Allergy/AdvReac Type Severity Reaction Status Date / Time grapefruit Allergy Anaphylaxis Verified 11/21/20 20:28 loratadine [From Claritin] Allergy Dyspnea Verified 11/21/20 20:28 pseudoephedrine Allergy Dyspnea Verified 11/21/20 20:28 [From Sudafed] strawberry Allergy Anaphylaxis Verified 11/21/20 20:28 Physical Exam Vitals: Vital Signs Temp Pulse Resp BP Pulse Ox 11/21/20 21:15 97.6 F 59 L 16 127/72 97 11/21/20 18:31 98 F 62 18 131/63 99 Intake and Output 11/21/20 11/21/20 11/21/20 06:59 14:59 22:59 Other: Weight 64.864 kg Results CBC & Chem 7: 11/21/20 18:53 11/21/20 18:53 Labs: Abnormal Lab Results - Last 24 Hours (Table) 11/21/20 11/21/20 Range/Units 18:53 18:53 APTT 21.7 L (22.0-30.0) sec D-Dimer 0.89 H (<0.60) mg/L FEU Sodium 136 L (137-145) mmol/L Carbon Dioxide 21 L (22-30) mmol/L BUN 29 H (7-17) mg/dL Creatinine 1.13 H (0.52-1.04) mg/dL Glucose 129 H (74-99) mg/dL
[2020-11-22] MEDS ORDERED: SODIUM CHLORIDE 0.9% 1,000 ML IV SCH (00:45)
[2020-11-22] MEDS: NITROGLYCERIN OINT 1 INCH/GM PACKET TOPICAL SCH ×3 (01:19→12:10)
[2020-11-22] MEDS ORDERED: HYDROcodone/APAP 7.5-325MG 1 EACH TAB PO PRN (01:36)
[2020-11-22] MEDS ORDERED: HEPARIN SODIUM,PORCINE/PF 5,000 UNIT/0.5 ML SYRINGE SQ SCH (08:00)
[2020-11-22 08:11] VITALS: BP 95/53; PULSE 54; TEMP 97.9
[2020-11-22] MEDS ORDERED: ASPIRIN 325 MG TAB PO SCH (09:00)
[2020-11-22] MEDS ORDERED: DORZOLAMIDE HCL 2% DROPS 10 ML BTL BOTH EYES SCH (09:00)
[2020-11-22] MEDS ORDERED: AMIODARONE 200 MG TAB PO SCH (09:00)
[2020-11-22] MEDS ORDERED: FUROSEMIDE 40 MG TAB PO SCH (09:00)
[2020-11-22] MEDS ORDERED: lisinopriL 20 MG TAB PO SCH (09:00)
[2020-11-22] MEDS ORDERED: CLOPIDOGREL 75 MG TAB PO SCH (09:00)
[2020-11-22 09:33] LABS: African American GFR (CKD) 52.6 (60.0-200.0); BUN/Creat Ratio 25.45 Ratio (12.00-20.00); Calcium 9.4 mg/dL (8.7-10.3); Chol/HDL Ratio 2.98; LDL Cholesterol,Calculated 56.2 mg/dL (0.0-131.0); Non-African American GFR(CKD) 45.4 (60.0-200.0); Potassium 3.6 mmol/L (3.5-5.5); VLDL Calculation 22.8 mg/dL (5.00-40.00)
--- NOTE | 2020-11-22 10:58 | P.CRDCN ---
History of Present Illness Consult date: 11/22/20 Requesting physician: Alpesh Marie Reason for Consult (text): chest pain Chief complaint: chest pain History of present illness: This is a pleasant 85-year-old female patient falls in the office with Dr. Machado. She has a history of hypertension, hyperlipidemia and recent non-ST elevation NE in August of this year at which time she underwent cardiac catheterization which showed a right dominant system with 40% lesion in the mid RCA, 99% lesion in the mid circumflex, 95% lesion in the marginal branch and 95% lesion in the mid LAD. At that time she underwent stenting of the mid circumflex and marginal branch and subsequently came back for stenting of mid LAD. Following that she was readmitted with chest pain on October 09 at which time acute coronary event was ruled out. She subsequently was readmitted the end of September with shortness of breath and fatigue. That time she was noted based b radycardic with frequent PVCs. Due to the bradycardia on beta blockers were avoided and she was initiated on amiodarone in hopes to control PVC burden. She presents this admission with right sided chest discomfort that she expects described as a sharp jabbing pain lasting just a second, intermittent occurring about every 5 minutes for about a half hour time period. She says this is very different from what she experienced with her NE. Since adding amiodarone she has not noticed much difference in her symptoms of fatigue. She continues to complain of some lightheadedness at times. Upon presentation EKG showed sinus mechanism with evidence of prior NE, PVCs and no change from previous, no evidence of acute ischemia. Chest x-ray showed no active cardiopulmonary disease. Computed tomography scan of the chest showed no evidence of pulmonary embolism. Heart rate has been stable in the 50s.. Laboratory values on admission showed a sodium 136, BUN 29, creatinine 1.13. Troponins are negative 3. Lipids are well controlled on current therapy. She is currently on aspirin 325 mg by mouth daily, atorvastatin 80 mg by mouth daily, amiodarone 200 mg by mouth daily, Plavix 75 mg by mouth daily, Lasix 40 mg daily, lisinopril 20 mg by mouth daily. Echocardiogram during her last admission showed low normal LV systolic function with ejection fraction of 50-55% with mild MR, moderate to severe TR and severe pulmonary hypertension. Past Medical History Past Medical History: Coronary Artery Disease (CAD), Chest Pain / Angina, Deep Vein Thrombosis (DVT), Hyperlipidemia, Hypertension, Myocardial Infarction (NE), Renal Disease, Skin Disorder, Thyroid Disorder Additional Past Medical History / Comment(s): Vertigo, DVT L leg, bronchitis, sinus problems, hemorrhoids, chronic back pain with L sciatica in the past, lonny loretta, anemia, kidney stones-pt passed, UTI, hypothyroid, past R collar bone fracture, past R ankle fx with surgery. Last Myocardial Infarction Date:: 09/17/20 History of Any Multi-Drug Resistant Organisms: None Reported Past Surgical History: Cholecystectomy, Heart Catheterization With Stent, Orthopedic Surgery Additional Past Surgical History / Comment(s): Varicose vein ligation both legs, R ankle surgery for fracture, colonoscopy. Past Anesthesia/Blood Transfusion Reactions: No Reported Reaction Date of Last Stent Placement:: 09/30/2020 Past Psychological History: No Psychological Hx Reported Smoking Status: Former smoker Past Alcohol Use History: None Reported Past Drug Use History: None Reported - Past Family History Father Family Medical History: Pneumonia Additional Family Medical History / Comment(s): Father at the age of 24yrs from industrial caused pneumonia. Mother Family Medical History: Skin Disorder Additional Family Medical History / Comment(s): Mother had psoriatic arthritis, psoriasis, and colon cancer Medications and Allergies Home Medications Medication Instructions Recorded Confirmed Type lisinopriL [Zestril] 20 mg PO DAILY 06/29/17 11/21/20 History HYDROcodone/APAP 7.5-325MG [[place] 1 tab PO BID PRN 08/29/18 11/21/20 History 7.5-325] Difluprednate [Durezol] 1 drop BOTH EYES DAILY PRN 09/18/20 11/21/20 History Dorzolamide 2% [Trusopt 2%] 1 drop BOTH EYES BID 09/18/20 11/21/20 History Meclizine HCl [Bonine] 25 mg PO DAILY 09/18/20 11/21/20 History Timolol [Betimol 0.5% Ophth Soln] 1 drop BOTH EYES HS 09/18/20 11/21/20 History Clopidogrel [Plavix] 75 mg PO DAILY #90 tab 09/21/20 11/21/20 Rx Nitroglycerin Sl Tabs [Nitrostat] 0.4 mg SL Q5M PRN 10/09/20 11/21/20 History Furosemide [Lasix] 40 mg PO DAILY #30 tablet 10/26/20 11/21/20 Rx Amiodarone [Cordarone] 200 mg PO DAILY 11/21/20 11/21/20 History Atorvastatin [Lipitor] 80 mg PO HS 11/21/20 11/21/20 History Ibuprofen [Motrin] 800 mg PO Q8H PRN 11/21/20 11/21/20 History Allergies Allergy/AdvReac Type Severity Reaction Status Date / Time grapefruit Allergy Anaphylaxis Verified 11/21/20 20:28 loratadine [From Claritin] Allergy Dyspnea Verified 11/21/20 20:28 pseudoephedrine Allergy Dyspnea Verified 11/21/20 20:28 [From Sudafed] strawberry Allergy Anaphylaxis Verified 11/21/20 20:28 Physical Exam Vitals: Vital Signs Temp Pulse Pulse Resp BP BP Pulse Ox 11/22/20 08:10 97.9 F 54 L 16 95/53 96 11/22/20 07:53 55 L 16 11/22/20 01:18 98.0 F 55 L 16 102/58 95 11/21/20 21:38 98.0 F 58 L 16 119/71 96 11/21/20 21:15 97.6 F 59 L 16 127/72 97 11/21/20 18:31 98 F 62 18 131/63 99 Intake and Output 11/21/20 11/22/20 11/22/20 22:59 06:59 14:59 Intake Total 237 Balance 237 Intake: Oral 237 Other: Voiding Method Toilet Toilet # Voids 1 1 Weight 64.864 kg PHYSICAL EXAMINATION: This is a 85-year-old female in no apparent distress at the time of my examination. VITAL SIGNS: Blood pressure 95/53, heart rate 54, respirations 16, temp 97.9F. Patient is 96 % on room air. HEENT: Head is atraumatic, normocephalic. Pupils are equal, round. Sclerae anicteric. Conjunctivae are clear. Mucous membranes of the mouth are moist. Neck is supple. There is no elevated jugular venous pressure. No carotid bruit is heard. CHEST EXAMINATION: Clear to auscultation bilaterally. No wheezes rales or rhonchi. Respirations even and nonlabored. HEART EXAMINATION: Heart regular, positive S1 and S2. No S3. No S4. Systolic murmur. Extrasystole noted. ABDOMEN: Soft, nontender. Bowel sounds are heard. No organomegaly noted. EXTREMITIES: 2+ peripheral pulses with no evidence of peripheral edema and no calf tenderness noted. NEUROLOGIC EXAMINATION: Patient is awake, alert and oriented x3. Results 11/21/20 18:53 11/22/20 02:00 Cardiac Enzymes 11/21/20 11/21/20 11/21/20 Range/Units 18:53 18:53 21:56 AST 27 (14-36) U/L Troponin I 0.013 0.014 (0.000-0.034) ng/mL 11/22/20 Range/Units 01:24 AST (14-36) U/L Troponin I 0.015 (0.000-0.034) ng/mL Coagulation 11/21/20 Range/Units 18:53 PT 10.1 (9.0-12.0) sec APTT 21.7 L (22.0-30.0) sec Lipids 11/22/20 Range/Units 02:00 Triglycerides 114.0 (0.0-149.0) mg/dL Cholesterol 119 (0-200) mg/dL HDL Cholesterol 40.0 (40.0-60.0) mg/dL Cholesterol/HDL Ratio 2.98 CBC 11/21/20 Range/Units 18:53 WBC 7.7 (3.8-10.6) k/uL RBC 4.00 (3.80-5.40) m/uL Hgb 13.3 (11.4-16.0) gm/dL Hct 37.6 (34.0-46.0) % Plt Count 163 (150-450) k/uL Comprehensive Metabolic Panel 11/21/20 11/22/20 Range/Units 18:53 02:00 Sodium 136 L 135 (137-145) mmol/L Potassium 4.2 3.6 (3.5-5.1) mmol/L Chloride 106 105 (98-107) mmol/L Carbon Dioxide 21 L 24.0 (22-30) mmol/L BUN 29 H 28.0 H (7-17) mg/dL Creatinine 1.13 H 1.1 (0.52-1.04) mg/dL Glucose 129 H 201 H (74-99) mg/dL Calcium 9.2 9.4 (8.4-10.2) mg/dL AST 27 (14-36) U/L ALT 22 (4-34) U/L Alkaline Phosphatase 85 (38-126) U/L Total Protein 6.3 (6.3-8.2) g/dL Albumin 4.0 (3.5-5.0) g/dL Current Medications Generic Name Dose Route Start Last Admin Trade Name Freq PRN Reason Stop Dose Admin Hydrocodone Bitart/Acetaminophen 1 each 11/22/20 01:36 Hydrocodone/Apap 7.5-325mg 1 Each Tab PO BID PRN Pain Amiodarone HCl 200 mg 11/22/20 09:00 11/22/20 07:15 Amiodarone 200 Mg Tab PO 200 mg DAILY CAREN Administration Aspirin 325 mg 11/22/20 09:00 11/22/20 07:15 Aspirin 325 Mg Tab PO 325 mg DAILY CAREN Administration Atorvastatin Calcium 80 mg 11/22/20 21:00 Atorvastatin 80 Mg Tab PO HS CRAEN Clopidogrel Bisulfate 75 mg 11/22/20 09:00 11/22/20 07:15 Clopidogrel 75 Mg Tab PO 75 mg DAILY CAREN Administration Dorzolamide HCl 1 drops 11/22/20 09:00 11/22/20 07:16 Dorzolamide Hcl 2% Drops 10 Ml Btl BOTH EYES 1 drops BID CAREN Administration Furosemide 40 mg 11/22/20 09:00 11/22/20 07:15 Furosemide 40 Mg Tab PO 40 mg DAILY CAREN Administration Heparin Sodium (Porcine) 5,000 unit 11/22/20 08:00 11/22/20 07:15 Heparin Sodium,Porcine/Pf 5,000 Unit/0.5 Ml Syringe SQ 5,000 unit Q8HR CAREN Administration Sodium Chloride 1,000 mls @ 50 mls/hr 11/22/20 00:45 11/22/20 01:14 Saline 0.9% IV 50 mls/hr .Q20H CAREN Administration Lisinopril 20 mg 11/22/20 09:00 11/22/20 07:16 Lisinopril 20 Mg Tab PO 20 mg DAILY CAREN Administration Nitroglycerin 0.4 mg 11/21/20 20:33 Nitroglycerin Sl Tabs 0.4 Mg Tab SUBLINGUAL Q5M PRN Chest Pain Nitroglycerin 1 inch 11/22/20 00:00 11/22/20 05:34 Nitroglycerin Oint 1 Inch/Gm Packet TOPICAL Not Given Q6HR CAREN Timolol Maleate 1 drops 11/22/20 21:00 Timolol 0.5% Ophth Drops 5 Ml Btl BOTH EYES HS CAREN Intake and Output 11/21/20 11/22/20 11/22/20 22:59 06:59 14:59 Intake Total 237 Balance 237 Intake: Oral 237 Other: Voiding Method Toilet Toilet # Voids 1 1 Weight 64.864 kg 11/21/20 18:53 11/22/20 02:00 Assessment and Plan Assessment: #1 chest pain, atypical, acute coronary event has been ruled out, troponins negative 3 and no changes noted on EKG #2 CAD status post PCI involving the circumflex, marginal branch and LAD #3 hypertension #4 hyperlipidemia #5 PVCs, currently on amiodarone with no change in symptoms or frequency of ectopy Plan: From pharmacy intern perspective and acute coronary event has been ruled out. At this time we'll stop the amiodarone to high risk for toxicity and the patient has not had any change in her symptoms or PVC frequency. We will decrease dose of aspirin 81 mg by mouth daily. Continue Plavix and atorvastatin. From our standpoint, the patient may be discharged home she will follow-up in the office with Dr. Machado as an outpatient. The above dictated assessment and findings were discussed with signing physician. The impression and plan of care have been directed as dictated. Edna Torres, Nurse Practitioner, acting as scribe for signing physician.
--- NOTE | 2020-11-22 13:14 | P.DS ---
Providers Date of admission: 11/21/20 20:33 Expected date of discharge: 11/22/20 Attending physician: Alpesh Marie MD Consults: 11/21/20 20:33 Consult Physician Urgent Consulting Provider: Melonie Worthington Consult Reason/Comments: cp Do you want consulting provider notified?: Yes Primary care physician: [facility] Course: Atypical Chest pain, rule out ACS -Pt reported atypical chest pain, but quickly returned to baseline with no pain. EKG non-ischemic, trops negative. Cardiology evaluatted patient and recommended d/c amiodarone and outptaient f/u. Chronic conditions: Hypertension, hyperlipidemia -Continued with home meds with discharge med changes noted above. Assessment: Gen: awake, alert HEENT: normocephalic, atraumatic, good hearing acuity, moist mucous membranes Resp: good air exchange, breathing comfortably with no accessory muscle use CVS: good distal perfusion x 4, GI: soft, NTTP, ND : no SPT, no CVAT, batron catheter not present MSK: no pitting edema, no clubbing Neuro: non-focal, moving all extremities Psych: cooperative, euthymic mood Patient Condition at Discharge: Good Plan - Discharge Summary Discharge Rx Participant: No New Discharge Prescriptions: New Aspirin 81 mg PO DAILY chew Continue lisinopriL [Zestril] 20 mg PO DAILY HYDROcodone/APAP 7.5-325MG [[place] 7.5-325] 1 tab PO BID PRN PRN Reason: Pain Timolol [Betimol 0.5% Ophth Soln] 1 drop BOTH EYES HS Difluprednate [Durezol] 1 drop BOTH EYES DAILY PRN PRN Reason: REDNESS Dorzolamide 2% [Trusopt 2%] 1 drop BOTH EYES BID Meclizine HCl [Bonine] 25 mg PO DAILY Clopidogrel [Plavix] 75 mg PO DAILY #90 tab Nitroglycerin Sl Tabs [Nitrostat] 0.4 mg SL Q5M PRN PRN Reason: Chest Pain Furosemide [Lasix] 40 mg PO DAILY #30 tablet Ibuprofen [Motrin] 800 mg PO Q8H PRN PRN Reason: Pain Atorvastatin [Lipitor] 80 mg PO HS Discontinued Amiodarone [Cordarone] 200 mg PO DAILY Discharge Medication List lisinopriL [Zestril] 20 mg PO DAILY 04/05/18 [History] HYDROcodone/APAP 7.5-325MG [[place] 7.5-325] 1 tab PO BID PRN 08/29/18 [History] Difluprednate [Durezol] 1 drop BOTH EYES DAILY PRN 09/18/20 [History] Dorzolamide 2% [Trusopt 2%] 1 drop BOTH EYES BID 09/18/20 [History] Meclizine HCl [Bonine] 25 mg PO DAILY 09/18/20 [History] Timolol [Betimol 0.5% Ophth Soln] 1 drop BOTH EYES HS 09/18/20 [History] Clopidogrel [Plavix] 75 mg PO DAILY #90 tab 09/21/20 [Rx] Nitroglycerin Sl Tabs [Nitrostat] 0.4 mg SL Q5M PRN 10/09/20 [History] Furosemide [Lasix] 40 mg PO DAILY #30 tablet 10/26/20 [Rx] Atorvastatin [Lipitor] 80 mg PO HS 11/21/20 [History] Ibuprofen [Motrin] 800 mg PO Q8H PRN 11/21/20 [History] Aspirin 81 mg PO DAILY chew 11/22/20 [Rx] Follow up Appointment(s)/Referral(s): Roney Jacob MD [Primary Care Provider] - 1-2 days Mario Machado MD [STAFF PHYSICIAN] - 1 Week Patient Instructions/Handouts: Chest Pain (DC)
[2020-11-22] MEDS ORDERED: ATORVASTATIN 80 MG TAB PO SCH (21:00)
[2020-11-22] MEDS ORDERED: TIMOLOL 0.5% OPHTH DROPS 5 ML BTL BOTH EYES SCH (21:00)
[2020-11-23] MEDS ORDERED: ASPIRIN 81 MG PO SCH (09:00)
== END 2020-11-22 13:29 | disposition home or self-care (01) ==
LOC: EC 18:27 → 6NMEDSUR 20:33
PROVIDERS: ADMIT Internal Medicine; ATTEND Internal Medicine
DX: R07.89 Other chest pain (principal); I10 Essential (primary) hypertension; E78.5 Hyperlipidemia, unspecified; E03.9 Hypothyroidism, unspecified; I27.20 Pulmonary hypertension, unspecified; I25.10 Atherosclerotic heart disease of native coronary artery without angina pectoris; I25.84 Coronary atherosclerosis due to calcified coronary lesion; I07.1 Rheumatic tricuspid insufficiency; I49.3 Ventricular premature depolarization; I25.2 Old myocardial infarction; L98.9 Disorder of the skin and subcutaneous tissue, unspecified; M54.30 Sciatica, unspecified side; I83.90 Asymptomatic varicose veins of unspecified lower extremity; Z91.018 Allergy to other foods; Z88.8 Allergy status to other drugs, medicaments and biological substances; Z79.82 Long term (current) use of aspirin; Z79.899 Other long term (current) drug therapy; Z79.02 Long term (current) use of antithrombotics/antiplatelets; Z87.442 Personal history of urinary calculi; Z87.891 Personal history of nicotine dependence; Z90.49 Acquired absence of other specified parts of digestive tract; Z87.440 Personal history of urinary (tract) infections; Z95.5 Presence of coronary angioplasty implant and graft; Z87.81 Personal history of (healed) traumatic fracture; Z87.19 Personal history of other diseases of the digestive system; Z86.718 Personal history of other venous thrombosis and embolism; Z82.61 Family history of arthritis; Z84.0 Family history of diseases of the skin and subcutaneous tissue; Z80.0 Family history of malignant neoplasm of digestive organs; Z83.6 Family history of other diseases of the respiratory system
CPT/HCPCS: 99285; 96372; 36415; 93005; 85379; 80061; 80053; 80048; 83735; 84484 ×2; 85025; 85610; 85730; 71046; 71275; G0378 ×2; Q9967; J1644

== ENCOUNTER 2020-12-21 15:35 | Emergency (ER) | payer MEDICARE ==
[2020-12-21 15:58] VITALS: TEMP 98.4
[2020-12-21 17:21] LABS: Basophils # (A) 0.1 k/uL (0-0.2); Basophils % (A) 1 %; Eosinophils # (A) 0.2 k/uL (0-0.7); Eosinophils % (A) 2 %; HCT 45.3 % (34.0-46.0); Lymphocytes # (A) 2.4 k/uL (1.0-4.8); Lymphocytes % (A) 20 %; MCH 32.3 pg (25.0-35.0); MCHC 33.2 g/dL (31.0-37.0); MCV 97.3 fL (80.0-100.0); Mean Platelet Volume 8.6; Monocytes # (A) 0.6 k/uL (0-1.0); Monocytes % (A) 5 %; Neutrophils # (A) 8.5 k/uL (1.3-7.7); Neutrophils % (A) 71 %; Platelet Count 130 k/uL (150-450); RBC 4.66 m/uL (3.80-5.40); RDW 13.7 % (11.5-15.5); WBC 11.9 k/uL (3.8-10.6)
[2020-12-21 17:28] LABS: Appearance,Urine Clear (Clear); Bacteria,Urine Rare /hpf; Bilirubin,Urine Negative (Negative); Blood,Urine Trace (Negative); Color,Urine Yellow; Glucose,Urine (UA) Negative (Negative); Ketones,Urine Negative (Negative); Leukocyte Esterase,Urine Trace (Negative); Mucus,Urine Rare /hpf; Nitrite,Urine Negative (Negative); Protein,Urine Negative (Negative); RBC,Urine 2 /hpf (0-5); Specific Gravity,Urine 1.015 (1.001-1.035); Squamous Epithelial Cell,Urine 1 /hpf (0-4); Urobilinogen,Urine <2.0 mg/dL (<2.0); WBC,Urine 1 /hpf (0-5)
[2020-12-21 17:28] LABS: Albumin 4.6 g/dL (3.5-5.0); Calcium 9.8 mg/dL (8.4-10.2); Magnesium 2.5 mg/dL (1.6-2.3); Total Bilirubin 0.5 mg/dL (0.2-1.3); Total Protein 7.3 g/dL (6.3-8.2)
--- NOTE | 2020-12-21 17:32 | XR ---
EXAMINATION TYPE: XR chest 2V DATE OF EXAM: 12/21/2020 COMPARISON: 11/21/2020 HISTORY: Weakness TECHNIQUE: 2 views FINDINGS: Heart is normal. Lungs are clear. Diaphragm is normal. Bony thorax is intact. Pulmonary vas cularity is normal. Thoracic aorta is atheromatous. There is mild pulmonary hyperinflation. IMPRESSION: COPD. No acute lung disease. No change.
[2020-12-21 17:36] LABS: INR 0.9 (<1.2); Prothrombin Time 9.7 sec (9.0-12.0)
[2020-12-21 17:41] LABS: Partial Thromboplastin Time 19.4 sec (22.0-30.0)
[2020-12-21] MEDS ORDERED: methylPREDNISolone SOD SUCCI 125 MG/2 ML VIAL IV STA (17:44)
--- NOTE | 2020-12-21 17:53 | ED ---
General Adult HPI - General Chief complaint: Weakness Stated complaint: SOB Time Seen by Provider: 12/21/20 16:25 Source: patient, RN notes reviewed Mode of arrival: wheelchair Limitations: no limitations - History of Present Illness Initial comments: Patient is a pleasant 85-year-old female presenting to the emergency Department with complaints of fatigue and dyspnea. Patient was diagnosed with bronchitis 2 weeks ago. Patient did get better with antibiotics and steroids however feels like she has gotten worse over the past several days. Patient has a lot of fatigued, especially after walking around 15 or 20 feet. Patient does feel somewhat short of breath. Cough has resolved. No chest pain. Patient has had some indigestion. No fevers. No isolated area of weakness. - Related Data Home Medications Medication Instructions Recorded Confirmed HYDROcodone/APAP 7.5-325MG [Fentress 1 tab PO DAILY@1200 08/29/18 12/21/20 7.5-325] Difluprednate [Durezol] 1 drop BOTH EYES DAILY 09/18/20 12/21/20 Dorzolamide 2% [Trusopt 2%] 1 drop BOTH EYES BID 09/18/20 12/21/20 Meclizine HCl [Bonine Chew] 25 mg PO DAILY PRN 09/18/20 12/21/20 Timolol [Betimol 0.5% Ophth Soln] 1 drop BOTH EYES HS 09/18/20 12/21/20 Nitroglycerin Sl Tabs [Nitrostat] 0.4 mg SL Q5M PRN 10/09/20 12/21/20 Atorvastatin [Lipitor] 80 mg PO HS 11/21/20 12/21/20 lisinopriL [Zestril] 5 mg PO DAILY 12/21/20 12/21/20 Previous Rx's Medication Instructions Recorded Clopidogrel [Plavix] 75 mg PO DAILY #90 tab 09/21/20 Furosemide [Lasix] 40 mg PO DAILY #30 tablet 10/26/20 Aspirin 81 mg PO DAILY chew 11/22/20 methylPREDNISolone Dose Pack 24 mg PO DAILY #1 tab 12/21/20 [Medrol Dose Pack] Allergies Allergy/AdvReac Type Severity Reaction Status Date / Time grapefruit Allergy Anaphylaxis Verified 12/21/20 15:58 loratadine [From Claritin] Allergy Dyspnea Verified 12/21/20 15:58 pseudoephedrine Allergy Dyspnea Verified 12/21/20 15:58 [From [facility]] strawberry Allergy Anaphylaxis Verified 12/21/20 15:58 Review of Systems ROS Statement: Those systems with pertinent positive or pertinent negative responses have been documented in the HPI. ROS Other: All systems not noted in ROS Statement are negative. Constitutional: Denies: fever Eyes: Denies: eye pain ENT: Denies: ear pain Respiratory: Reports: dyspnea Cardiovascular: Denies: chest pain Endocrine: Reports: fatigue Gastrointestinal: Denies: abdominal pain Genitourinary: Denies: dysuria Musculoskeletal: Denies: back pain Skin: Denies: rash Neurological: Denies: weakness Past Medical History Past Medical History: Coronary Artery Disease (CAD), Chest Pain / Angina, Deep Vein Thrombosis (DVT), Hyperlipidemia, Hypertension, Myocardial Infarction (MS), Renal Disease, Skin Disorder, Thyroid Disorder Additional Past Medical History / Comment(s): Vertigo, DVT L leg, bronchitis, sinus problems, hemorrhoids, chronic back pain with L sciatica in the past, rosacia, anemia, kidney stones-pt passed, UTI, hypothyroid, past R collar bone fracture, past R ankle fx with surgery. Last Myocardial Infarction Date:: 09/17/20 History of Any Multi-Drug Resistant Organisms: None Reported Past Surgical History: Cholecystectomy, Heart Catheterization With Stent, Orthopedic Surgery Additional Past Surgical History / Comment(s): Varicose vein ligation both legs, R ankle surgery for fracture, colonoscopy. Past Anesthesia/Blood Transfusion Reactions: No Reported Reaction Date of Last Stent Placement:: 09/30/2020 Past Psychological History: No Psychological Hx Reported Smoking Status: Former smoker Past Alcohol Use History: None Reported Past Drug Use History: None Reported - Past Family History Father Family Medical History: Pneumonia Additional Family Medical History / Comment(s): Father at the age of 24yrs from industrial caused pneumonia. Mother Family Medical History: Skin Disorder Additional Family Medical History / Comment(s): Mother had psoriatic arthritis, psoriasis, and colon cancer General Exam Limitations: no limitations General appearance: alert, in no apparent distress Head exam: Present: normocephalic Eye exam: Present: normal appearance Neck exam: Present: normal inspection Respiratory exam: Present: normal lung sounds bilaterally Cardiovascular Exam: Present: regular rate, normal rhythm GI/Abdominal exam: Present: soft. Absent: tenderness Extremities exam: Present: normal inspection. Absent: pedal edema, calf ten derness Neurological exam: Present: alert Psychiatric exam: Present: normal affect, normal mood Skin exam: Present: normal color Course Vital Signs 12/21/20 12/21/20 12/21/20 15:56 18:53 20:00 Temperature 98.4 F Pulse Rate 68 60 60 Respiratory 16 18 18 Rate Blood Pressure 111/72 107/59 110/64 O2 Sat by Pulse 95 98 98 Oximetry EKG Findings - EKG Comments: EKG Findings:: Sinus rhythm with a rate of 61. WI 164. QRS 98. QT or 16. QTC 418. Left axis. Poor R-wave progression. PVC present. No acute ST change. Medical Decision Making - Medical Decision Making Patient reevaluated and resting comfortably in bed. Patient family updated on results and need for follow-up. - Lab Data Result diagrams: 12/21/20 17:17 12/21/20 17:17 Lab Results 12/21/20 12/21/20 12/21/20 Range/Units 17:17 17:17 17:17 WBC 11.9 H (3.8-10.6) k/uL RBC 4.66 (3.80-5.40) m/uL Hgb 15.0 (11.4-16.0) gm/dL Hct 45.3 (34.0-46.0) % MCV 97.3 (80.0-100.0) fL MCH 32.3 (25.0-35.0) pg MCHC 33.2 (31.0-37.0) g/dL RDW 13.7 (11.5-15.5) % Plt Count 130 L (150-450) k/uL MPV 8.6 Neutrophils % 71 % Lymphocytes % 20 % Monocytes % 5 % Eosinophils % 2 % Basophils % 1 % Neutrophils # 8.5 H (1.3-7.7) k/uL Lymphocytes # 2.4 (1.0-4.8) k/uL Monocytes # 0.6 (0-1.0) k/uL Eosinophils # 0.2 (0-0.7) k/uL Basophils # 0.1 (0-0.2) k/uL PT 9.7 (9.0-12.0) sec INR 0.9 (<1.2) APTT 19.4 L (22.0-30.0) sec D-Dimer (<0.60) mg/L FEU Sodium 135 L (137-145) mmol/L Potassium 5.0 (3.5-5.1) mmol/L Chloride 102 (98-107) mmol/L Carbon Dioxide 22 (22-30) mmol/L Anion Gap 11 mmol/L BUN 49 H (7-17) mg/dL Creatinine 1.47 H (0.52-1.04) mg/dL Est GFR (CKD-EPI)AfAm 37 (>60 ml/min/1.73 sqM) Est GFR (CKD-EPI)NonAf 32 (>60 ml/min/1.73 sqM) Glucose 116 H (74-99) mg/dL Plasma Lactic Acid Bobby (0.7-2.0) mmol/L Calcium 9.8 (8.4-10.2) mg/dL Magnesium 2.5 H (1.6-2.3) mg/dL Total Bilirubin 0.5 (0.2-1.3) mg/dL AST 25 (14-36) U/L ALT 26 (4-34) U/L Alkaline Phosphatase 74 (38-126) U/L Troponin I (0.000-0.034) ng/mL NT-Pro-B Natriuret Pep pg/mL Total Protein 7.3 (6.3-8.2) g/dL Albumin 4.6 (3.5-5.0) g/dL Urine Color Urine Appearance (Clear) Urine pH (5.0-8.0) Ur Specific Andrew (1.001-1.035) Urine Protein (Negative) Urine Glucose (UA) (Negative) Urine Ketones (Negative) Urine Blood (Negative) Urine Nitrite (Negative) Urine Bilirubin (Negative) Urine Urobilinogen (<2.0) mg/dL Ur Leukocyte Esterase (Negative) Urine RBC (0-5) /hpf Urine WBC (0-5) /hpf Ur Squamous Epith Cells (0-4) /hpf Urine Bacteria (None) /hpf Urine Mucus (None) /hpf Coronavirus (PCR) (Not Detectd) 12/21/20 12/21/20 12/21/20 Range/Units 17:17 17:17 17:17 WBC (3.8-10.6) k/uL RBC (3.80-5.40) m/uL Hgb (11.4-16.0) gm/dL Hct (34.0-46.0) % MCV (80.0-100.0) fL MCH (25.0-35.0) pg MCHC (31.0-37.0) g/dL RDW (11.5-15.5) % Plt Count (150-450) k/uL MPV Neutrophils % % Lymphocytes % % Monocytes % % Eosinophils % % Basophils % % Neutrophils # (1.3-7.7) k/uL Lymphocytes # (1.0-4.8) k/uL Monocytes # (0-1.0) k/uL Eosinophils # (0-0.7) k/uL Basophils # (0-0.2) k/uL PT (9.0-12.0) sec INR (<1.2) APTT (22.0-30.0) sec D-Dimer 1.53 H (<0.60) mg/L FEU Sodium (137-145) mmol/L Potassium (3.5-5.1) mmol/L Chloride (98-107) mmol/L Carbon Dioxide (22-30) mmol/L Anion Gap mmol/L BUN (7-17) mg/dL Creatinine (0.52-1.04) mg/dL Est GFR (CKD-EPI)AfAm (>60 ml/min/1.73 sqM) Est GFR (CKD-EPI)NonAf (>60 ml/min/1.73 sqM) Glucose (74-99) mg/dL Plasma Lactic Acid Bobby 0.7 (0.7-2.0) mmol/L Calcium (8.4-10.2) mg/dL Magnesium (1.6-2.3) mg/dL Total Bilirubin (0.2-1.3) mg/dL AST (14-36) U/L ALT (4-34) U/L Alkaline Phosphatase (38-126) U/L Troponin I 0.022 (0.000-0.034) ng/mL NT-Pro-B Natriuret Pep pg/mL Total Protein (6.3-8.2) g/dL Albumin (3.5-5.0) g/dL Urine Color Urine Appearance (Clear) Urine pH (5.0-8.0) Ur Specific Andrew (1.001-1.035) Urine Protein (Negative) Urine Glucose (UA) (Negative) Urine Ketones (Negative) Urine Blood (Negative) Urine Nitrite (Negative) Urine Bilirubin (Negative) Urine Urobilinogen (<2.0) mg/dL Ur Leukocyte Esterase (Negative) Urine RBC (0-5) /hpf Urine WBC (0-5) /hpf Ur Squamous Epith Cells (0-4) /hpf Urine Bacteria (None) /hpf Urine Mucus (None) /hpf Coronavirus (PCR) (Not Detectd) 12/21/20 12/21/20 12/21/20 Range/Units 17:17 17:22 17:58 WBC (3.8-10.6) k/uL RBC (3.80-5.40) m/uL Hgb (11.4-16.0) gm/dL Hct (34.0-46.0) % MCV (80.0-100.0) fL MCH (25.0-35.0) pg MCHC (31.0-37.0) g/dL RDW (11.5-15.5) % Plt Count (150-450) k/uL MPV Neutrophils % % Lymphocytes % % Monocytes % % Eosinophils % % Basophils % % Neutrophils # (1.3-7.7) k/uL Lymphocytes # (1.0-4.8) k/uL Monocytes # (0-1.0) k/uL Eosinophils # (0-0.7) k/uL Basophils # (0-0.2) k/uL PT (9.0-12.0) sec INR (<1.2) APTT (22.0-30.0) sec D-Dimer (<0.60) mg/L FEU Sodium (137-145) mmol/L Potassium (3.5-5.1) mmol/L Chloride (98-107) mmol/L Carbon Dioxide (22-30) mmol/L Anion Gap mmol/L BUN (7-17) mg/dL Creatinine (0.52-1.04) mg/dL Est GFR (CKD-EPI)AfAm (>60 ml/min/1.73 sqM) Est GFR (CKD-EPI)NonAf (>60 ml/min/1.73 sqM) Glucose (74-99) mg/dL Plasma Lactic Acid Bobby (0.7-2.0) mmol/L Calcium (8.4-10.2) mg/dL Magnesium (1.6-2.3) mg/dL Total Bilirubin (0.2-1.3) mg/dL AST (14-36) U/L ALT (4-34) U/L Alkaline Phosphatase (38-126) U/L Troponin I (0.000-0.034) ng/mL NT-Pro-B Natriuret Pep 454 pg/mL Total Protein (6.3-8.2) g/dL Albumin (3.5-5.0) g/dL Urine Color Yellow Urine Appearance Clear (Clear) Urine pH 5.0 (5.0-8.0) Ur Specific Andrew 1.015 (1.001-1.035) Urine Protein Negative (Negative) Urine Glucose (UA) Negative (Negative) Urine Ketones Negative (Negative) Urine Blood Trace H (Negative) Urine Nitrite Negative (Negative) Urine Bilirubin Negative (Negative) Urine Urobilinogen <2.0 (<2.0) mg/dL Ur Leukocyte Esterase Trace H (Negative) Urine RBC 2 (0-5) /hpf Urine WBC 1 (0-5) /hpf Ur Squamous Epith Cells 1 (0-4) /hpf Urine Bacteria Rare H (None) /hpf Urine Mucus Rare H (None) /hpf Coronavirus (PCR) Not Detected (Not Detectd) - Radiology Data Radiology results: report reviewed (CT chest shows no pulmonary embolism.), image reviewed (Chest x-ray shows COPD. No acute change) Disposition Clinical Impression: Dehydration, Bronchitis Disposition: HOME SELF-CARE Condition: Stable Instructions (If sedation given, give patient instructions): Dehydration (ED), Acute Bronchitis (ED) Additional Instructions: Prescription sent to pharmacy. Please follow-up with primary care physician in the next day or 2 for recheck. Return for difficulty in breathing, not tolerating oral intake, increased lightheadedness, worsening or changing symptoms or other concerns. Prescriptions: methylPREDNISolone Dose Pack [Medrol Dose Pack] 24 mg PO DAILY #1 tab Is patient prescribed a controlled substance at d/c from ED?: No Referrals: Roney Jacob MD [Primary Care Provider] - 1-2 days Time of Disposition: 21:43
[2020-12-21] MEDS ORDERED: SODIUM CHLORIDE 0.9% 1,000 ML IV STA (19:52)
[2020-12-21] MEDS ORDERED: SODIUM CHLORIDE 0.9% 500 ML 500 ML IV STA ×2 (20:53→21:41)
--- NOTE | 2020-12-21 21:23 | CT ---
EXAMINATION TYPE: CT angio chest DATE OF EXAM: 12/21/2020 COMPARISON: 11/21/2020 HISTORY: elevated d dimer CT DLP: 311 mGycm Automated exposure control for dose reduction was used. CONTRAST: Performed with IV Contrast, patient injected with 80 mL of Isovue 370. There are 3-D post processed images. There is some minimal scarring and subsegmental atelectasis at the lung bases. There is no pleural ef fusion. There is no pericardial effusion. There is small hiatal hernia. Thoracic aorta is atheromatou s. Ascending aorta measures 3.5 cm per there is no dissection. There are no hilar masses. There is no mediastinal adenopathy. There are a few paratracheal lymph nodes that measure up to 1 cm. There is normal contrast opacification of the pulmonary arteries. There are no filling defects. Thoracic vertebra have normal alignment. Posterior elements are intact. There is no paraspinal mass. Sternum is intact. There is no compression fracture. IMPRESSION: No evidence of pulmonary embolism. No adverse change compared to old exam.
[2020-12-21 22:16] VITALS: BP 126/89; PULSE 67; RESP 16
== END 2020-12-21 22:16 | disposition home or self-care (01) ==
LOC: EC 15:35
DX: J40 Bronchitis, not specified as acute or chronic (principal); E86.0 Dehydration; I10 Essential (primary) hypertension; I25.2 Old myocardial infarction; I25.10 Atherosclerotic heart disease of native coronary artery without angina pectoris; E78.5 Hyperlipidemia, unspecified; E07.9 Disorder of thyroid, unspecified; Z79.82 Long term (current) use of aspirin; Z79.02 Long term (current) use of antithrombotics/antiplatelets; Z86.718 Personal history of other venous thrombosis and embolism; Z87.440 Personal history of urinary (tract) infections; Z87.19 Personal history of other diseases of the digestive system; Z87.442 Personal history of urinary calculi; Z87.891 Personal history of nicotine dependence; Z90.49 Acquired absence of other specified parts of digestive tract; Z79.899 Other long term (current) drug therapy; Z20.822 Contact with and (suspected) exposure to COVID-19
CPT/HCPCS: 99285; 96360; 36415; 93005; 85379; 83880; 80053; 83605; 83735; 84484; 85025; 85610; 85730; 81001; 87635; 71046; 71275; Q9967

== ENCOUNTER 2021-02-03 06:02 | Day surgery (SDC) | payer MEDICARE ==
[2021-02-02 10:57] VITALS: BMI 22.5
[2021-02-03] MEDS ORDERED: ASPIRIN 325 MG TAB PO STA (06:04)
[2021-02-03] MEDS ORDERED: ALPRAZolam 0.5 MG TAB PO PRN (06:04)
[2021-02-03] MEDS ORDERED: HEPARIN SODIUM,PORCINE 10,000 UNIT in SODIUM CHLORIDE 0.9% 1,000 ML IRRIGATION PRN (06:04)
[2021-02-03] MEDS ORDERED: HEPARIN SODIUM,PORCINE 2,500 UNIT in SODIUM CHLORIDE 0.9% 250 ML IRRIGATION PRN (06:04)
[2021-02-03] MEDS ORDERED: ALPRAZolam 0.25 MG TAB PO PRN (06:04)
[2021-02-03] MEDS ORDERED: SODIUM CHLORIDE 0.9% 1,000 ML in EMPTY BAG 1 BAG IV SCH (06:04)
[2021-02-03] MEDS ORDERED: NITROGLYCERIN SL TABS 0.4 MG TAB SUBLINGUAL PRN (06:04)
[2021-02-03] MEDS ORDERED: SODIUM CHLORIDE 0.9% 1,000 ML IV ONE (06:15)
[2021-02-03 06:57] VITALS: RESP 16; TEMP 98
[2021-02-03] MEDS ORDERED: LIDOCAINE 1% INJ 10MG/ML (20 ML MDV) ONE (07:26)
[2021-02-03] MEDS ORDERED: fentaNYL (PF) 50 MCG/ML 2 ML AMP ONE (07:26)
[2021-02-03] MEDS ORDERED: VERAPAMIL 2.5 MG/ML 2 ML AMP ONE (07:26)
[2021-02-03] MEDS ORDERED: HEPARIN SODIUM 1,000 UN/ML (10ML VL) ONE (07:26)
[2021-02-03] MEDS ORDERED: fentaNYL (PF) 50 MCG/ML 2 ML AMP IVP ONE (07:40)
[2021-02-03] MEDS ORDERED: MIDAZOLAM 2 MG/2 ML VIAL IVP ONE (07:40)
[2021-02-03] MEDS ORDERED: LIDOCAINE 1% INJ 10MG/ML (20 ML MDV) SQ ONE (07:41)
[2021-02-03] MEDS ORDERED: VERAPAMIL SYRINGE (5 MG/10 ML) INTRAARTER ONE (07:45)
[2021-02-03] MEDS: HEPARIN SODIUM 1,000 UN/ML (10ML VL) IV ONE ×2 (07:46→08:08)
[2021-02-03] MEDS ORDERED: NITROGLYCERIN 1000MCG/10ML SYRINGE INTRACORON ONE (08:22)
[2021-02-03] MEDS ORDERED: IOPAMIDOL-370 125ML BTL INJ ONE (08:24)
[2021-02-03] MEDS ORDERED: CLOPIDOGREL 75 MG TAB PO ONE (08:25)
[2021-02-03] MEDS ORDERED: CLOPIDOGREL 75 MG TAB ONE (08:29)
[2021-02-03] MEDS ORDERED: SODIUM CHLORIDE 0.9% 1,000 ML IV SCH (08:37)
[2021-02-03] MEDS ORDERED: METOPROLOL TARTRATE 12.5 MG TAB PO SCH (10:15)
--- NOTE | 2021-02-03 11:40 | CC ---
CARDIAC CATHETERIZATION REPORT DATE OF SERVICE: 02/03/2021 INDICATION: Unstable angina. Marie is an 85-year-old lady with history of coronary artery disease, status post prior angioplasty with stent placement of LAD and circumflex coronary artery who presented to me with symptoms suggestive of unstable angina and was advised to undergo cardiac catheterization. She has been explained risks, benefits and alternatives, understood and accepted. She has renal insufficiency and was brought in early and was given hydration. PROCEDURE NOTE: After obtaining informed consent, left heart catheterization and coronary angiogram were performed via the right radial artery. Radial artery access was obtained using standard technique, and catheters and wires were manipulated into the ascending aorta under fluoroscopic guidance. Patient tolerated the procedure well without any obvious immediate complications. We used a size 4 left Jesus and a size 3.5 right Jesus catheter. FINDINGS: HEMODYNAMICS: Left ventricular end-diastolic pressure is 10 mm. There is no significant gradient across the aortic valve. LEFT VENTRICULOGRAM: Left ventriculogram was not performed. ANGIOGRAPHIC DATA: Left main coronary artery is a small vessel and is free of stenosis. Divides into left anterior descending coronary artery and circumflex coronary artery. LAD shows a patent stent with a small-caliber distal LAD. Circumflex coronary artery was previously stented and the stent appears patent. There is 30% to 40% stenosis at the origin of the AV groove circumflex. Right coronary artery is a large dominant vessel that shows a focal area of 95% stenosis in its mid portion. The coronaries are calcified. CONCLUSIONS: 1. Patent stent within the LAD and circumflex coronary artery. 2. Critical stenosis involving mid RCA. PLAN: Patient will undergo angioplasty of the same. MMODL / IJN: [id number] /
--- NOTE | 2021-02-03 11:46 | LTR ---
February 03, 2021 To: Dr. Jacob Re: Marie Alvareztacoskelvin (33) Dear Dr. Jacob, I performed cardiac catheterization on Marie Rizvi, and a detailed catheterization note is enclosed for your records. In brief, the cardiac catheterization revealed patent stents within the LAD and circumflex coronary artery with a severe stenosis involving mid RCA, for which she will undergo angioplasty. I am hopeful that this will help relieve her symptoms. Thank you for giving me the privilege of participating in the care of this pleasant lady. Sincerely, Mario Machado M.D. KATIE / RODRIGUEZ: [id number] /
--- NOTE | 2021-02-03 13:40 | PTCA ---
PERCUTANEOUSTRANS CORORONARY ANGIOGRAPHY DATE OF SERVICE: 02/03/2021 PROCEDURE: Percutaneous transluminal coronary angioplasty and stenting of a tortuous complex mid right coronary artery with a drug-eluting stent. PERFORMED BY: Dr. Nichol Worthington. Moderate conscious sedation time was 31 minutes. Patient was administered Versed. Oxygen saturation, hemodynamics and EKG were monitored closely. CLINICAL INFORMATION: Mrs. Marie Rizvi is an 85-year-old lady who presented with a [id number] MA in late August of 2020 and I performed stenting of main circumflex as well as the circumflex marginal with excellent results. We brought her back a week later to do a stenting of extensive area of disease in LAD with multiple stents. She continued to have angina and had a moderate 50% to 55% mid RCA lesion which was a dominant RCA. She was brought in for cardiac cath after evaluation by Dr. Machado, and cardiac cath from right radial approach revealed that the circumflex and LAD stents were patent, but the RCA had a significant 80% lesion in the mid portion, which was thought to be the culprit lesion for her angina. She was advised PCI that was performed expeditiously from right radial approach. I used an ART3.5 guide catheter to cannulate the right coronary artery. The patient received a total of 5000 units of heparin and ACT was 245. She also received additional 150 mg of Plavix. She was already on Plavix at home and received 75 mg this morning. I used an ART3.5 guide catheter and a run-through wire. With this I crossed the lesion, and using a 2.5 caliber 12 mm NC Trek balloon, I pre-dilated the lesion. I then deployed a 15 mm long 3.25 caliber Xience stent at 12 atmospheres. Excellent angiographic result was achieved. Patient did not have significant EKG changes or chest pain. Excellent results were achieved. The sheath was taken out and TR band applied as per protocol. Saturation in the fingers of the right hand was 98%. The results were discussed with the patient and family. I expect that she will be discharged later this evening and Dr. Machado will see her in one week. Excellent angiographic result without complication was achieved. Previously stented circumflex, circumflex marginal, and mid and proximal LAD were widely patent with good flow. MMODL / IJN: [id number] /
[2021-02-03 15:20] VITALS: BP 115/56; PULSE 66
== END 2021-02-03 14:34 | disposition home or self-care (01) ==
LOC: CATHCVL 06:02
PROVIDERS: ATTEND Internal Medicine Cardiovascular Disease
DX: I25.10 Atherosclerotic heart disease of native coronary artery without angina pectoris (principal); Z20.822 Contact with and (suspected) exposure to COVID-19
CPT/HCPCS: 93458; 87635; C9600; C1887; C1894; C1725; C1769; C1874; J2250; J2001; J3010; J1644; Q9967

== ENCOUNTER → 2021-06-02 | Outpatient (CLI) | payer MEDICARE ==
--- NOTE | 2021-06-02 21:17 | CT ---
EXAMINATION TYPE: CT chest w con DATE OF EXAM: 06/02/2021 COMPARISON: CT dated 12/21/2020 HISTORY: Dyspnea upon exertion CT DLP: 195.90 mGycm Automated exposure control for dose reduction was used. TECHNIQUE: CT scan of the chest is performed with IV Contrast, patient injected with 100 mL of Isovue 300. FINDINGS: LUNGS: Minimal bilateral basal linear pulmonary atelectasis and reticulations. Minimal bilateral apic al pulmonary fibrotic changes. Stable small chronic atelectasis along the medial aspect of the lingul a with tiny cystic change. Scattered millimetric pulmonary nodules measuring up to 3 mm (arrows in ax ial lung window) also stable since 2017 CT scan consistent with benign nodules and requiring no furth er follow-up. Unremarkable lungs otherwise. Patent central airways. No pleural effusion. MEDIASTINUM: Cardiomegaly, please correlate with echocardiographic results. No pericardial effusion. Extensive arterial atherosclerotic calcification and atheromatous plaques most evident involving the descending thoracic aorta. Coronary atherosclerotic calcifications. The pulmonary trunk measures up t o 2.9 cm. Large mediastinal lymph nodes measuring up to 11 mm in the precarinal location, stable sinc e 2017 CT scan. No pathologically enlarged hilar or axillary lymph nodes. OTHER: Suspected tiny left thyroid lobe hypodensity, please correlate with thyroid ultrasound result s. Right posterior fat-containing diaphragmatic hernia. Cholecystectomy with dilated CBD, stable. Deg enerative changes at L1-2 level. IMPRESSION: Minimal pulmonary changes with stable pulmonary nodules since 2017 CT scan as described above. No ivy picious lung lesion or significant pulmonary fibrosis. Cardiomegaly, please correlate with echocardio graphic results. Other incidental findings as described above.
== END | disposition home or self-care (01) ==
LOC: RADCTMAIN 14:07
PROVIDERS: ATTEND Internal Medicine Critical Care Medicine
DX: R91.8 Other nonspecific abnormal finding of lung field (principal); I51.7 Cardiomegaly
CPT/HCPCS: 82565; 84520; 71260; 36415; Q9967

== ENCOUNTER 2021-12-15 23:18 | Emergency (ER) | payer MEDICARE ==
[2021-12-15 23:30] VITALS: TEMP 98.5
[2021-12-15 23:48] VITALS: RESP 16
--- NOTE | 2021-12-16 00:23 | ED ---
SOB HPI - General Chief Complaint: Shortness of Breath Stated Complaint: SOB Time Seen by Provider: 12/15/21 23:22 Source: EMS Mode of arrival: EMS - History of Present Illness MD Complaint: shortness of breath Onset/Timin -: days(s) Severity scale (1-10): 0 Improves With: nothing Worsens With: nothing Context: recent URI Associated Symptoms: denies other symptoms - Related Data Home Medications Medication Instructions Recorded Confirmed HYDROcodone/APAP 7.5-325MG [[place] 1 tab PO DAILY@1200 08/29/18 02/03/21 7.5-325] Difluprednate [Durezol] 1 drop BOTH EYES DAILY 09/18/20 02/03/21 Dorzolamide 2% [Trusopt 2%] 1 drop BOTH EYES BID 09/18/20 02/03/21 Meclizine HCl [Bonine Chew] 25 mg PO DAILY PRN 09/18/20 02/03/21 Timolol [Betimol 0.5% Ophth Soln] 1 drop BOTH EYES HS 09/18/20 02/03/21 Nitroglycerin Sl Tabs [Nitrostat] 0.4 mg SL Q5M PRN 10/09/20 02/02/21 Atorvastatin [Lipitor] 80 mg PO HS 11/21/20 02/03/21 Furosemide [Lasix] 20 mg PO DAILY 02/02/21 02/03/21 Metoprolol Tartrate [Lopressor] 12.5 mg PO DAILY 02/03/21 02/03/21 Previous Rx's Medication Instructions Recorded Clopidogrel [Plavix] 75 mg PO DAILY #90 tab 09/21/20 Aspirin 81 mg PO DAILY chew 11/22/20 predniSONE [Deltasone] 20 mg PO BID #8 tab 12/16/21 Allergies Allergy/AdvReac Type Severity Reaction Status Date / Time grapefruit Allergy Anaphylaxis Verified 02/03/21 07:03 levofloxacin [From Levaquin] Allergy Unknown Verified 02/03/21 07:03 loratadine [From Claritin] Allergy Dyspnea Verified 02/03/21 07:03 pseudoephedrine Allergy Dyspnea Verified 02/03/21 07:03 [From Sudafed] strawberry Allergy Anaphylaxis Verified 02/03/21 07:03 Review of Systems ROS Statement: Those systems with pertinent positive or pertinent negative responses have been documented in the HPI. ROS Other: All systems not noted in ROS Statement are negative. Constitutional: Denies: fever, chills Respiratory: Reports: dyspnea. Denies: cough, wheezes, hemoptysis Cardiovascular: Denies: chest pain, palpitations, edema, syncope Gastrointestinal: Denies: abdominal pain, nausea, vomiting, diarrhea, constipation Genitourinary: Denies: dysuria, hematuria Musculoskeletal: Denies: back pain Skin: Denies: rash Neurological: Denies: headache, weakness Past Medical History Past Medical History: Coronary Artery Disease (CAD), Chest Pain / Angina, COPD, Deep Vein Thrombosis (DVT), Hyperlipidemia, Hypertension, Myocardial Infarction (PR), Osteoarthritis (OA), Skin Disorder Additional Past Medical History / Comment(s): Vertigo, DVT L leg, bronchitis, chronic sinus problems, hemorrhoids, chronic back pain with L sciatica in the past, hx rosacia, hx anemia, hx kidney stones, psoriasis Last Myocardial Infarction Date:: 09/17/20 History of Any Multi-Drug Resistant Organisms: None Reported Past Surgical History: Cholecystectomy, Heart Catheterization With Stent, Orthopedic Surgery Additional Past Surgical History / Comment(s): Varicose vein ligation both legs, ORIF rt ankle/hardware later removed, colonoscopy, rt cataract, retinal surgery rt eye, 6 cardiac stents, Past Anesthesia/Blood Transfusion Reactions: No Reported Reaction Date of Last Stent Placement:: 09/30/2020 Past Psychological History: No Psychological Hx Reported Smoking Status: Former smoker - Past Family History Mother Family Medical History: Cancer Additional Family Medical History / Comment(s): colon cancer General Exam General appearance: alert, in no apparent distress Head exam: Present: atraumatic, normocephalic Eye exam: Present: normal appearance. Absent: scleral icterus, conjunctival injection ENT exam: Present: normal oropharynx Neck exam: Present: normal inspection Respiratory exam: Present: wheezes. Absent: respiratory distress, rales, rhonchi, stridor, accessory muscle use Cardiovascular Exam: Present: regular rate, normal rhythm, normal heart sounds. Absent: systolic murmur, diastolic murmur, rubs, gallop GI/Abdominal exam: Present: soft. Absent: distended, tenderness, guarding, rebound, rigid, mass Extremities exam: Present: normal inspection, normal capillary refill. Absent: pedal edema, calf tenderness Back exam: Present: normal inspection. Absent: CVA tenderness (R), CVA tenderness (L) Neurological exam: Present: alert Skin exam: Present: warm, dry, intact, normal color. Absent: rash Course Vital Signs 12/15/21 12/15/21 12/16/21 23:26 23:44 01:34 Temperature 98.5 F Pulse Rate 94 68 Pulse Rate [ 66 Apical] Respiratory 19 16 16 Rate Blood Pressure 179/97 154/94 O2 Sat by Pulse 98 98 Oximetry Medical Decision Making - Medical Decision Making Patient is an 86-year-old woman here with dyspnea. She feels markedly better since arrival here. On reevaluation I was going to offer her admission to the hospital but the patient feels much better and would like to go home. She states she will return should the symptoms recur or if any new symptoms develop. She will have close follow-up. Discussed other return parameters. - Lab Data Result diagrams: 12/15/21 23:53 12/16/21 00:28 Lab Results 12/15/21 12/15/21 12/16/21 Range/Units 23:53 23:53 00:19 WBC 9.7 (3.8-10.6) k/uL RBC 4.39 (3.80-5.40) m/uL Hgb 13.4 (11.4-16.0) gm/dL Hct 41.6 (34.0-46.0) % MCV 94.8 (80.0-100.0) fL MCH 30.5 (25.0-35.0) pg MCHC 32.2 (31.0-37.0) g/dL RDW 13.1 (11.5-15.5) % Plt Count 153 (150-450) k/uL MPV 9.7 Neutrophils % 72 % Lymphocytes % 18 % Monocytes % 6 % Eosinophils % 2 % Basophils % 1 % Neutrophils # 7.0 (1.3-7.7) k/uL Lymphocytes # 1.7 (1.0-4.8) k/uL Monocytes # 0.6 (0-1.0) k/uL Eosinophils # 0.2 (0-0.7) k/uL Basophils # 0.1 (0-0.2) k/uL PT (9.0-12.0) sec INR (<1.2) APTT (22.0-30.0) sec Sodium (137-145) mmol/L Potassium (3.5-5.1) mmol/L Chloride (98-107) mmol/L Carbon Dioxide (22-30) mmol/L Anion Gap mmol/L BUN (7-17) mg/dL Creatinine (0.52-1.04) mg/dL Est GFR (CKD-EPI)AfAm (>60 ml/min/1.73 sqM) Est GFR (CKD-EPI)NonAf (>60 ml/min/1.73 sqM) Glucose (74-99) mg/dL Plasma Lactic Acid Bobby 0.9 (0.7-2.0) mmol/L Calcium (8.4-10.2) mg/dL Total Bilirubin (0.2-1.3) mg/dL AST (14-36) U/L ALT (4-34) U/L Alkaline Phosphatase (38-126) U/L Troponin I <0.012 (0.000-0.034) ng/mL NT-Pro-B Natriuret Pep pg/mL Total Protein (6.3-8.2) g/dL Albumin (3.5-5.0) g/dL Coronavirus (PCR) (Not Detectd) 12/16/21 12/16/21 12/16/21 Range/Units 00:19 00:28 01:06 WBC (3.8-10.6) k/uL RBC (3.80-5.40) m/uL Hgb (11.4-16.0) gm/dL Hct (34.0-46.0) % MCV (80.0-100.0) fL MCH (25.0-35.0) pg MCHC (31.0-37.0) g/dL RDW (11.5-15.5) % Plt Count (150-450) k/uL MPV Neutrophils % % Lymphocytes % % Monocytes % % Eosinophils % % Basophils % % Neutrophils # (1.3-7.7) k/uL Lymphocytes # (1.0-4.8) k/uL Monocytes # (0-1.0) k/uL Eosinophils # (0-0.7) k/uL Basophils # (0-0.2) k/uL PT 10.8 (9.0-12.0) sec INR 1.0 (<1.2) APTT 23.8 (22.0-30.0) sec Sodium 138 (137-145) mmol/L Potassium 4.1 (3.5-5.1) mmol/L Chloride 103 (98-107) mmol/L Carbon Dioxide 21 L (22-30) mmol/L Anion Gap 14 mmol/L BUN 20 H (7-17) mg/dL Creatinine 0.78 (0.52-1.04) mg/dL Est GFR (CKD-EPI)AfAm 79 (>60 ml/min/1.73 sqM) Est GFR (CKD-EPI)NonAf 69 (>60 ml/min/1.73 sqM) Glucose 94 (74-99) mg/dL Plasma Lactic Acid Bobby (0.7-2.0) mmol/L Calcium 8.8 (8.4-10.2) mg/dL Total Bilirubin 0.6 (0.2-1.3) mg/dL AST 32 (14-36) U/L ALT 15 (4-34) U/L Alkaline Phosphatase 83 (38-126) U/L Troponin I (0.000-0.034) ng/mL NT-Pro-B Natriuret Pep pg/mL Total Protein 6.3 (6.3-8.2) g/dL Albumin 4.1 (3.5-5.0) g/dL Coronavirus (PCR) Not Detected (Not Detectd) 12/16/21 Range/Units 01:06 WBC (3.8-10.6) k/uL RBC (3.80-5.40) m/uL Hgb (11.4-16.0) gm/dL Hct (34.0-46.0) % MCV (80.0-100.0) fL MCH (25.0-35.0) pg MCHC (31.0-37.0) g/dL RDW (11.5-15.5) % Plt Count (150-450) k/uL MPV Neutrophils % % Lymphocytes % % Monocytes % % Eosinophils % % Basophils % % Neutrophils # (1.3-7.7) k/uL Lymphocytes # (1.0-4.8) k/uL Monocytes # (0-1.0) k/uL Eosinophils # (0-0.7) k/uL Basophils # (0-0.2) k/uL PT (9.0-12.0) sec INR (<1.2) APTT (22.0-30.0) sec Sodium (137-145) mmol/L Potassium (3.5-5.1) mmol/L Chloride (98-107) mmol/L Carbon Dioxide (22-30) mmol/L Anion Gap mmol/L BUN (7-17) mg/dL Creatinine (0.52-1.04) mg/dL Est GFR (CKD-EPI)AfAm (>60 ml/min/1.73 sqM) Est GFR (CKD-EPI)NonAf (>60 ml/min/1.73 sqM) Glucose (74-99) mg/dL Plasma Lactic Acid Bobby (0.7-2.0) mmol/L Calcium (8.4-10.2) mg/dL Total Bilirubin (0.2-1.3) mg/dL AST (14-36) U/L ALT (4-34) U/L Alkaline Phosphatase (38-126) U/L Troponin I (0.000-0.034) ng/mL NT-Pro-B Natriuret Pep 1590 pg/mL Total Protein (6.3-8.2) g/dL Albumin (3.5-5.0) g/dL Coronavirus (PCR) (Not Detectd) Disposition Clinical Impression: Acute bronchitis Disposition: HOME SELF-CARE Condition: Good Instructions (If sedation given, give patient instructions): Acute Bronchitis (ED) Prescriptions: predniSONE [Deltasone] 20 mg PO BID #8 tab Is patient prescribed a controlled substance at d/c from ED?: No Referrals: Roney Jacob MD [Primary Care Provider] - 1-2 days
[2021-12-16 00:30] LABS: Albumin 4.1 g/dL (3.5-5.0); Calcium 8.8 mg/dL (8.4-10.2); Total Bilirubin 0.6 mg/dL (0.2-1.3); Total Protein 6.3 g/dL (6.3-8.2)
[2021-12-16 00:31] LABS: Potassium 4.1 mmol/L (3.5-5.1)
--- NOTE | 2021-12-16 00:48 | XR ---
EXAMINATION TYPE: XR chest 2V DATE OF EXAM: 12/16/2021 COMPARISON: NONE HISTORY: Difficulty breathing TECHNIQUE: 2 views FINDINGS: There is no heart failure nor confluent pneumonic infiltrate. There are chest leads. Thorac ic aorta is atheromatous. No pleural effusion. IMPRESSION: No active cardiopulmonary disease. Atheromatous aorta. No change.
[2021-12-16 00:50] LABS: Partial Thromboplastin Time 23.8 sec (22.0-30.0); Prothrombin Time 10.8 sec (9.0-12.0)
[2021-12-16 00:54] LABS: Basophils # (A) 0.1 k/uL (0-0.2); Basophils % (A) 1 %; Eosinophils # (A) 0.2 k/uL (0-0.7); Eosinophils % (A) 2 %; HCT 41.6 % (34.0-46.0); HGB 13.4 gm/dL (11.4-16.0); Lymphocytes # (A) 1.7 k/uL (1.0-4.8); Lymphocytes % (A) 18 %; MCH 30.5 pg (25.0-35.0); MCHC 32.2 g/dL (31.0-37.0); MCV 94.8 fL (80.0-100.0); Mean Platelet Volume 9.7; Monocytes # (A) 0.6 k/uL (0-1.0); Monocytes % (A) 6 %; Neutrophils % (A) 72 %; Platelet Count 153 k/uL (150-450); RBC 4.39 m/uL (3.80-5.40); RDW 13.1 % (11.5-15.5); WBC 9.7 k/uL (3.8-10.6)
[2021-12-16 01:35] VITALS: BP 154/94; PULSE 68
[2021-12-16] MEDS ORDERED: predniSONE 20 MG TAB PO STA (02:07)
== END 2021-12-16 02:26 | disposition home or self-care (01) ==
LOC: EC 23:18
DX: J20.9 Acute bronchitis, unspecified (principal); J44.9 Chronic obstructive pulmonary disease, unspecified; E78.5 Hyperlipidemia, unspecified; Z82.49 Family history of ischemic heart disease and other diseases of the circulatory system; I10 Essential (primary) hypertension; Z87.891 Personal history of nicotine dependence; Z20.822 Contact with and (suspected) exposure to COVID-19; Z91.09 Other allergy status, other than to drugs and biological substances; Z88.8 Allergy status to other drugs, medicaments and biological substances; Z91.018 Allergy to other foods
CPT/HCPCS: 36415; 71046; 80053; 83605; 83880; 84484; 85025; 85610; 85730; 87635; 99285

== ENCOUNTER 2022-06-09 14:28 | Emergency (ER) | payer MEDICARE ==
[2022-06-09 14:52] VITALS: RESP 20
[2022-06-09] MEDS ORDERED: ASPIRIN 81 MG PO STA (15:13)
[2022-06-09 15:49] LABS: Basophils % (A) 0 %; Eosinophils % (A) 0 %; HCT 38.9 % (34.0-46.0); HGB 13.1 gm/dL (11.4-16.0); Lymphocytes # (A) 1.1 k/uL (1.0-4.8); Lymphocytes % (A) 7 %; MCH 31.3 pg (25.0-35.0); MCHC 33.8 g/dL (31.0-37.0); MCV 92.5 fL (80.0-100.0); Mean Platelet Volume 8.9; Monocytes # (A) 0.9 k/uL (0-1.0); Monocytes % (A) 6 %; Neutrophils # (A) 12.5 k/uL (1.3-7.7); Neutrophils % (A) 86 %; Platelet Count 166 k/uL (150-450); RDW 13.8 % (11.5-15.5); WBC 14.5 k/uL (3.8-10.6)
[2022-06-09 16:01] LABS: Albumin 4.6 g/dL (3.5-5.0); Calcium 9.6 mg/dL (8.4-10.2); Magnesium 2.5 mg/dL (1.6-2.3); Potassium 4.8 mmol/L (3.5-5.1); Total Bilirubin 0.5 mg/dL (0.2-1.3); Total Protein 6.7 g/dL (6.3-8.2)
--- NOTE | 2022-06-09 16:19 | XR ---
EXAMINATION TYPE: XR chest 2V DATE OF EXAM: 06/09/2022 COMPARISON: Chest x-ray December 16, 2021 HISTORY: Chest pain. TECHNIQUE: Frontal and lateral views of the chest are obtained. FINDINGS: There is no suspicious new focal air space opacity, pleural effusion, or pneumothorax seen . The cardiac silhouette size remains stable and within normal limits. There is atherosclerotic and ectatic thoracic aorta redemonstrated The osseous structures remain demineralized. Underlying scolio sis is redemonstrated. IMPRESSION: Chronic changes without acute process. No significant change from prior.
[2022-06-09 16:41] LABS: Partial Thromboplastin Time 21.8 sec (22.0-30.0); Prothrombin Time 10.2 sec (9.0-12.0)
--- NOTE | 2022-06-09 17:08 | ED ---
General Adult HPI - General Chief complaint: Chest Pain Stated complaint: sent by dr girs kelly Time Seen by Provider: 06/09/22 15:10 Source: patient, RN notes reviewed, old records reviewed Mode of arrival: ambulatory Limitations: no limitations - History of Present Illness Initial comments: Patient is an 86-year-old female who presents from EC department after being sent in by Dr. Machado her machine gunner for chest pain. This morning at 10 AM, patient had an episode of chest pain that was relieved with nitro. Chest pain lasted approximately 10 minutes. Has not reoccurred. Presented to her machine gunner for evaluation. Has no symptoms at this time. He did contact me and requested cardiac labs, cardiac workup. He states that if patient felt well and workup was unremarkable patient can follow-up with him in the office. Patient currently has no acute complaints. She denies any chest pain or shortness of breath. Denies any nausea, vomiting, diaphoresis. States that when she had the pain earlier today, she did have some neck pain bilaterally with that as well as a mild headache that all resolved with 1 nitroglycerin tablet. Has had recent stress test as well as echo that were unremarkable per Dr. Machado. Patient does have a history of cardiac stents. Presents for further evaluation at this time. - Related Data Home Medications Medication Instructions Recorded Confirmed HYDROcodone/APAP 7.5-325MG [[place] 1 tab PO DAILY@1200 08/29/18 02/03/21 7.5-325] Difluprednate [Durezol] 1 drop BOTH EYES DAILY 09/18/20 02/03/21 Dorzolamide 2% [Trusopt 2%] 1 drop BOTH EYES BID 09/18/20 02/03/21 Meclizine HCl [Bonine Chew] 25 mg PO DAILY PRN 09/18/20 02/03/21 Timolol [Betimol 0.5% Ophth Soln] 1 drop BOTH EYES HS 09/18/20 02/03/21 Nitroglycerin Sl Tabs [Nitrostat] 0.4 mg SL Q5M PRN 10/09/20 02/02/21 Atorvastatin [Lipitor] 80 mg PO HS 11/21/20 02/03/21 Furosemide [Lasix] 20 mg PO DAILY 02/02/21 02/03/21 Metoprolol Tartrate [Lopressor] 12.5 mg PO DAILY 02/03/21 02/03/21 Previous Rx's Medication Instructions Recorded Clopidogrel [Plavix] 75 mg PO DAILY #90 tab 09/21/20 Aspirin 81 mg PO DAILY chew 11/22/20 predniSONE [Deltasone] 20 mg PO BID #8 tab 12/16/21 Allergies Allergy/AdvReac Type Severity Reaction Status Date / Time grapefruit Allergy Anaphylaxis Verified 06/09/22 14:52 levofloxacin [From Levaquin] Allergy Unknown Verified 06/09/22 14:52 loratadine [From Claritin] Allergy Dyspnea Verified 06/09/22 14:52 pseudoephedrine Allergy Dyspnea Verified 06/09/22 14:52 [From Sudafed] strawberry Allergy Anaphylaxis Verified 06/09/22 14:52 Review of Systems ROS Statement: Those systems with pertinent positive or pertinent negative responses have been documented in the HPI. Review of Systems: CONST: Denies fever EYES: Denies blurry vision ENT: Denies nasal congestion C/V: Denies Chest pain RESP: Denies shortness of breath GI: Denies abdominal pain : Denies dysuria SKIN: Denies rash. MSK: Denies joint pain. NEURO: Denies headache ROS Other: All systems not noted in ROS Statement are negative. Past Medical History Past Medical History: Coronary Artery Disease (CAD), Chest Pain / Angina, COPD, Deep Vein Thrombosis (DVT), Hyperlipidemia, Hypertension, Myocardial Infarction ([place]), Osteoarthritis (OA), Skin Disorder Additional Past Medical History / Comment(s): Vertigo, DVT L leg, bronchitis, chronic sinus problems, hemorrhoids, chronic back pain with L sciatica in the past, hx rosacia, hx anemia, hx kidney stones, psoriasis Last Myocardial Infarction Date:: 09/17/20 History of Any Multi-Drug Resistant Organisms: None Reported Past Surgical History: Cholecystectomy, Heart Catheterization With Stent, Orthopedic Surgery Additional Past Surgical History / Comment(s): Varicose vein ligation both legs, ORIF rt ankle/hardware later removed, colonoscopy, rt cataract, retinal surgery rt eye, 6 cardiac stents, Past Anesthesia/Blood Transfusion Reactions: No Reported Reaction Date of Last Stent Placement:: 09/30/2020 Past Psychological History: No Psychological Hx Reported Smoking Status: Former smoker Past Alcohol Use History: None Reported Past Drug Use History: None Reported - Past Family History Mother Family Medical History: Cancer Additional Family Medical History / Comment(s): colon cancer General Exam - General Exam Comments Initial Comments: General: Appears in no acute distress. HEAD: Normal with no signs of head trauma. EYES: PERRLA, EOMI, conjunctiva normal, no discharge. ENT: Hearing grossly intact, normal oropharynx. RESPIRATORY: Clear breath sounds bilaterally. No wheezes, rales, or rhonchi. C/V: Regular rate and rhythm. S1 and S2 auscultated, no edema, peripheral puls es 2+ and intact throughout ABD: Abd is soft, nontender, nondistended EXT: Normal range of motion, no obvious deformity SKIN: No rashes or lesions observed on exposed skin. NEURO: Alert and oriented 4. Limitations: no limitations Course Vital Signs 06/09/22 06/09/22 06/09/22 14:49 15:45 16:00 Temperature 98.6 F Pulse Rate 65 65 Pulse Rate [ 62 Helpdesk Technician ] Respiratory 20 20 Rate Blood Pressure 130/76 137/78 O2 Sat by Pulse 99 97 Oximetry 06/09/22 18:04 Temperature 97.4 F L Pulse Rate 62 Pulse Rate [ Helpdesk Technician ] Respiratory 20 Rate Blood Pressure 130/70 O2 Sat by Pulse 98 Oximetry Medical Decision Making - Medical Decision Making Was pt. sent in by a medical professional or institution (, PA, TILESETTER, urgent care, hospital, or [place] health care facility...) When possible be specific @ -Sent in by her machine gunner Dr. Machado for evaluation Did you speak to anyone other than the patient for history (EMS, parent, family, police, friend...)? What history was obtained from this source @ -No Did you review nursing and triage notes (agree or disagree)? Why? @ -I reviewed and agree with nursing and triage notes Were old charts reviewed (outside hosp., previous admission, EMS record, old EKG, old radiological studies, urgent care reports/EKG's, [place] health care facility records)? Report findings @ -Yes, old EKG and charts were reviewed from November 2021 including EKG Differential Diagnosis (chest pain, altered mental status, abdominal pain women, abdominal pain men, vaginal bleeding, weakness, fever, dyspnea, syncope, headache, dizziness, GI bleed, back pain, seizure, CVA, palpatations, mental health, musculoskeletal)? @ -Differential Chest Pain: Stable Angina, Unstable Angina, STEMI, NSTEMI Aortic Dissection, Pneumothorax, Musculoskeletal, Esophageal Spasm GERD, Cholecystitis, Pancreatitis, Zoster, t his is not meant to be an all-inclusive list. EKG interpreted by me (3pts min.). @ -As above X-rays interpreted by me (1pt min.). @ -X-ray revealed no obvious cardio pulmonary process. CT interpreted by me (1pt min.). @ -None done U/S interpreted by me (1pt. min.). @ -None done What testing was considered but not performed or refused? (CT, X-rays, U/S, labs)? Why? @ -None What meds were considered but not given or refused? Why? @ -None Did you discuss the management of the patient with other professionals (professionals i.e. , PA, TILESETTER, lab, RT, psych nurse, social media director, hoop expander, teacher, neighborhood conservation officer, correctional case manager)? Give summary @ -Discussed with Dr. Machado prior to arrival, and was in agreement discharged home with patient was feeling well and workup was unremarkable. Was smoking cessation discussed for >3mins.? @ -No Was critical care preformed (if so, how long)? @ -No Were there social determinants of health that impacted care today? How? (Homelessness, low income, unemployed, alcoholism, drug addiction, transportation, low edu. Level, literacy, decrease access to med. care, custodial, rehab)? @ -No Was there de-escalation of care discussed even if they declined (Discuss DNR or withdrawal of care, Hospice)? DNR status @ -No What co-morbidities impacted this encounter? (DM, HTN, Smoking, COPD, CAD, Cancer, CVA, ARF, Chemo, Hep., AIDS, mental health diagnosis, sleep apnea, morbid obesity)? @ -CAD, history cardiac stents Was patient admitted / discharged? Hospital course, mention meds given and route, prescriptions, significant lab abnormalities, going to OR and other pertinent info. @ -Based on the patient's presentation and physical exam, patient of one epi sode of chest pain earlier today resolved with nitroglycerin tablets at approximately 10 AM. Patient presents emergency department at approximately 3 PM. Did see her machine gunner who recommended that she come here for cardiac workup. She has no acute complaints at this time. We will obtain cardiac workup and labs. Vital signs within acceptable limits. EKG shows no signs of acute ischemia. Patient does have chronic flat versus mildly inverted T waves in the lateral precordial leads V5 and V6. Laboratory studies were remarkable for an undetectable troponin. This is occurring 5 hours after symptom onset. Patient also has a mild leukocytosis of 14.5 but she did recently received steroid injections 2 days ago. On reevaluation, I discussed the workup with the patient. We discussed her EKG, as well as labs. I did offer her admission for cardiac const, however as the patient is asymptomatic, has been multiple hours since her chest pain, and would like to be discharged home. Heart score is 3-4. She is been asymptomatic throughout her stay. I do believe this is reasonable. Strict return precautions were discussed. She was in agreement this plan. I instructed the patient to follow up with their PCP in the next 1-3 days. I explained that the patient should return to the emergency department if they experience any worsening symptoms. Strict return precautions were discussed with the patient. The patient expressed understanding of these instructions. I answe red all questions that the patient had. The patient was discharged home in good condition with their prescriptions and follow up information. Undiagnosed new problem with uncertain prognosis? @ -No Drug Therapy requiring intensive monitoring for toxicity (Heparin, Nitro, Insulin, Cardizem)? @ -No Were any procedures done? @ -No Diagnosis/symptom? @ -Chest pain of unknown etiology Acute, or Chronic, or Acute on Chronic? @ -Acute Uncomplicated (without systemic symptoms) or Complicated (systemic symptoms)? @ -Uncomplicated Side effects of treatment? @ -No Exacerbation, Progression, or Severe Exacerbation? @ -No Poses a threat to life or bodily function? How? (Chest pain, [place], [place], pneumonia, PE, COPD, DKA, ARF, appy, cholecystitis, CVA, Diverticulitis, Homicidal, Suicida l, threat to staff... and all critical care pts) @ -Potentially, unknown etiology. - Lab Data Result diagrams: 06/09/22 15:30 06/09/22 15:30 Lab Results 06/09/22 06/09/22 06/09/22 Range/Units 15:30 15:30 15:30 WBC 14.5 H (3.8-10.6) k/uL RBC 4.20 (3.80-5.40) m/uL Hgb 13.1 (11.4-16.0) gm/dL Hct 38.9 (34.0-46.0) % MCV 92.5 (80.0-100.0) fL MCH 31.3 (25.0-35.0) pg MCHC 33.8 (31.0-37.0) g/dL RDW 13.8 (11.5-15.5) % Plt Count 166 (150-450) k/uL MPV 8.9 Neutrophils % 86 % Lymphocytes % 7 % Monocytes % 6 % Eosinophils % 0 % Basophils % 0 % Neutrophils # 12.5 H (1.3-7.7) k/uL Lymphocytes # 1.1 (1.0-4.8) k/uL Monocytes # 0.9 (0-1.0) k/uL Eosinophils # 0.0 (0-0.7) k/uL Basophils # 0.0 (0-0.2) k/uL PT 10.2 (9.0-12.0) sec INR 1.0 (<1.2) APTT 21.8 L (22.0-30.0) sec Sodium 138 (137-145) mmol/L Potassium 4.8 (3.5-5.1) mmol/L Chloride 105 (98-107) mmol/L Carbon Dioxide 25 (22-30) mmol/L Anion Gap 8 mmol/L BUN 22 H (7-17) mg/dL Creatinine 0.73 (0.52-1.04) mg/dL Est GFR (CKD-EPI)AfAm 86 (>60 ml/min/1.73 sqM) Est GFR (CKD-EPI)NonAf 75 (>60 ml/min/1.73 sqM) Glucose 135 H (74-99) mg/dL Calcium 9.6 (8.4-10.2) mg/dL Magnesium 2.5 H (1.6-2.3) mg/dL Total Bilirubin 0.5 (0.2-1.3) mg/dL AST 24 (14-36) U/L ALT 27 (4-34) U/L Alkaline Phosphatase 76 (38-126) U/L Troponin I (0.000-0.034) ng/mL Total Protein 6.7 (6.3-8.2) g/dL Albumin 4.6 (3.5-5.0) g/dL 06/09/22 Range/Units 15:30 WBC (3.8-10.6) k/uL RBC (3.80-5.40) m/uL Hgb (11.4-16.0) gm/dL Hct (34.0-46.0) % MCV (80.0-100.0) fL MCH (25.0-35.0) pg MCHC (31.0-37.0) g/dL RDW (11.5-15.5) % Plt Count (150-450) k/uL MPV Neutrophils % % Lymphocytes % % Monocytes % % Eosinophils % % Basophils % % Neutrophils # (1.3-7.7) k/uL Lymphocytes # (1.0-4.8) k/uL Monocytes # (0-1.0) k/uL Eosinophils # (0-0.7) k/uL Basophils # (0-0.2) k/uL PT (9.0-12.0) sec INR (<1.2) APTT (22.0-30.0) sec Sodium (137-145) mmol/L Potassium (3.5-5.1) mmol/L Chloride (98-107) mmol/L Carbon Dioxide (22-30) mmol/L Anion Gap mmol/L BUN (7-17) mg/dL Creatinine (0.52-1.04) mg/dL Est GFR (CKD-EPI)AfAm (>60 ml/min/1.73 sqM) Est GFR (CKD-EPI)NonAf (>60 ml/min/1.73 sqM) Glucose (74-99) mg/dL Calcium (8.4-10.2) mg/dL Magnesium (1.6-2.3) mg/dL Total Bilirubin (0.2-1.3) mg/dL AST (14-36) U/L ALT (4-34) U/L Alkaline Phosphatase (38-126) U/L Troponin I <0.012 (0.000-0.034) ng/mL Total Protein (6.3-8.2) g/dL Albumin (3.5-5.0) g/dL Disposition Clinical Impression: Chest pain Disposition: HOME SELF-CARE Condition: Good Instructions (If sedation given, give patient instructions): Chest Pain (ED) Is patient prescribed a controlled substance at d/c from ED?: No Referrals: Roney Jacob MD [Primary Care Provider] - 1-2 days Time of Disposition: 16:50
[2022-06-09 18:05] VITALS: BP 130/70; PULSE 62; TEMP 97.4
== END 2022-06-09 18:04 | disposition home or self-care (01) ==
LOC: EC 14:28
DX: R07.9 Chest pain, unspecified (principal); I25.10 Atherosclerotic heart disease of native coronary artery without angina pectoris; I10 Essential (primary) hypertension; E78.5 Hyperlipidemia, unspecified; Z88.1 Allergy status to other antibiotic agents; Z91.018 Allergy to other foods; Z79.899 Other long term (current) drug therapy; Z90.49 Acquired absence of other specified parts of digestive tract; Z87.891 Personal history of nicotine dependence
CPT/HCPCS: 36415; 71046; 80053; 83735; 84484; 85025; 85610; 85730; 93005; 99285

== ENCOUNTER 2022-10-07 08:24 | Day surgery (SDC) | payer MEDICARE ==
[~2022-10-07 08:24] MED LIST changes: +ASPIRIN 325 MG TAB PO STA; -SODIUM CHLORIDE 0.9% 1,000 ML in EMPTY BAG 1 BAG IV ONE
[2022-10-07] MEDS: SODIUM CHLORIDE 0.9% 1,000 ML in EMPTY BAG 1 BAG IV SCH ×2 (08:50→20:53)
[2022-10-07 09:23] LABS: Basophils % (A) 0 %; Eosinophils # (A) 0.2 k/uL (0-0.7); Eosinophils % (A) 3 %; HCT 39.3 % (34.0-46.0); HGB 13.4 gm/dL (11.4-16.0); Lymphocytes # (A) 1.7 k/uL (1.0-4.8); Lymphocytes % (A) 21 %; MCH 32.5 pg (25.0-35.0); MCHC 34.1 g/dL (31.0-37.0); MCV 95.3 fL (80.0-100.0); Mean Platelet Volume 8.9; Monocytes # (A) 0.7 k/uL (0-1.0); Monocytes % (A) 8 %; Neutrophils # (A) 5.5 k/uL (1.3-7.7); Neutrophils % (A) 66 %; Platelet Count 147 k/uL (150-450); RBC 4.12 m/uL (3.80-5.40); RDW 12.9 % (11.5-15.5); WBC 8.3 k/uL (3.8-10.6)
[2022-10-07] MEDS ORDERED: HEPARIN SODIUM 1,000 UN/ML (10ML VL) ONE (09:23)
[2022-10-07] MEDS ORDERED: VERAPAMIL 2.5 MG/ML 2 ML AMP ONE (09:23)
[2022-10-07] MEDS ORDERED: fentaNYL (PF) 50 MCG/ML 2 ML AMP ONE (09:23)
[2022-10-07] MEDS ORDERED: MIDAZOLAM 2 MG/2 ML VIAL IVP ONE (09:45)
[2022-10-07] MEDS: MIDAZOLAM 2 MG/2 ML VIAL IVP ONE ×2 (09:45→11:10)
[2022-10-07] MEDS: fentaNYL (PF) 50 MCG/ML 2 ML AMP IVP ONE ×2 (09:45→11:10)
[2022-10-07] MEDS ORDERED: LIDOCAINE 1% INJ 10MG/ML (5 ML VIAL-PF) SQ ONE ×2 (09:47→09:52)
[2022-10-07] MEDS ORDERED: VERAPAMIL SYRINGE (5 MG/10 ML) INTRAARTER ONE (09:53)
[2022-10-07 09:57] LABS: African American GFR (CKD) 85 (>60 ml/min/1.73 sqM); Anion Gap 9 mmol/L; Blood Urea Nitrogen 13 mg/dL (7-17); Calcium 9.2 mg/dL (8.4-10.2); Carbon Dioxide 26 mmol/L (22-30); Chloride 104 mmol/L (98-107); Glucose 93 mg/dL (74-99); Non-African American GFR(CKD) 74 (>60 ml/min/1.73 sqM); Sodium 139 mmol/L (137-145)
[2022-10-07] MEDS ORDERED: HEPARIN SODIUM 1,000 UN/ML (10ML VL) IVP ONE ×2 (09:58→11:25)
[2022-10-07 10:06] LABS: Potassium 4.2 mmol/L (3.5-5.1)
[2022-10-07] MEDS ORDERED: IOPAMIDOL-370 100ML BTL INJ ONE ×3 (11:28→12:13)
[2022-10-07] MEDS ORDERED: RX INFO: IV CONTRAST WAS GIVEN 1 EACH MISC MISCELLANE PRN (12:27)
[2022-10-07] MEDS ORDERED: ATROPINE SULFATE 0.1 MG/ML 10ML SYRINGE IV PRN (12:27)
[2022-10-07] MEDS ORDERED: MAG HYDROX/AL HYDROX/SIMETH 30 ML CUP PO PRN (12:27)
[2022-10-07] MEDS ORDERED: NITROGLYCERIN SL TABS 0.4 MG TAB SUBLINGUAL PRN (12:27)
[2022-10-07] MEDS ORDERED: ZOLPIDEM 5 MG TAB PO PRN (12:27)
[2022-10-07] MEDS ORDERED: SODIUM CHLORIDE 0.9% 1,000 ML in EMPTY BAG 1 BAG IV SCH (12:30)
--- NOTE | 2022-10-07 12:35 | P.CARDCATH ---
Date of Procedure: 10/07/22 Description of Procedure: PERCUTANEOUS TRANSLUMINAL CORONARY ANGIOPLASTY CLINICAL INFORMATION: The patient is an 87-year-old female, followed by Dr. Machado is a history of multivessel stenting who has been complaining of progressive angina, underwent cardiac catheterization by Dr Machado and was found to have significant obstructive disease involving the mid LAD. Recommendations were made regarding angioplasty and stenting. The procedure as well as the risks and the complications were discussed with the patient who was in full understanding and agreement. PROCEDURE: A 6 Filipino FL 3.5 guiding catheter was introduced into the system. Prior to that a 6-Filipino EBU 3.75 guiding catheter was used to cannulate the left main but because of the short left main there was difficulty advancing the wire in the LAD. After cannulating the left main, a 0.014 BMW J-wire with the help of a microcatheter fine cross was advanced across the lesion and positioned distally. After removing the microcatheter a Tiny Pictures intravascular ultrasound catheter was introduced and images were obtained. Following that a 3.25 x 15 Xience skyline point stent was deployed. It was dilated at 16. After the last inflation, after appropriate wait, the balloon and the guidewire were withdrawn back into the guiding catheter. Images were obtained and repeated. Those images reveal stable successful stenting. At that point, the guiding catheter, the balloon, and guidewire were removed. The sheath was removed. Hemostasis was obtained with deployment of a TR band. There were no immediate complications. The patient was returned to the room in stable condition. Of note, the patient received 3000 units of heparin as well as Plavix. Her ACT was followed. There was no immediate complications. She had no significant EKG changes or chest discomfort. RESULTS: Successful stenting of the mid LAD between both stents with reduction of stenosis from 80 % to 0 % with intravascular ultrasound imaging. RECOMMENDATIONS: The patient will continue on aspirin and Plavix for 6 months without interruption in addition to aggressive coronary risk modifications The findings and recommendations were discussed with the patient and the family, they are in full understanding and agreement. Duration of sedation: 53 minutes
--- NOTE | 2022-10-07 13:21 | CC ---
CARDIAC CATHETERIZATION REPORT INDICATION: Unstable angina. HISTORY OF PRESENT ILLNESS: This is an 87-year-old lady with known coronary artery disease, status post prior angioplasty of LAD, circumflex coronary artery and balloon angioplasty of the right coronary artery, who presented to me with symptoms of unstable angina and wished to undergo cardiac catheterization for further evaluation. She had been explained of risks, benefits and alternatives, understood and accepted. PROCEDURE NOTE: After obtaining informed consent, left heart catheterization and coronary angiogram were performed via the right radial artery using standard Jesus catheters. The patient tolerated the procedure well without any obvious immediate complications. The patient received verapamil and heparin per protocol. Right radial artery access was obtained using modified Seldinger technique, and a 6-S[place] Leonean sheath was placed. Catheters and wires were floated into the ascending aorta under fluoroscopic guidance. FINDINGS: HEMODYNAMICS: 1. Left ventricular end-diastolic pressure is 20 mm. There is no significant gradient across the aortic valve. 2. Left ventriculogram: Left ventriculogram is not performed. ANGIOGRAPHIC DATA: 1. Right coronary artery: Right coronary artery is a large dominant vessel that shows a 30% to 40% stenosis involving mid RCA. 2. Left main coronary artery is a normal-sized vessel and is free of stenosis. It divides into left anterior descending coronary artery and circumflex coronary artery. 3. Circumflex coronary artery: The previously stented segment appears patent. LAD has a long segment of prior stenting. In the mid LAD, there is an area of in-stent re-stenosis, it seems to be 50% to 60% stenosis. CONCLUSIONS: Three-vessel coronary artery disease with 40% stenosis involving right coronary artery, patent stent within the circumflex coronary artery and moderate area of in-stent restenosis involving the LAD. PLAN: I am going to ask Dr. Flaherty, the on-call superintendent track, to perform an FFR of the LAD lesion to assess hemodynamics significance and if necessary perform balloon angioplasty. MMODL / IJN: [id number] /
--- NOTE | 2022-10-07 13:35 | LTR ---
Dear , I performed cardiac catheterization on Marie Rizvi. A detailed catheterization note is enclosed for your records. In brief, the cardiac catheterization revealed in- stent restenosis involving LAD and we will evaluate for its hemodynamics significance and if necessary perform angioplasty of the same. Thank you for giving me the privilege to participate in the care of this pleasant lady. KATIE / RODRIGUEZ: [id number] /
[2022-10-07 14:01] VITALS: BMI 20.8
[2022-10-07] MEDS: lisinopriL 10 MG TAB PO SCH (20:53)
[2022-10-07] MEDS: METOPROLOL TARTRATE 25 MG TAB PO SCH (20:53)
[2022-10-07] MEDS ORDERED: ATORVASTATIN 80 MG TAB PO SCH (21:00)
[2022-10-07] MEDS ORDERED: TIMOLOL 0.5% OPHTH DROPS 5 ML BTL BOTH EYES SCH (21:00)
[2022-10-08 03:50] VITALS: RESP 15
[2022-10-08 06:06] LABS: African American GFR (CKD) >90 (>60 ml/min/1.73 sqM); Anion Gap 6 mmol/L; Blood Urea Nitrogen 13 mg/dL (7-17); Calcium 8.5 mg/dL (8.4-10.2); Carbon Dioxide 24 mmol/L (22-30); Chloride 108 mmol/L (98-107); Glucose 103 mg/dL (74-99); Non-African American GFR(CKD) 78 (>60 ml/min/1.73 sqM); Potassium 4.1 mmol/L (3.5-5.1); Sodium 138 mmol/L (137-145)
[2022-10-08 07:53] VITALS: BP 134/75; PULSE 55; TEMP 97.5
[2022-10-08] MEDS: METOPROLOL TARTRATE 25 MG TAB PO SCH (08:57)
[2022-10-08] MEDS: lisinopriL 10 MG TAB PO SCH (08:58)
[2022-10-08] MEDS ORDERED: CLOPIDOGREL 75 MG TAB PO SCH (09:00)
[2022-10-08] MEDS ORDERED: ASPIRIN 81 MG PO SCH (09:00)
[2022-10-08] MEDS ORDERED: METOPROLOL TARTRATE 12.5 MG TAB PO SCH (09:00)
--- NOTE | 2022-10-08 12:07 | P.DS ---
Providers Date of admission: 10/07/2022 Expected date of discharge: 10/08/22 Attending physician: Mario Machado Consults: 10/07/22 12:27 Consult Physician Routine Consulting Provider: [facility] Consult Reason/Comments: Post Interventional patient Do you want consulting provider notified?: Already Contacted Primary care physician: Srinivasa Jacbo - Discharge Diagnosis(es) (1) CAD (coronary artery disease), [place] coronary artery Current Visit: Yes Status: Acute (2) Unstable angina Current Visit: Yes Status: Acute (3) Hypertension Current Visit: Yes Status: Chronic (4) Hyperlipidemia Current Visit: Yes Status: Chronic Hospital Course: This is a pleasant 87-year-old female patient who follows with Dr. Machado in the office. Has a history of CAD status post prior angioplasty of the LAD and circumflex as well as balloon angioplasty of the right coronary artery. Pre sented with symptoms of unstable angina as an outpatient was recommended to undergo cardiac catheterization. She underwent cardiac catheterization yesterday which revealed 30-40% stenosis involving the mid RCA, previously stented segment of the circumflex patent, LAD has a long segment of prior stenting with mild LAD showing an area of in-stent restenosis of about 50-60%. She subsequently underwent stenting of the LAD with reduction of stenosis from 80% to 0% with intravascular ultrasound imaging. This morning she is resting comfortably in bed. She is overall feeling well. She denies any complaints of chest discomfort. Her breathing is stable. She has no edema, orthopnea or PND. She has no dizziness, lightheadedness or palpitations. PHYSICAL EXAMINATION: HEENT: Head is atraumatic, normocephalic. Pupils equal, round. Neck is supple. There is no elevated jugular venous pressure. HEART EXAMINATION: Heart sounds regular, S1 and S2 normal. With a soft systolic murmur. CHEST EXAMINATION: Lungs are clear to auscultation and precussion. No chest wall tenderness is noted on palpation or with deep breathing. ABDOMEN: Soft, nontender. Bowel sounds are heard. No organomegaly noted. EXTREMITIES: 2+ peripheral pulses with no evidence of peripheral edema and no calf tenderness noted. Right radial puncture site pressure dressing dry and intact, slightly soft without hematoma. NEUROLOGIC patient is awake, alert and oriented x3. Assessment #1 CAD with recent unstable angina, status post stenting of the LAD this admission #2 hypertension #3 hyperlipidemia Plan From our standpoint patient may be discharged home. She will remain on beta trace, KEELY inhibitor, statin and dual antiplatelet therapy with aspirin 81 mg daily and clopidogrel 35 mg by mouth daily. She will follow-up in the office with Dr. Machado in about a week. Plan - Discharge Summary Discharge Rx Participant: No New Discharge Prescriptions: New lisinopriL [Zestril] 10 mg PO BID #180 tab Metoprolol Tartrate [Lopressor] 25 mg PO BID #180 tab Continue HYDROcodone/APAP 7.5-325MG [[place] 7.5-325] 1 tab PO QAM Timolol [Betimol 0.5% Ophth Soln] 1 drop BOTH EYES HS Dorzolamide 2% [Trusopt 2%] 1 drop BOTH EYES BID Meclizine HCl [Bonine Chew] 25 mg PO DAILY PRN PRN Reason: DIZZINESS Nitroglycerin Sl Tabs [Nitrostat] 0.4 mg SL Q5M PRN PRN Reason: Chest Pain Ibuprofen 600 mg PO DAILY PRN PRN Reason: Pain Clopidogrel [Plavix] 75 mg PO QAM Atorvastatin [Lipitor] 80 mg PO HS Furosemide [Lasix] 20 mg PO DAILY Aspirin 81 mg PO QAM Discontinued Metoprolol Tartrate [Lopressor] 12.5 mg PO QAM lisinopriL [Zestril] 10 mg PO DIRECTED Discharge Medication List HYDROcodone/APAP 7.5-325MG [[place] 7.5-325] 1 tab PO QAM 08/29/18 [History] Dorzolamide 2% [Trusopt 2%] 1 drop BOTH EYES BID 09/18/20 [History] Meclizine HCl [Bonine Chew] 25 mg PO DAILY PRN 09/18/20 [History] Timolol [Betimol 0.5% Ophth Soln] 1 drop BOTH EYES HS 09/18/20 [History] Nitroglycerin Sl Tabs [Nitrostat] 0.4 mg SL Q5M PRN 10/09/20 [History] Atorvastatin [Lipitor] 80 mg PO HS 11/21/20 [History] Furosemide [Lasix] 20 mg PO DAILY 02/02/21 [History] Aspirin 81 mg PO QAM 10/04/22 [History] Clopidogrel [Plavix] 75 mg PO QAM 10/04/22 [History] Ibuprofen 600 mg PO DAILY PRN 10/04/22 [History] Metoprolol Tartrate [Lopressor] 25 mg PO BID #180 tab 10/08/22 [Rx] lisinopriL [Zestril] 10 mg PO BID #180 tab 10/08/22 [Rx] Follow up Appointment(s)/Referral(s): Mario Machado MD [STAFF PHYSICIAN] - 1 Week (APPOINTMENT MADE ON September @ 11:15PM ) Patient Instructions/Handouts: Moderate Sedation (DC), After Radial Heart Catheterization (GEN) Activity/Diet/Wound Care/Special Instructions: *NO LIFTING, PUSHING, OR PULLING ANYTHING OVER 5 POUNDS FOR 5 DAYS *NO DRIVING FOR 3 DAYS *YOU CAN REMOVE YOUR DRESSING AND SHOWER TOMORROW BUT DO NOT SUBMERSE YOUR PUNCTURE SITE IN WATER FOR A FEW DAYS TO PREVENT INFECTION - SO NO TUB BATHS, POOLS, HOT TUBS, DISHES...ETC *ANY SIGNS OF BLEEDING (HARDNESS, SWELLING, OR EXCESSIVE BRUISING) HOLD DIRECT PRESSURE ON YOUR PUNCTURE SITE AND COME TO THE NEAREST EMERGENCY ROOM TO GET YOUR PUNCTURE SITE LOOKED AT - DO NOT DRIVE YOURSELF! EITHER CALL EMS OR HAVE SOMEONE DRIVE YOU!
== END 2022-10-08 13:01 | disposition home or self-care (01) ==
LOC: CATHCVL 08:24 → 6NMEDSUR 12:20 → CATHCVL 10-08 13:01
PROVIDERS: ATTEND Internal Medicine Cardiovascular Disease
DX: I25.10 Atherosclerotic heart disease of native coronary artery without angina pectoris (principal); I10 Essential (primary) hypertension; F17.210 Nicotine dependence, cigarettes, uncomplicated; Z79.899 Other long term (current) drug therapy
CPT/HCPCS: 94760; 92978; 93458; 80048 ×2; 85025; C9600; C1769 ×3; C1887 ×3; C1894; C1753; C1874; J2250; J2001; J3010; J1644; Q9967

== ENCOUNTER 2023-07-17 15:02 | Observation (INO) | payer MEDICARE ==
[2023-07-17] MEDS: NITROGLYCERIN OINT 1 INCH/GM PACKET TOPICAL STA (16:22)
[2023-07-17] MEDS: ASPIRIN 81 MG PO STA (16:22)
[2023-07-17 16:31] LABS: Basophils % (A) 1 %; Eosinophils # (A) 0.2 k/uL (0-0.7); Eosinophils % (A) 3 %; HCT 39.9 % (34.0-46.0); Lymphocytes # (A) 1.2 k/uL (1.0-4.8); Lymphocytes % (A) 24 %; MCH 30.9 pg (25.0-35.0); MCHC 32.5 g/dL (31.0-37.0); Mean Platelet Volume 9.1; Monocytes # (A) 0.4 k/uL (0-1.0); Monocytes % (A) 8 %; Neutrophils # (A) 3.3 k/uL (1.3-7.7); Neutrophils % (A) 62 %; Platelet Count 142 k/uL (150-450); RDW 12.9 % (11.5-15.5); WBC 5.3 k/uL (3.8-10.6)
[2023-07-17 16:48] LABS: Prothrombin Time 11.1 sec (10.0-12.5)
[2023-07-17 16:50] LABS: Partial Thromboplastin Time 20.4 sec (22.0-30.0)
--- NOTE | 2023-07-17 16:51 | XR ---
EXAMINATION TYPE: XR chest 2V DATE OF EXAM: 07/17/2023 COMPARISON: 06/09/2022 HISTORY: Chest pain TECHNIQUE: Frontal and lateral views of the chest are obtained. FINDINGS: There is no airspace consolidation or abnormal interstitial opacity. There is no pneumothorax. There is mild blunting of the posterior costophrenic angles on the lateral view unchanged compared to previous and possibly reflects chronic change. Small effusions cannot be e ntirely excluded. The heart size is normal the pulmonary vasculature is not congested. The osseous structures are intact. IMPRESSION: 1. Tiny pleural effusions versus chronic pleural parenchymal changes blunting the posterior costophre mariela angles. 2. No other significant amount is seen.
[2023-07-17 17:04] LABS: ALT 29 U/L (4-34); AST 30 U/L (14-36); African American GFR (CKD) >90 (>60 ml/min/1.73 sqM); Albumin 3.6 g/dL (3.5-5.0); Alkaline Phosphatase 73 U/L (38-126); Anion Gap 5 mmol/L; Blood Urea Nitrogen 16 mg/dL (7-17); Calcium 8.9 mg/dL (8.4-10.2); Carbon Dioxide 25 mmol/L (22-30); Chloride 110 mmol/L (98-107); Glucose 96 mg/dL (74-99); Non-African American GFR(CKD) 79 (>60 ml/min/1.73 sqM); Sodium 140 mmol/L (137-145); Total Bilirubin 0.5 mg/dL (0.2-1.3); Total Protein 5.7 g/dL (6.3-8.2)
--- NOTE | 2023-07-17 20:35 | ED ---
General Adult HPI - General Chief complaint: Chest Pain Stated complaint: hypertension Time Seen by Provider: 07/17/23 15:40 Source: patient, EMS, RN notes reviewed, old records reviewed Mode of arrival: EMS - History of Present Illness Initial comments: This is an 87-year-old female who presents to the emergency department complaining of having spiking high blood pressure. Patient states associated with it she started having some shortness of breath particularly with exertion and became quite nauseous. Patient states in the past when she had her heart attacks and 6 stent placements she typically does not get chest pain so this was concerning to her so she came to the emergency department. Patient denies any fever chills or cough. Patient denies a headache patient denies blurred vision. Patient does deny any chest pain. - Related Data Home Medications Medication Instructions Recorded Confirmed HYDROcodone/APAP 7.5-325MG [[place] 1 tab PO BID PRN 08/29/18 07/17/23 7.5-325] Dorzolamide 2% [Trusopt 2%] 1 drop BOTH EYES BID 09/18/20 07/17/23 Timolol [Betimol 0.5% Ophth Soln] 1 drop BOTH EYES HS 09/18/20 07/17/23 Nitroglycerin Sl Tabs [Nitrostat] 0.4 mg SL Q5M PRN 10/09/20 07/17/23 Atorvastatin [Lipitor] 80 mg PO HS 11/21/20 07/17/23 Furosemide [Lasix] 20 mg PO DAILY 02/02/21 07/17/23 Aspirin 81 mg PO DAILY 10/04/22 07/17/23 Clopidogrel [Plavix] 75 mg PO DAILY 10/04/22 07/17/23 Ibuprofen 600 mg PO DAILY PRN 10/04/22 07/17/23 Albuterol Inhaler [Ventolin Hfa 1 - 2 puff INHALATION RT-Q6H PRN 07/17/23 0 07/17/23 Inhaler] Metoprolol Tartrate [Lopressor] 12.5 mg PO DAILY 07/17/23 07/17/23 lisinopriL [Zestril] 10 mg PO DAILY 07/17/23 07/17/23 Allergies Allergy/AdvReac Type Severity Reaction Status Date / Time grapefruit Allergy Anaphylaxis Verified 07/17/23 16:37 levofloxacin [From Levaquin] Allergy Confusion Verified 07/17/23 16:37 loratadine [From Claritin] Allergy Dyspnea Verified 07/17/23 16:37 pseudoephedrine Allergy Dyspnea Verified 07/17/23 16:37 [From Sudafed] strawberry Allergy Anaphylaxis Verified 07/17/23 16:37 Review of Systems ROS Statement: Those systems with pertinent positive or pertinent negative responses have been documented in the HPI. ROS Other: All systems not noted in ROS Statement are negative. Past Medical History Past Medical History: Coronary Artery Disease (CAD), Chest Pain / Angina, COPD, Deep Vein Thrombosis (DVT), Eye Disorder, Hyperlipidemia, Hypertension, Myocardial Infarction (OK), Osteoarthritis (OA), Skin Disorder Additional Past Medical History / Comment(s): Vertigo, balance issues, glaucoma, DVT L leg, bronchitis, chronic sinus problems, hemorrhoids, chronic back pain with R sciatica in the past, hx rosacia, hx anemia, hx kidney stones, psoriasis Last Myocardial Infarction Date:: 09/17/20 History of Any Multi-Drug Resistant Organisms: None Reported Past Surgical History: Cholecystectomy, Heart Catheterization With Stent, Orthopedic Surgery Additional Past Surgical History / Comment(s): Varicose vein ligation both legs, ORIF rt ankle/hardware later removed, colonoscopy, rt cataract, retinal surgery rt eye, 6 cardiac stents Past Anesthesia/Blood Transfusion Reactions: No Reported Reaction, Motion Sickness Additional Past Anesthesia/Blood Transfusion Reaction / Comment(s): Pt has never received blood. Date of Last Stent Placement:: 09/30/2020 Past Psychological History: No Psychological Hx Reported Smoking Status: Former smoker Past Alcohol Use History: None Reported, Occasional Past Drug Use History: None Reported - Past Family History Mother Family Medical History: Cancer Additional Family Medical History / Comment(s): colon cancer General Exam - General Exam Comments Initial Comments: GENERAL: Patient is well-developed and well-nourished. Patient is nontoxic and well- hydrated and is in mild distress. ENT: Neck is soft and supple. No significant lymphadenopathy is noted. Oropharynx is clear. Moist mucous membranes. Neck has full range of motion without eliciting any pain. EYES: The sclera were anicteric and conjunctiva were pink and moist. Extraocular movements were intact and pupils were equal round and reactive to light. Eyelids were unremarkable. PULMONARY: Unlabored respirations. Good breath sounds bilaterally. No audible rales rhonchi or wheezing was noted. CARDIOVASCULAR: There is a regular rate and rhythm without any murmurs gallops or rubs. Femoral pulses are equal bilaterally ABDOMEN: Soft and nontender with normal bowel sounds. SKIN: Skin is clear with no lesions or rashes and otherwise unremarkable. NEUROLOGIC: Patient is alert and oriented x3. Cranial nerves II through XII are grossly intact. Motor and sensory are also intact. Normal speech, volume and content. Symmetrical smile. MUSCULOSKELETAL: Normal extremities with adequate strength and full range of motion. No lower extremity swelling or edema. No calf tenderness. LYMPHATICS: No significant lymphadenopathy is noted PSYCHIATRIC: Normal psychiatric evaluation. Course Vital Signs 07/17/23 07/17/23 07/17/23 15:16 15:22 15:26 Pulse Rate 58 L 55 L Pulse Rate [ 55 L Bilateral Supine Apical] Respiratory 16 16 Rate Blood Pressure 176/85 172/83 O2 Sat by Pulse 98 97 Oximetry 07/17/23 07/17/23 07/17/23 16:24 18:53 19:35 Pulse Rate 61 57 L 56 L Pulse Rate [ Bilateral Supine Apical] Respiratory 14 16 18 Rate Blood Pressure 153/89 158/80 170/89 O2 Sat by Pulse 95 97 96 Oximetry 07/17/23 20:35 Pulse Rate 61 Pulse Rate [ Bilateral Supine Apical] Respiratory 18 Rate Blood Pressure 136/69 O2 Sat by Pulse 98 Oximetry Medical Decision Making - Medical Decision Making EKG is interpreted by myself. EKG shows a sinus rhythm with occasional PVC at 62 bpm MN interval is 189 QRS is 113 QT interval is 407 QTc is 412. Patient's EKG shows no ST segment ovation or depression. Was pt. sent in by a medical professional or institution (, PA, PREANALYTICS TEAM LEAD, urgent care, hospital, or assisted...) When possible be specific @ -No Did you speak to anyone other than the patient for history (EMS, parent, family, police, friend...)? What history was obtained from this source @ -No Did you review nursing and triage notes (agree or disagree)? Why? @ -I reviewed and agree with nursing and triage notes Were old charts reviewed (outside hosp., previous admission, EMS record, old EKG, old radiological studies, urgent care reports/EKG's, assisted records)? Report findings @ -I reviewed the lab work from today with prior visits and there were no acute abnormalities. Patient's chest x-ray from prior visit was compared to today's as well and there was no abnormality Differential Diagnosis (chest pain, altered mental status, abdominal pain women, abdominal pain men, vaginal bleeding, weakness, fever, dyspnea, syncope, headache, dizziness, GI bleed, back pain, seizure, CVA, palpatations, mental health, musculoskeletal)? @ -Differential Dyspnea: Coronary syndrome, arrhythmia, tamponade, asthma, COPD, pulmonary embolism, pneumonia, pneumothorax, pulmonary effusion, anaphylaxis, diabetic ketoacidosis, flailed chest, pulmonary contusion, diaphragmatic rupture, anemia, neuromuscular, this is not meant to be an all-inclusive list. EKG interpreted by me (3pts min.). @ -As above X-rays interpreted by me (1pt min.). @ -Chest x-ray showed no acute normality CT interpreted by me (1pt min.). @ -None done U/S interpreted by me (1pt. min.). @ -None done What testing was considered but not performed or refused? (CT, X-rays, U/S, labs)? Why? @ -None What meds were considered but not given or refused? Why? @ -None Did you discuss the management of the patient with other professionals (pro fessionals i.e. , PA, PREANALYTICS TEAM LEAD, lab, RT, psych nurse, social work coordinator, valet parking attendant, teacher, medical officer psychiatry, porter sample case)? Give summary @ -I spoke with [facility] hospitalist they agreed admit the patient admit the patient with admitting orders Was smoking cessation discussed for >3mins.? @ -No Was critical care preformed (if so, how long)? @ -No Were there social determinants of health that impacted care today? How? (Homelessness, low income, unemployed, alcoholism, drug addiction, transportation, low edu. Level, literacy, decrease access to med. care, senior care, rehab)? @ -No Was there de-escalation of care discussed even if they declined (Discuss DNR or withdrawal of care, Hospice)? DNR status @ -No What co-morbidities impacted this encounter? (DM, HTN, Smoking, COPD, CAD, Cancer, CVA, ARF, Chemo, Hep., AIDS, mental health diagnosis, sleep apnea, morbid obesity)? @ -High blood pressure Was patient admitted / discharged? Hospital course, mention meds given and route, prescriptions, significant lab abnormalities, going to OR and other pertinent info. @ -Patient had normal lab work and chest x-rays. Patient had a strong cardiac history with 6 previous stents. Patient's symptoms in the past have never had any chest pain and today's symptoms were concerning. Undiagnosed new problem with uncertain prognosis? @ -No Drug Therapy requiring intensive monitoring for toxicity (Heparin, Nitro, Insulin, Cardizem)? @ -No Were any procedures done? @ -No Diagnosis/symptom? @ -Atypical angina Acute, or Chronic, or Acute on Chronic? @ -Acute Uncomplicated (without systemic symptoms) or Complicated (systemic symptoms)? @ -Complicated Side effects of treatment? @ -No Exacerbation, Progression, or Severe Exacerbation? @ -No Poses a threat to life or bodily function? How? (Chest pain, [place], OK, pneumonia, PE, COPD, DKA, ARF, appy, cholecystitis, CVA, Diverticulitis, Homicidal, Suicidal, threat to staff... and all critical care pts) @ -Yes this could lead to an OK and endorgan dysfunction - Lab Data Result diagrams: 07/17/23 16:18 07/17/23 16:18 Lab Results 07/17/23 07/17/23 07/17/23 Range/Units 16:18 16:18 16:18 WBC 5.3 (3.8-10.6) k/uL RBC 4.20 (3.80-5.40) m/uL Hgb 13.0 (11.4-16.0) gm/dL Hct 39.9 (34.0-46.0) % MCV 95.0 (80.0-100.0) fL MCH 30.9 (25.0-35.0) pg MCHC 32.5 (31.0-37.0) g/dL RDW 12.9 (11.5-15.5) % Plt Count 142 L (150-450) k/uL MPV 9.1 Neutrophils % 62 % Lymphocytes % 24 % Monocytes % 8 % Eosinophils % 3 % Basophils % 1 % Neutrophils # 3.3 (1.3-7.7) k/uL Lymphocytes # 1.2 (1.0-4.8) k/uL Monocytes # 0.4 (0-1.0) k/uL Eosinophils # 0.2 (0-0.7) k/uL Basophils # 0.0 (0-0.2) k/uL PT 11.1 (10.0-12.5) sec INR 1.0 (<1.2) APTT 20.4 L (22.0-30.0) sec Sodium 140 (137-145) mmol/L Potassium 4.0 (3.5-5.1) mmol/L Chloride 110 H (98-107) mmol/L Carbon Dioxide 25 (22-30) mmol/L Anion Gap 5 mmol/L BUN 16 (7-17) mg/dL Creatinine 0.67 (0.52-1.04) mg/dL Est GFR (CKD-EPI)AfAm >90 (>60 ml/min/1.73 sqM) Est GFR (CKD-EPI)NonAf 79 (>60 ml/min/1.73 sqM) Glucose 96 (74-99) mg/dL Calcium 8.9 (8.4-10.2) mg/dL Magnesium 2.0 (1.6-2.3) mg/dL Total Bilirubin 0.5 (0.2-1.3) mg/dL AST 30 (14-36) U/L ALT 29 (4-34) U/L Alkaline Phosphatase 73 (38-126) U/L Troponin I (0.000-0.034) ng/mL Total Protein 5.7 L (6.3-8.2) g/dL Albumin 3.6 (3.5-5.0) g/dL 07/17/23 Range/Units 16:18 WBC (3.8-10.6) k/uL RBC (3.80-5.40) m/uL Hgb (11.4-16.0) gm/dL Hct (34.0-46.0) % MCV (80.0-100.0) fL MCH (25.0-35.0) pg MCHC (31.0-37.0) g/dL RDW (11.5-15.5) % Plt Count (150-450) k/uL MPV Neutrophils % % Lymphocytes % % Monocytes % % Eosinophils % % Basophils % % Neutrophils # (1.3-7.7) k/uL Lymphocytes # (1.0-4.8) k/uL Monocytes # (0-1.0) k/uL Eosinophils # (0-0.7) k/uL Basophils # (0-0.2) k/uL PT (10.0-12.5) sec INR (<1.2) APTT (22.0-30.0) sec Sodium (137-145) mmol/L Potassium (3.5-5.1) mmol/L Chloride (98-107) mmol/L Carbon Dioxide (22-30) mmol/L Anion Gap mmol/L BUN (7-17) mg/dL Creatinine (0.52-1.04) mg/dL Est GFR (CKD-EPI)AfAm (>60 ml/min/1.73 sqM) Est GFR (CKD-EPI)NonAf (>60 ml/min/1.73 sqM) Glucose (74-99) mg/dL Calcium (8.4-10.2) mg/dL Magnesium (1.6-2.3) mg/dL Total Bilirubin (0.2-1.3) mg/dL AST (14-36) U/L ALT (4-34) U/L Alkaline Phosphatase (38-126) U/L Troponin I <0.012 (0.000-0.034) ng/mL Total Protein (6.3-8.2) g/dL Albumin (3.5-5.0) g/dL Disposition Clinical Impression: Chest pain, Hypertensive urgency Disposition: ADMITTED IP TO THIS [facility] Referrals: Roney Jacob MD [Primary Care Provider] - 1-2 days Time of Disposition: 20:36
[2023-07-17] MEDS ORDERED: NITROGLYCERIN SL TABS 0.4 MG TAB SUBLINGUAL PRN (20:38)
[2023-07-17] MEDS ORDERED: ALBUTEROL NEBULIZED 2.5 MG/3 ML INHALATION PRN (21:15)
[2023-07-17] MEDS ORDERED: IBUPROFEN 600 MG TAB PO PRN (21:15)
[2023-07-17] MEDS: NITROGLYCERIN OINT 1 INCH/GM PACKET TOPICAL SCH (23:38)
--- NOTE | 2023-07-18 03:03 | P.HPIM ---
History of Present Illness H&P Date: 07/17/23 Chief Complaint: High blood pressure 87-year-old female with history of coronary artery disease, hypertension Patient coming in for evaluation of uncontrolled high blood pressure. She reports that she woke up feeling weak and dizzy she was having episodes of vertigo throughout the day. Then later around midday she was having episodes of shortness of breath with feeling nauseous along with which she describes it as a head oropeza or headache for which she decided to check her blood pressure and was found to be elevated at 224/120 then she took her blood pressure and after some time her blood pressure improved a little bit then went up again later on during the day with systolic reading again in the 200s range for which she took extra blood pressure medications for her doctors recommendations and decided to come in for evaluation She denies any chest pain denies any fevers or chills denies any coughing denies any focal neurodeficits denies any changes in hearing vision or slurred speech denies any falls Patient denies any history of stroke. She denies any tobacco smoking illicit drugs or heavy alcohol At the time of my evaluation patient feels fine with blood pressure within normal limits. Patient has a nitro patch on her chest that was placed in the ED review of systems Pertinent positives as noted in HPI. All other systems were reviewed and are ne gative on exam Constitutional: No acute distress, conversant, pleasant Eyes: Anicteric sclerae, moist conjunctiva, Pupils equal round reactive to light ENMT: NC/AT Oropharynx clear, no erythema, or exudates Neck: Supple, no masses, or JVD No carotid bruits No thyromegaly Lungs: Clear to auscultation Clear to percussion Normal respiratory effort, no accessory muscle use Cardiovascular: Heart regular in rate and rhythm, No murmurs, gallops, or rubs No peripheral edema Abdominal: Soft Nontender, no guarding, rebound or rigidity Abdomen moving with respiration Normoactive bowel sounds Extremities: No digital cyanosis No clubbing Pedal pulses intact and symmetrical Radial pulses intact and symmetrical No calf tenderness Psychiatric: Alert and oriented to person, place and time Appropriate affect fair judgement Neuro Muscles Strength 4/5 in all 4 extremities Sensation to light touch grossly present throughout Cranial nerves II-XII grossly intact Lymphatics: no palpable cervical or supraclavicular lymph nodes Past Medical History Past Medical History: Coronary Artery Disease (CAD), Chest Pain / Angina, COPD, Deep Vein Thrombosis (DVT), Eye Disorder, Hyperlipidemia, Hypertension, Myocardial Infarction (CT), Osteoarthritis (OA), Skin Disorder Additional Past Medical History / Comment(s): Vertigo, balance issues, glaucoma, DVT L leg, bronchitis, chronic sinus problems, hemorrhoids, chronic back pain with R sciatica in the past, hx rosacia, hx anemia, hx kidney stones, psoriasis Last Myocardial Infarction Date:: 09/17/20 History of Any Multi-Drug Resistant Organisms: None Reported Past Surgical History: Cholecystectomy, Heart Catheterization With Stent, Orthopedic Surgery Additional Past Surgical History / Comment(s): Varicose vein ligation both legs, ORIF rt ankle/hardware later removed, colonoscopy, rt cataract, retinal surgery rt eye, 6 cardiac stents Past Anesthesia/Blood Transfusion Reactions: No Reported Reaction, Motion Sickness Additional Past Anesthesia/Blood Transfusion Reaction / Comment(s): Pt has never received blood. Date of Last Stent Placement:: 09/30/2020 Past Psychological History: No Psychological Hx Reported Smoking Status: Former smoker Past Alcohol Use History: None Reported, Occasional Past Drug Use History: None Reported - Past Family History Mother Family Medical History: Cancer Additional Family Medical History / Comment(s): colon cancer Medications and Allergies Home Medications Medication Instructions Recorded Confirmed Type HYDROcodone/APAP 7.5-325MG [[place] 1 tab PO BID PRN 08/29/18 07/17/23 History 7.5-325] Dorzolamide 2% [Trusopt 2%] 1 drop BOTH EYES BID 09/18/20 07/17/23 History Timolol [Betimol 0.5% Oph Soln] 1 drop BOTH EYES HS 09/18/20 07/17/23 History Nitroglycerin Sl Tabs [Nitrostat] 0.4 mg SL Q5M PRN 10/09/20 07/17/23 History Atorvastatin [Lipitor] 80 mg PO HS 11/21/20 07/17/23 History Furosemide [Lasix] 20 mg PO DAILY 02/02/21 07/17/23 History Aspirin 81 mg PO DAILY 10/04/22 07/17/23 History Clopidogrel [Plavix] 75 mg PO DAILY 10/04/22 07/17/23 History Ibuprofen 600 mg PO DAILY PRN 10/04/22 07/17/23 History Albuterol Inhaler [Ventolin Hfa 1 - 2 puff INHALATION RT-Q6H PRN 07/17/23 07/17/23 History Inhaler] Metoprolol Tartrate [Lopressor] 12.5 mg PO DAILY 07/17/23 07/17/23 History lisinopriL [Zestril] 10 mg PO DAILY 07/17/23 07/17/23 History Allergies Allergy/AdvReac Type Severity Reaction Status Date / Time grapefruit Allergy Anaphylaxis Verified 07/17/23 16:37 levofloxacin [From Levaquin] Allergy Confusion Verified 07/17/23 16:37 loratadine [From Claritin] Allergy Dyspnea Verified 07/17/23 16:37 pseudoephedrine Allergy Dyspnea Verified 07/17/23 16:37 [From Sudafed] strawberry Allergy Anaphylaxis Verified 07/17/23 16:37 Physical Exam Vitals: Vital Signs Pulse Pulse Resp BP Pulse Ox 07/18/23 02:00 58 L 13 118/67 94 L 07/18/23 01:00 51 L 16 139/84 94 L 07/18/23 00:00 51 L 14 132/79 96 07/17/23 23:00 55 L 19 146/97 07/17/23 22:00 59 L 20 121/61 07/17/23 20:35 61 18 136/69 98 07/17/23 19:35 56 L 18 170/89 96 07/17/23 18:53 57 L 16 158/80 97 07/17/23 16:24 61 14 153/89 95 07/17/23 15:26 55 L 07/17/23 15:22 55 L 16 172/83 97 07/17/23 15:16 58 L 16 176/85 98 Intake and Output 07/17/23 07/17/23 07/18/23 14:59 22:59 06:59 Other: Weight 62.142 kg Results CBC & Chem 7: 07/17/23 16:18 07/17/23 16:18 Labs: Abnormal Lab Results - Last 24 Hours (Table) 07/17/23 07/17/23 07/17/23 Range/Units 16:18 16:18 16:18 Plt Count 142 L (150-450) k/uL APTT 20.4 L (22.0-30.0) sec Chloride 110 H (98-107) mmol/L Total Protein 5.7 L (6.3-8.2) g/dL Assessment and Plan Assessment: 87-year-old female with coronary artery disease status post stents and hypertension coming in for evaluation of uncontrolled blood pressure along with shortness of breath I discussed the case with ED doctor and accepted the admission for malignant hypertension with anticipated length of stay more than 2 midnights Malignant hypertension With episodes of blood pressure systolic in the 200s range Patient reports exertional dyspnea and vertigo. Patient blood pressure improved in the ED on its own however she reports taking extra blood pressure pills at home Patient has a nitro patch on her chest for presumed atypical chest pain Troponin negative EKG showed no acute ST changes Cardiology consult Continue with aspirin Plavix and statin Resume lisinopril and metoprolol Blood work reviewed showed white count 5.3 unremarkable Hemoglobin 13 Sodium 140 potassium 4 BUN 16 creatinine 0.6 Troponin negative x 2 Chest x-ray shows tiny pleural effusion versus chronic pleural-parenchymal changes blunting of the posterior costophrenic angles EKG no acute ST changes Full code DVT prophylaxis heparin subcu 3 times daily
[2023-07-18] MEDS: lisinopriL 10 MG TAB PO SCH (08:21)
[2023-07-18] MEDS: CLOPIDOGREL 75 MG TAB PO SCH (08:21)
[2023-07-18] MEDS: METOPROLOL TARTRATE 12.5 MG TAB PO SCH (08:21)
[2023-07-18] MEDS: FUROSEMIDE 20 MG TAB PO SCH (08:21)
[2023-07-18] MEDS: HYDROcodone/APAP 7.5-325MG 1 EACH TAB PO PRN (08:22)
[2023-07-18] MEDS: ENOXAPARIN 40 MG/0.4 ML SYRINGE SQ SCH (08:23)
[2023-07-18] MEDS: ASPIRIN 81 MG PO SCH (08:28)
[2023-07-18] MEDS ORDERED: ASPIRIN 325 MG TAB PO SCH (09:00)
--- NOTE | 2023-07-18 10:48 | P.CRDCN ---
History of Present Illness History of present illness: HISTORY OF PRESENT ILLNESS: This is a 87-year-old female with a past medical history significant for coronary artery disease with previous stenting, hypertension, hyperlipidemia, and former nicotine dependence. Patient follows in the office with Dr. Machado. We have been asked to see the patient in consultation for elevated blood pressure. Patient examined at the bedside in the emergency room. Patient presented to the hospital due to increased blood pressure. Patient states over the past few days she has been noticing her blood pressure gets high around 3-4 in the afternoon. She states when she wakes up in the morning and checks her blood pressure it is usually in the 120s and it is also normal in the 120s in the evening. She also reports getting a headache when her blood pressure increases in the day. She states she checked her blood pressure yesterday and the systolic was 225 so her niece called EMS and brought her to the hospital. She currently denies any chest pain or pressure. She denies any shortness of breath. DIAGNOSTICS: - EKG reveals sinus mechanism with no signs of acute ischemia. - Chest xray tiny pleural effusions versus chronic pleural-parenchymal changes blunting the posterior costophrenic angles. No other significant amount is seen. - Laboratory data: WBC 5.3. Hemoglobin 13.0. Platelet count 142. Sodium 140. Potassium 4.0. BUN 16. Creatinine 0.67. Magnesium 2.0. Troponin negative x 3. - Current home cardiac medications include aspirin 81 mg daily, Lipitor 80 mg at night, Plavix 75 mg daily, Lasix 20 mg daily, metoprolol tartrate 12.5 mg daily, and lisinopril 10 mg daily. - Most recent echocardiogram obtained in May 2022 revealed ejection fraction 55%, trace to mild AR, mild to moderate MR and moderate to severe TR - Cardiac catheterization history: September 2022 with stenting of the mid LAD between both stents with a reduction of stenosis from 80% to 0%. REVIEW OF SYSTEMS: At the time of my exam: CONSTITUTIONAL: Denies fever or chills. HEENT: Denies blurred vision, vision changes, or eye pain. Denies hemoptysis CARDIOVASCULAR: Denies chest pain. Denies orthopnea. Denies PND. Denies palpitations RESPIRATORY: Denies shortness of breath. GASTROINTESTINAL: Denies abdominal pain. Denies nausea or vomiting. HEMATOLOGIC: Denies bleeding disorders. GENITOURINARY: Denies any blood in urine. SKIN: Denies pruitis. Denies rash. PHYSICAL EXAM: VITAL SIGNS: Reviewed. GENERAL: Well-developed in no acute distress. HEENT: Head is normocephalic. Pupils are equal, round. Sclerae anicteric. Mucous membranes of the mouth are moist. Neck supple. No JVD or thyromegaly LUNGS: Respirations even and unlabored. Lungs essentially clear to auscultation bilaterally. HEART: Regular rate and rhythm. S1 and S2 heard. ABDOMEN: Soft. Nondistended. Nontender. EXTREMITIES: Normal range of motion. No clubbing or cyanosis. Peripheral pulses intact. No lower extremity edema NEUROLOGIC: Awake and alert. Oriented x 3. ASSESSMENT: Labile blood pressure, patient reports blood pressure spiking in the afternoon to near 200 systolic Coronary artery disease with previous stenting, most recent in September 2022 with stenting of the mid LAD Hypertension Hyperlipidemia Former nicotine dependence PLAN: Obtain renal artery duplex to rule out renal artery stenosis. This may be performed on an outpatient basis as patient is wanting to be discharged home today. Obtain labs for secondary hypertension Increase lisinopril to 10 mg twice a day Patient instructed to keep a blood pressure log for the next week and bring it to her appointment with Dr. Machado Patient may be discharged home today from a cardiac standpoint Nurse practitioner note has been reviewed by physician. Signing provider agrees with the documented findings, assessment, and plan of care documented by [employer] as a scribe. Past Medical History Past Medical History: Coronary Artery Disease (CAD), Chest Pain / Angina, COPD, Deep Vein Thrombosis (DVT), Eye Disorder, Hyperlipidemia, Hypertension, Myocardial Infarction ([place]), Osteoarthritis (OA), Skin Disorder Additional Past Medical History / Comment(s): Vertigo, balance issues, glaucoma, DVT L leg, bronchitis, chronic sinus problems, hemorrhoids, chronic back pain with R sciatica in the past, hx rosacia, hx anemia, hx kidney stones, psoriasis Last Myocardial Infarction Date:: 09/17/20 History of Any Multi-Drug Resistant Organisms: None Reported Past Surgical History: Cholecystectomy, Heart Catheterization With Stent, Orthopedic Surgery Additional Past Surgical History / Comment(s): Varicose vein ligation both legs, ORIF rt ankle/hardware later removed, colonoscopy, rt cataract, retinal surgery rt eye, 6 cardiac stents Past Anesthesia/Blood Transfusion Reactions: No Reported Reaction, Motion Sickness Additional Past Anesthesia/Blood Transfusion Reaction / Comment(s): Pt has never received blood. Date of Last Stent Placement:: 09/30/2020 Past Psychological History: No Psychological Hx Reported Smoking Status: Former smoker Past Alcohol Use History: None Reported, Occasional Past Drug Use History: None Reported - Past Family History Mother Family Medical History: Cancer Additional Family Medical History / Comment(s): colon cancer Medications and Allergies Home Medications Medication Instructions Recorded Confirmed Type HYDROcodone/APAP 7.5-325MG [[place] 1 tab PO BID PRN 08/29/18 07/17/23 History 7.5-325] Dorzolamide 2% [Trusopt 2%] 1 drop BOTH EYES BID 09/18/20 07/17/23 History Timolol [Betimol 0.5% Ophth Soln] 1 drop BOTH EYES HS 09/18/20 07/17/23 History Nitroglycerin Sl Tabs [Nitrostat] 0.4 mg SL Q5M PRN 10/09/20 07/17/23 History Atorvastatin [Lipitor] 80 mg PO HS 11/21/20 07/17/23 History Furosemide [Lasix] 20 mg PO DAILY 02/02/21 07/17/23 History Aspirin 81 mg PO DAILY 10/04/22 07/17/23 History Clopidogrel [Plavix] 75 mg PO DAILY 10/04/22 07/17/23 History Ibuprofen 600 mg PO DAILY PRN 10/04/22 07/17/23 History Albuterol Inhaler [Ventolin Hfa 1 - 2 puff INHALATION RT-Q6H PRN 07/17/23 History Inhaler] Metoprolol Tartrate [Lopressor] 12.5 mg PO DAILY 07/17/23 07/17/23 History lisinopriL [Zestril] 10 mg PO DAILY 07/17/23 07/17/23 History Allergies Allergy/AdvReac Type Severity Reaction Status Date / Time grapefruit Allergy Anaphylaxis Verified 07/17/23 16:37 levofloxacin [From Levaquin] Allergy Confusion Verified 07/17/23 16:37 loratadine [From Claritin] Allergy Dyspnea Verified 07/17/23 16:37 pseudoephedrine Allergy Dyspnea Verified 07/17/23 16:37 [From Sudafed] strawberry Allergy Anaphylaxis Verified 07/17/23 16:37 Physical Exam Vitals: Vital Signs Pulse Pulse Resp BP Pulse Ox 07/18/23 08:02 61 14 177/87 95 07/18/23 06:00 87 18 121/70 95 07/18/23 05:00 68 19 134/73 94 L 07/18/23 04:00 56 L 11 L 119/65 95 07/18/23 03:00 54 L 17 156/92 95 07/18/23 02:00 58 L 13 118/67 94 L 07/18/23 01:00 51 L 16 139/84 94 L 07/18/23 00:00 51 L 14 132/79 96 07/17/23 23:00 55 L 19 146/97 07/17/23 22:00 59 L 20 121/61 07/17/23 20:35 61 18 136/69 98 07/17/23 19:35 56 L 18 170/89 96 07/17/23 18:53 57 L 16 158/80 97 07/17/23 16:24 61 14 153/89 95 07/17/23 15:26 55 L 07/17/23 15:22 55 L 16 172/83 97 07/17/23 15:16 58 L 16 176/85 98 Intake and Output 07/17/23 07/18/23 07/18/23 22:59 06:59 14:59 Other: Weight 62.142 kg Results 07/17/23 16:18 07/17/23 16:18 Cardiac Enzymes 07/17/23 07/17/23 07/17/23 Range/Units 16:18 16:18 21:29 AST 30 (14-36) U/L Troponin I <0.012 <0.012 (0.000-0.034) ng/mL 07/18/23 Range/Units 00:19 AST (14-36) U/L Troponin I <0.012 (0.000-0.034) ng/mL Coagulation 07/17/23 Range/Units 16:18 PT 11.1 (10.0-12.5) sec APTT 20.4 L (22.0-30.0) sec CBC 07/17/23 Range/Units 16:18 WBC 5.3 (3.8-10.6) k/uL RBC 4.20 (3.80-5.40) m/uL Hgb 13.0 (11.4-16.0) gm/dL Hct 39.9 (34.0-46.0) % Plt Count 142 L (150-450) k/uL Comprehensive Metabolic Panel 07/17/23 Range/Units 16:18 Sodium 140 (137-145) mmol/L Potassium 4.0 (3.5-5.1) mmol/L Chloride 110 H (98-107) mmol/L Carbon Dioxide 25 (22-30) mmol/L BUN 16 (7-17) mg/dL Creatinine 0.67 (0.52-1.04) mg/dL Glucose 96 (74-99) mg/dL Calcium 8.9 (8.4-10.2) mg/dL AST 30 (14-36) U/L ALT 29 (4-34) U/L Alkaline Phosphatase 73 (38-126) U/L Total Protein 5.7 L (6.3-8.2) g/dL Albumin 3.6 (3.5-5.0) g/dL Current Medications Generic Name Dose Route Start Last Admin Trade Name Freq PRN Reason Stop Dose Admin Hydrocodone Bitart/Acetaminophen 1 each 07/17/23 21:15 07/18/23 08:22 Hydrocodone/Apap 7.5-325mg 1 Each Tab PO 1 each BID PRN Administration pain Albuterol Sulfate 2.5 mg 07/17/23 21:15 Albuterol Nebulized 2.5 Mg/3 Ml INHALATION RT-Q6H PRN Shortness Of Breath Aspirin 81 mg 07/18/23 09:00 07/18/23 08:28 Aspirin 81 Mg PO 81 mg DAILY CAREN Administration Atorvastatin Calcium 80 mg 07/18/23 21:00 Atorvastatin 80 Mg Tab PO HS CAREN Clopidogrel Bisulfate 75 mg 07/18/23 09:00 07/18/23 08:21 Clopidogrel 75 Mg Tab PO 75 mg DAILY CAREN Administration Dorzolamide HCl 1 drops 07/18/23 09:00 Dorzolamide Hcl 2% Drops 10 Ml Btl BOTH EYES BID CAREN Enoxaparin Sodium 40 mg 07/18/23 09:00 07/18/23 08:23 Enoxaparin 40 Mg/0.4 Ml Syringe SQ 40 mg DAILY CAREN Administration Furosemide 20 mg 07/18/23 09:00 04/23/24 08:21 Furosemide 20 Mg Tab PO 20 mg DAILY CAREN Administration Lisinopril 10 mg 07/18/23 21:00 Lisinopril 10 Mg Tab PO BID CAREN Metoprolol Tartrate 12.5 mg 07/18/23 09:00 07/18/23 08:21 Metoprolol Tartrate 12.5 Mg Tab PO 12.5 mg DAILY CAREN Administration Nitroglycerin 0.4 mg 07/17/23 20:38 Nitroglycerin Sl Tabs 0.4 Mg Tab SUBLINGUAL Q5M PRN Chest Pain Timolol Maleate 1 drops 07/18/23 21:00 Timolol 0.5% Ophth Drops 5 Ml Btl BOTH EYES HS CAREN Intake and Output 07/17/23 07/18/23 07/18/23 22:59 06:59 14:59 Other: Weight 62.142 kg 07/17/23 16:18 07/17/23 16:18
[2023-07-18] MEDS: DORZOLAMIDE HCL 2% DROPS 10 ML BTL BOTH EYES SCH (11:58)
[2023-07-18 12:02] LABS: Chol/HDL Ratio 2.73 Ratio; LDL Cholesterol,Calculated 62.1 mg/dL (0.0-131.0)
[2023-07-18 15:00] VITALS: PULSE 56
--- NOTE | 2023-07-18 15:02 | P.DS ---
Providers Date of admission: 07/17/23 20:39 Expected date of discharge: 07/18/23 Attending physician: Zoltan Pennington MD Consults: 07/17/23 20:38 Consult Physician Urgent Consulting Provider: [facility] Consult Reason/Comments: Atypical angina Do you want consulting provider notified?: Yes Primary care physician: Srinivasa Galvezcordelia [facility] Course: Discharge Diagnosis: Hypertensive urgency, with labile blood pressures Coronary artery disease Hypertension Dyslipidemia Hospital Course: Patient is an 87-year-old female with known coronary artery disease status post most previous stenting in summer 2022, hypertension, dyslipidemia, and prior diagnosis of anemia who presented to the emergency department due to dizziness and head oropeza. When taking her blood pressures at home it was up to 200s and she therefore decided to come to the emergency department. Initially contacted her primary care physician and took an extra dose of her blood pressure medications. On arrival here her blood pressure was 176/85 and improved to 153/89. Initial EKG showed no evidence of ischemia. Initial laboratory analysis was unremarkable. There was some concern for possible atypical chest pain and she was started on Nitropaste. She was monitored overnight. She saw cardiology in the morning. They discontinued her Nitropaste and recommended increasing her lisinopril to twice daily. They also recommended workup for causes of secondary hypertension and ordered renin, plasma metanephrines, cortisol, aldosterone, and thyroid levels. A renal Doppler was suggested however the patient had already ate and she preferred to complete this in the outpatient setting. Her blood pressure remained controlled and and on discharge blood pressure was 149/72. Patient was subsequently determined stable for discharge home. Follow-up: Patient has follow-up with Dr. Machado scheduled for she will keep this appointment. She is aware to bring her blood pressure monitor to the appointment so that they are able to calibrate it with the office equipment. Her lisinopril has been increased to 10 mg twice daily. She will continue to check her blood pressures at home. She will follow-up with Dr. Jacob in 1 to 2 days. Patient seen and examined at bedside. Denies any chest pain or shortness of breath. Feeling good and back to baseline. Asking to go home. Vital signs reviewed and stable. General: Nontoxic, no distress, appears younger than stated age Cardiovascular: S1S2 reg, no murmur, positive posterior tibial pulse bilateral, Lungs: CTA bilateral, no rhonchi, no rales, no accessory muscle use Abdominal: Soft, nontender to palpation, no guarding, no appreciable organomegaly Ext: No gross muscle atrophy, no edema b/l lower extremities, no contractures Neuro: CN II-XI grossly intact, no focal neuro deficits Psych: Alert, oriented, appropriate affect A total of 35 minutes of time were spent preparing this complex discharge summary. Patient was discharged on 07/18/2023. This dictation was prepared using [employer] voice recognition software. Though every attempt is made to correct errors during dictation some may still exist. Patient Condition at Discharge: Stable Plan - Discharge Summary New Discharge Prescriptions: New lisinopriL [Zestril] 10 mg PO BID #60 tab Continue HYDROcodone/APAP 7.5-325MG [[place] 7.5-325] 1 tab PO BID PRN PRN Reason: pain Timolol [Betimol 0.5% Ophth Soln] 1 drop BOTH EYES HS Dorzolamide 2% [Trusopt 2%] 1 drop BOTH EYES BID Nitroglycerin Sl Tabs [Nitrostat] 0.4 mg SL Q5M PRN PRN Reason: Chest Pain Clopidogrel [Plavix] 75 mg PO DAILY Albuterol Inhaler [Ventolin Hfa Inhaler] 1 - 2 puff INHALATION RT-Q6H PRN PRN Reason: Shortness Of Breath Metoprolol Tartrate [Lopressor] 12.5 mg PO DAILY Atorvastatin [Lipitor] 80 mg PO HS Furosemide [Lasix] 20 mg PO DAILY Aspirin 81 mg PO DAILY Discontinued Ibuprofen 600 mg PO DAILY PRN PRN Reason: Pain lisinopriL [Zestril] 10 mg PO DAILY Discharge Medication List HYDROcodone/APAP 7.5-325MG [[place] 7.5-325] 1 tab PO BID PRN 08/29/18 [History] Dorzolamide 2% [Trusopt 2%] 1 drop BOTH EYES BID 09/18/20 [History] Timolol [Betimol 0.5% Ophth Soln] 1 drop BOTH EYES HS 09/18/20 [History] Nitroglycerin Sl Tabs [Nitrostat] 0.4 mg SL Q5M PRN 10/09/20 [History] Atorvastatin [Lipitor] 80 mg PO HS 11/21/20 [History] Furosemide [Lasix] 20 mg PO DAILY 02/02/21 [History] Aspirin 81 mg PO DAILY 10/04/22 [History] Clopidogrel [Plavix] 75 mg PO DAILY 10/04/22 [History] Albuterol Inhaler [Ventolin Hfa Inhaler] 1 - 2 puff INHALATION RT-Q6H PRN 07/17/23 [History] Metoprolol Tartrate [Lopressor] 12.5 mg PO DAILY 07/17/23 [History] lisinopriL [Zestril] 10 mg PO BID #60 tab 07/18/23 [Rx] Follow up Appointment(s)/Referral(s): Roney Jacob MD [Primary Care Provider] - 1-2 days Mario Machado MD [STAFF PHYSICIAN] - 07/20/23 Activity/Diet/Wound Care/Special Instructions: Activity: As tolerated Diet: Heart Healthy Special Instructions: Please follow with Dr. Machado office for possible renal ultrasound Keep your appointment with Dr. Machado on Monitor Blood Pressure twice daily at home and make a log Bring your home Blood pressure cuff to your appointment with Dr. Machado Discharge Disposition: HOME SELF-CARE
[2023-07-18 17:08] VITALS: BP 114/68; RESP 18
[2023-07-18] MEDS ORDERED: lisinopriL 10 MG TAB PO SCH (21:00)
[2023-07-18] MEDS ORDERED: ATORVASTATIN 80 MG TAB PO SCH (21:00)
[2023-07-18] MEDS ORDERED: TIMOLOL 0.5% OPHTH DROPS 5 ML BTL BOTH EYES SCH (21:00)
== END 2023-07-18 16:10 | disposition home or self-care (01) ==
LOC: EC 15:02 → 6NMEDSUR 20:39
PROVIDERS: ADMIT Internal Medicine; ATTEND Internal Medicine
DX: I16.0 Hypertensive urgency (principal); I25.119 Atherosclerotic heart disease of native coronary artery with unspecified angina pectoris; I10 Essential (primary) hypertension; I08.3 Combined rheumatic disorders of mitral, aortic and tricuspid valves; E78.5 Hyperlipidemia, unspecified; I25.2 Old myocardial infarction; Z79.82 Long term (current) use of aspirin; Z79.02 Long term (current) use of antithrombotics/antiplatelets; Z79.899 Other long term (current) drug therapy; Z88.1 Allergy status to other antibiotic agents; Z88.8 Allergy status to other drugs, medicaments and biological substances; Z91.018 Allergy to other foods; Z95.5 Presence of coronary angioplasty implant and graft; Z87.891 Personal history of nicotine dependence
CPT/HCPCS: 96372; 99285; 36415; 93005 ×2; 83835; 80061; 80053; 84443; 82533; 82088; 84244; 83735; 84484 ×2; 85025; 85610; 85730; 71046; G0378 ×2; J1650

== ENCOUNTER 2023-08-21 11:17 | Observation (INO) | payer MEDICARE ==
[2023-08-21 11:42] LABS: Basophils % (A) 1 %; Eosinophils # (A) 0.2 k/uL (0-0.7); Eosinophils % (A) 3 %; HGB 13.7 gm/dL (11.4-16.0); Lymphocytes # (A) 1.4 k/uL (1.0-4.8); Lymphocytes % (A) 22 %; MCH 30.8 pg (25.0-35.0); MCHC 32.6 g/dL (31.0-37.0); MCV 94.4 fL (80.0-100.0); Mean Platelet Volume 8.7; Monocytes # (A) 0.4 k/uL (0-1.0); Monocytes % (A) 6 %; Neutrophils # (A) 4.3 k/uL (1.3-7.7); Neutrophils % (A) 67 %; Platelet Count 155 k/uL (150-450); RBC 4.46 m/uL (3.80-5.40); RDW 13.2 % (11.5-15.5); WBC 6.5 k/uL (3.8-10.6)
[2023-08-21 11:50] LABS: Partial Thromboplastin Time 24.4 sec (22.0-30.0); Prothrombin Time 10.8 sec (10.0-12.5)
[2023-08-21 11:53] LABS: ALT 24 U/L (4-34); AST 30 U/L (14-36); African American GFR (CKD) 89 (>60 ml/min/1.73 sqM); Albumin 3.9 g/dL (3.5-5.0); Alkaline Phosphatase 72 U/L (38-126); Amylase 110 U/L (30-110); Anion Gap 5 mmol/L; Blood Urea Nitrogen 16 mg/dL (7-17); Calcium 9.3 mg/dL (8.4-10.2); Carbon Dioxide 26 mmol/L (22-30); Chloride 108 mmol/L (98-107); Glucose 113 mg/dL (74-99); Lipase 593 U/L (23-300); Non-African American GFR(CKD) 78 (>60 ml/min/1.73 sqM); Potassium 4.2 mmol/L (3.5-5.1); Sodium 139 mmol/L (137-145); Total Bilirubin 0.8 mg/dL (0.2-1.3); Total Protein 6.1 g/dL (6.3-8.2)
--- NOTE | 2023-08-21 12:15 | ED ---
Abdominal Pain HPI - General Chief Complaint: Abdominal Pain Stated Complaint: Back pain, chest pain Time Seen by Provider: 08/21/23 11:36 Source: patient, RN notes reviewed Mode of arrival: ambulatory Limitations: no limitations - History of Present Illness Initial Comments: This is an 87-year-old female who presents to the emergency department for abdo mio pain. States that this morning she started to develop a dull aching pain in the upper abdomen/lower chest radiating into the back. Reports mild associated nausea. Denies any shortness of breath. Her concern is that she has a substantial cardiac history and pain feels the same as it did when she had a heart attack a few years ago. States that she has [address] Machado, cardiology. She has nitroglycerin at home but did not take this. MD Complaint: abdominal pain - Related Data Home Medications Medication Instructions Recorded Confirmed HYDROcodone/APAP 7.5-325MG [[place] 1 tab PO BID PRN 08/29/18 08/21/23 7.5-325] Dorzolamide 2% [Trusopt 2%] 1 drop BOTH EYES BID 09/18/20 08/21/23 Timolol [Betimol 0.5% Ophth Soln] 1 drop BOTH EYES HS 09/18/20 08/21/23 Nitroglycerin Sl Tabs [Nitrostat] 0.4 mg SL Q5M PRN 10/09/20 08/21/23 Atorvastatin [Lipitor] 80 mg PO HS 11/21/20 08/21/23 Furosemide [Lasix] 20 mg PO DAILY 02/02/21 08/21/23 Aspirin 81 mg PO DAILY 10/04/22 08/21/23 Clopidogrel [Plavix] 75 mg PO DAILY 10/04/22 08/21/23 Albuterol Inhaler [Ventolin Hfa 1 - 2 puff INHALATION RT-Q6H PRN 07/17/23 08/21/23 Inhaler] Metoprolol Tartrate [Lopressor] 12.5 mg PO DAILY 07/17/23 08/21/23 Previous Rx's Medication Instructions Recorded lisinopriL [Zestril] 10 mg PO BID #60 tab 07/18/23 Allergies Allergy/AdvReac Type Severity Reaction Status Date / Time grapefruit Allergy Anaphylaxis Verified 08/21/23 13:57 levofloxacin [From Levaquin] Allergy Confusion Verified 08/21/23 13:57 loratadine [From Claritin] Allergy Dyspnea Verified 08/21/23 13:57 pseudoephedrine Allergy Dyspnea Verified 08/21/23 13:57 [From Sudafed] strawberry Allergy Anaphylaxis Verified 08/21/23 13:57 Review of Systems ROS Statement: Those systems with pertinent positive or pertinent negative responses have been documented in the HPI. ROS Other: All systems not noted in ROS Statement are negative. Past Medical History Past Medical History: Coronary Artery Disease (CAD), Chest Pain / Angina, COPD, Deep Vein Thrombosis (DVT), Eye Disorder, Hyperlipidemia, Hypertension, Myocardial Infarction (NC), Osteoarthritis (OA), Skin Disorder Additional Past Medical History / Comment(s): Vertigo, balance issues, glaucoma, DVT L leg, bronchitis, chronic sinus problems, hemorrhoids, chronic back pain with R sciatica in the past, hx rosacia, hx anemia, hx kidney stones, psoriasis Last Myocardial Infarction Date:: 09/17/20 History of Any Multi-Drug Resistant Organisms: None Reported Past Surgical History: Cholecystectomy, Heart Catheterization With Stent, Orthopedic Surgery Additional Past Surgical History / Comment(s): Varicose vein ligation both legs, ORIF rt ankle/hardware later removed, colonoscopy, rt cataract, retinal surgery rt eye, 6 cardiac stents Past Anesthesia/Blood Transfusion Reactions: No Reported Reaction, Motion Sickness Additional Past Anesthesia/Blood Transfusion Reaction / Comment(s): Pt has never received blood. Date of Last Stent Placement:: 09/30/2020 Past Psychological History: No Psychological Hx Reported Smoking Status: Former smoker Past Alcohol Use History: None Reported, Occasional Past Drug Use History: None Reported - Past Family History Mother Family Medical History: Cancer Additional Family Medical History / Comment(s): colon cancer General Exam Limitations: no limitations General appearance: alert, in no apparent distress Head exam: Present: atraumatic, normocephalic, normal inspection Respiratory exam: Present: normal lung sounds bilaterally. Absent: respiratory distress, wheezes, rales, rhonchi, stridor Cardiovascular Exam: Present: regular rate, normal rhythm, normal heart sounds. Absent: systolic murmur, diastolic murmur, rubs, gallop, clicks GI/Abdominal exam: Present: soft, tenderness (epigastric), normal bowel sounds. Absent: distended Neurological exam: Present: alert, oriented X3, CN II-XII intact Psychiatric exam: Present: normal affect, normal mood Skin exam: Present: warm, dry, intact, normal color. Absent: rash Course Vital Signs 08/21/23 11:18 Temperature 98.1 F Pulse Rate 57 L Respiratory 16 Rate Blood Pressure 152/76 O2 Sat by Pulse 98 Oximetry Medical Decision Making - Medical Decision Making This is an 87-year-old female who presents to the emergency department for abdominal pain. Was pt. sent in by a medical professional or institution? @ -No Did you speak to anyone other than the patient for history? @ -No Did you review nursing and triage notes? @ -Yes, and I agree, it is accurate with regards to the patient's symptoms. Were old charts reviewed? @ -No Differential Diagnosis? @ -Differential Abdominal Pain Women: Appendicitis, Cholecystitis, diverticulosis, ischemic bowel, pancreatitis, hepatitis, UTI, gastroenteritis, AAA, incarcerated hernia, bowel obstruction, constipation, inflammatory bowel, hepatitis, peptic ulcer disease, splenic i nfarction, perforated viscus, vulvitis, ovarian torsion, PID, kidney stone, placenta abruption, this is not meant to be an all-inclusive list EKG interpreted by me (3pts min.)? @ -EKG interpreted by me demonstrating the following: Sinus bradycardia. Ventricular rate 55 bpm, AR interval 181 ms, QRS duration 110 ms, QTc 412 ms. X-rays interpreted by me (1pt min.)? @ -Chest x-ray obtained, my interpretation identifies no localized consolidations or infiltrates. CT interpreted by me (1pt min.)? @ -CTA of the chest obtained. My interpretation identifies no evidence of a pulmonary embolus. CT scan of the abdomen and pelvis obtained. My interpretation identifies no evidence of bowel wall thickening or free air. U/S interpreted by me (1pt. min.)? @ -Not obtained What testing was considered but not performed? (CT, X-rays, U/S, labs)? Why? @ -None What meds were considered but not given? Why? @ -None Did you discuss the management of the patient with other professionals? @ -Yes, Dr. Goodwin, who accepts the patient for admission. Did you reconcile home meds? @ -Yes Was smoking cessation discussed for >3mins.? @ -I discussed smoking cessation for greater than 3 minutes. The risk of smoking were discussed with the patient including but not limited to risks of cancer, stroke, coronary artery disease and COPD. Also discussed with patient were multiple methods of quitting smoking. Lastly we discussed the financial cost of smoking. Was critical care preformed (if so, how long)? @ -No Were there social determinants of health that impacted care today? How? (Homelessness, low income, unemployed, alcoholism, drug addiction, transportation, low edu. Level, literacy, decrease access to med. care, residential, rehab)? @ -No Was there de-escalation of care discussed even if they declined? (Discuss DNR or withdrawal of care, Hospice)? @ -No What co-morbidities impacted this encounter? (DM, HTN, Smoking, COPD, CAD, Cancer, CVA, Hep., AIDS, mental health diagnosis, sleep apnea, morbid obesity)? @ -CAD, HLD, HTN, smoking Was patient admitted / discharged? @ -Admitted. Lab work demonstrates an elevated lipase of 593 and an elevated D- dimer of 1.03. Troponin negative. Lab work was otherwise unremarkable. Chest x-ray reveals no acute process. Given that pain felt like prior cardiac issues on arrival, she was given aspirin and nitroglycerin. States that the pain essentially resolved after those medications. Based on the elevated D-dimer, elevated lipase, and description of the patient's symptoms, CTA of the chest and CT of the abdomen and pelvis were both obtained. CTA of the chest and CT of the abdomen and pelvis reviewed no acute findings. Patient's heart score is approximately 6. Given the patient's cardiac history and description of her symptoms, she was admitted to medicine for cardiac observation. Serial troponins were ordered. Consult placed for cardiology. Undiagnosed new problem with uncertain prognosis? @ -None Drug Therapy requiring intensive monitoring for toxicity (Heparin, Nitro, Insulin, Cardizem)? @ -None Were any procedures done? @ -None Diagnosis/symptom? @ -Chest pain Acute, or Chronic, or Acute on Chronic? @ -Acute Uncomplicated (without systemic symptoms) or Complicated (systemic symptoms)? @ -Complicated Side effects of treatment? @ -None Exacerbation, Progression, or Severe Exacerbation] @ -Not applicable Poses a threat to life or bodily function? @ -Yes, can lead to ACS and This case was discussed in detail with the attending ED physician, Dr. Leos. Presentation, findings, and treatment plan discussed in detail as well. - Lab Data Result diagrams: 08/21/23 11:36 08/21/23 11:36 Lab Results 08/21/23 08/21/23 08/21/23 Range/Units 11:36 11:36 11:36 WBC 6.5 (3.8-10.6) k/uL RBC 4.46 (3.80-5.40) m/uL Hgb 13.7 (11.4-16.0) gm/dL Hct 42.0 (34.0-46.0) % MCV 94.4 (80.0-100.0) fL MCH 30.8 (25.0-35.0) pg MCHC 32.6 (31.0-37.0) g/dL RDW 13.2 (11.5-15.5) % Plt Count 155 (150-450) k/uL MPV 8.7 Neutrophils % 67 % Lymphocytes % 22 % Monocytes % 6 % Eosinophils % 3 % Basophils % 1 % Neutrophils # 4.3 (1.3-7.7) k/uL Lymphocytes # 1.4 (1.0-4.8) k/uL Monocytes # 0.4 (0-1.0) k/uL Eosinophils # 0.2 (0-0.7) k/uL Basophils # 0.0 (0-0.2) k/uL PT 10.8 (10.0-12.5) sec INR 1.0 (<1.2) APTT 24.4 (22.0-30.0) sec D-Dimer (<0.60) mg/L FEU Sodium 139 (137-145) mmol/L Potassium 4.2 (3.5-5.1) mmol/L Chloride 108 H (98-107) mmol/L Carbon Dioxide 26 (22-30) mmol/L Anion Gap 5 mmol/L BUN 16 (7-17) mg/dL Creatinine 0.70 (0.52-1.04) mg/dL Est GFR (CKD-EPI)AfAm 89 (>60 ml/min/1.73 sqM) Est GFR (CKD-EPI)NonAf 78 (>60 ml/min/1.73 sqM) Glucose 113 H (74-99) mg/dL Calcium 9.3 (8.4-10.2) mg/dL Total Bilirubin 0.8 (0.2-1.3) mg/dL AST 30 (14-36) U/L ALT 24 (4-34) U/L Alkaline Phosphatase 72 (38-126) U/L Troponin I (0.000-0.034) ng/mL Total Protein 6.1 L (6.3-8.2) g/dL Albumin 3.9 (3.5-5.0) g/dL Amylase 110 (30-110) U/L Lipase 593 H (23-300) U/L Urine Color Urine Appearance (Clear) Urine pH (5.0-8.0) Ur Specific [place] (1.001-1.035) Urine Protein (Negative) Urine Glucose (UA) (Negative) Urine Ketones (Negative) Urine Blood (Negative) Urine Nitrite (Negative) Urine Bilirubin (Negative) Urine Urobilinogen (<2.0) mg/dL Ur Leukocyte Esterase (Negative) Urine RBC (0-5) /hpf Urine WBC (0-5) /hpf Ur Squamous Epith Cells (0-4) /hpf Hyaline Casts (0-2) /lpf Urine Mucus (None) /hpf 08/21/23 08/21/23 08/21/23 Range/Units 11:36 11:36 12:57 WBC (3.8-10.6) k/uL RBC (3.80-5.40) m/uL Hgb (11.4-16.0) gm/dL Hct (34.0-46.0) % MCV (80.0-100.0) fL MCH (25.0-35.0) pg MCHC (31.0-37.0) g/dL RDW (11.5-15.5) % Plt Count (150-450) k/uL MPV Neutrophils % % Lymphocytes % % Monocytes % % Eosinophils % % Basophils % % Neutrophils # (1.3-7.7) k/uL Lymphocytes # (1.0-4.8) k/uL Monocytes # (0-1.0) k/uL Eosinophils # (0-0.7) k/uL Basophils # (0-0.2) k/uL PT (10.0-12.5) sec INR (<1.2) APTT (22.0-30.0) sec D-Dimer 1.03 H (<0.60) mg/L FEU Sodium (137-145) mmol/L Potassium (3.5-5.1) mmol/L Chloride (98-107) mmol/L Carbon Dioxide (22-30) mmol/L Anion Gap mmol/L BUN (7-17) mg/dL Creatinine (0.52-1.04) mg/dL Est GFR (CKD-EPI)AfAm (>60 ml/min/1.73 sqM) Est GFR (CKD-EPI)NonAf (>60 ml/min/1.73 sqM) Glucose (74-99) mg/dL Calcium (8.4-10.2) mg/dL Total Bilirubin (0.2-1.3) mg/dL AST (14-36) U/L ALT (4-34) U/L Alkaline Phosphatase (38-126) U/L Troponin I <0.012 (0.000-0.034) ng/mL Total Protein (6.3-8.2) g/dL Albumin (3.5-5.0) g/dL Amylase (30-110) U/L Lipase (23-300) U/L Urine Color Colorless Urine Appearance Clear (Clear) Urine pH 6.0 (5.0-8.0) Ur Specific [place] 1.010 (1.001-1.035) Urine Protein Negative (Negative) Urine Glucose (UA) Negative (Negative) Urine Ketones Negative (Negative) Urine Blood Small H (Negative) Urine Nitrite Negative (Negative) Urine Bilirubin Negative (Negative) Urine Urobilinogen <2.0 (<2.0) mg/dL Ur Leukocyte Esterase Negative (Negative) Urine RBC 3 (0-5) /hpf Urine WBC 1 (0-5) /hpf Ur Squamous Epith Cells <1 (0-4) /hpf Hyaline Casts 3 H (0-2) /lpf Urine Mucus Rare H (None) /hpf - Radiology Data Radiology results: report reviewed, image reviewed Disposition Clinical Impression: Chest pain, Nicotine dependence Disposition: ADMITTED IP TO THIS [facility] Time of Disposition: 13:53
[2023-08-21] MEDS: NITROGLYCERIN SL TABS 0.4 MG TAB SUBLINGUAL STA (12:18)
[2023-08-21] MEDS: SODIUM CHLORIDE 0.9% 1,000 ML IV STA (12:19)
[2023-08-21] MEDS: ASPIRIN 81 MG PO STA (12:21)
--- NOTE | 2023-08-21 12:53 | XR ---
EXAMINATION TYPE: XR chest 2V DATE OF EXAM: 08/21/2023 12:06 PM CLINICAL INDICATION:Female, 87 years old with history of Chest pain; [facility] COMPARISON: Chest radiographs from TECHNIQUE: XR chest 2V Frontal and lateral views of the chest. FINDINGS: Lungs/Pleura: There is flattening of the diaphragm with increased lucency of the lungs. No evidence o f pneumothorax, pleural effusion or focal consolidation. Pulmonary vascularity: Unremarkable. Heart/mediastinum: Cardiomediastinal silhouette is unremarkable. Musculoskeletal: No acute osseous pathology. Other findings: None IMPRESSION: 1. No acute cardiopulmonary disease process. 2. COPD changes.
--- NOTE | 2023-08-21 13:23 | CT ---
EXAMINATION TYPE: CT abdomen pelvis w con CT DLP: 864.7 mGycm, Automated exposure control for dose reduction was used. DATE OF EXAM: 08/21/2023 1:11 PM COMPARISON: 11/02/2012 CLINICAL INDICATION:Female, 87 years old with history of Epigastric pain, elevated lipase; Epigastric and back pain, elevated lipase AND D-DIMER TECHNIQUE: Axial CT abdomen pelvis w con;Sagittal and coronal reformats were created on a separate w orkstation. Contrast used: mL of Isovue 370 with IV Contrast, (none if empty) Oral contrast used: without Oral Contrast (none if empty) FINDINGS: LOWER CHEST: Unremarkable ABDOMEN LIVER: Unremarkable GALLBLADDER AND BILE DUCTS: Gallbladder surgically absent. Extrahepatic and central intrahepatic dila tion. No filling defect within the duct suggest choledocholithiasis. Large duodenal diverticulum impr esses upon the biliary system. PANCREAS: Unremarkable. SPLEEN: Unremarkable. ADRENAL GLANDS: Unremarkable. KIDNEYS AND URETERS: No evidence of hydronephrosis or renal calculus. The ureters are unremarkable. PELVIS BLADDER: Unremarkable REPRODUCTIVE: Unremarkable. ABDOMEN & PELVIS STOMACH AND BOWEL: No evidence of bowel obstruction. Small hiatal hernia. Second portion duodenal div erticulum. Scattered colonic diverticula. PERITONEUM/RETROPERITONEUM: No evidence of pneumoperitoneum or free fluid. VASCULATURE: No evidence of aortic aneurysm. Moderate atherosclerosis of the arterial vasculature. MUSCULOSKELETAL: No acute osseous abnormalities LYMPH NODES: No gross evidence for lymphadenopathy. SOFT TISSUE/ABDOMINAL WALL: Unremarkable IMPRESSION: 1. No acute process to explain the patient's upper abdominal pain. No significant facet joint change s around the pancreas to correlate with elevated lipase. 2. Colonic diverticulosis. 3. Second portion duodenal diverticulum.
[2023-08-21 13:25] LABS: Appearance,Urine Clear (Clear); Bilirubin,Urine Negative (Negative); Blood,Urine Small (Negative); Color,Urine Colorless; Glucose,Urine (UA) Negative (Negative); Hyaline Casts,Urine 3 /lpf (0-2); Ketones,Urine Negative (Negative); Leukocyte Esterase,Urine Negative (Negative); Mucus,Urine Rare /hpf; Nitrite,Urine Negative (Negative); Protein,Urine Negative (Negative); RBC,Urine 3 /hpf (0-5); Squamous Epithelial Cell,Urine <1 /hpf (0-4); Urobilinogen,Urine <2.0 mg/dL (<2.0); WBC,Urine 1 /hpf (0-5)
--- NOTE | 2023-08-21 13:27 | CT ---
EXAMINATION TYPE: CT angio chest CT DLP: 864.7 mGycm, Automated exposure control for dose reduction was used. DATE OF EXAM: 08/21/2023 1:11 PM COMPARISON: 06/02/2021 CLINICAL INDICATION:Female, 87 years old with history of Epigastric pain, back pain, elevated d-dimer ; Epigastric and back pain, elevated lipase AND D-DIMER TECHNIQUE/CONTRAST: CTA scan of the thorax is performed with IV Contrast, patient injected with 100ml mL of Isovue 370, M IP images are created and reviewed these are created on a separate workstation.. FINDINGS: Pulmonary Artery: There is no evidence for a filling defect within the pulmonary vasculature to sugge st acute pulmonary embolism. The pulmonary artery is of normal size. Lungs/Pleura: No evidence of focal consolidation, pleural effusion or pneumothorax. Stable right lowe r lobe lateral pulmonary nodule. Airway: Large airways are patent. Heart: Heart is within normal limits for size. Moderate to severe coronary artery atherosclerosis. Vasculature: No evidence of aortic aneurysm. Mediastinum: No gross evidence of adenopathy. Stable lymph nodes throughout the mediastinum enlarged right lower tracheal measuring 11 mm in short axis. Musculoskeletal: No acute osseous abnormalities, severe degeneration changes of the shoulders with os teophytes and subchondral cystic change. Multilevel degeneration changes of the spine. Soft Tissues/lymph nodes: Unremarkable. Lower neck: No significant findings. Upper Abdomen: Gallbladder surgically absent. IMPRESSION: 1. No evidence of pulmonary embolism. 2. Moderate to severe coronary artery atherosclerosis. 3. Stable right lower lobe pulmonary nodule dating back to at least 2021.
[2023-08-21] MEDS ORDERED: NALOXONE 0.4 MG/ML 1 ML VIAL IV PRN (13:52)
[2023-08-21] MEDS ORDERED: ONDANSETRON 4 MG/2 ML VIAL IVP PRN (13:52)
[2023-08-21] MEDS ORDERED: MORPHINE SULFATE 4 MG/ML SYRINGE IV PRN (13:52)
[2023-08-21] MEDS ORDERED: ACETAMINOPHEN TAB 325 MG TAB PO PRN (13:52)
[2023-08-21] MEDS ORDERED: HYDROcodone/APAP 5-325MG 1 EACH TAB PO PRN (13:52)
[2023-08-21] MEDS ORDERED: NITROGLYCERIN SL TABS 0.4 MG TAB SUBLINGUAL PRN (14:04)
[2023-08-21] MEDS ORDERED: ALBUTEROL HFA INHALER INHALATION PRN (14:04)
[2023-08-21] MEDS ORDERED: HYDROcodone/APAP 7.5-325MG 1 EACH TAB PO PRN (14:04)
[2023-08-21] MEDS: NITROGLYCERIN OINT 1 INCH/GM PACKET TOPICAL STA (14:21)
[2023-08-21] MEDS ORDERED: IPRATROPIUM-ALBUTEROL 3 ML NEB INHALATION PRN (16:36)
--- NOTE | 2023-08-21 16:41 | P.HPIM ---
History of Present Illness H&P Date: 08/21/23 History of Presenting Illness: Patient is a very pleasant 87-year-old female with a past medical history of CAD status post stenting x 7 on dual antiplatelet therapy with aspirin and Plavix, hypertension, hyperlipidemia, COPD chronic back pain, and vertigo/balance issues. She presented to the emergency department with a chief complaint of epigastric/chest pain. Patient describes this as "a heaviness". She reports this pain began while sitting in her chair and initially she passed it off as her chronic back pain but the heaviness seem to worsen and was accompanied by mild nausea similar to her previous heart attack so she came to the emergency department for evaluation. Patient denies having any recent infection or exposure to known ill contacts, fever, chills, diaphoresis, headache, lightheadedness, dizziness, palpitations, shortness of breath, cough or congestion, episodes of vomiting, or experiencing any numbness/tingling/weakness/swelling in her extremities. She reports mild chronic swelling to her right ankle secondary to neuropathy and states this is unchanged. Patient currently reports chest pain has resolved. She reports init ially it was constant and progressively worsening and did not resolve until shortly after receiving nitroglycerin in the emergency department. Patient reports she follows outpatient with business analysis analyst, Dr. Machado. Vital signs upon arrival show blood pressure 152/76, heart rate 57, respiratory rate 16, temp 98.1 F, and SpO2 of 98% on room air. EKG completed showing sinus bradycardia at 55 bpm. Chest x-ray completed showing changes of COPD with flattening of the diaphragm and increased lucency of lungs otherwise negative for acute cardiopulmonary process. Labs were completed and reviewed. CBC unremarkable. Coagulation profile normal findings with exception of elevated D-dimer of 103. BMP showing mild hyperchloremia with chloride of 108 is normal findings. Blood glucose was 113. Liver profile unremarkable. Troponin was negative at less than 0.012. Lipase slightly elevated at 593. Urinalysis negative for infection. CTA chest negative for pulmonary emboli showing moderate to severe coronary artery atherosclerosis and stable right lower lobe pulmonary nodule dating back to 2021. CT abdomen and pelvis with contrast negative for acute intra-abdominal process showing no significant changes around the pancreas to correlate with elevated lipase and colonic diverticulosis without acute diverticulitis. Heart score 7. Patient admitted under our services with consultation to cardiology to rule out acute coronary event. Review of systems: Pertinent positives and negatives as discussed in HPI, a complete review of systems was performed and all other systems are negative. Physical exam: Vital signs reviewed and stable. General: Nontoxic, no distress and appears stated age. Derm: Skin warm and dry, normal coloration for ethnicity. Head: Atraumatic, normocephalic and symmetric. Eyes: EOMs intact, no lid lag, and anicteric sclera Mouth: no lip lesions, mucus membranes moist Cardiovascular: regular rate and rhythm with normal S1S2, no murmur, positive posterior tibial pulses bilaterally, and cap refill < 2 seconds. Lungs: Respirations even, regular, and unlabored on room air. Lungs CTA bilaterally, no rhonchi, no rales, no wheezing, and no accessory muscle usage. Abdominal: soft, nontender to palpation, no guarding, no appreciable organomegaly Ext: ROM intact. No gross muscle atrophy, no edema, no contractures Neuro: Speech clear, face symmetrical and CN II-XII grossly intact with no noted focal neuro deficits Psych: Alert and oriented to person, place, time, and situation. Appropriate and pleasant affect. Assessment and Plan of Care: Chest/Epigastric pain and heaviness, rule out acute coronary event Elevated lipase History of CAD status post stenting Hypertension Hyperlipidemia -Cardiology consulted, appreciate recommendations -Telemetry monitoring -Trend troponins -Cardiac diet, NPO at midnight -Current cardiac medication regimen with aspirin 81 mg daily, atorvastatin 80 mg nightly, Plavix 75 mg daily, lisinopril 10 mg twice daily, metoprolol 12.5 mg daily, and sublingual nitroglycerin 0.4 mg tablets every 5 minutes as needed for chest pain/discomfort. -Echocardiogram COPD, not in acute exacerbation -DuoNebs 4 times daily as needed for wheezing/shortness of breath. Right lung pulmonary nodule Per radiology report there is a stable right lower lobe pulmonary nodule dating back to 2021. Data and Imaging reviewed: As stated above in HPI. The patient is admitted with an anticipated less than 2 midnight stay for evaluation of chest/epigastric pain and heaviness CODE STATUS: Full code DVT prophylaxis: Heparin Anticipated discharge date: Pending clinical course, likely 24 to [address]: Home Patient was seen independently by Nurse Practitioner. This document was prepared using [employer] dictation software. Please allow for errors in motion picture actor while rare they do occur. I reviewed the documentation as provided by the DOLLY above, who is the original author of this note. I agree with the documented assessment and plan, with the following changes: none Past Medical History Past Medical History: Coronary Artery Disease (CAD), Chest Pain / Angina, COPD, Deep Vein Thrombosis (DVT), Eye Disorder, Hyperlipidemia, Hypertension, Myocardial Infarction ([place]), Osteoarthritis (OA), Skin Disorder Additional Past Medical History / Comment(s): Vertigo, balance issues, glaucoma, DVT L leg, bronchitis, chronic sinus problems, hemorrhoids, chronic back pain with R sciatica in the past, hx rosacia, hx anemia, hx kidney stones, psoriasis Last Myocardial Infarction Date:: 09/17/20 History of Any Multi-Drug Resistant Organisms: None Reported Past Surgical History: Cholecystectomy, Heart Catheterization With Stent, Orthopedic Surgery Additional Past Surgical History / Comment(s): Varicose vein ligation both legs, ORIF rt ankle/hardware later removed, colonoscopy, rt cataract, retinal surgery rt eye, 6 cardiac stents Past Anesthesia/Blood Transfusion Reactions: No Reported Reaction, Motion Sickness Additional Past Anesthesia/Blood Transfusion Reaction / Comment(s): Pt has never received blood. Date of Last Stent Placement:: 09/30/2020 Past Psychological History: No Psychological Hx Reported Smoking Status: Former smoker Past Alcohol Use History: None Reported, Occasional Past Drug Use History: None Reported - Past Family History Mother Family Medical History: Cancer Additional Family Medical History / Comment(s): colon cancer Medications and Allergies Home Medications Medication Instructions Recorded Confirmed Type HYDROcodone/APAP 7.5-325MG [[place] 1 tab PO BID PRN 08/29/18 08/21/23 History 7.5-325] Dorzolamide 2% [Trusopt 2%] 1 drop BOTH EYES BID 09/18/20 08/21/23 History Timolol [Betimol 0.5% Ophth Soln] 1 drop BOTH EYES HS 09/18/20 08/21/23 History Nitroglycerin Sl Tabs [Nitrostat] 0.4 mg SL Q5M PRN 10/09/20 08/21/23 History Atorvastatin [Lipitor] 80 mg PO HS 11/21/20 08/21/23 History Furosemide [Lasix] 20 mg PO DAILY 02/02/21 08/21/23 History Aspirin 81 mg PO DAILY 10/04/22 08/21/23 History Clopidogrel [Plavix] 75 mg PO DAILY 10/04/22 08/21/23 History Albuterol Inhaler [Ventolin Hfa 1 - 2 puff INHALATION RT-Q6H PRN 07/17/23 History Inhaler] Metoprolol Tartrate [Lopressor] 12.5 mg PO DAILY 07/17/23 08/21/23 History lisinopriL [Zestril] 10 mg PO BID #60 tab 07/18/23 08/21/23 Rx Allergies Allergy/AdvReac Type Severity Reaction Status Date / Time grapefruit Allergy Anaphylaxis Verified 08/21/23 13:57 levofloxacin [From Levaquin] Allergy Confusion Verified 08/21/23 13:57 loratadine [From Claritin] Allergy Dyspnea Verified 08/21/23 13:57 pseudoephedrine Allergy Dyspnea Verified 08/21/23 13:57 [From Sudafed] strawberry Allergy Anaphylaxis Verified 08/21/23 13:57 Physical Exam Osteopathic Statement: *. No significant issues noted on an osteopathic structural exam other than those noted in the History and Physical/Consult. Vitals: Vital Signs Temp Pulse Resp BP Pulse Ox 08/21/23 11:18 98.1 F 57 L 16 152/76 98 Intake and Output 08/21/23 08/21/23 08/21/23 06:59 14:59 22:59 Other: Voiding Method Toilet Weight 61.235 kg Results CBC & Chem 7: 08/21/23 11:36 08/21/23 11:36 Labs: Abnormal Lab Results - Last 24 Hours (Table) 08/21/23 08/21/23 08/21/23 Range/Units 11:36 11:36 12:57 D-Dimer 1.03 H (<0.60) mg/L FEU Chloride 108 H (98-107) mmol/L Glucose 113 H (74-99) mg/dL Total Protein 6.1 L (6.3-8.2) g/dL Lipase 593 H (23-300) U/L Urine Blood Small H (Negative) Hyaline Casts 3 H (0-2) /lpf Urine Mucus Rare H (None) /hpf
[2023-08-21] MEDS: lisinopriL 10 MG TAB PO SCH (21:09)
[2023-08-21] MEDS: ATORVASTATIN 80 MG TAB PO SCH (21:09)
[2023-08-21] MEDS: HEPARIN SODIUM,PORCINE 5,000 UNIT/ML 1 ML VIAL SQ SCH (21:10)
[2023-08-21] MEDS: TIMOLOL 0.5% OPHTH DROPS 5 ML BTL BOTH EYES SCH (22:38)
[2023-08-21] MEDS: DORZOLAMIDE HCL 2% DROPS 10 ML BTL BOTH EYES SCH (22:43)
[2023-08-22] MEDS ORDERED: FUROSEMIDE 20 MG TAB PO SCH (09:00)
[2023-08-22 09:47] VITALS: BP 154/78; PULSE 59; RESP 16; TEMP 98.2
[2023-08-22] MEDS: METOPROLOL TARTRATE 25 MG TAB PO SCH (10:25)
[2023-08-22] MEDS: CLOPIDOGREL 75 MG TAB PO SCH (10:25)
[2023-08-22] MEDS: ASPIRIN 81 MG PO SCH (10:25)
[2023-08-22] MEDS: PANTOPRAZOLE 40 MG/10 ML VIAL IV SCH (10:31)
--- NOTE | 2023-08-22 10:47 | P.CRDCN ---
History of Present Illness Consult date: 08/22/23 Consult reason: chest pain History of present illness: History of present illness: This is an 87-year-old female patient of Dr. Rickey Machado with past medical history of coronary artery disease status post prior angioplasty, hypertension, dyslipidemia. We have been asked to evaluate the patient for chest pain. Patient states that she had chest pain like nothing she has had before. It was an ache type pain that is now gone. He is she states that it started in her chest when around her chest like a band all the way around and lasted for about 1 hour. This is not the same type of pain she had with previous stenting. She denies any lightheadedness or dizziness. No headache. No abdominal pain but she did have some previously, none now. No nausea or vomiting. Patient was recently hospitalized and seen by cardiology on 07/17/2023 for uncontrolled blood pressure. Patient was stabilized and discharged home. She had a subsequent follow-up in the office on 07/19. She had no chest pain at that time. EKG sinus bradycardia Chest x-ray: No acute cardiopulmonary disease process. COPD changes. CTA of the chest revealed no evidence of pulmonary embolism. Moderate to severe coronary artery atherosclerosis. Stable right lower lobe pulmonary nodule. CBC within normal limits. D-dimer 1.03. Troponin negative x 3. Lipase 593. Home cardiac medications: Aspirin 81 mg daily, atorvastatin 80 mg at bedtime, Plavix 75 mg daily, Lasix 20 mg daily, lisinopril 10 mg twice daily, Lopressor 12.5 mg daily, Nitrostat as needed. Echocardiogram obtained in May 2022 revealed ejection fraction 55%, trace to mild AR, mild to moderate MR and moderate to severe TR Cardiac catheterization history: September 2022 with stenting of the mid LAD between both stents with a reduction of stenosis from 80% to 0%. Review Of Systems: At the time of my exam: CONSTITUTIONAL: Denies fever or chills. HEENT: Denies blurred vision, vision changes, or eye pain. Denies hemoptysis CARDIOVASCULAR: Denies chest pain. Denies orthopnea. Denies PND. Denies palpitat ions RESPIRATORY: Denies shortness of breath. GASTROINTESTINAL: Denies abdominal pain. Denies nausea or vomiting. HEMATOLOGIC: Denies bleeding disorders. GENITOURINARY: Denies any blood in urine. SKIN: Denies pruitis. Denies rash. Physical examination: Gen: This is an 87-year-old female in no acute distress VS: reviewed, blood pressure 154/78, heart rate 59, pulse ox 96% on room air, afebrile HEENT: Head is atraumatic, normocephalic. Pupils equal, round. Sclerae is anicteric. NECK: Supple. No JVD. LUNGS: Clear to auscultation. No wheezes or rhonchi. No intercostal retractions. HEART: Regular rate and rhythm. No murmur. ABDOMEN: Soft No tenderness. EXTREMITIES: No pedal edema. No calf tenderness. NEUROLOGICAL: Patient is awake, alert and oriented x3. Assessment: Atypical chest pain, acute coronary syndrome ruled out History of coronary artery disease status post prior angioplasty Hypertension Dyslipidemia Plan: Resume patient's home cardiac medications No further cardiac workup at this time. Patient is cleared for discharge and may follow-up with Dr. Rickey Machado in 1 to 2 weeks. Cancel echocardiogram and cancel Nitropaste Thank you kindly for this consultation. Nurse practitioner note has been reviewed, I agree with documented findings and plan of care. Patient was seen and examined. Past Medical History Past Medical History: Coronary Artery Disease (CAD), Chest Pain / Angina, COPD, Deep Vein Thrombosis (DVT), Eye Disorder, Hyperlipidemia, Hypertension, Myocardial Infarction ([place]), Osteoarthritis (OA), Skin Disorder Additional Past Medical History / Comment(s): Vertigo, balance issues, glaucoma, DVT L leg, bronchitis, chronic sinus problems, hemorrhoids, chronic back pain with R sciatica in the past, hx rosacia, hx anemia, hx kidney stones, psoriasis Last Myocardial Infarction Date:: 09/17/20 History of Any Multi-Drug Resistant Organisms: None Reported Past Surgical History: Cholecystectomy, Heart Catheterization With Stent, Orthopedic Surgery Additional Past Surgical History / Comment(s): Varicose vein ligation both legs, ORIF rt ankle/hardware later removed, colonoscopy, rt cataract, retinal surgery rt eye, 6 cardiac stents Past Anesthesia/Blood Transfusion Reactions: No Reported Reaction, Motion Sickness Additional Past Anesthesia/Blood Transfusion Reaction / Comment(s): Pt has never received blood. Date of Last Stent Placement:: 09/30/2020 Past Psychological History: No Psychological Hx Reported Smoking Status: Former smoker Past Alcohol Use History: None Reported, Occasional Past Drug Use History: None Reported - Past Family History Mother Family Medical History: Cancer Additional Family Medical History / Comment(s): colon cancer Medications and Allergies Home Medications Medication Instructions Recorded Confirmed Type HYDROcodone/APAP 7.5-325MG [[place] 1 tab PO BID PRN 08/29/18 08/21/23 History 7.5-325] Dorzolamide 2% [Trusopt 2%] 1 drop BOTH EYES BID 09/18/20 08/21/23 History Timolol [Betimol 0.5% Ophth Soln] 1 drop BOTH EYES HS 09/18/20 08/21/23 History Nitroglycerin Sl Tabs [Nitrostat] 0.4 mg SL Q5M PRN 10/09/20 08/21/23 History Atorvastatin [Lipitor] 80 mg PO HS 11/21/20 08/21/23 History Furosemide [Lasix] 20 mg PO DAILY 02/02/21 08/21/23 History Aspirin 81 mg PO DAILY 10/04/22 08/21/23 History Clopidogrel [Plavix] 75 mg PO DAILY 10/04/22 08/21/23 History Albuterol Inhaler [Ventolin Hfa 1 - 2 puff INHALATION RT-Q6H PRN 07/17/23 08/21/23 History Inhaler] Metoprolol Tartrate [Lopressor] 12.5 mg PO DAILY 07/17/23 08/21/23 History lisinopriL [Zestril] 10 mg PO BID #60 tab 07/18/23 08/21/23 Rx Allergies Allergy/AdvReac Type Severity Reaction Status Date / Time grapefruit Allergy Anaphylaxis Verified 08/21/23 13:57 levofloxacin [From Levaquin] Allergy Confusion Verified 08/21/23 13:57 loratadine [From Claritin] Allergy Dyspnea Verified 08/21/23 13:57 pseudoephedrine Allergy Dyspnea Verified 08/21/23 13:57 [From Sudafed] strawberry Allergy Anaphylaxis Verified 08/21/23 13:57 Physical Exam Vitals: Vital Signs Temp Pulse Resp BP Pulse Ox 08/22/23 06:06 97.9 F 60 17 135/79 94 L 08/22/23 03:30 59 L 17 144/77 95 08/21/23 22:40 65 16 157/74 95 08/21/23 20:11 97.9 F 59 L 17 151/93 94 L 08/21/23 15:30 59 L 16 149/74 96 08/21/23 15:20 56 L 95 08/21/23 15:10 60 162/75 96 08/21/23 15:00 56 L 97 08/21/23 14:50 56 L 08/21/23 14:40 61 144/77 08/21/23 14:30 65 16 144/77 97 08/21/23 14:20 52 L 96 08/21/23 14:10 55 L 136/70 98 08/21/23 14:00 55 L 95 08/21/23 13:50 55 L 97 08/21/23 13:40 54 L 149/76 96 08/21/23 13:30 56 L 92 L 08/21/23 13:20 57 L 97 08/21/23 13:10 68 96 08/21/23 12:40 56 L 123/74 96 08/21/23 12:30 58 L 156/78 94 L 08/21/23 12:20 53 L 96 08/21/23 12:10 52 L 126/75 94 L 08/21/23 12:00 53 L 94 L 08/21/23 11:50 55 L 144/78 96 08/21/23 11:40 55 L 08/21/23 11:36 61 08/21/23 11:18 98.1 F 57 L 16 152/76 98 Results 08/21/23 11:36 08/21/23 11:36 Cardiac Enzymes 08/21/23 08/21/23 08/21/23 Range/Units 11:36 11:36 14:20 AST 30 (14-36) U/L Troponin I <0.012 <0.012 (0.000-0.034) ng/mL 08/21/23 Range/Units 18:17 AST (14-36) U/L Troponin I <0.012 (0.000-0.034) ng/mL Coagulation 08/21/23 Range/Units 11:36 PT 10.8 (10.0-12.5) sec APTT 24.4 (22.0-30.0) sec CBC 08/21/23 Range/Units 11:36 WBC 6.5 (3.8-10.6) k/uL RBC 4.46 (3.80-5.40) m/uL Hgb 13.7 (11.4-16.0) gm/dL Hct 42.0 (34.0-46.0) % Plt Count 155 (150-450) k/uL Comprehensive Metabolic Panel 08/21/23 Range/Units 11:36 Sodium 139 (137-145) mmol/L Potassium 4.2 (3.5-5.1) mmol/L Chloride 108 H (98-107) mmol/L Carbon Dioxide 26 (22-30) mmol/L BUN 16 (7-17) mg/dL Creatinine 0.70 (0.52-1.04) mg/dL Glucose 113 H (74-99) mg/dL Calcium 9.3 (8.4-10.2) mg/dL AST 30 (14-36) U/L ALT 24 (4-34) U/L Alkaline Phosphatase 72 (38-126) U/L Total Protein 6.1 L (6.3-8.2) g/dL Albumin 3.9 (3.5-5.0) g/dL Current Medications Generic Name Dose Route Start Last Admin Trade Name Freq PRN Reason Stop Dose Admin Acetaminophen 650 mg 08/21/23 13:52 Acetaminophen Tab 325 Mg Tab PO Q6HR PRN Mild Pain or Fever > 100.5 Hydrocodone Bitart/Acetaminophen 1 each 08/21/23 13:52 Hydrocodone/Apap 5-325mg 1 Each Tab PO Q4HR PRN Moderate Pain (Scale 4 to 6) Hydrocodone Bitart/Acetaminophen 1 each 08/21/23 14:04 Hydrocodone/Apap 7.5-325mg 1 Each Tab PO BID PRN pain Albuterol Sulfate 1 - 2 puff 08/21/23 14:04 Albuterol Hfa Inhaler INHALATION RT-Q6H PRN Shortness Of Breath Albuterol/Ipratropium 3 ml 08/21/23 16:36 Ipratropium-Albuterol 3 Ml Neb INHALATION RT-QID PRN Shortness Of Breath Or Wheezing Aspirin 81 mg 08/22/23 09:00 Aspirin 81 Mg PO DAILY CAREN Atorvastatin Calcium 80 mg 08/21/23 21:00 08/21/23 21:09 Atorvastatin 80 Mg Tab PO 80 mg HS CAREN Administration Clopidogrel Bisulfate 75 mg 08/22/23 09:00 Clopidogrel 75 Mg Tab PO DAILY [facility] Dorzolamide HCl 1 drops 08/21/23 21:00 08/21/23 22:43 Dorzolamide Hcl 2% Drops 10 Ml Btl BOTH EYES 1 drops BID CAREN Administration Heparin Sodium (Porcine) 5,000 unit 08/21/23 21:00 08/21/23 21:10 Heparin Sodium,Porcine 5,000 Unit/Ml 1 Ml Vial SQ 5,000 unit Q12HR CAREN Administration Lisinopril 10 mg 08/21/23 21:00 08/21/23 21:09 Lisinopril 10 Mg Tab PO 10 mg BID CAREN Administration Metoprolol Tartrate 12.5 mg 08/22/23 09:00 Metoprolol Tartrate 25 Mg Tab PO DAILY [facility] Morphine Sulfate 4 mg 08/21/23 13:52 Morphine Sulfate 4 Mg/Ml Syringe IV Q4HR PRN Severe Pain (Scale 7 to 10) Naloxone HCl 0.2 mg 08/21/23 13:52 Naloxone 0.4 Mg/Ml 1 Ml Vial IV Q2M PRN Opioid Reversal Nitroglycerin 0.4 mg 08/21/23 14:04 Nitroglycerin Sl Tabs 0.4 Mg Tab SUBLINGUAL Q5M PRN Chest Pain Ondansetron HCl 4 mg 08/21/23 13:52 Ondansetron 4 Mg/2 Ml Vial IVP Q8HR PRN Nausea And Vomiting Pantoprazole Sodium 40 mg 08/22/23 09:00 Pantoprazole 40 Mg/10 Ml Vial IV DAILY [facility] Timolol Maleate 1 drops 08/21/23 21:00 08/21/23 22:38 Timolol 0.5% Ophth Drops 5 Ml Btl BOTH EYES 1 drops HS CAREN Administration 08/21/23 11:36 08/21/23 11:36
--- NOTE | 2023-08-22 11:31 | P.DS ---
Providers Date of admission: 08/21/23 13:42 Expected date of discharge: 08/22/23 Attending physician: Ruy Goodwin MD Consults: 08/21/23 13:52 Consult Physician Urgent Consulting Provider: Jeffry Burton Consult Reason/Comments: Chest pain Do you want consulting provider notified?: Yes Primary care physician: [facility] Course: Discharge Diagnosis: Chest/Epigastric pain and heaviness, acute coronary event ruled out. Continue cardiac medication regimen with aspirin 81 mg daily, atorvastatin 80 mg nightly, Plavix 75 mg daily, lisinopril 10 mg twice daily, metoprolol 12.5 mg daily, and sublingual nitroglycerin 0.4 mg tablets every 5 minutes as needed for chest pain/discomfort. Elevated lipase, unclear etiology. Patient had no further episodes of pain/discomfort since arrival to our facility and admission to hospital. Patient denies any indigestion, nausea, or any abdominal pain/discomfort and is tolerating a regular diet well. History of CAD status post stenting. Continue cardiac medication regimen with aspirin 81 mg daily, atorvastatin 80 mg nightly, Plavix 75 mg daily, lisinopril 10 mg twice daily, metoprolol 12.5 mg daily, and sublingual nitroglycerin 0.4 mg tablets every 5 minutes as needed for chest pain/discomfort. Hypertension. Continue medication regimen with lisinopril 10 mg twice daily and metoprolol 12.5 mg daily. Hyperlipidemia. Continue medication regimen with atorvastatin 80 mg nightly. COPD, not in acute exacerbation. Continue Ventolin inhaler 4 times daily as needed for wheezing/shortness of breath. Right lung pulmonary nodule. Per radiology report there is a stable right lower lobe pulmonary nodule dating back to 2021 unchanged. Hospital Course: Patient is a very pleasant 87-year-old female with a past medical history of CAD status post stenting x 7 on dual antiplatelet therapy with aspirin and Plavix, hypertension, hyperlipidemia, COPD chronic back pain, and vertigo/balance issues. She presented to the emergency department with a chief complaint of epigastric/chest pain. Patient describes this as "a heaviness".Vital signs upon arrival show blood pressure 152/76, heart rate 57, respiratory rate 16, temp 98.1 F, and SpO2 of 98% on room air. EKG completed showing sinus bradycardia at 55 bpm. Chest x-ray completed showing changes of COPD with flattening of the diaphragm and increased lucency of lungs otherwise negative for acute cardiopulmonary process. Labs were completed and reviewed. CBC unremarkable. Coagulation profile normal findings with exception of elevated D-dimer of 1.03. BMP showing mild hyperchloremia with chloride of 108 is normal findings. Blood glucose was 113. Liver profile unremarkable. Troponin was negative at less than 0.012. Lipase slightly elevated at 593. Urinalysis negative for infection. CTA chest negative for pulmonary emboli showing moderate to severe coronary artery atherosclerosis and stable right lower lobe pulmonary nodule dating back to 2021. CT abdomen and pelvis with contrast negative for acute intra-abdominal process showing no significant changes around the pancreas to correlate with elevated lipase and colonic diverticulosis without acute diverticulitis. Heart score 7. Patient admitted under our services with consultation to cardiology to rule out acute coronary event. Troponins trended overnight all negative at less than 0.012 x 3 draws. Patient was evaluated by cardiology clearing patient from cardiac perspective for discharge. Patient had no further episodes of chest/epigastric pain/discomfort since admission to the hospital. She is currently free from any complaints and reporting feeling ready to go home. Vital signs are stable. Patient being started on Protonix 40 mg daily as she has been on and continues to be on dual antiplatelet therapy with aspirin and Plavix and would benefit from GI prophylaxis with a PPI. Patient to follow-up outpatient with PCP in 1 to 2 days and with private client advisor in 1-2 weeks. Physical exam: Vital signs reviewed and stable. General: Nontoxic, no distress and appears stated age. Derm: Skin warm and dry, normal coloration for ethnicity. Head: Atraumatic, normocephalic and symmetric. Eyes: EOMs intact, no lid lag, and anicteric sclera Mouth: no lip lesions, mucus membranes moist Cardiovascular: regular rate and rhythm with normal S1S2, no murmur, positive posterior tibial pulses bilaterally, and cap refill < 2 seconds. Lungs: Respirations even, regular, and unlabored on room air. Lungs CTA bilaterally, no rhonchi, no rales, no wheezing, and no accessory muscle usage. Abdominal: soft, nontender to palpation, no guarding, no appreciable organomegaly Ext: ROM intact. No gross muscle atrophy, no edema, no contractures Neuro: Speech clear, face symmetrical and CN II-XII grossly intact with no noted focal neuro deficits Psych: Alert and oriented to person, place, time, and situation. Appropriate and pleasant affect. A total of 33 minutes of time were spent preparing this complex discharge summary. Pt was discharged on 08/22/2023 at 12:10 PM. Patient was seen independently by Nurse Practitioner. This document was prepared using [employer] dictation software. Please allow for errors in computer systems security administrator while rare they do occur. Jacob Chi NP rendered care for this patient independently, reviewed the findings and plan as documented in the note above. I did not physically speak with or examine the patient on this date. Patient Condition at Discharge: Stable Plan - Discharge Summary New Discharge Prescriptions: New Pantoprazole [Protonix] 40 mg PO DAILY 30 Days #30 tab Continue HYDROcodone/APAP 7.5-325MG [Wishram 7.5-325] 1 tab PO BID PRN PRN Reason: pain Timolol [Betimol 0.5% Ophth Soln] 1 drop BOTH EYES HS Dorzolamide 2% [Trusopt 2%] 1 drop BOTH EYES BID Nitroglycerin Sl Tabs [Nitrostat] 0.4 mg SL Q5M PRN PRN Reason: Chest Pain Clopidogrel [Plavix] 75 mg PO DAILY Albuterol Inhaler [Ventolin Hfa Inhaler] 1 - 2 puff INHALATION RT-Q6H PRN PRN Reason: Shortness Of Breath Metoprolol Tartrate [Lopressor] 12.5 mg PO DAILY Atorvastatin [Lipitor] 80 mg PO HS Furosemide [Lasix] 20 mg PO DAILY Aspirin 81 mg PO DAILY lisinopriL [Zestril] 10 mg PO BID #60 tab Discharge Medication List HYDROcodone/APAP 7.5-325MG [Wishram 7.5-325] 1 tab PO BID PRN 08/29/18 [History] Dorzolamide 2% [Trusopt 2%] 1 drop BOTH EYES BID 09/18/20 [History] Timolol [Betimol 0.5% Ophth Soln] 1 drop BOTH EYES HS 09/18/20 [History] Nitroglycerin Sl Tabs [Nitrostat] 0.4 mg SL Q5M PRN 10/09/20 [History] Atorvastatin [Lipitor] 80 mg PO HS 11/21/20 [History] Furosemide [Lasix] 20 mg PO DAILY 02/02/21 [History] Aspirin 81 mg PO DAILY 10/04/22 [History] Clopidogrel [Plavix] 75 mg PO DAILY 10/04/22 [History] Albuterol Inhaler [Ventolin Hfa Inhaler] 1 - 2 puff INHALATION RT-Q6H PRN 07/17/23 [History] Metoprolol Tartrate [Lopressor] 12.5 mg PO DAILY 07/17/23 [History] lisinopriL [Zestril] 10 mg PO BID #60 tab 07/18/23 [Rx] Pantoprazole [Protonix] 40 mg PO DAILY 30 Days #30 tab 08/22/23 [Rx] Follow up Appointment(s)/Referral(s): Roney Jacob MD [Primary Care Provider] - 1-2 days Mario Machado MD [STAFF PHYSICIAN] - 2 Weeks Patient Instructions/Handouts: Angina (DC), Chest Pain (DC) Activity/Diet/Wound Care/Special Instructions: Activity: As tolerated. Take breaks as needed. Diet: Heart healthy and carb consistent diet. Avoid salts, or foods with hidden salts such as canned or boxed foods and frozen dinners. Extra salt makes your heart work harder and traps the fluid in your body for longer. Special Instructions: Take all of your medications as directed and remember to keep all of your doctor's appointments and follow-up as needed. Thank you for allowing us to participate in your care, it was truly a pleasure having you for our patient!!! Discharge Disposition: HOME SELF-CARE
== END 2023-08-22 12:30 | disposition home or self-care (01) ==
LOC: EC 11:17 → 6NMEDSUR 13:42
PROVIDERS: ADMIT Internal Medicine; ATTEND Internal Medicine
DX: R10.13 Epigastric pain (principal); R79.89 Other specified abnormal findings of blood chemistry; I25.10 Atherosclerotic heart disease of native coronary artery without angina pectoris; I10 Essential (primary) hypertension; E78.5 Hyperlipidemia, unspecified; J44.9 Chronic obstructive pulmonary disease, unspecified; R91.8 Other nonspecific abnormal finding of lung field; Z95.5 Presence of coronary angioplasty implant and graft; Z87.442 Personal history of urinary calculi; Z80.0 Family history of malignant neoplasm of digestive organs; Z79.899 Other long term (current) drug therapy; Z79.82 Long term (current) use of aspirin; Z79.02 Long term (current) use of antithrombotics/antiplatelets
CPT/HCPCS: 96360; 96361; 96372; 99285; 36415; 93005; 85379; 80053; 82150; 83690; 84484; 85025; 85610; 85730; 81001; 71046; 71275; 74177; G0378 ×2; J1644; Q9967

== ENCOUNTER → 2024-02-01 | Outpatient (CLI) | payer MEDICARE ==
[2024-02-01 12:44] LABS: African American GFR (CKD) 73 (>60 ml/min/1.73 sqM); Blood Urea Nitrogen 16 mg/dL (7-17); Non-African American GFR(CKD) 64 (>60 ml/min/1.73 sqM)
--- NOTE | 2024-02-01 13:11 | CT ---
EXAMINATION TYPE: CT soft tissue neck w con CT DLP: 396.8 mGycm, Automated exposure control for dose reduction was used. DATE OF EXAM: 02/01/2024 1:00 PM COMPARISON: CT brain C-spine facial bones 06/29/2017. CLINICAL INDICATION:Female, 88 years old with history of R22.1 LOCALIZED SWELLING, MASS AND LUMP, NEC K; PHH, SWELLING MASS/LUMP IN NECK RT SIDE TECHNIQUE: Standard enhanced CT of the neck following intravenous administration of 100 cc of Isovue 300. Axial sections with coronal and sagittal reformats were obtained. FINDINGS: Brain: Visualized portions are grossly unremarkable. Orbits: Right aphakia. Bilateral scleral calcifications. Sinuses: Grossly unremarkable. Suprahyoid Neck: The oropharynx, oral cavity, parapharyngeal and retropharyngeal spaces are clear and symmetric. The nasopharynx is unremarkable. Infrahyoid Neck: The larynx, hypopharynx, and supraglottic area are clear and symmetric. Parotid Glands: Unremarkable. Submandibular Glands: Unremarkable. Musculoskeletal: Mild multilevel degenerative disc disease changes of the visualized spine are presen t. Lymph nodes: No lymphadenopathy identified. Vascular structures: Atherosclerotic calcifications of the internal carotid arteries. Approximately 4 0% stenosis of the proximal right internal carotid artery secondary to calcified plaque. Proximally 2 0% stenosis of the origin of the left proximal internal carotid artery secondary to calcified plaque. Thoracic Inlet/airway: Airway is patent. The lung apices are clear. Soft tissues/Thyroid: Couple of subcentimeter hypodense thyroid nodules within both thyroid lobes. Th ere is a well-circumscribed fluid density 9 mm lesion within the superficial right neck soft tissues just below the mandible (series 3, image 53). Not present on prior CT facial bones 06/29/2017. Other: none. IMPRESSION: Superficial right neck fluid density 9 mm lesion just below the mandible. Etiologies include sebaceou s cyst versus pilomatricoma, versus ganglion cyst versus other etiologies. Dermatology consult is rec ommended. [facility], , 02/01/2024 1:08 PM
== END | disposition home or self-care (01) ==
LOC: RADCTMAIN 11:22
PROVIDERS: ATTEND Otolaryngology
DX: R22.1 Localized swelling, mass and lump, neck (principal); I65.29 Occlusion and stenosis of unspecified carotid artery
CPT/HCPCS: 82565; 84520; 70491; 36415; Q9967